=== PATIENT | female | born 1955 | race Two or more races ===

== ENCOUNTER 2016-11-06 18:50 | Emergency (ER) | payer OTHER ==
[2016-11-06 19:12] VITALS: BMI 29.5
[2016-11-06 21:13] LABS: EOSINOPHIL 3.8 % (0-4.5); MCH 31.9 pg (25.7-33.7); MCHC 32.8 g/dl (32.0-36.0); MEAN CELL VOLUME 97.2 fl (80-96); NEUTROPHILS 70.1 % (42.8-82.8); PLATELET COUNT 170 K/MM3 (134-434); RDW 13.6 % (11.6-15.6); WHITE BLOOD COUNT 9.1 K/mm3 (4.0-10.0)
[2016-11-06 21:24] LABS: INR 1.04 (0.82-1.09); PROTHROMBIN TIME (PATIENT) 11.5 SEC (9.98-11.88)
[2016-11-06 21:36] LABS: ALBUMIN 3.6 g/dl (3.4-5.0); BILIRUBIN,TOTAL 0.4 mg/dL (0.2-1.0); CALCIUM 9.1 mg/dL (8.5-10.1); TOT PROT 6.5 g/dl (6.4-8.2)
[2016-11-06 21:39] LABS: TROPONIN I < 0.02 ng/ml (0.00-0.05)
[2016-11-06 21:41] LABS: COCKROFT - GAULT 5.95
[2016-11-06 21:44] LABS: CREATININE 11.2 mg/dL (0.55-1.02)
--- NOTE | 2016-11-06 23:21 | PDOC ---
History of Present Illness - General Chief Complaint: Chest Pain Stated Complaint: DIFF BREATHING/CHEST PAIN Time Seen by Provider: 11/06/16 19:51 History Source: Patient Exam Limitations: No Limitations - History of Present Illness Initial Comments: 11/06/16 23:19 Patient is a 60 year old female with h/o ESRD, b/l nepherectomy, on HD M,W,F, HTN, asthma, anemia, sciatica c/o Diff breathing and chest pain since this AM. State the pain is all over the chest pressure and radiates to b/l ribs 12/26 assoc with difficulty breathing due to the pain. States she has a cough occ, nonproductive. States at HD on Monday she did not make the weight, but was a full dialysis and now she has b/l lower ext edema. Denies fever, chills, nausea , vomiting. PMD: Елена PMHX: as above PSOCHX: neg cig, etoh, drug PFamHX; noncontributory ALL: PCN, toradol, GENERAL/CONSTITUTIONAL: [No fever or chills. No weakness. No weight change.] HEAD, EYES, EARS, NOSE AND THROAT: [No change in vision. No ear pain or discharge. No sore throat.] CARDIOVASCULAR: [No chest pain or shortness of breath.] RESPIRATORY: [No cough, wheezing, or hemoptysis.] GASTROINTESTINAL: [No nausea, vomiting, diarrhea or constipation. No rectal bleeding.] GENITOURINARY: [No dysuria, frequency, or change in urination.] MUSCULOSKELETAL: [(+) joint or muscle swelling or pain. No neck or back pain.] SKIN AND BREASTS: [No rash or easy bruising.] NEUROLOGIC: [No headache, vertigo, loss of consciousness, or loss of sensation.] PSYCHIATRIC: [No depression or anxiety.] ENDOCRINE: [No increased thirst. No abnormal weight change.] HEMATOLOGIC/LYMPHATIC: [No anemia, easy bleeding, or history of blood clots.] ALLERGIC/IMMUNOLOGIC: [No hives or skin allergy. No latex allergy.] GENERAL: [The patient is awake, alert, and fully oriented, in mild distress.] HEAD: [Normal with no signs of trauma.] EYES: [Pupils equal, round and reactive to light, extraocular movements intact, sclera anicteric, conjunctiva clear.] ENT: [Ears normal, nares patent, oropharynx clear without exudates. Moist mucous membranes.] NECK: [Normal range of motion, supple without lymphadenopathy, JVD, or masses.] LUNGS: [Breath sounds equal, clear to auscultation bilaterally. No wheezes, and no crackles.] HEART: [Regular rate and rhythm, normal S1 and S2 without murmur, rub.] ABDOMEN: [Soft, nontender, normoactive bowel sounds. No guarding, no rebound. No masses.] EXTREMITIES: [Normal range of motion, (+) b/l lower ext edema. No clubbing or cyanosis. No cords, erythema, or tenderness.] NEUROLOGICAL: [Cranial nerves II through XII grossly intact. Normal speech, normal gait.] PSYCH: [Normal mood, normal affect.] SKIN: [Warm, Dry, normal turgor, no rashes or lesions noted.] Past History - Past Medical History Allergies/Adverse Reactions: Allergies Allergy/AdvReac Type Severity Reaction Status Date / Time Penicillins Allergy Severe Difficulty Verified 11/06/16 19:59 Breathing ketorolac tromethamine Allergy Intermediate Verified 11/06/16 19:59 [From Toradol] hydromorphone HCl Allergy Nausea Verified 11/06/16 19:59 [From Dilaudid] plastic tape AdvReac Mild Hives Uncoded 11/06/16 19:59 beef AdvReac Vomiting Uncoded 11/06/16 19:59 Home Medications: Ambulatory Orders Omeprazole 40 mg PO DAILY 07/24/11 Montelukast Na [Singulair -] 10 mg PO HS #0 tablet 05/24/13 Sevelamer Carbonate [Renvela -] 2,400 mg PO CM #0 tab 05/24/13 Albuterol Sulfate 0.5% [Ventolin 0.5% Nebulizing Soln. -] 1 neb IH BID 03/20/14 Cholecalciferol (Vitamin D3) [Vitamin D3] 5,000 unit PO DAILY 03/20/14 Cinacalcet HCl [Sensipar] 60 mg PO DAILY 11/24/14 Multivitamin/Iron/Folic Acid [One Daily Multivitamin-Iron Tb] 1 each PO DAILY Anemia: Yes Asthma: Yes Cancer: No Cardiac Disorders: Yes CVA: No COPD: Yes CHF: No Dementia: No Diabetes: No Dialysis: Yes (M,W,F) GI Disorders: Yes Disorders: No HTN: Yes Hypercholesterolemia: No Liver Disease: No Suicide Attempt (Hx): No Seizures: No Thyroid Disease: No - Surgical History Abdominal Surgery: Yes (BILATERAL nephrectomy) Appendectomy: No Cardiac Surgery: No Cholecystectomy: No Lung Surgery: Yes (RIGHT LUNG NODULE REMOVAL) Neurologic Surgery: Yes (cervical renetta placement) Orthopedic Surgery: No - Immunization History Immunization Up to Date: Yes - Psycho/Social/Smoking Cessation Hx Anxiety: No Suicidal Ideation: No Smoking Status: Yes Smoking History: Never smoked Years of Tobacco Use: 16 Have you smoked in the past 12 months: No Number of Cigarettes Smoked Daily: 60 If you are a former smoker, when did you quit?: 17YRS AGO Hx Alcohol Use: No Drug/Substance Use Hx: No Substance Use Type: None Hx Substance Use Treatment: No Cardiac Specific PMH - Complaint Specific PMHX Pacemaker: No *Physical Exam - Vital Signs Last Vital Signs Temp Pulse Resp BP Pulse Ox 98 F 82 16 150/68 97 11/06/16 22:00 11/07/16 02:19 11/07/16 02:19 11/07/16 02:19 11/07/16 02:19 ED Treatment Course - LABORATORY CBC & Chemistry Diagram: 11/06/16 21:08 11/06/16 21:08 - ADDITIONAL ORDERS Additional order review: Laboratory Results 11/07/16 11/06/16 11/06/16 01:51 21:08 21:08 INR 1.04 Sodium Potassium Chloride Carbon Dioxide Anion Gap BUN Creatinine Creat Clearance w eGFR Random Glucose Calcium Total Bilirubin AST ALT Alkaline Phosphatase Creatine Kinase 144 185 D CK-MB (CK-2) 1.859 Troponin I < 0.02 < 0.02 B-Natriuretic Peptide 8653.15 H Total Protein Albumin 11/06/16 21:08 INR Sodium 135 L Potassium 4.9 Chloride 97 L Carbon Dioxide 27 Anion Gap 11 BUN 55 H D Creatinine 11.2 H* D Creat Clearance w eGFR 3.48 Random Glucose 80 Calcium 9.1 Total Bilirubin 0.4 D AST 21 D ALT 24 D Alkaline Phosphatase 194 H Creatine Kinase CK-MB (CK-2) Troponin I B-Natriuretic Peptide Total Protein 6.5 Albumin 3.6 11/06/16 21:08 RBC 2.81 L MCV 97.2 H MCHC 32.8 RDW 13.6 MPV 9.0 Neutrophils % 70.1 Lymphocytes % 19.2 Monocytes % 5.9 Eosinophils % 3.8 Basophils % 1.0 - RADIOLOGY Radiology Studies Ordered: Category Date Time Status CHEST PA & LAT [RAD] Stat Radiology 11/06/16 20:28 Taken - Medications Given in the ED: ED Medications Discontinued Medications Generic Name Dose Route Start Last Admin Trade Name Heidi PRN Reason Stop Dose Admin Nitroglycerin 1 inch 11/06/16 23:55 11/07/16 00:29 Nitro-Bid 2% Paste - TD 11/06/16 23:56 1 inch ONCE ONE Administration Medical Decision Making - Medical Decision Making 11/06/16 23:23 patient is a 60 year old female with h/o ESRD, b/l nepherectomy, on HD M,W,F, HTN, asthma, anemia, sciatica c/o Diff breathing and chest pain since this AM. EKG SR rate 85, NAD, T inversion aVL unchanged from prior Laboratory Tests 11/06/16 11/06/16 11/06/16 21:08 21:08 21:08 WBC 9.1 Hgb 8.9 L D Hct 27.3 L Plt Count 170 INR 1.04 Sodium 135 L Potassium 4.9 Chloride 97 L Carbon Dioxide 27 Anion Gap 11 BUN 55 H D Creatinine 11.2 H* D Troponin I B-Natriuretic Peptide 11/06/16 21:08 WBC Hgb Hct Plt Count INR Sodium Potassium Chloride Carbon Dioxide Anion Gap BUN Creatinine Troponin I < 0.02 B-Natriuretic Peptide 8653.15 H 11/06/16 23:56 Nitropaste 1 inch to chest wall 11/07/16 00:31 cxr chronic changes, no acute infiltrates, nl medistinum 11/07/16 02:38 repeat trop neg, EKG SR rate 81, NAD, T wave inversion aVL unchanged from prior Patient is chest pain free and wanting to go home *DC/Admit/Observation/Transfer Diagnosis at time of Disposition: Difficulty breathing Chest pain Qualifiers: Chest pain type: unspecified Qualified Code(s): R07.9 - Chest pain, unspecified - Discharge Dispostion Disposition: HOME Condition at time of disposition: Stable - Patient Instructions Printed Discharge Instructions: DI for Chest Pain Additional Instructions: Your Discharge Instructions: You must call primary care physician within 24 hours to arrange follow-up. Return to the Emergency Department with any new, persistent or worsening symptoms, for fever, chills, SOB, dizziness or any other concerning changes that may occur.
[2016-11-06] MEDS ORDERED: NITROGLYCERIN 2% OINTMENT - 1GM PACKET TD ONE (23:55)
[2016-11-07] MEDS ORDERED: NITROGLYCERIN 2% OINTMENT - 1GM PACKET TD ONE (00:31)
[2016-11-07 02:33] LABS: TROPONIN I < 0.02 ng/ml (0.00-0.05)
[2016-11-07 02:49] VITALS: BP 166/74; PULSE 80; TEMP 97.7
--- NOTE | 2016-11-07 09:52 | PDOC ---
Patient Follow-up (Call Back) - Post ED Follow - Up Condition at time of discharge: Stable Disposition at time of original discharge: HOME Reason for Call Back: Radiology (Received call from radiology noting nodule findings on CXR previously seen on CT. Requested pt be contacted to pursue CT follow-up of the lesions. no acute process. Pt called once, she is at dialysis and will have her call us back.)
--- NOTE | 2016-11-07 14:01 | EKG ---
Test Reason : Blood Pressure : / mmHG Vent. Rate : 081 BPM Atrial Rate : 081 BPM P-R Int : 182 ms QRS Dur : 096 ms QT Int : 386 ms P-R-T Axes : 061 037 076 degrees QTc Int : 448 ms NORMAL SINUS RHYTHM NORMAL ECG WHEN COMPARED WITH ECG OF 06-NOV-2016 18:59, NO SIGNIFICANT CHANGE WAS FOUND Confirmed by LOUISA YOUNG MD ([id number]) on 11/07/2016 2:01:19 PM Referred By: Confirmed By:LOUISA YOUNG MD
--- NOTE | 2016-11-07 14:04 | EKG ---
Test Reason : Blood Pressure : / mmHG Vent. Rate : 085 BPM Atrial Rate : 085 BPM P-R Int : 178 ms QRS Dur : 094 ms QT Int : 382 ms P-R-T Axes : 061 047 078 degrees QTc Int : 454 ms NORMAL SINUS RHYTHM POSSIBLE LEFT ATRIAL ENLARGEMENT BORDERLINE ECG WHEN COMPARED WITH ECG OF 23-NOV-2014 14:56, NO SIGNIFICANT CHANGE WAS FOUND Confirmed by LOUISA YOUNG MD ([id number]) on 11/07/2016 2:04:18 PM Referred By: Confirmed By:LOUISA YOUNG MD
== END 2016-11-07 02:51 | disposition home or self-care (01) ==
LOC: JER 18:50
DX: R07.89 Other chest pain (principal); I25.10 Atherosclerotic heart disease of native coronary artery without angina pectoris; I13.11 Hypertensive heart and chronic kidney disease without heart failure, with stage 5 chronic kidney disease, or end stage renal disease; N18.6 End stage renal disease; Z99.2 Dependence on renal dialysis; Z90.5 Acquired absence of kidney; J45.909 Unspecified asthma, uncomplicated; J44.9 Chronic obstructive pulmonary disease, unspecified
CPT/HCPCS: 36415; 71020-TC; 80053; 82550; 82553; 83880; 84484; 85025; 85610; 93005; 93010; 99284-25

== ENCOUNTER 2016-12-15 11:22 | Inpatient (IN) | payer OTHER ==
[2016-12-15 11:28] VITALS: BMI 28.6
--- NOTE | 2016-12-15 11:52 | PDOC ---
History of Present Illness <RavindraChristine - Last Filed: 12/15/16 13:56> - General History Source: Patient Exam Limitations: No Limitations - History of Present Illness Initial Comments: 12/15/16 11:51 Patient is a 60 year old female with h/o COPD, ESRD, b/l nepherectomy, on HD M,W ,F, HTN, asthma, anemia, sciatica who presents with sob and chest pain. She became increasingly sob with orthopnea on Monday with dry cough. She had her usual HD session yesterday, with the usual amount of fluid removed. It did not alleviate sob and today she developed cheat wall pain R>L aggravated by deep inspiration. She reports subjective f/c. She saw her PCP today who detected fever and bibasilar infiltrates on todays CXR. She denies h/a, palpitations, n/v , abd pain, diarrhea, constipation, melena, hematochezia, worsening LE edema or weight gain. Denies sick contacts or recent abx use. Reports previous PNA 8 mo ago. 12/15/16 13:48 12/15/16 13:54 12/15/16 14:07 <Malka Chiu - Last Filed: 12/15/16 14:46> - General Chief Complaint: Shortness of Breath Stated Complaint: SOB, CHEST PAIN Time Seen by Provider: 12/15/16 11:45 Past History <Waite,Christine - Last Filed: 12/15/16 13:56> - Past Medical History Anemia: Yes Asthma: Yes Cancer: No Cardiac Disorders: Yes CVA: No COPD: Yes CHF: No Dementia: No Diabetes: No Dialysis: Yes (M,W,F) GI Disorders: Yes Disorders: No HTN: Yes Hypercholesterolemia: No Liver Disease: No Suicide Attempt (Hx): No Seizures: No Thyroid Disease: No - Surgical History Abdominal Surgery: Yes (BILATERAL nephrectomy) Appendectomy: No Cardiac Surgery: No Cholecystectomy: No Lung Surgery: Yes (RIGHT LUNG NODULE REMOVAL) Neurologic Surgery: Yes (cervical renetta placement) Orthopedic Surgery: No - Immunization History Immunization Up to Date: Yes - Psycho/Social/Smoking Cessation Hx Anxiety: No Suicidal Ideation: No Smoking Status: Yes Smoking History: Never smoked Years of Tobacco Use: 16 Have you smoked in the past 12 months: No Number of Cigarettes Smoked Daily: 60 If you are a former smoker, when did you quit?: 17YRS AGO Information on smoking cessation initiated: No Hx Alcohol Use: No Drug/Substance Use Hx: No Substance Use Type: None Hx Substance Use Treatment: No <Malka Chiu - Last Filed: 12/15/16 14:46> - Past Medical History Allergies/Adverse Reactions: Allergies Allergy/AdvReac Type Severity Reaction Status Date / Time Penicillins Allergy Severe Difficulty Verified 12/15/16 11:28 Breathing ketorolac tromethamine Allergy Intermediate Verified 12/15/16 11:28 [From Toradol] hydromorphone HCl Allergy Nausea Verified 12/15/16 11:28 [From Dilaudid] plastic tape AdvReac Mild Hives Uncoded 12/15/16 11:28 beef AdvReac Vomiting Uncoded 12/15/16 11:28 Home Medications: Ambulatory Orders Omeprazole 40 mg PO DAILY 07/24/11 Montelukast Na [Singulair -] 10 mg PO HS #0 tablet 05/24/13 Sevelamer Carbonate [Renvela -] 2,400 mg PO CM #0 tab 05/24/13 Albuterol Sulfate 0.5% [Ventolin 0.5% Nebulizing Soln. -] 1 neb IH BID 03/20/14 Cholecalciferol (Vitamin D3) [Vitamin D3] 5,000 unit PO DAILY 03/20/14 Cinacalcet HCl [Sensipar] 60 mg PO DAILY 11/24/14 Multivitamin/Iron/Folic Acid [One Daily Multivitamin-Iron Tb] 1 each PO DAILY Amlodipine Besylate [Norvasc -] 5 mg PO DAILY 12/15/16 Losartan Potassium 25 mg PO DAILY 12/15/16 Review of Systems - Review of Systems Able to Perform ROS?: Yes Comments:: 12/15/16 13:53 Is the patient limited Bahraini proficient: No Constitutional: Yes: Chills, Fever. No: Diaphoresis, Unexplained wgt Loss HEENTM: No: Blurred Vision, Nose Congestion, Throat Pain Respiratory: Yes: Cough, Orthopnea, Shortness of Breath. No: Wheezing, Productive cough, Hemoptysis Cardiac (ROS): Yes: Chest Pain. No: Irregular Heart Rate, Lightheadedness, Palpitations, Syncope ABD/GI: No: Abdominal Distended, Constipated, Diarrhea, Nausea, Rectal Bleeding , Vomiting, Abdominal cramping, Tarry Stools : No: Burning, Dysuria, Flank Pain Musculoskeletal: No: Back Pain, Gout Integumentary: No: Bruising, Dryness, Erythema, Rash Neurological: No: Headache, Numbness, Paresthesia Psychiatric: No: Anxiety, Depression Endocrine: No: Excessive Sweating, Unexplained Weight Gain, Change in Weight Hematologic/Lymphatic: No: Anemia, Easy Bleeding All Other Systems: Reviewed and Negative <Malka Chiu - Last Filed: 12/15/16 14:46> *Physical Exam - Vital Signs Last Vital Signs Temp Pulse Resp BP Pulse Ox 98.4 F 92 H 18 180/74 100 12/15/16 11:26 12/15/16 12:57 12/15/16 11:26 12/15/16 11:26 12/15/16 12:57 <Christine Waite - Last Filed: 12/15/16 13:56> - Vital Signs Last Vital Signs Temp Pulse Resp BP Pulse Ox 98.4 F 97 H 18 180/74 94 L 12/15/16 11:26 12/15/16 11:26 12/15/16 11:26 12/15/16 11:26 12/15/16 11:26 - Physical Exam Comments: 12/15/16 13:32 General: NAD,aao x 3 HEENT: normocephalic, atraumatic, PERRLA, EOMI, sclera anicteric, conjunctiva clear, moist mucous membranes CV: RRR S1S2, grade 3 systolic ej murmur best head in R upper sternal border. reproducible chest pain when pressing on chest wall. Resp: reduced breath sounds in R base, otherwise cta GI: normoactive bowel sounds, soft, mildly tender ruq, nondistended, no mass Neuro: CN II-XII grossly intact Musculoskeletal:no peripheral edema. 12/15/16 13:55 <Malka Chiu - Last Filed: 12/15/16 14:46> Heart Score/ECG Review - History History: Slightly suspicious - Electrocardiogram EKG: Normal - Age Age: 45-65 - Risk Factors Risk Factors Heart Score: Yes Smoking History Based on the list above the patient has:: 1-2 risk factors - Troponin Troponin: </= normal limit - Score Heart Score - Total: 2 #1 ECG reviewed & interpreted by me at: 11:35 (ns 98, normal axis, no st changes. l atrial enlargement ) <Malka Chiu - Last Filed: 12/15/16 14:46> ED Treatment Course - LABORATORY CBC & Chemistry Diagram: 12/15/16 12:42 12/15/16 12:42 - ADDITIONAL ORDERS Additional order review: Laboratory Results 12/15/16 12/15/16 12/15/16 12:42 12:42 12:42 INR 1.12 PTT (Actin FS) 27.1 Sodium Potassium Chloride Carbon Dioxide Anion Gap BUN Creatinine Creat Clearance w eGFR Random Glucose Lactic Acid 1.2 Calcium Total Bilirubin AST ALT Alkaline Phosphatase Creatine Kinase 90 Troponin I 0.02 Total Protein Albumin 12/15/16 12:42 INR PTT (Actin FS) Sodium 138 Potassium 5.0 Chloride 97 L Carbon Dioxide 30 Anion Gap 11 BUN 25 H D Creatinine 7.3 H D Creat Clearance w eGFR 5.70 Random Glucose 110 H D Lactic Acid Calcium 9.2 Total Bilirubin 0.5 D AST 23 ALT 19 D Alkaline Phosphatase 182 H Creatine Kinase Troponin I Total Protein 6.5 Albumin 3.4 12/15/16 12:42 RBC 2.81 L MCV 95.3 MCHC 32.5 RDW 14.4 MPV 8.1 Neutrophils % 78.5 Lymphocytes % 12.8 D Monocytes % 5.4 Eosinophils % 2.1 Basophils % 1.2 - Medications Given in the ED: ED Medications Discontinued Medications Generic Name Dose Route Start Last Admin Trade Name Freq PRN Reason Stop Dose Admin Albuterol/Ipratropium 1 amp 12/15/16 12:20 12/15/16 12:45 Duoneb - NEB 12/15/16 12:21 1 amp ONCE ONE Administration Levofloxacin 150 mls @ 100 mls/hr 12/15/16 12:24 12/15/16 12:45 Levaquin 750 Mg Premixed Ivpb - IVPB 12/15/16 13:53 100 mls/hr ONCE ONE Administration <Christine Waite - Last Filed: 12/15/16 13:56> - LABORATORY CBC & Chemistry Diagram: 12/15/16 12:42 12/15/16 12:42 <Malka Chiu - Last Filed: 12/15/16 14:46> Medical Decision Making - Medical Decision Making 12/15/16 13:55 Patient presents with clinical picture most consistent with copd exacerbation vs pna. r/o acs patient afebrile but mildly tachycardic, sepsis protocol started cbc unremarkable, anemia at baseline, cmp unremarkable compared to baseline, trop negative, BNP p/d CXR shows increased bibasilar lung markings starting patient on nebs, levaqin IV BNP >34638 above baseline Cardio consult Renal consult contacting PCP for admission to telemetry 12/15/16 13:57 12/15/16 13:59 12/15/16 14:00 12/15/16 14:01 12/15/16 14:24 12/15/16 14:45 <Malka Chiu - Last Filed: 12/15/16 14:46> *DC/Admit/Observation/Transfer <Christine Waite - Last Filed: 12/15/16 13:56> - Discharge Dispostion Admit: Yes <Malka Chiu - Last Filed: 12/15/16 14:46> Diagnosis at time of Disposition: Congestive heart failure, Community acquired pneumonia
[2016-12-15] MEDS ORDERED: ALBUTEROL SO4 2.5/IPRATROPIUM 0.5 INH SOL 3 ML VIAL.NEB. NEB ONE ×2 (12:20→12:32)
--- NOTE | 2016-12-15 12:21 | PDOC ---
Attending Attestation - Medical Decision Making 12/15/16 13:[address] Baum. <Christine Waite - Last Filed: 12/15/16 13:57> - Resident Resident Name: Haroon Chiula - ED Attending Attestation I have performed the following: I have examined & evaluated the patient, The case was reviewed & discussed with the resident, I agree w/resident's findings & plan, Exceptions are as noted - HPI HPI: 12/15/16 12:20 The pat is a 60 year old female with a significant past medical history of COPD , ESRD (MWF) who presents with several days of increasing dyspnea and cough. Today she developed bilateral chest discomfort that is only present with cough or deep inspiration. 12/15/16 12:21 12/15/16 12:21 - Physicial Exam PE: 12/15/16 12:21 Vitals noted Diffuse wheezing Bibasilar crackles 12/15/16 13:05 - Medical Decision Making 12/15/16 13:05 She is well-appearing and in no acute distress She is afebrile She does not have a leukocytosis I am concerned for possible volume overload Labs, including BNP pending 12/15/16 14:23 Elevated BNP noted, significantly higher than previously Laboratory Tests 10/09/11 04/05/12 11/25/14 15:23 15:31 05:45 B-Natriuretic Peptide 6277 H* 2049 H* 2361.34 H 11/06/16 12/15/16 21:08 12:42 B-Natriuretic Peptide 8653.15 H 91539.84 H Clinical impression: Volume overload Acute exacerbation of congestive heart failure Will consult renal and cardiology Will admit to telemetry Case discussed in detail with admitting provider including history, physical exam and ancillary studies. Admitting physician has assumed care for the patient, will follow all pending diagnostics and will complete the evaluation and treatment. 12/15/16 15:04 Renal at bedside They will partially dialyze <Geo Akbar - Last Filed: 12/15/16 15:04>
[2016-12-15] MEDS ORDERED: LEVOFLOXACIN 750 MG IVPB 150 ML IVPB ONE ×2 (12:24→12:32)
[2016-12-15 12:51] LABS: BASOPHIL 1.2 % (0-2.0); EOSINOPHIL 2.1 % (0-4.5); MCH 30.9 pg (25.7-33.7); MCHC 32.5 g/dl (32.0-36.0); MEAN CELL VOLUME 95.3 fl (80-96); MEAN PLT VOLUME 8.1 fl (7.5-11.1); NEUTROPHILS 78.5 % (42.8-82.8); PLATELET COUNT 180 K/MM3 (134-434); RDW 14.4 % (11.6-15.6); WHITE BLOOD COUNT 9.2 K/mm3 (4.0-10.0)
[2016-12-15 13:06] LABS: INR 1.12 (0.82-1.09); PROTHROMBIN TIME (PATIENT) 12.4 SEC (9.98-11.88)
[2016-12-15 13:08] LABS: ACTIVATED PTT 27.1 SECONDS (26.9-34.4)
[2016-12-15 13:11] LABS: ALBUMIN 3.4 g/dl (3.4-5.0); ALK PHOS 182 U/L (45-117); ANION GAP 11 (8-16); BILIRUBIN,TOTAL 0.5 mg/dL (0.2-1.0); CALCIUM 9.2 mg/dL (8.5-10.1); CO2 30 mmol/L (21-32); CREATININE 7.3 mg/dL (0.55-1.02); GLUCOSE,RANDOM 110 mg/dL (74-106); SGPT/ALT 19 U/L (12-78); TOT PROT 6.5 g/dl (6.4-8.2); TROPONIN I 0.02 ng/ml (0.00-0.05)
[2016-12-15 13:12] LABS: SGOT/AST 23 U/L (15-37)
--- NOTE | 2016-12-15 14:55 | EKG ---
Test Reason : Blood Pressure : / mmHG Vent. Rate : 098 BPM Atrial Rate : 098 BPM P-R Int : 164 ms QRS Dur : 100 ms QT Int : 346 ms P-R-T Axes : 060 055 077 degrees QTc Int : 441 ms NORMAL SINUS RHYTHM POSSIBLE LEFT ATRIAL ENLARGEMENT BORDERLINE ECG WHEN COMPARED WITH ECG OF 07-NOV-2016 02:44, NO SIGNIFICANT CHANGE WAS FOUND Confirmed by ASHU GOULD MD ([id number]) on 12/15/2016 2:54:49 PM Referred By: Confirmed By:ASHU GOULD MD
--- NOTE | 2016-12-15 15:29 | CONSULT ---
Consult Consult Specialty:: Nephrology ( [facility]/ [facility]) Reason for Consultation:: Patient with ESRD admitted with SOB - History of Present Illness Chief Complaint: The pat is a 60 year old female with a significant past medical history of COPD, ESRD , getting dialysis on MWF, who presents with several days of increasing dyspnea and cough. Today she developed bilateral chest discomfort that is only present with cough or deep inspiration. - History Source History Provided By: Patient - Past Medical History Cardio/Vascular: Yes: HTN Pulmonary: Yes: Asthma, COPD Renal/: Yes: Renal Failure, Hemodialysis - Alcohol/Substance Use Hx Alcohol Use: No - Smoking History Smoking history: Never smoked Have you smoked in the past 12 months: No Aproximately how many cigarettes per day: 60 If you are a former smoker, when did you quit?: 17YRS AGO - Social History ADL: Independent History of Recent Travel: No Home Medications - Allergies Allergies/Adverse Reactions: Allergies Allergy/AdvReac Type Severity Reaction Status Date / Time Penicillins Allergy Severe Difficulty Verified 12/15/16 11:28 Breathing ketorolac tromethamine Allergy Intermediate Verified 12/15/16 11:28 [From Toradol] hydromorphone HCl Allergy Nausea Verified 12/15/16 11:28 [From Dilaudid] plastic tape AdvReac Mild Hives Uncoded 12/15/16 11:28 beef AdvReac Vomiting Uncoded 12/15/16 11:28 - Home Medications Home Medications: Ambulatory Orders Omeprazole 40 mg PO DAILY 07/24/11 Montelukast Na [Singulair -] 10 mg PO HS #0 tablet 05/24/13 Sevelamer Carbonate [Renvela -] 2,400 mg PO CM #0 tab 05/24/13 Albuterol Sulfate 0.5% [Ventolin 0.5% Nebulizing Soln. -] 1 neb IH BID 03/20/14 Cholecalciferol (Vitamin D3) [Vitamin D3] 5,000 unit PO DAILY 03/20/14 Cinacalcet HCl [Sensipar] 60 mg PO DAILY 11/24/14 Multivitamin/Iron/Folic Acid [One Daily Multivitamin-Iron Tb] 1 each PO DAILY Amlodipine Besylate [Norvasc -] 5 mg PO DAILY 12/15/16 Losartan Potassium 25 mg PO DAILY 12/15/16 Review of Systems - Review of Systems Constitutional: reports: Weakness Neck: reports: Stiffness Respiratory: reports: Exercise Intolerance Genitourinary: denies: Burning, Incontinence Musculoskeletal: denies: Back Pain Neurological: denies: Change in Speech Physical Exam Vital Signs: Vital Signs Temperature 99 F 12/15/16 13:53 Pulse Rate 100 H 12/15/16 13:53 Respiratory Rate 20 12/15/16 13:53 Blood Pressure 167/81 12/15/16 13:53 O2 Sat by Pulse Oximetry (%) 100 12/15/16 13:53 Constitutional: Yes: Well Nourished, Moderate Distress HENT: Yes: Normocephalic Neck: Yes: Trachea Midline Cardiovascular: Yes: S1, S2 Respiratory: Yes: Diminished, On Nasal O2, Rales, Rhonchi Gastrointestinal: Yes: Normal Bowel Sounds Renal/: No: CVA Tenderness - Left, CVA Tenderness - Right Musculoskeletal: Yes: Back Pain Problem List - Problems (1) CHF (congestive heart failure) Code(s): I50.9 - HEART FAILURE, UNSPECIFIED (2) Difficulty breathing Code(s): R06.89 - OTHER ABNORMALITIES OF BREATHING (3) Low back pain radiating to both legs Code(s): M54.5 - LOW BACK PAIN (4) ESRD (end stage renal disease) on dialysis Code(s): N18.6 - END STAGE RENAL DISEASE Z99.2 - DEPENDENCE ON RENAL DIALYSIS (5) Anemia Code(s): D64.9 - ANEMIA, UNSPECIFIED Assessment/Plan 60 y/o female with ESRD, admitted with acute shortness of breath. Congestive Heart failure: Will dialyze emergently, and remove as much fluid as tolerated by isolated UF. Acute exacerbation of COPD. Can not r/o an acute respiratory Infection. IV abx as ordered. Epogen on dialysis Thank you. Will follow up with you. Michelle Waggoner MD
[2016-12-15] MEDS: ALBUTEROL SO4 2.5/IPRATROPIUM 0.5 INH SOL 3 ML VIAL.NEB. NEB PRN (23:15)
[2016-12-15] MEDS: MONTELUKAST NA 10 MG TABLET PO SCH (23:25)
[2016-12-15] MEDS: CINACALCET HCL 30 MG TAB (FP) PO SCH (23:26)
[2016-12-15] MEDS ORDERED: PANTOPRAZOLE 40 MG TABLET (FP) PO ONE (23:30)
[2016-12-15] MEDS ORDERED: LOSARTAN POTASSIUM 50 MG TABLET (FP) PO ONE (23:30)
[2016-12-15 23:54] LABS: TROPONIN I 0.02 ng/ml (0.00-0.05)
[2016-12-16] MEDS ORDERED: ACETAMINOPHEN 1000 MG/100 ML VIAL (NON FORMULARY) IVPB ONE (00:33)
--- NOTE | 2016-12-16 00:35 | HOSP ---
Subjective - Review of Symptoms Events since last encounter: Pt c/o chest pain located at distal sternum radiating to L breast. Pain is her usual chest pain she feels at home which is normally relieved with nitro. Pt denies N/V, diaphoresis, sob, pain radiating to jaw or arms. RRR, S1S2 +, chest pain reproducible on palpation including pain at left breast. Lungs CTA anteriorly. A/P EKG ordered - no changes noted compared to previous ekg. No ST segment changes noted. Initial trop negative. Trend trops in AM. IV ofirmev 1g given for pain. Physical Examination Vital Signs: Vital Signs Temperature 98.8 F 12/15/16 17:40 Pulse Rate 81 12/15/16 19:50 Respiratory Rate 18 12/15/16 19:50 Blood Pressure 169/92 12/15/16 19:50 O2 Sat by Pulse Oximetry (%) 100 12/15/16 17:21 Visit type - Emergency Visit Emergency Visit: Yes ED Registration Date: 12/15/16 Care time: The patient presented to the Emergency Department on the above date and was hospitalized for further evaluation of their emergent condition. - New Patient This patient is new to me today: Yes Date on this admission: 12/16/16 - Critical Care Critical Care patient: No
[2016-12-16 06:36] LABS: BASOPHIL 0.6 % (0-2.0); EOSINOPHIL 2.7 % (0-4.5); MCH 31.3 pg (25.7-33.7); MEAN CELL VOLUME 94.8 fl (80-96); MEAN PLT VOLUME 8.6 fl (7.5-11.1); NEUTROPHILS 75.2 % (42.8-82.8); PLATELET COUNT 160 K/MM3 (134-434); RDW 14.1 % (11.6-15.6); WHITE BLOOD COUNT 7.4 K/mm3 (4.0-10.0)
[2016-12-16 06:53] LABS: ALBUMIN 3.3 g/dl (3.4-5.0); ANION GAP 11 (8-16); CALCIUM 9.2 mg/dL (8.5-10.1); CO2 31 mmol/L (21-32); CREATININE 5.9 mg/dL (0.55-1.02); GLUCOSE,RANDOM 84 mg/dL (74-106); SGOT/AST 16 U/L (15-37); SGPT/ALT 16 U/L (12-78)
[2016-12-16 06:55] LABS: ALK PHOS 175 U/L (45-117); BILIRUBIN,TOTAL 0.4 mg/dL (0.2-1.0); TOT PROT 6.3 g/dl (6.4-8.2)
--- NOTE | 2016-12-16 09:10 | CON.CARD ---
Consult Consult Specialty:: Cardiology Referred by:: ER Reason for Consultation:: SOB, CHF, chest pain - History of Present Illness Chief Complaint: SOB, chest pain History of Present Illness: 60 year old woman with a history of HTN, b/l nephrectomy ESRD on HD, COPD admitted with c/o sob and chest pain. Pt noted to be volume overloaded, underwent HD yesterday with volume removal and significant improvement in symptoms. planned for HD again today. Of note pt was seen in the office last week by my associate who she follows with regularly. Pt had a cardiac cath 2014 that showed normal coronary arteries. Echo was done 10/2016 that showed normal LV/RV function, no pericardial effusion, mild PHTN, mild MR, mod MAC. - History Source History Provided By: Patient, Medical Record Limitations to Obtaining History: No Limitations - Past Medical History Cardio/Vascular: Yes: HTN, Pulmonary Hypertension Pulmonary: Yes: Asthma, COPD Renal/: Yes: Renal Failure, Hemodialysis - Alcohol/Substance Use Hx Alcohol Use: No - Smoking History Smoking history: Former smoker Have you smoked in the past 12 months: No Aproximately how many cigarettes per day: 60 If you are a former smoker, when did you quit?: 17YRS AGO - Social History ADL: Independent History of Recent Travel: No Home Medications - Allergies Allergies/Adverse Reactions: Allergies Allergy/AdvReac Type Severity Reaction Status Date / Time Penicillins Allergy Severe Difficulty Verified 12/15/16 11:28 Breathing ketorolac tromethamine Allergy Intermediate Verified 12/15/16 11:28 [From Toradol] hydromorphone HCl Allergy Nausea Verified 12/15/16 11:28 [From Dilaudid] plastic tape AdvReac Mild Hives Uncoded 12/15/16 11:28 beef AdvReac Vomiting Uncoded 12/15/16 11:28 - Home Medications Home Medications: Ambulatory Orders Omeprazole 40 mg PO DAILY 07/24/11 Montelukast Na [Singulair -] 10 mg PO HS #0 tablet 05/24/13 Albuterol Sulfate 0.5% [Ventolin 0.5% Nebulizing Soln. -] 1 neb IH BID 03/20/14 Cholecalciferol (Vitamin D3) [Vitamin D3] 5,000 unit PO DAILY 03/20/14 Cinacalcet HCl [Sensipar] 30 mg PO BID 11/24/14 Multivitamin/Iron/Folic Acid [One Daily Multivitamin-Iron Tb] 1 each PO DAILY Amlodipine Besylate [Norvasc -] 5 mg PO DAILY 12/15/16 Losartan Potassium 25 mg PO DAILY 12/15/16 Sevelamer Carbonate [Renvela -] 2,400 mg PO TID 12/15/16 Family Disease History - Family Disease History Family History: Denies Review of Systems - Review of Systems Constitutional: denies: No Symptoms, Chills, Diaphoresis, Fever, Lethargy, Loss of Appetite, Malaise, Night Sweats, Unintentional Wgt. Loss, Weakness, Other Eyes: denies: No Symptoms, Blind Spots, Blurred Vision, Double Vision, Eye Pain , Floaters, Photophobia, Recent Change in Vision, Other HENT: denies: No Symptoms, Difficult Swallowing, Ear Discharge, Ear Pain, Epistaxis, Gingival Bleeding, Hearing Loss, Mouth Swelling, Nasal Congestion, Ocular Prosthesis, Throat Pain, Toothache, Ringing in Ears, Other Neck: denies: No Symptoms, Decreased ROM, Lumps, Pain on Movement, Stiffness, Swollen Glands, Tenderness, Other Cardiovascular: reports: Chest Pain, Shortness of Breath. denies: No Symptoms, Edema, Palpitations, Other Respiratory: reports: Exercise Intolerance, Orthopnea, SOB, SOB on Exertion. denies: No Symptoms, Cough, Hemoptysis, PND, Snoring, Wheezing, Other Gastrointestinal: denies: No Symptoms, Abdominal Pain, Bloating, Constipation, Diarrhea, Dysphagia, Indigestion, Melena, Nausea, Rectal Bleeding, Vomiting, Vomiting Blood, Other Genitourinary: denies: No Symptoms, Burning, Discharge, Dysuria, Flank Pain, Frequency, Hematuria, Incontinence, Lesions, Menses, Pain, Testicular Mass, Testicular Pain, Testicular Swelling, Urgency, Vaginal Bleeding, Other Breasts: denies: No Symptoms Reported, See HPI, Breast Implants, Discharge from Nipple, Lumps, Pain, Skin Changes, Other Musculoskeletal: denies: No Symptoms, Back Pain, Crepitus, Decreased ROM, Extremity Pain, Joint Pain, Joint Swelling, Muscle Pain, Muscle Cramps, Muscle Weakness, Other Integumentary: denies: No Symptoms, Blister, Bruising, Change in Color, Eczema, Erythema, Incision, Lesions, Lump, Pallor, Pruritis, Rash, Wound, Other Neurological: denies: No Symptoms, Change in LOC, Change in Speech, Confusion, Dizziness, Headache, Incoordination, Numbness, Parasthesia, Pre-Existing Deficit , Seizure, Syncope, Tremors, Unsteady Gait, Weakness, Other Endocrine: denies: No Symptoms, Excessive Sweating, Flushing, Increased Hunger, Increased Thirst, Intolerance to Cold, Intolerance to Heat, Unexplained Weight Gain, Unexplained Weight Loss, Other Hematology/Lymphatic: denies: No Symptoms, Easily Bruised, Excessive Bleeding, Swollen Glands, Other Psychiatric: denies: No Symptoms, Altered Sleep Pattern, Anxiety, Depression, Hallucinations, Panic, Paranoia, Suicidal, Other - Risk Factors Known Risk Factors: Yes: Hypercholesterolemia, Hypertension Vital Signs: Vital Signs Temperature 98.1 F 12/16/16 06:00 Pulse Rate 84 12/16/16 06:00 Respiratory Rate 12/16/16 06:00 Blood Pressure 161/67 12/16/16 06:00 O2 Sat by Pulse Oximetry (%) 100 12/15/16 20:58 Constitutional: Yes: Well Nourished, No Distress, Calm Eyes: Yes: WNL, Conjunctiva Clear, EOM Intact, PERRL HENT: Yes: WNL, Atraumatic, Normocephalic Neck: Yes: WNL, Supple, Trachea Midline Respiratory: Yes: Regular, Rales (slight rales b/l bases). No: Rhonchi, SOB, Wheezes Gastrointestinal: Yes: WNL, Normal Bowel Sounds, Soft. No: Distention, Tenderness Renal/: Yes: WNL Cardiovascular: Yes: Regular Rate and Rhythm. No: Bradycardia, Tachycardia, Pulse Irregular, Gallop, Rub, Varicosities, Other JVD: No Carotid Bruit: No PMI: Non-Displaced Heart Sounds: Yes: S1, S2. No: Split S2, S3, S4, Clicks, Gallop, Rub, Bruit Murmur: Yes: Systolic Murmur, Grade 2. No: Diastolic Murmur Musculoskeletal: Yes: WNL Extremities: Yes: WNL Edema: No Peripheral Pulses WNL: Yes Peripheral Pulses: 2+ Left Doralis Pedis, 2+ Right Dorsalis Pedis Integumentary: Yes: WNL Neurological: Yes: WNL, Alert, Oriented, Cran Nerves II-XII Intact ...Motor Strength: WNL Psychiatric: Yes: WNL, Alert, Oriented - Other Data Labs, Other Data: CBC, BMP 12/16/16 05:15 12/16/16 05:15 INR, PTT INR 1.12 (0.82-1.09) 12/15/16 12:42 Troponin, BNP 12/15/16 12/16/16 23:15 05:15 Troponin I 0.02 0.02 Troponin, BNP 12/15/16 12/16/16 23:15 05:15 Troponin I 0.02 0.02 ekg-nsr 86bpm, nonspecific st abnl, apcs Echo: Report Reviewed Prior Cardiac Procedures: Cardiac Catheterization Ejection Fraction %: LVEF > or = 40 % Imaging - Results Chest X-ray: Report Reviewed, Image Reviewed EKG: Report Reviewed, Image Reviewed Other: Report Reviewed, Image Reviewed (tele-nsr, no arrhythmias recorded) Assessment/Plan SOB Atypical chest pain HTN ESRD HD COPD SOB-pulmonary edema, likely multifactorial, esrd on hd, likely degree of acute on chronic diastolic CHF, mild Phtn, COPD -clinically and symptomatically much improved since having HD yesterday -planned for further volume removal with HD today -close to euvolemic now -ok from a cardiac standpoint for discharge today after HD Chest pain-atypical, unlikely ischemic -pt is followed closely as outpatient -cardiac cath 2014 showed normal coronary arteries -cardiac enzymes wnl -remainder of cardiac work up can be completed as outpatient -no additional planned inpatient cardiac work up at this point, pt is acceptable for discharge from a cardiac standpoint with a plan for close outpatient follow up next week, she agrees to the plan HTN-above goal -cont home meds and re-evaluate after HD -close outpatient follow up
[2016-12-16] MEDS ORDERED: LOSARTAN POTASSIUM 25 MG TABLET PO SCH (10:00)
[2016-12-16] MEDS ORDERED: PANTOPRAZOLE 40 MG TABLET (FP) PO SCH (10:00)
--- NOTE | 2016-12-16 11:25 | PN ---
Progress Note, Physician History of Present Illness: The patient seen in the telemetry unit. Awake alert, hemodialysis in progress. UF well tolerated. No chest pains at this point. She has history of HTN, b/l nephrectomy ESRD on HD, COPD. - Current Medication List Current Medications: Active Medications Albuterol/Ipratropium (Duoneb -) 1 amp NEB Q6H PRN PRN Reason: SHORTNESS OF BREATH Last Admin: 12/15/16 23:15 Dose: 1 amp Amlodipine Besylate (Norvasc -) 5 mg PO DAILY [facility] Cinacalcet (Sensipar -) 30 mg PO BID [facility] Last Admin: 12/15/16 23:26 Dose: Not Given Heparin Sodium (Porcine) (Heparin -) 5,000 unit SQ BID [facility] Losartan Potassium (Cozaar -) 50 mg PO DAILY [facility] Montelukast Sodium (Singulair -) 10 mg PO HS [facility] Last Admin: 12/15/16 23:25 Dose: 10 mg Pantoprazole Sodium (Protonix -) 40 mg PO DAILY [facility] Sevelamer Carbonate (Renvela -) 2,400 mg PO TIDCM [facility] - Objective Vital Signs: Vital Signs Temperature 98.2 F 12/16/16 10:00 Pulse Rate 78 12/16/16 11:00 Respiratory Rate 18 12/16/16 11:00 Blood Pressure 168/82 12/16/16 11:00 O2 Sat by Pulse Oximetry (%) 100 12/15/16 20:58 Labs: CBC, BMP 12/16/16 05:15 12/16/16 05:15 INR, PTT INR 1.12 (0.82-1.09) 12/15/16 12:42 Problem List - Problems (1) CHF (congestive heart failure) Code(s): I50.9 - HEART FAILURE, UNSPECIFIED (2) Difficulty breathing Code(s): R06.89 - OTHER ABNORMALITIES OF BREATHING (3) Low back pain radiating to both legs Code(s): M54.5 - LOW BACK PAIN (4) ESRD (end stage renal disease) on dialysis Code(s): N18.6 - END STAGE RENAL DISEASE Z99.2 - DEPENDENCE ON RENAL DIALYSIS (5) Anemia Code(s): D64.9 - ANEMIA, UNSPECIFIED Assessment/Plan 60 y/o female with ESRD, admitted with acute shortness of breath. Congestive Heart failure: had received HD with UF and significant fluid removal. Clinically feeling much better. HD in progress. Tolerates HD well. Orders reviewed with the RN. Off Abx. Agree with the current regimen. Thank you. Will follow up with you. Michelle Waggoner MD
--- NOTE | 2016-12-16 12:06 | HP ---
Admitting History and Physical - Admission History of Present Illness: Patient is a 60 year old female with h/o COPD, ESRD, b/l nepherectomy, on HD M,W ,F, HTN, asthma, anemia, sciatica who presents with sob and chest pain. She became increasingly sob with orthopnea on Monday with dry cough. She had her usual HD session yesterday, with the usual amount of fluid removed. It did not alleviate sob and today she developed cheat wall pain R>L aggravated by deep inspiration. She reports subjective f/c. She saw her PCP today who detected fever and bibasilar infiltrates on todays CXR. She denies h/a, palpitations, n/v , abd pain, diarrhea, constipation, melena, hematochezia, worsening LE edema or weight gain. Denies sick contacts or recent abx use. Reports previous PNA 8 mo ago. - Past Medical History Cardiovascular: Yes: HTN, Pulmonary Hypertension Pulmonary: Yes: Asthma, COPD Renal/: Yes: Renal Failure, Hemodialysis Heme/Onc: Yes: Anemia - Smoking History Smoking history: Former smoker Have you smoked in the past 12 months: No Aproximately how many cigarettes per day: 60 If you are a former smoker, when did you quit?: 17YRS AGO - Alcohol/Substance Use Hx Alcohol Use: No - Social History ADL: Independent History of Recent Travel: No Home Medications - Allergies Allergies/Adverse Reactions: Allergies Allergy/AdvReac Type Severity Reaction Status Date / Time Penicillins Allergy Severe Difficulty Verified 12/15/16 11:28 Breathing ketorolac tromethamine Allergy Intermediate Verified 12/15/16 11:28 [From Toradol] hydromorphone HCl Allergy Nausea Verified 12/15/16 11:28 [From Dilaudid] plastic tape AdvReac Mild Hives Uncoded 12/15/16 11:28 beef AdvReac Vomiting Uncoded 12/15/16 11:28 - Home Medications Home Medications: Ambulatory Orders Omeprazole 40 mg PO DAILY 07/24/11 Montelukast Na [Singulair -] 10 mg PO HS #0 tablet 05/24/13 Albuterol Sulfate 0.5% [Ventolin 0.5% Nebulizing Soln. -] 1 neb IH BID 03/20/14 Cholecalciferol (Vitamin D3) [Vitamin D3] 5,000 unit PO DAILY 03/20/14 Cinacalcet HCl [Sensipar] 30 mg PO BID 11/24/14 Multivitamin/Iron/Folic Acid [One Daily Multivitamin-Iron Tb] 1 each PO DAILY Sevelamer Carbonate [Renvela -] 2,400 mg PO TID 12/15/16 Losartan Potassium [Cozaar -] 50 mg PO DAILY #30 tablet 12/18/16 Family Disease History - Family Disease History Family History: Unremarkable Review of Systems - Review of Systems Constitutional: reports: No Symptoms Eyes: reports: No Symptoms HENT: reports: No Symptoms Neck: reports: No Symptoms Cardiovascular: reports: No Symptoms Respiratory: reports: No Symptoms Gastrointestinal: reports: No Symptoms Physical Examination Vital Signs: Vital Signs Temperature 98.2 F 12/16/16 10:00 Pulse Rate 82 12/16/16 12:00 Respiratory Rate 18 12/16/16 12:00 Blood Pressure 157/94 12/16/16 12:00 O2 Sat by Pulse Oximetry (%) 100 12/15/16 20:58 Constitutional: Yes: No Distress Eyes: Yes: WNL HENT: Yes: WNL, Atraumatic Neck: Yes: WNL, Supple Cardiovascular: Yes: WNL, Regular Rate and Rhythm Respiratory: Yes: WNL, Regular, CTA Bilaterally Gastrointestinal: Yes: WNL, Normal Bowel Sounds Musculoskeletal: Yes: WNL Extremities: Yes: WNL Edema: No Neurological: Yes: WNL, Alert, Oriented ...Motor Strength: WNL Labs: CBC, BMP 12/16/16 05:15 12/16/16 05:15 Problem List - Problems (1) Anemia Code(s): D64.9 - ANEMIA, UNSPECIFIED (2) CAP (community acquired pneumonia) Code(s): J18.9 - PNEUMONIA, UNSPECIFIED ORGANISM (3) CHF (congestive heart failure) Code(s): I50.9 - HEART FAILURE, UNSPECIFIED (4) ESRD (end stage renal disease) on dialysis Code(s): N18.6 - END STAGE RENAL DISEASE Z99.2 - DEPENDENCE ON RENAL DIALYSIS
[2016-12-16] MEDS: SEVELAMER CARBONATE 800 MG TAB (FP) PO SCH ×3 (12:51→18:17)
[2016-12-16] MEDS: PANTOPRAZOLE 40 MG TABLET (FP) PO SCH (14:33)
[2016-12-16] MEDS: CINACALCET HCL 30 MG TAB (FP) PO SCH ×2 (14:33→21:08)
[2016-12-16] MEDS: amLODIPine BESYLATE 5 MG TABLET (FP) PO SCH (14:34)
[2016-12-16] MEDS: LOSARTAN POTASSIUM 50 MG TABLET (FP) PO SCH (14:34)
[2016-12-16] MEDS: HEPARIN NA (PORCINE) 5,000 UNITS/ML 1ML VIAL SQ SCH ×2 (14:34→21:08)
[2016-12-16] MEDS ORDERED: ACETAMINOPHEN 325 MG TABLET (FP) PO PRN (15:34)
--- NOTE | 2016-12-16 17:10 | EKG ---
Test Reason : Blood Pressure : / mmHG Vent. Rate : 088 BPM Atrial Rate : 088 BPM P-R Int : 162 ms QRS Dur : 092 ms QT Int : 388 ms P-R-T Axes : 046 042 080 degrees QTc Int : 469 ms POOR DATA QUALITY, INTERPRETATION MAY BE ADVERSELY AFFECTED NORMAL SINUS RHYTHM POSSIBLE LEFT ATRIAL ENLARGEMENT LEFT VENTRICULAR HYPERTROPHY NONSPECIFIC T WAVE ABNORMALITY PROLONGED QT ABNORMAL ECG WHEN COMPARED WITH ECG OF 15-DEC-2016 11:35, NO SIGNIFICANT CHANGE WAS FOUND Confirmed by MD MIKALA, ALYSON ([id number]) on 12/16/2016 5:10:37 PM Referred By: Confirmed By:ALYSON BACH MD
[2016-12-16] MEDS: MONTELUKAST NA 10 MG TABLET PO SCH (21:08)
[2016-12-16] MEDS ORDERED: diphenhydrAMINE HCL 25 MG CAPSULE (FP) PO ONE (21:15)
[2016-12-16] MEDS: ALBUTEROL SO4 2.5/IPRATROPIUM 0.5 INH SOL 3 ML VIAL.NEB. NEB PRN (22:06)
[2016-12-17] MEDS: SEVELAMER CARBONATE 800 MG TAB (FP) PO SCH ×3 (09:31→18:31)
[2016-12-17] MEDS: PANTOPRAZOLE 40 MG TABLET (FP) PO SCH (09:32)
[2016-12-17] MEDS: amLODIPine BESYLATE 5 MG TABLET (FP) PO SCH (09:32)
[2016-12-17] MEDS: HEPARIN NA (PORCINE) 5,000 UNITS/ML 1ML VIAL SQ SCH ×2 (09:32→21:10)
[2016-12-17] MEDS: LOSARTAN POTASSIUM 50 MG TABLET (FP) PO SCH (09:32)
[2016-12-17] MEDS: CINACALCET HCL 30 MG TAB (FP) PO SCH ×2 (09:33→21:10)
--- NOTE | 2016-12-17 10:54 | PN ---
Progress Note, Physician History of Present Illness: 60 year old woman with a history of HTN, b/l nephrectomy ESRD on HD, COPD admitted with c/o sob and chest pain. Pt noted to be volume overloaded, underwent HD yesterday with volume removal and significant improvement in symptoms. planned for HD again today. Of note pt was seen in the office last week by my associate who she follows with regularly. Pt had a cardiac cath 2014 that showed normal coronary arteries. Echo was done 10/2016 that showed normal LV/RV function, no pericardial effusion, mild PHTN, mild MR, mod MAC. - Current Medication List Current Medications: Active Medications Acetaminophen (Tylenol -) 650 mg PO Q6H PRN PRN Reason: FEVER OR PAIN Last Admin: 12/16/16 15:46 Dose: 650 mg Albuterol/Ipratropium (Duoneb -) 1 amp NEB Q6H PRN PRN Reason: SHORTNESS OF BREATH Last Admin: 12/16/16 22:06 Dose: 1 amp Amlodipine Besylate (Norvasc -) [address] [facility] Last Admin: 12/17/16 09:32 Dose: 5 mg Cinacalcet (Sensipar -) [address] [facility] Last Admin: 12/17/16 09:33 Dose: 30 mg Heparin Sodium (Porcine) (Heparin -) 5,[address] [facility] Last Admin: 12/17/16 09:32 Dose: 5,000 unit Losartan Potassium (Cozaar -) [address] [facility] Last Admin: 12/17/16 09:32 Dose: 50 mg Montelukast Sodium (Singulair -) [address] [facility] Last Admin: 12/16/16 21:08 Dose: 10 mg Pantoprazole Sodium (Protonix -) [address] [facility] Last Admin: 12/17/16 09:32 Dose: 40 mg Sevelamer Carbonate (Renvela -) 2,[address] [facility] Last Admin: 12/17/16 09:31 Dose: 2,400 mg - Objective Vital Signs: Vital Signs Temperature 98.2 F 12/17/16 06:00 Pulse Rate 96 H 12/17/16 06:00 Respiratory Rate 20 12/17/16 06:00 Blood Pressure 144/80 12/17/16 06:00 O2 Sat by Pulse Oximetry (%) 97 12/17/16 08:49 Eyes: Yes: WNL, Conjunctiva Clear, EOM Intact HENT: Yes: WNL, Atraumatic, Normocephalic Neck: Yes: WNL, Supple, Trachea Midline Cardiovascular: Yes: WNL, Regular Rate and Rhythm Respiratory: Yes: WNL, Regular, CTA Bilaterally Gastrointestinal: Yes: WNL, Normal Bowel Sounds Genitourinary: Yes: WNL Musculoskeletal: Yes: WNL Extremities: Yes: WNL Edema: No Integumentary: Yes: WNL Neurological: Yes: WNL, Alert, Oriented ...Motor Strength: WNL Psychiatric: Yes: WNL Labs: CBC, BMP 12/16/16 05:15 12/16/16 05:15 INR, PTT INR 1.12 (0.82-1.09) 12/15/16 12:42 Assessment/Plan SOB -resolved Atypical chest pain HTN ESRD HD COPD SOB-pulmonary edema, likely multifactorial, esrd on hd, likely degree of acute on chronic diastolic CHF, mild Phtn, COPD -clinically and symptomatically much improved since having HD yesterday -planned for further volume removal with HD today -close to euvolemic now -ok from a cardiac standpoint for discharge today after HD Chest pain-atypical, unlikely ischemic -pt is followed closely as outpatient -cardiac cath 2014 showed normal coronary arteries -cardiac enzymes wnl -remainder of cardiac work up can be completed as outpatient HTN-above goal -cont home meds and re-evaluate after HD -close outpatient follow up
--- NOTE | 2016-12-17 13:56 | PN ---
Progress Note, Physician History of Present Illness: The patient seen in the telemetry unit. Awake alert, feeling much better. No chest pains, No shortness of breath. - Current Medication List Current Medications: Active Medications Acetaminophen (Tylenol -) 650 mg PO Q6H PRN PRN Reason: FEVER OR PAIN Last Admin: 12/16/16 15:46 Dose: 650 mg Albuterol/Ipratropium (Duoneb -) 1 amp NEB Q6H PRN PRN Reason: SHORTNESS OF BREATH Last Admin: 12/16/16 22:06 Dose: 1 amp Amlodipine Besylate (Norvasc -) 5 mg PO DAILY [facility] Last Admin: 12/17/16 09:32 Dose: 5 mg Cinacalcet (Sensipar -) 30 mg PO BID REPLAC[facility] Last Admin: 12/17/16 09:33 Dose: 30 mg Heparin Sodium (Porcine) (Heparin -) 5,000 unit SQ BID REPLACED BY [facility] Last Admin: 12/17/16 09:32 Dose: 5,000 unit Losartan Potassium (Cozaar -) 50 mg PO DAILY REPLACED BY [facility] Last Admin: 12/17/16 09:32 Dose: 50 mg Montelukast Sodium (Singulair -) 10 mg PO HS REPLACED BY [facility] Last Admin: 12/16/16 21:08 Dose: 10 mg Pantoprazole Sodium (Protonix -) 40 mg PO DAILY REPLACED BY [facility] Last Admin: 12/17/16 09:32 Dose: 40 mg Sevelamer Carbonate (Renvela -) 2,400 mg PO TIDCM REPLACED BY [facility] Last Admin: 12/17/16 12:26 Dose: 2,400 mg - Objective Vital Signs: Vital Signs Temperature 98.2 F 12/17/16 13:29 Pulse Rate 86 12/17/16 13:29 Respiratory Rate 23 12/17/16 13:29 Blood Pressure 154/79 12/17/16 13:29 O2 Sat by Pulse Oximetry (%) 100 12/17/16 11:16 Constitutional: Yes: No Distress, Calm HENT: Yes: Normocephalic Neck: Yes: Supple Cardiovascular: Yes: Regular Rate and Rhythm, S1, S2 Gastrointestinal: Yes: Normal Bowel Sounds, Soft Edema: Yes Edema: LLE: Trace, RLE: Trace Neurological: Yes: Alert, Oriented Labs: CBC, BMP 12/16/16 05:15 12/16/16 05:15 INR, PTT INR 1.12 (0.82-1.09) 12/15/16 12:42 Problem List - Problems (1) CHF (congestive heart failure) Code(s): I50.9 - HEART FAILURE, UNSPECIFIED (2) Difficulty breathing Code(s): R06.89 - OTHER ABNORMALITIES OF BREATHING (3) Low back pain radiating to both legs Code(s): M54.5 - LOW BACK PAIN (4) ESRD (end stage renal disease) on dialysis Code(s): N18.6 - END STAGE RENAL DISEASE Z99.2 - DEPENDENCE ON RENAL DIALYSIS (5) Anemia Code(s): D64.9 - ANEMIA, UNSPECIFIED Assessment/Plan 60 y/o female with ESRD, admitted with acute shortness of breath. Congestive Heart failure: The patient received two dialysis treatments in a row. Will try to remove further fluids by UF in future dialysis. Cautioned patient against drinking large amounts of fluids in between dialysis treatments. Thank you. Will follow up with you. Michelle Waggoner MD
--- NOTE | 2016-12-17 19:48 | PN ---
Progress Note, Physician - Current Medication List Current Medications: Active Medications Acetaminophen (Tylenol -) 650 mg PO Q6H PRN PRN Reason: FEVER OR PAIN Last Admin: 12/16/16 15:46 Dose: 650 mg Albuterol/Ipratropium (Duoneb -) 1 amp NEB Q6H PRN PRN Reason: SHORTNESS OF BREATH Last Admin: 12/16/16 22:06 Dose: 1 amp Amlodipine Besylate (Norvasc -) 5 mg PO DAILY [facility] Last Admin: 12/17/16 09:32 Dose: 5 mg Cinacalcet (Sensipar -) 30 mg PO BID [facility] Last Admin: 12/17/16 09:33 Dose: 30 mg Heparin Sodium (Porcine) (Heparin -) 5,000 unit SQ BID [facility] Last Admin: 12/17/16 09:32 Dose: 5,000 unit Losartan Potassium (Cozaar -) 50 mg PO DAILY [facility] Last Admin: 12/17/16 09:32 Dose: 50 mg Montelukast Sodium (Singulair -) 10 mg PO HS [facility] Last Admin: 12/16/16 21:08 Dose: 10 mg Pantoprazole Sodium (Protonix -) 40 mg PO DAILY [facility] Last Admin: 12/17/16 09:32 Dose: 40 mg Sevelamer Carbonate (Renvela -) 2,400 mg PO TIDCM [facility] Last Admin: 12/17/16 18:31 Dose: 2,400 mg - Objective Vital Signs: Vital Signs Temperature 98.2 F 12/17/16 18:23 Pulse Rate 110 H 12/17/16 18:23 Respiratory Rate 26 H 12/17/16 18:23 Blood Pressure 171/82 12/17/16 18:23 O2 Sat by Pulse Oximetry (%) 100 12/17/16 11:16 Constitutional: Yes: No Distress Eyes: Yes: WNL HENT: Yes: WNL Neck: Yes: WNL Cardiovascular: Yes: WNL, Regular Rate and Rhythm Respiratory: Yes: WNL, Regular, CTA Bilaterally Gastrointestinal: Yes: WNL, Normal Bowel Sounds, Soft Labs: CBC, BMP 12/16/16 05:15 12/16/16 05:15 INR, PTT INR 1.12 (0.82-1.09) 12/15/16 12:42 Problem List - Problems (1) Anemia Code(s): D64.9 - ANEMIA, UNSPECIFIED (2) CAP (community acquired pneumonia) Code(s): J18.9 - PNEUMONIA, UNSPECIFIED ORGANISM (3) CHF (congestive heart failure) Code(s): I50.9 - HEART FAILURE, UNSPECIFIED (4) ESRD (end stage renal disease) on dialysis Code(s): N18.6 - END STAGE RENAL DISEASE Z99.2 - DEPENDENCE ON RENAL DIALYSIS
[2016-12-17] MEDS: MONTELUKAST NA 10 MG TABLET PO SCH (21:10)
[2016-12-17] MEDS: ALBUTEROL SO4 2.5/IPRATROPIUM 0.5 INH SOL 3 ML VIAL.NEB. NEB PRN (22:03)
[2016-12-17] MEDS ORDERED: diphenhydrAMINE HCL 25 MG CAPSULE (FP) PO ONE (23:00)
[2016-12-18 00:08] LABS: HEP B SURFACE AB Non Reactive (.)
[2016-12-18] MEDS: SEVELAMER CARBONATE 800 MG TAB (FP) PO SCH (09:17)
[2016-12-18] MEDS: amLODIPine BESYLATE 5 MG TABLET (FP) PO SCH (09:18)
[2016-12-18] MEDS: LOSARTAN POTASSIUM 50 MG TABLET (FP) PO SCH (09:18)
[2016-12-18] MEDS: HEPARIN NA (PORCINE) 5,000 UNITS/ML 1ML VIAL SQ SCH (09:18)
[2016-12-18] MEDS: CINACALCET HCL 30 MG TAB (FP) PO SCH (09:19)
[2016-12-18] MEDS: PANTOPRAZOLE 40 MG TABLET (FP) PO SCH (09:19)
--- NOTE | 2016-12-18 11:06 | PN ---
Progress Note, Physician History of Present Illness: 60 year old woman with a history of HTN, b/l nephrectomy ESRD on HD, COPD admitted with c/o sob and chest pain. Pt noted to be volume overloaded, underwent HD yesterday with volume removal and significant improvement in symptoms. planned for HD again today. Of note pt was seen in the office last week by my associate who she follows with regularly. Pt had a cardiac cath 2014 that showed normal coronary arteries. Echo was done 10/2016 that showed normal LV/RV function, no pericardial effusion, mild PHTN, mild MR, mod MAC. - Current Medication List Current Medications: Active Medications Acetaminophen (Tylenol -) 650 mg PO Q6H PRN PRN Reason: FEVER OR PAIN Last Admin: 12/16/16 15:46 Dose: 650 mg Albuterol/Ipratropium (Duoneb -) 1 amp NEB Q6H PRN PRN Reason: SHORTNESS OF BREATH Last Admin: 12/17/16 22:03 Dose: 1 amp Amlodipine Besylate (Norvasc -) 5 mg PO DAILY [facility] Last Admin: 12/18/16 09:18 Dose: 5 mg Cinacalcet (Sensipar -) 30 mg PO BID [facility] Last Admin: 12/18/16 09:19 Dose: 30 mg Heparin Sodium (Porcine) (Heparin -) 5,000 unit SQ BID [facility] Last Admin: 12/18/16 09:18 Dose: 5,000 unit Losartan Potassium (Cozaar -) 50 mg PO DAILY [facility] Last Admin: 12/18/16 09:18 Dose: 50 mg Montelukast Sodium (Singulair -) 10 mg PO HS [facility] Last Admin: 12/17/16 21:10 Dose: 10 mg Pantoprazole Sodium (Protonix -) 40 mg PO DAILY [facility] Last Admin: 12/18/16 09:19 Dose: 40 mg Sevelamer Carbonate (Renvela -) 2,400 mg PO TIDCM [facility] Last Admin: 12/18/16 09:17 Dose: 2,400 mg - Objective Vital Signs: Vital Signs Temperature 98.7 F 12/18/16 06:00 Pulse Rate 89 12/18/16 10:25 Respiratory Rate 18 12/18/16 06:00 Blood Pressure 159/66 12/18/16 06:00 O2 Sat by Pulse Oximetry (%) 95 12/18/16 10:25 Eyes: Yes: WNL, Conjunctiva Clear, EOM Intact HENT: Yes: WNL, Atraumatic, Normocephalic Neck: Yes: WNL, Supple, Trachea Midline Cardiovascular: Yes: WNL, Regular Rate and Rhythm Respiratory: Yes: WNL, Regular, CTA Bilaterally Gastrointestinal: Yes: WNL, Normal Bowel Sounds Genitourinary: Yes: WNL Musculoskeletal: Yes: WNL Extremities: Yes: WNL Edema: No Integumentary: Yes: WNL Neurological: Yes: WNL, Alert, Oriented ...Motor Strength: WNL Psychiatric: Yes: WNL Labs: CBC, BMP 12/16/16 05:15 12/16/16 05:15 INR, PTT INR 1.12 (0.82-1.09) 12/15/16 12:42 Assessment/Plan SOB -resolved Atypical chest pain HTN ESRD HD COPD SOB-pulmonary edema, likely multifactorial, esrd on hd, likely degree of acute on chronic diastolic CHF, mild Phtn, COPD -clinically and symptomatically much improved since having HD yesterday -planned for further volume removal with HD today -close to euvolemic now -ok from a cardiac standpoint for discharge today after HD Chest pain-atypical, unlikely ischemic -pt is followed closely as outpatient -cardiac cath 2014 showed normal coronary arteries -cardiac enzymes wnl -remainder of cardiac work up can be completed as outpatient HTN-above goal -cont home meds and re-evaluate after HD -close outpatient follow up
[2016-12-18 12:59] VITALS: TEMP 98.6
[2016-12-18 13:08] VITALS: BP 158/81; PULSE 76
== END 2016-12-18 13:21 | disposition home or self-care (01) | DRG 194 ==
LOC: JER 11:22 → JERBED 14:46 → J2W 20:48
PROVIDERS: ADMIT Internal Medicine; ATTEND Internal Medicine
DX: I13.2 Hypertensive heart and chronic kidney disease with heart failure and with stage 5 chronic kidney disease, or end stage renal disease (principal); N18.6 End stage renal disease; I50.33 Acute on chronic diastolic (congestive) heart failure; D64.9 Anemia, unspecified; M54.5 Low back pain; E87.70 Fluid overload, unspecified; R07.89 Other chest pain; J44.9 Chronic obstructive pulmonary disease, unspecified; I27.2 Other secondary pulmonary hypertension; Z87.891 Personal history of nicotine dependence; R06.02 Shortness of breath
CPT/HCPCS: 36415; 71010-TC; 76000-TC; 80053; 82550; 83605; 83880; 84484; 85025; 85610; 85730; 86704; 86706; 86708; 86803; 87040; 87340; 93005; 93010; 93306-TC; 94640; 99285-25; J1644

== ENCOUNTER 2017-01-06 12:31 | Inpatient (IN) | payer OTHER ==
--- NOTE | 2017-01-06 13:07 | PDOC ---
History of Present Illness <Hortencia Xiong - Last Filed: 01/06/17 14:19> - General History Source: Patient Exam Limitations: No Limitations - History of Present Illness Initial Comments: 01/06/17 13:05 CC: Surgical Admission for clotted AV-Fistula Patient is a 61 y.o. female with a PMH of ESRD who was sent to the ED at the behest of her surgeon, Dr. Salinas, to be admitted to the hospital for a clotted LUE AV-Fistula. Patient states she noticed the fistula was "twisted" last night and did not go to dialysis today as scheduled. Patient states she contacted her PCP and Dr. Salinas who told her to come to the ED today to be admitted for surgical intervention possibly today or tomorrow. Patient denies any SiSx associated with her missed dialysis including edema or confusion. 01/06/17 13:30 01/06/17 13:37 Timing/Duration: 24 hours <Charito Lujan - Last Filed: 01/10/17 12:06> - General Chief Complaint: Dialysis Shunt Problem Stated Complaint: PCP SENT, LEFT ARM CLOTTED AV FISTULA Time Seen by Provider: 01/06/17 13:00 Past History <Hortencia Xiong - Last Filed: 01/06/17 14:19> - Past Medical History Anemia: Yes Asthma: Yes Cancer: No Cardiac Disorders: Yes CVA: No COPD: Yes CHF: Yes Dementia: No Diabetes: No Dialysis: Yes (M W F) GI Disorders: Yes Disorders: No HTN: Yes Hypercholesterolemia: No Liver Disease: No Suicide Attempt (Hx): No Seizures: No Thyroid Disease: No - Surgical History Abdominal Surgery: Yes (BILATERAL nephrectomy) Appendectomy: No Cardiac Surgery: No Cholecystectomy: No Lung Surgery: Yes (RIGHT LUNG NODULE REMOVAL) Neurologic Surgery: Yes (cervical renetta placement) Orthopedic Surgery: No - Immunization History Immunization Up to Date: Yes - Psycho/Social/Smoking Cessation Hx Anxiety: No Suicidal Ideation: No Smoking Status: Yes Smoking History: Never smoked Years of Tobacco Use: 16 Have you smoked in the past 12 months: No Number of Cigarettes Smoked Daily: 60 If you are a former smoker, when did you quit?: 17YRS AGO Information on smoking cessation initiated: No Hx Alcohol Use: No Drug/Substance Use Hx: No Substance Use Type: None Hx Substance Use Treatment: No <Charito Lujan - Last Filed: 01/10/17 12:06> - Past Medical History Allergies/Adverse Reactions: Allergies Allergy/AdvReac Type Severity Reaction Status Date / Time Penicillins Allergy Severe Difficulty Verified 01/06/17 12:47 Breathing ketorolac tromethamine Allergy Intermediate Verified 01/06/17 12:47 [From Toradol] hydromorphone HCl Allergy Nausea Verified 01/06/17 12:47 [From Dilaudid] plastic tape AdvReac Mild Hives Uncoded 01/06/17 12:47 beef AdvReac Vomiting Uncoded 01/06/17 12:47 Home Medications: Ambulatory Orders Omeprazole 40 mg PO DAILY 07/24/11 Montelukast Na [Singulair -] 10 mg PO HS #0 tablet 05/24/13 Albuterol Sulfate 0.5% [Ventolin 0.5% Nebulizing Soln. -] 1 neb IH BID 03/20/14 Cholecalciferol (Vitamin D3) [Vitamin D3] 5,000 unit PO DAILY 03/20/14 Cinacalcet HCl [Sensipar] 30 mg PO BID 11/24/14 Multivitamin/Iron/Folic Acid [One Daily Multivitamin-Iron Tb] 1 each PO DAILY Sevelamer Carbonate [Renvela -] 2,400 mg PO TID 12/15/16 Losartan Potassium [Cozaar -] 50 mg PO DAILY #30 tablet 12/18/16 Clopidogrel Bisulfate [Plavix -] 75 mg PO DAILY #30 tablet 01/07/17 Review of Systems - Review of Systems Constitutional: No: Chills, Diaphoresis, Fever, Malaise HEENTM: No: Blurred Vision, Tinnitus, Hearing Loss, Throat Pain Respiratory: No: Cough, Orthopnea, Shortness of Breath, Hemoptysis Cardiac (ROS): No: Chest Pain, Edema, Palpitations, Syncope ABD/GI: No: Constipated, Diarrhea, Nausea, Vomiting : No: Burning, Dysuria, Frequency, Hematuria Musculoskeletal: No: Back Pain, Joint Pain, Muscle Pain, Muscle Weakness Integumentary: No: Bruising, Erythema, Pruritus, Rash Neurological: No: Headache, Numbness, Seizure, Tingling Psychiatric: No: Anxiety, Depression All Other Systems: Reviewed and Negative <Charito Lujan - Last Filed: 01/10/17 12:06> *Physical Exam - Vital Signs Last Vital Signs Temp Pulse Resp BP Pulse Ox 97.9 F 80 18 153/86 97 01/06/17 12:45 01/06/17 12:45 01/06/17 12:45 01/06/17 12:45 01/06/17 12:45 <Hortencia Xiong - Last Filed: 01/06/17 14:19> - Vital Signs Last Vital Signs Temp Pulse Resp BP Pulse Ox 97.9 F 80 18 153/86 97 01/06/17 12:45 01/06/17 12:45 01/06/17 12:45 01/06/17 12:45 01/06/17 12:45 - Physical Exam General Appearance: Yes: Nourished, Appropriately Dressed HEENT: positive: EOMI, OFE Neck: positive: Trachea midline, Supple Respiratory/Chest: positive: Lungs Clear, Normal Breath Sounds Cardiovascular: positive: Regular Rhythm, Regular Rate, S1, S2 Gastrointestinal/Abdominal: positive: Normal Bowel Sounds, Soft Musculoskeletal: positive: Normal Inspection Integumentary: positive: Normal Color, Dry, Warm, Other (LUE AV fistula is clean , not warm to touch, non-erythematous) Neurologic: positive: anesthesiology faculty II-XII NML intact, Fully Oriented, Alert <LeCharito - Last Filed: 01/10/17 12:06> ED Treatment Course - LABORATORY CBC & Chemistry Diagram: 01/06/17 13:30 01/06/17 13:30 <Hortencia Xiong - Last Filed: 01/06/17 14:19> - LABORATORY CBC & Chemistry Diagram: 01/06/17 13:30 01/06/17 13:30 <Charito Lujan - Last Filed: 01/10/17 12:06> Medical Decision Making - Medical Decision Making 01/06/17 23:50 Patient is a 61 y.o. female who presents for compromised dialysis access. On PE , patient was hemodynamically stable, however patient's CMP showed a hyperkalemia (K+ 5.8). Patient was administered Calcium Gluconate and admitted to inpatient medicine service. <Charito Lujan - Last Filed: 01/10/17 12:06> *DC/Admit/Observation/Transfer - Discharge Dispostion Admit: Yes <Hortencia Xiong - Last Filed: 01/06/17 14:19> <Charito Lujan - Last Filed: 01/10/17 12:06> Diagnosis at time of Disposition: AV fistula occlusion - Discharge Dispostion Disposition: HOME Condition at time of disposition: Stable - Prescriptions
--- NOTE | 2017-01-06 13:18 | PDOC ---
Attending Attestation - Resident Resident Name: Charito Lujan - ED Attending Attestation I have performed the following: I have examined & evaluated the patient, The case was reviewed & discussed with the resident, I agree w/resident's findings & plan, Exceptions are as noted - HPI HPI: 61 yo F history ESRD on HD presents with clotted AV fistula. She denies any pain. No recent illness. No redness to the area. She was sent by Dr. Salinas for OR repair. - Physicial Exam PE: GENERAL: Awake, alert, and fully oriented, in no acute distress HEAD: No signs of trauma EYES: PERRLA, EOMI, sclera anicteric, conjunctiva clear ENT: Auricles normal inspection, hearing grossly normal, nares patent, oropharynx clear without exudates. Moist mucosa NECK: Normal ROM, supple, no lymphadenopathy, JVD, or masses LUNGS: Breath sounds equal, clear to auscultation bilaterally. No wheezes, and no crackles HEART: Regular rate and rhythm, normal S1 and S2, no murmurs, rubs or gallops ABDOMEN: Soft, nontender, normoactive bowel sounds. No guarding, no rebound. No masses EXTREMITIES: L upper arm AVF no thrill. Normal range of motion, no edema. No clubbing or cyanosis. No cords, erythema, or tenderness NEUROLOGICAL: Cranial nerves II through XII grossly intact. Normal speech, normal gait SKIN: Warm, Dry, normal turgor, no rashes or lesions noted. - Medical Decision Making Pt presents for admission for clotted AVF. D/w Dr. Salinas, will admit.
[2017-01-06 14:11] LABS: EOSINOPHIL 3.6 % (0-4.5); MCH 30.6 pg (25.7-33.7); MCHC 32.3 g/dl (32.0-36.0); MEAN CELL VOLUME 94.7 fl (80-96); MEAN PLT VOLUME 9.5 fl (7.5-11.1); PLATELET COUNT 190 K/MM3 (134-434); RDW 16.5 % (11.6-15.6)
[2017-01-06] MEDS ORDERED: HEPARIN NA (PORCINE) 5,000 UNITS/ML 1ML VIAL ONE ×3 (14:14→20:36)
[2017-01-06 14:51] LABS: INR 1.04 (0.82-1.09); PROTHROMBIN TIME (PATIENT) 11.4 SEC (9.98-11.88)
[2017-01-06 14:53] LABS: ALBUMIN 3.5 g/dl (3.4-5.0); ANION GAP 14 (8-16); CALCIUM 8.1 mg/dL (8.5-10.1); CO2 23 mmol/L (21-32); GLUCOSE,RANDOM 63 mg/dL (74-106); SGPT/ALT 20 U/L (12-78)
[2017-01-06 15:01] LABS: ALK PHOS 265 U/L (45-117); BILIRUBIN,TOTAL 0.9 mg/dL (0.2-1.0)
[2017-01-06 15:06] LABS: SGOT/AST 51 U/L (15-37)
[2017-01-06] MEDS ORDERED: EPOETIN ALFA 2,000 UNITS/1 ML VIAL IVPUSH ONE (15:40)
[2017-01-06] MEDS ORDERED: SODIUM POLYSTYRENE SULFONATE 15 GM/60 ML BOTTLE PO ONE (17:18)
[2017-01-06] MEDS ORDERED: SODIUM POLYSTYRENE SULFONATE 15 GM/60 ML BOTTLE ONE (17:25)
--- NOTE | 2017-01-06 17:32 | CONSULT ---
Consult Consult Specialty:: Drs. Waggoner/ Nehemiah Referred by:: Dr. Newman Reason for Consultation:: Patient is a 61 y.o. female with a PMH of ESRD being admitted with malfunctioning AVF. She could not be dialyzed at the dialysis center today. She has no chest pain, or dyspnea. - History of Present Illness Chief Complaint: Malfunctining AVF. - Past Medical History Cardio/Vascular: Yes: HTN, Pulmonary Hypertension Pulmonary: Yes: Asthma, COPD Renal/: Yes: Renal Failure, Hemodialysis - Alcohol/Substance Use Hx Alcohol Use: No - Smoking History Smoking history: Never smoked Have you smoked in the past 12 months: No Aproximately how many cigarettes per day: 60 If you are a former smoker, when did you quit?: 17YRS AGO - Social History ADL: Independent History of Recent Travel: No Home Medications - Allergies Allergies/Adverse Reactions: Allergies Allergy/AdvReac Type Severity Reaction Status Date / Time Penicillins Allergy Severe Difficulty Verified 01/06/17 12:47 Breathing ketorolac tromethamine Allergy Intermediate Verified 01/06/17 12:47 [From Toradol] hydromorphone HCl Allergy Nausea Verified 01/06/17 12:47 [From Dilaudid] plastic tape AdvReac Mild Hives Uncoded 01/06/17 12:47 beef AdvReac Vomiting Uncoded 01/06/17 12:47 - Home Medications Home Medications: Ambulatory Orders Omeprazole 40 mg PO DAILY 07/24/11 Montelukast Na [Singulair -] 10 mg PO HS #0 tablet 05/24/13 Albuterol Sulfate 0.5% [Ventolin 0.5% Nebulizing Soln. -] 1 neb IH BID 03/20/14 Cholecalciferol (Vitamin D3) [Vitamin D3] 5,000 unit PO DAILY 03/20/14 Cinacalcet HCl [Sensipar] 30 mg PO BID 11/24/14 Multivitamin/Iron/Folic Acid [One Daily Multivitamin-Iron Tb] 1 each PO DAILY Sevelamer Carbonate [Renvela -] 2,400 mg PO TID 12/15/16 Losartan Potassium [Cozaar -] 50 mg PO DAILY #30 tablet 12/18/16 Review of Systems - Review of Systems Constitutional: reports: No Symptoms, Weakness Eyes: reports: No Symptoms HENT: reports: No Symptoms Neck: reports: No Symptoms Cardiovascular: reports: No Symptoms. denies: Chest Pain, Palpitations Respiratory: reports: No Symptoms. denies: Cough, SOB Gastrointestinal: denies: Abdominal Pain Neurological: reports: No Symptoms Physical Exam Vital Signs: Vital Signs Temperature 97.6 F 01/06/17 15:59 Pulse Rate 75 01/06/17 15:59 Respiratory Rate 14 01/06/17 15:59 Blood Pressure 145/79 01/06/17 15:59 O2 Sat by Pulse Oximetry (%) 97 01/06/17 15:59 Constitutional: Yes: Well Nourished, Calm, Poor Hygeine HENT: Yes: Normocephalic Neck: Yes: Trachea Midline Cardiovascular: Yes: S1, S2 Respiratory: Yes: CTA Bilaterally Gastrointestinal: Yes: Normal Bowel Sounds, Soft Extremities: Yes: Other (AVF silent) Neurological: Yes: Alert Problem List - Problems (1) AV fistula occlusion Code(s): T82.898A - OTH COMPLICATION OF VASCULAR PROSTH DEV/GRFT, INIT (2) Anemia Code(s): D64.9 - ANEMIA, UNSPECIFIED (3) ESRD (end stage renal disease) on dialysis Code(s): N18.6 - END STAGE RENAL DISEASE Z99.2 - DEPENDENCE ON RENAL DIALYSIS (4) Hyperkalemia Code(s): E87.5 - HYPERKALEMIA Assessment/Plan 61 y/o female admitted for intervention to clear the AVF occlusion. Has Hyperkalemia, which will be treated with Kayexelate before surgery. Will dialyze after the surgery. Orders written and reviewed with the RN. Michelle Waggoner MD
[2017-01-06 18:35] VITALS: BMI 28.8
--- NOTE | 2017-01-06 19:01 | HP ---
Satellite [facility] - Chief Complaint Chief Complaint: 61 year old ewoman ESRD on HD with left arm fistula. She noted no pulse in fistula this morning. Last dialysis yesterday. History Source: Patient Limitations to Obtaining History: No Limitations - Past Medical History Allergies/Adverse Reactions: Allergies Allergy/AdvReac Type Severity Reaction Status Date / Time Penicillins Allergy Severe Difficulty Verified 01/06/17 12:47 Breathing ketorolac tromethamine Allergy Intermediate Verified 01/06/17 12:47 [From Toradol] hydromorphone HCl Allergy Nausea Verified 01/06/17 12:47 [From Dilaudid] plastic tape AdvReac Mild Hives Uncoded 01/06/17 12:47 beef AdvReac Vomiting Uncoded 01/06/17 12:47 Cardiovascular: Yes: HTN, Pulmonary Hypertension Pulmonary: Yes: Asthma, COPD Renal/: Yes: Renal Failure, Hemodialysis Heme/Onc: Yes: Anemia - Current Medications Current Medications: Home Medications Medication Instructions Recorded Omeprazole 40 mg PO DAILY 07/24/11 Montelukast Na [Singulair -] 10 mg PO HS #0 tablet 05/24/13 Albuterol Sulfate 0.5% [Ventolin 1 neb IH BID 03/20/14 0.5% Nebulizing Soln. -] Cholecalciferol (Vitamin D3) 5,000 unit PO DAILY 03/20/14 [Vitamin D3] Cinacalcet HCl [Sensipar] 30 mg PO BID 11/24/14 Multivitamin/Iron/Folic Acid [One 1 each PO DAILY 11/24/14 Daily Multivitamin-Iron Tb] Sevelamer Carbonate [Renvela -] 2,400 mg PO TID 12/15/16 Losartan Potassium [Cozaar -] 50 mg PO DAILY #30 tablet 12/18/16 Satellite Physical Exam - Physical Examination Vital Signs: Vital Signs Period Temp Pulse Resp BP Sys/Guevara Pulse Ox Last 24 Hr 97.6 F-98.2 F 75-75 14-16 145-146/79-86 97-100 General Appearance: Well Nourished ENT: Clear Lung: Clear to auscultation Heart: Regular rate & rhythm Abdomen: Soft Extremities: Other (Left upper arm fistula with no thrill or bruit.) Satellite Impression/Plan - Impression/Plan Impression: Thrombosed AV fistula Operative Procedure: Percutaneous thrombectomy, venogram Date to be Performed: 01/06/17
[2017-01-06] MEDS ORDERED: MIDAZOLAM HCL 2 MG/2 ML SINGLE DOSE VIAL ONE ×3 (19:31→20:19)
[2017-01-06] MEDS ORDERED: PROPOFOL 20 ML ONE (19:51)
[2017-01-06] MEDS ORDERED: LIDOCAINE HCL 1%, 10 MG/ML (50 mL VIAL) IJ ONE ×2 (19:54)
--- NOTE | 2017-01-06 20:58 | OP ---
Operative Note - Note: Operative Date: 01/06/17 Pre-Operative Diagnosis: Thrombosed AV fistula left arm Operation: Percutaneous thrombectomy and venoplasty of AV fistula Findings: Thrombosed basilic vein fistula left arm. Stenosis of basilic vein proximal and distal segments. Post-Operative Diagnosis: Same as Pre-op Surgeon: Naren Salinas Anesthesiologist/PARTNER MANAGER: Srinivas Turcios Anesthesia: Fractional Estimated Blood Loss (mls): 20
[2017-01-06] MEDS ORDERED: ONDANSETRON 4 MG/2 ML VIAL IVPUSH PRN (20:59)
[2017-01-06] MEDS ORDERED: ACETAMINOPHEN 325 MG TABLET (FP) PO PRN (21:01)
[2017-01-06] MEDS ORDERED: CLOPIDOGREL BISULFATE 75 MG TABLET (FP) ONE (21:19)
[2017-01-06] MEDS: CLOPIDOGREL BISULFATE 75 MG TABLET (FP) PO SCH (21:20)
[2017-01-06] MEDS ORDERED: EPOETIN ALFA 10,000 UNIT/1 ML VIAL IVPUSH ONE (23:00)
[2017-01-07] MEDS: oxyCODONE HCL 5 MG TABLET PO PRN ×2 (00:41→09:49)
[2017-01-07] MEDS: CLOPIDOGREL BISULFATE 75 MG TABLET (FP) PO SCH ×2 (02:35→09:49)
[2017-01-07 09:56] VITALS: BP 125/70; PULSE 86; TEMP 98.9
--- NOTE | 2017-01-07 10:56 | PN ---
Progress Note, Physician Chief Complaint: The patient seen in bed. Comfortable. AVF with good bruit. Has pain. Had uneventful HD yesterday. History of Present Illness: The patient came in with clotted AVHF. S/P declotting. Had HD yesterday. The patient had Hyperkalemia, that was treated with dialysis using 2 K bath. - Current Medication List Current Medications: Active Medications Acetaminophen (Tylenol -) 650 mg PO Q4H PRN PRN Reason: FEVER OR PAIN Last Admin: 01/07/17 00:43 Dose: 650 mg Clopidogrel Bisulfate (Plavix -) 75 mg PO DAILY YELENA Last Admin: 01/07/17 09:49 Dose: 75 mg Fentanyl (Sublimaze Injection -) 25 mcg IVPUSH [id number] PRN PRN Reason: PAIN Stop: 01/09/17 21:00 Oxycodone HCl (Roxicodone -) 5 mg PO Q4H PRN PRN Reason: PAIN LEVEL 1-5 Last Admin: 01/07/17 09:49 Dose: 5 mg - Objective Vital Signs: Vital Signs Temperature 98.9 F 01/07/17 09:55 Pulse Rate 86 01/07/17 09:55 Respiratory Rate 18 01/07/17 09:55 Blood Pressure 125/70 01/07/17 09:55 O2 Sat by Pulse Oximetry (%) 98 01/07/17 09:00 Constitutional: Yes: Well Nourished Eyes: Yes: Conjunctiva Clear HENT: Yes: Normocephalic Neck: Yes: Trachea Midline Cardiovascular: Yes: Regular Rate and Rhythm, S1, S2 Respiratory: Yes: CTA Bilaterally Gastrointestinal: Yes: Normal Bowel Sounds, Soft ...Rectal Exam: Yes: Erythema Genitourinary: No: CVA Tenderness - Left, CVA Tenderness - Right Musculoskeletal: Yes: Back Pain. No: Joint Stiffness Labs: INR, PTT INR 1.04 (0.82-1.09) 01/06/17 13:30 Problem List - Problems (1) AV fistula occlusion Code(s): T82.898A - [facility] COMPLICATION OF VASCULAR PROSTH DEV/GRFT, INIT (2) Anemia Code(s): D64.9 - ANEMIA, UNSPECIFIED (3) ESRD (end stage renal disease) on dialysis Code(s): N18.6 - END STAGE RENAL DISEASE Z99.2 - DEPENDENCE ON RENAL DIALYSIS (4) Hyperkalemia Code(s): E87.5 - HYPERKALEMIA Assessment/Plan 61 y/o female admitted for intervention to clear the AVF occlusion. Had Hyperkalemia, which was treated with Kayexelate and Dialysis. The AVF remains patent. She may be discharged from renal perspective, if cleared by surgery. Michelle Waggoner MD
--- NOTE | 2017-01-07 11:12 | PN ---
Progress Note (short form) - Note Progress Note: S/P Thrombectomy AVF Has some pain in arm Dialysis this AM without problem Home on Plavix F/U 2 weeks.
--- NOTE | 2017-01-09 09:39 | EKG ---
Test Reason : Blood Pressure : / mmHG Vent. Rate : 077 BPM Atrial Rate : 077 BPM P-R Int : 180 ms QRS Dur : 102 ms QT Int : 400 ms P-R-T Axes : 021 043 074 degrees QTc Int : 452 ms NORMAL SINUS RHYTHM NORMAL ECG WHEN COMPARED WITH ECG OF 15-DEC-2016 22:56, NO SIGNIFICANT CHANGE WAS FOUND Confirmed by ASHU GOULD MD ([id number]) on 01/09/2017 9:38:59 AM Referred By: Confirmed By:ASHU GOULD MD
--- NOTE | 2017-01-09 11:32 | OP ---
DATE OF OPERATION: 01/06/2017 PROCEDURE: Percutaneous suction thrombectomy and venoplasty of left arm atrioventricular fistula. PREOPERATIVE DIAGNOSIS: Thrombosed atrioventricular fistula. POSTOPERATIVE DIAGNOSIS: Thrombosed atrioventricular fistula with vein stenosis. ANESTHESIA: Fractional. ANESTHESIOLOGIST: Tam. OPERATIVE FINDINGS: The left brachial artery basilic vein fistula was thrombosed. There were stents within the vein as well as in the subclavian vein. The central veins were patent, and there was no evidence of stenosis. The fistula was thrombosed, and after thrombectomy, several areas of narrowing in the mid and distal portions of the vein were identified. There was also adherent thrombus within the axillary vein stent. OPERATIVE PROCEDURE: Following routine patient identification with site and side verification, intravenous sedation was established. The left arm was prepped with ChloraPrep. Using real time duplex imaging, the left arm fistula was evaluated. Lidocaine was infiltrated over the distal end of the vein near the arterial anastomosis, and using ultrasound guidance, a micropuncture needle was advanced through the skin into the vein lumen. A micropuncture wire was advanced proximally under fluoroscopic guidance. The needle was removed and replaced with a 5-Egyptian catheter and then the catheter was exchanged over the wire for a 7-Egyptian sheath. The patient was systemically heparinized. An angle-tipped Glidewire and Berenstein catheter was then advanced proximally through the fistula, the axillary vein stent, and into the subclavian vein. Venography was then performed with the above noted findings. The wire was replaced. The AngioJet AVX catheter was used to performed suction thrombectomy on the thrombosed portion of the vein extending up to the axillary vein. After several passes, venography was performed, which showed stenosis of the vein distal to the stent. This was dilated with an 8-mm balloon. There was significant improvement in the stenosis and good flow through the area. The sheath was then removed, and a mattress suture of 3-0 nylon placed. The fistula was then reaccessed a 2nd time in the proximal arm directly distally. A 6-Egyptian sheath was placed. A wire and catheter were then advanced distally through the arteriovenous anastomosis and into the proximal brachial artery. Arteriography through the catheter was performed, which showed a patent brachial artery with normal runoff and occlusion of the distal fistula. The AngioJet was then used to perform thrombectomy on this section of the fistula, and repeat imaging revealed a 70% stenosis of the distal vein. This was balloon dilated with a 6-mm balloon with good resultant 0% residual stenosis. Completion imaging revealed a patent fistula, but there was still adherent thrombus visualized in the proximal end of the axillary vein stent. After removing the 6-Egyptian sheath, the 7-Egyptian sheath was replaced and used to suction the area as well as using a 10-mm angioplasty balloon to clear the thrombus. Completion imaging revealed a patent fistula with no residual thrombus. The last sheath was removed and suture placed as before, and sterile dressing was applied and the patient taken to the recovery room. KACY BARRIOS M.D. [id number]
== END 2017-01-07 13:40 | disposition home or self-care (01) | DRG 173 ==
LOC: JER 12:31 → JOR 12:31 → JERBED 14:21 → J5S 17:38
PROVIDERS: ADMIT Surgery; ATTEND Surgery
PROC: 057C3ZZ Dilation of Left Basilic Vein, Percutaneous Approach (ICD-10-PCS; 2017-01-06)
PROC: B31JZZZ Fluoroscopy of Left Upper Extremity Arteries (ICD-10-PCS; 2017-01-06)
PROC: 5A1D00Z (ICD-10-PCS; 2017-01-06)
PROC: 03C83ZZ Extirpation of Matter from Left Brachial Artery, Percutaneous Approach (ICD-10-PCS; principal; 2017-01-06 16:00)
DX: T82.868A Thrombosis due to vascular prosthetic devices, implants and grafts, initial encounter (principal); Y83.8 Other surgical procedures as the cause of abnormal reaction of the patient, or of later complication, without mention of misadventure at the time of the procedure; I13.2 Hypertensive heart and chronic kidney disease with heart failure and with stage 5 chronic kidney disease, or end stage renal disease; N18.6 End stage renal disease; I50.9 Heart failure, unspecified; Z99.2 Dependence on renal dialysis; D64.9 Anemia, unspecified; J45.909 Unspecified asthma, uncomplicated; J44.9 Chronic obstructive pulmonary disease, unspecified; I27.2 Other secondary pulmonary hypertension; E87.5 Hyperkalemia; K21.9 Gastro-esophageal reflux disease without esophagitis; I25.2 Old myocardial infarction
CPT/HCPCS: 36415; 71020-TC; 76000-TC; 80053; 85025; 85610; 93005; 93010; 94760; 99284-25; J0885; J1644

== ENCOUNTER 2017-02-22 07:54 | Inpatient (IN) | payer OTHER ==
[2017-02-17 13:41] VITALS: BMI 27.8
[2017-02-22] MEDS ORDERED: HEPARIN NA (PORCINE) 5,000 UNITS/ML 1ML VIAL ONE (09:33)
[2017-02-22] MEDS ORDERED: POVIDONE-IODINE OINTMENT 10% - 28.4 GM TUBE ONE (09:33)
[2017-02-22] MEDS ORDERED: LIDOCAINE HCL 1%, 10 MG/ML (20ML VIAL) ONE (09:33)
--- NOTE | 2017-02-22 09:52 | HP ---
Satellite [facility] - Chief Complaint History of Present Illness: 61 year old woman ESRD on HD with failed left arm fistula presents for placment of new AV access in left arm. History Source: Patient Limitations to Obtaining History: No Limitations - Past Medical History Allergies/Adverse Reactions: Allergies Allergy/AdvReac Type Severity Reaction Status Date / Time Penicillins Allergy Severe Difficulty Verified 01/06/17 12:47 Breathing ketorolac tromethamine Allergy Intermediate Verified 01/06/17 12:47 [From Toradol] hydromorphone HCl Allergy Nausea Verified 01/06/17 12:47 [From Dilaudid] plastic tape AdvReac Mild Hives Uncoded 01/06/17 12:47 beef AdvReac Vomiting Uncoded 01/06/17 12:47 Cardiovascular: Yes: HTN, Pulmonary Hypertension Pulmonary: Yes: Asthma, COPD Renal/: Yes: Renal Failure, Hemodialysis Heme/Onc: Yes: Anemia - Current Medications Current Medications: Home Medications Medication Instructions Recorded Omeprazole 40 mg PO DAILY 07/24/11 Montelukast Na [Singulair -] 10 mg PO HS #0 tablet 05/24/13 Albuterol Sulfate 0.5% [Ventolin 1 neb IH BID 03/20/14 0.5% Nebulizing Soln. -] Cholecalciferol (Vitamin D3) 5,000 unit PO DAILY 03/20/14 [Vitamin D3] Cinacalcet HCl [Sensipar] 30 mg PO BID 11/24/14 Multivitamin/Iron/Folic Acid [One 1 each PO DAILY 11/24/14 Daily Multivitamin-Iron Tb] Sevelamer Carbonate [Renvela -] 2,400 mg PO TID 12/15/16 Amlodipine Besylate [Norvasc -] 5 mg PO HS 02/22/17 Losartan Potassium 50 mg PO DAILY 02/22/17 Satellite Physical Exam - Physical Examination Vital Signs: Vital Signs Period Temp Pulse Resp BP Sys/Guevara Pulse Ox Last 24 Hr 97.7 F 76 18 172/89 96 General Appearance: Alert & Oriented x3 Lung: Clear to auscultation Heart: Regular rate & rhythm Abdomen: Soft, No tenderness Extremities: No edema Neurological: Alert, Oriented Satellite Impression/Plan - Impression/Plan Impression: ESRD on HD. Needs new AV access for dialysis Operative Procedure: Placement AV graft left arm Date to be Performed: 02/22/17
[2017-02-22] MEDS ORDERED: CLINDAMYCIN 600 MG PREMIX BAG IVPB ONE (10:06)
[2017-02-22] MEDS ORDERED: LIDOCAINE HCL 1%, 10 MG/ML (20ML VIAL) IJ ONE (10:48)
[2017-02-22] MEDS ORDERED: POVIDONE-IODINE OINTMENT 10% - 28.4 GM TUBE TP ONE (11:23)
--- NOTE | 2017-02-22 11:42 | SURG ---
Surgery Physician Pediatrician Note Physician Pediatrician: Daquan Parham PA-C Date of Service: 02/22/17 Diagnosis: ESRD, failed LUE AVF Procedure: Left upper extremity AV graft I was present for the entirety of the operative procedure. For further detail, please refer to operative report. Visit type - Case Type Case Type: Scheduled Admission - New patient This patient is new to me today: Yes Date on this admission: 02/22/17
[2017-02-22] MEDS ORDERED: oxyCODONE HCL 5 MG TABLET PO PRN ×2 (11:45)
[2017-02-22] MEDS ORDERED: SODIUM CHLORIDE 1,000 ML IV SCH (11:45)
[2017-02-22] MEDS ORDERED: HYDROmorphone HCL CARPU-JECT 1 MG/1 ML DISP.SYRIN IVPUSH PRN (11:45)
[2017-02-22] MEDS ORDERED: ONDANSETRON 4 MG/2 ML VIAL IVPUSH PRN (11:45)
--- NOTE | 2017-02-22 13:49 | PN ---
Progress Note (short form) - Note Progress Note: Renal Follow up Pt seen in the recovery room s/p AVG placement. Pt feels well. Wants to eat. Denies any sob, chest pain, abd pain. Last dialysis was Monday. Arranged outpatient dialysis tomorrow at 6:30 AM at [facility]. No acute indication for dialysis today. Thank you Riky Cerna DO
[2017-02-22 13:50] VITALS: TEMP 98
[2017-02-22] MEDS ORDERED: SEVELAMER CARBONATE 800 MG TAB (FP) PO SCH (14:00)
[2017-02-22 14:18] VITALS: BP 133/65; PULSE 75
--- NOTE | 2017-02-22 17:50 | OP ---
Operative Note - Note: Operative Date: 02/22/17 Pre-Operative Diagnosis: ESRD on HD Operation: Placement AV graft left arm Findings: Patent axillary artery and vein Surgeon: Naren Salinas Monogram Operator: Daquan Parham Anesthesiologist/ICE CREAM DIPPER: Radha Hopkins Anesthesia: Fractional
[2017-02-22] MEDS ORDERED: CINACALCET HCL 30 MG PO SCH (22:00)
[2017-02-22] MEDS ORDERED: ALBUTEROL SO4 0.5 % INH SOLN 2.5 MG/0.5 ML VIAL.NEB. NEB SCH (22:00)
[2017-02-22] MEDS ORDERED: MONTELUKAST NA 10 MG TABLET PO SCH (22:00)
[2017-02-22] MEDS ORDERED: amLODIPine BESYLATE 5 MG TABLET (FP) PO SCH (22:00)
--- NOTE | 2017-02-22 23:27 | OP ---
DATE OF OPERATION: 02/22/2017 SURGEON: Naren Salnias M.D. CEMENT CAR DUMPER: Burak Nesbitt PROCEDURE: Placement arteriovenous graft left arm. PREOPERATIVE DIAGNOSIS: Renal failure. POSTOPERATIVE DIAGNOSIS: Renal failure. ANESTHESIA: Fractional. ANESTHESIOLOGIST: Radha Hopkins M.D. OPERATIVE PROCEDURE: Following routine patient identification, side to side verification, intravenous tissue was established. The left arm and axilla were prepped with Chloraprep. Timeout was performed. Then 1% Xylocaine was infiltrated in the left axilla and a longitudinal incision made. Subcutaneous tissues were divided using cautery for hemostasis. The axillary vein and artery were identified, were carefully mobilized with sharp dissection. Side branches were ligated with silk ties and divided. Each vessel was secured with vessel loops. Skin incision was then made in the distal upper arm at the site of an old scar. Curved metal tunnel was then passed between the 2 incisions on the medial and anterior sides of the arm, and a 6 mm x 50 cm stretch PTFE graft was passed through the tunnel with care not to twist or kink it, to lie in a loop configuration. The artery was then occluded with bulldog clamps and opened an exposed surface with a 6-mm arteriotomy. The end of the graft was slightly beveled, and anastomosis side of the artery with running suture of 6-0 Prolene. Prior to placement of suture line, the graft was occluded with a clamp and was then the arteries were allowed to back bleed and flush. The wound was filled with heparin solution. The suture line was completed. The arteries were then released, restoring flow down the arm. The graft was pulled taught in its trap. The axillary vein was occluded. Bulldog clamps and a longitudinal venotomy measuring approximately 15 mm was made. The end of the graft was beveled in anastomosis the side of the vein with running suture 6-0 Prolene. Prior to completion of the suture line, the vein was allowed to back bleed and flush, and the vein was flushed with heparin solution. The graft was allowed to flush. The suture line was completed, and all vessels were released. Bleeding from the suture line was controlled with Surgicel. There was a pulse present in the graft. Hemostasis was achieved. Wound was irrigated, closed with interrupted sutures of 3-0 Vicryl and subcutaneous tissues, and skin sarah. Wound were dressed with Betadine ointment and dry gauze. The patient was taken to the recovery room in stable condition. Florentin DORSEY/[id number] MTDD
[2017-02-23] MEDS ORDERED: PATIENT'S OWN MEDICATION (NON-FORMULARY) (Omeprazole [Omeprazole] 40 MG) PO SCH (10:00)
[2017-02-23] MEDS ORDERED: LOSARTAN POTASSIUM 50 MG TABLET (FP) PO SCH (10:00)
== END 2017-02-22 14:15 | disposition home or self-care (01) | DRG 173 ==
LOC: JASU-SURG 07:54 → JSAMEDAYSX 11:44
PROVIDERS: ADMIT Surgery; ATTEND Surgery
PROC: 03160ZD Bypass Left Axillary Artery to Upper Arm Vein, Open Approach (ICD-10-PCS; principal; 2017-02-22 09:30)
DX: T82.898A Other specified complication of vascular prosthetic devices, implants and grafts, initial encounter (principal); Y84.1 Kidney dialysis as the cause of abnormal reaction of the patient, or of later complication, without mention of misadventure at the time of the procedure; Y92.038 Other place in apartment as the place of occurrence of the external cause; I12.0 Hypertensive chronic kidney disease with stage 5 chronic kidney disease or end stage renal disease; N18.6 End stage renal disease; Z99.2 Dependence on renal dialysis; J44.9 Chronic obstructive pulmonary disease, unspecified; I27.2 Other secondary pulmonary hypertension; D64.9 Anemia, unspecified
CPT/HCPCS: 94760; J1644

== ENCOUNTER 2018-04-21 20:08 | Inpatient (IN) | payer OTHER ==
[2018-04-21 20:14] VITALS: BMI 29.9
[2018-04-21] MEDS ORDERED: ONDANSETRON 4 MG/2 ML VIAL IVPB ONE (21:03)
[2018-04-21] MEDS ORDERED: SODIUM CHLORIDE 1,000 ML IV STA (21:03)
[2018-04-21] MEDS ORDERED: ACETAMINOPHEN 1000 MG/100 ML VIAL (NON FORMULARY) IVPB ONE (21:03)
[2018-04-21] MEDS ORDERED: ONDANSETRON 4 MG/2 ML VIAL ONE (21:09)
[2018-04-21] MEDS ORDERED: ACETAMINOPHEN INJECTION 100 ML IVPB ONE (21:09)
--- NOTE | 2018-04-21 21:14 | PDOC ---
History of Present Illness - General Chief Complaint: Pain, Acute Stated Complaint: PAIN, ACUTE Time Seen by Provider: 04/21/18 20:21 History Source: Patient Exam Limitations: No Limitations - History of Present Illness Initial Comments: 04/21/18 21:09 Pt is a 62yo f with PMH of bilateral nephrectomy s/p transplant August 2017, htn , asthma, anemia, gerd presenting to ED with complaints of epigastric abdominal pain radiating to the L flank/back x2 days. Pt says this feels like kidney stones however she does not have a L kidney. She admits to nausea, but no vomiting yet. She also admits to fever up to 101, abdomen distension, SOB and dark urine. She denies vomiting, diarrhea, constipation, lightheadedness, bloody stools. Nothing makes the pain better or worse. Had 5 bowel movements today. PMD: PMH: see hpi PSH: see hpi Meds: prograf, ASA, see med rec Social: denies Allergies: pcn, toradol, Past History - Past Medical History Allergies/Adverse Reactions: Allergies Allergy/AdvReac Type Severity Reaction Status Date / Time Penicillins Allergy Severe Difficulty Verified 04/21/18 20:14 Breathing ketorolac tromethamine Allergy Intermediate Verified 04/21/18 20:14 [From Toradol] hydromorphone HCl Allergy Nausea Verified 04/21/18 20:14 [From Dilaudid] plastic tape AdvReac Mild Hives Uncoded 04/21/18 20:14 beef AdvReac Vomiting Uncoded 04/21/18 20:14 Home Medications: Ambulatory Orders Aspirin [ASA -] 81 mg PO DAILY 04/21/18 Atovaquone [Mepron -] 10 ml PO DAILY 04/21/18 Furosemide [Lasix -] 20 mg PO DAILY 04/21/18 Gabapentin [Neurontin -] 900 mg PO HS 04/21/18 LORazepam [Ativan] 1 mg PO PRN PRN 04/21/18 Montelukast Na [Singulair -] 10 mg PO DAILY 04/21/18 Mycophenolate Sodium [Myfortic] 360 mg PO BID 04/21/18 Nifedipine [Procardia Capsule -] 30 mg PO BID 04/21/18 Pantoprazole Sodium [Protonix -] 40 mg PO DAILY 04/21/18 Prednisolone [Millipred] 5 mg PO DAILY 04/21/18 Sod Phos Di, Perkins/K Phos Perkins [K-Phos Neutral Tablet] 250 mg PO TID 04/21/18 Tacrolimus Anhydrous [Prograf] 1 mg PO BID 04/21/18 traZODone HCL [Trazodone HCl] 100 mg PO HS 04/21/18 Anemia: Yes Asthma: Yes Cancer: No Cardiac Disorders: Yes CVA: No COPD: Yes CHF: Yes Dementia: No Diabetes: No Dialysis: Yes (M W F) GI Disorders: Yes Disorders: No HTN: Yes Hypercholesterolemia: No Liver Disease: No Seizures: No Thyroid Disease: No - Surgical History Abdominal Surgery: Yes (BILATERAL nephrectomy) Appendectomy: No Cardiac Surgery: No Cholecystectomy: No Lung Surgery: Yes (RIGHT LUNG NODULE REMOVAL) Neurologic Surgery: Yes (cervical renetta placement) Orthopedic Surgery: No - Immunization History Immunization Up to Date: Yes - Suicide/Smoking/Psychosocial Hx Smoking Status: Yes Smoking History: Never smoked Years of Tobacco Use: 16 Have you smoked in the past 12 months: No Number of Cigarettes Smoked Daily: 60 If you are a former smoker, when did you quit?: 17YRS AGO Hx Alcohol Use: No Drug/Substance Use Hx: No Substance Use Type: None Hx Substance Use Treatment: No Review of Systems - Review of Systems Constitutional: Yes: Fever. No: Chills, Weakness HEENTM: No: Symptoms Reported Respiratory: Yes: Shortness of Breath. No: Cough Cardiac (ROS): Yes: Lightheadedness. No: Chest Pain, Palpitations, Syncope ABD/GI: Yes: See HPI, Nausea, Abdominal cramping. No: Constipated, Diarrhea, Vomiting : Yes: Other (dark in color). No: Burning, Dysuria, Frequency, Incontinence Musculoskeletal: Yes: See HPI, Back Pain (L flank pain) Integumentary: No: See HPI Neurological: No: Headache, Numbness, Paresthesia *Physical Exam - Vital Signs Last Vital Signs Temp Pulse Resp BP Pulse Ox 98.6 F 108 H 18 125/72 98 04/21/18 20:09 04/21/18 20:09 04/21/18 20:09 04/21/18 20:09 04/21/18 20:09 - Physical Exam General Appearance: Yes: Nourished, Appropriately Dressed, Mild Distress HEENT: positive: EOMI, OFE, Normal ENT Inspection Neck: positive: Trachea midline, Supple. negative: Lymphadenopathy (R), Lymphadenopathy (L) Respiratory/Chest: positive: Lungs Clear, Normal Breath Sounds. negative: Crackles, Rales, Rhonchi, Stridor, Wheezing Cardiovascular: positive: Regular Rhythm, S1, S2, Tachycardia. negative: Edema , JVD, Murmur Vascular Pulses: Carotid (R): 2+, Carotid (L): 2+, Dorsalis-Pedis (R): 2+, Doralis-Pedis (L): 2+ Gastrointestinal/Abdominal: positive: Normal Bowel Sounds, Soft, Protuberent, Tenderness (LUQ, LLQ, epigastric tenderness). negative: Distended, Guarding, Rebound Musculoskeletal: positive: CVA Tenderness (L). negative: CVA Tenderness (R) Extremity: positive: Normal Capillary Refill Integumentary: positive: Normal Color, Dry, Warm Neurologic: positive: academic support coordinator II-XII NML intact, Fully Oriented, Alert, Normal Mood/ Affect, Normal Response, Motor Strength 10/21 ED Treatment Course - LABORATORY CBC & Chemistry Diagram: 04/21/18 21:25 04/21/18 21:25 - RADIOLOGY Radiology Studies Ordered: Category Date Time Status ABDOMEN & PELVIS CT W/O CONTR [CT] Stat CT Scan 04/21/18 21:04 Ordered Medical Decision Making - Medical Decision Making 04/21/18 21:14 Pt is a 62yo f with PMH of bilateral nephrectomy s/p transplant August 2017, htn , asthma, anemia, gerd presenting to ED with complaints of epigastric abdominal pain radiating to the L flank/back x2 days Vitals: Selected Entries 04/21/18 20:09 Temperature 98.6 F Pulse Rate 108 H Respiratory 18 Rate Blood Pressure 125/72 O2 Sat by Pulse 98 Oximetry (%) PE: epigastric, LUQ and LLQ tenderness. DDx: AAA, cholecystitis, pancreatitis, uti, pyelonephritis, nephrolithiasis Bedside ultrasound performed by me revealed possible cholelithiasis? Kidney absent on L side. Could not visualize aorta due to bowel gas and body habitus. CBC, CMP, coags, trop, ekg, CTAP w/o contrast ordered. Chemsitries hemolyzed twice. Will order again. CT pending. 04/22/18 00:56 Laboratory Tests 04/21/18 04/21/18 04/21/18 21:25 21:25 21:53 WBC 3.8 L Hgb 14.0 Hct 41.2 D Plt Count 104 L D Lactic Acid 2.6 H* Urine Color Ltyellow Urine Appearance Clear Urine Nitrite Negative Urine Urobilinogen 2.0 H Ur Leukocyte Esterase Negative Pt given L of fluid and given IV Tylenol for pain. And zofran for nausea. Awaiting CT and labs. Pt signed out to Dr. Carnes *DC/Admit/Observation/Transfer Diagnosis at time of Disposition: Abdominal pain Qualifiers: Abdominal location: epigastric Qualified Code(s): R10.13 - Epigastric pain - Referrals Referrals: Juan David Christiansen MD [Primary Care Provider] - - Patient Instructions - Post Discharge Activity
[2018-04-21 21:31] LABS: BASO % 1.1 % (0-2.0); EOS % 3.2 % (0-4.5); HEMATOCRIT 41.2 % (32.4-45.2); LYMPH % 12.4 % (8-40); MCH 31.6 pg (25.7-33.7); MCHC 34.1 g/dl (32.0-36.0); MEAN CELL VOLUME 92.9 fl (80-96); MEAN PLT VOLUME 9.7 fl (7.5-11.1); MONO % 20.8 % (3.8-10.2); NEUT % 62.5 % (42.8-82.8); PLATELET COUNT 104 K/MM3 (134-434); RBC 4.44 M/mm3 (3.60-5.2); RDW 13.7 % (11.6-15.6); WHITE BLOOD COUNT 3.8 K/mm3 (4.0-10.0)
[2018-04-21 21:46] LABS: INR 0.92 (0.83-1.09); PROTHROMBIN TIME (PATIENT) 10.9 SEC (9.7-13.0)
[2018-04-21 21:48] LABS: ACTIVATED PTT 22.6 SECONDS (25.2-36.5)
[2018-04-21 21:59] LABS: URINE APPEARANCE CLEAR; URINE BILIRUBIN NEGATIVE (<2.0 mg/dL); URINE COLOR LTYELLOW; URINE GLUCOSE (UA) NEGATIVE (NEGATIVE); URINE KETONE NEGATIVE (NEGATIVE); URINE LEUK ESTERASE NEGATIVE (NEGATIVE); URINE NITRITE NEGATIVE (NEGATIVE); URINE PROTEIN NEGATIVE (NEGATIVE)
[2018-04-21 22:01] LABS: ANISOCYTOSIS 1+; PLATELET ESTIMATE DECREASED
--- NOTE | 2018-04-22 01:07 | PDOC ---
Attending Attestation - HPI HPI: 04/22/18 01:19 EDT The patient is a 62-year-old female with past medical history significant for COPD, HTN, Asthma, anemia, s/p NV (w/ stents), s/p dual nephrectomy s/p transplant (August 2017) presents to the emergency department with abdominal pain and nausea. The patient presents with 2 days of constant, sharp left lower quadrant pain that radiates to the back, associated with nausea, denies vomiting. The patient reports an additional concern of fever, with a temp of 101 and shortness of breath. Denies chills, chest pain, dysuria, hematuria, frequency or urgency to urinate, diarrhea, constipation. Allergies: Penicillins, ketorolac tromethamine, hydromorphone HCl. PCP: Dr. Juan David Christiansen - Medical Decision Making 04/22/18 01:20 EDT Documentation prepared by Gretel Asher, acting as durable medical equipment technician for Lalita Kohler MD. <Gretel Asher - Last Filed: 04/22/18 01:19 EDT> - Resident Resident Name: Chaparrita Guadalupe - ED Attending Attestation I have performed the following: I have examined & evaluated the patient, The case was reviewed & discussed with the resident, I agree w/resident's findings & plan, Exceptions are as noted - HPI HPI: 04/22/18 01:03 EDT 62 yo F with h/o renal ca, bilat nephrectomy, transplant right lower quad here todya c/o llq pain. does radiate to flank. did have few episodes of n/v today. no f/c no mod factors. - Physicial Exam PE: 04/22/18 01:05 EDT awake alert lungs clear bilaterally heart reg tachycardia. no mrg abd soft llq ttp. no rebound no guarding. ext wwp. no edema. no calf tenderness. skin warm and dry. - Medical Decision Making 04/22/18 01:06 EDT differential: diverticulitis, colitis, uti, pyelo plan ct a/p no iv contrast. labs ua. antiemetics, iv hydration. <Lalita Kohler - Last Filed: 04/22/18 01:39 EDT> Heart Score/ECG Review #1 General ECG Interpretation: Sinus Rhythm, Normal Rate (108), Normal Intervals, No acute ischemic changes <Lalita Kohler - Last Filed: 04/22/18 01:39 EDT>
[2018-04-22 01:24] LABS: ALBUMIN 3.5 g/dl (3.4-5.0); ALK PHOS 188 U/L (45-117); ANION GAP 6 MMOL/L (8-16); BILIRUBIN,TOTAL 0.6 mg/dL (0.2-1); BLOOD UREA NITROGEN 22 mg/dL (7-18); CHLORIDE 106 mmol/L (98-107); CO2 27 mmol/L (21-32); CREATININE 0.9 mg/dL (0.55-1.3); GLUCOSE,RANDOM 110 mg/dL (74-106); POTASSIUM 3.9 mmol/L (3.5-5.1); SGOT/AST 40 U/L (15-37); SGPT/ALT 41 U/L (13-61); SODIUM 138 mmol/L (136-145)
--- NOTE | 2018-04-22 01:43 | PDOC ---
*Physical Exam - Vital Signs Last Vital Signs Temp Pulse Resp BP Pulse Ox 98.6 F 89 18 124/68 98 04/21/18 20:09 04/22/18 00:10 04/22/18 00:10 04/22/18 00:10 04/22/18 00:10 - Physical Exam Comments: General: Sleeping comfortably, easily wakened, no acute distress HEENT: PERRL, EOMI, voice normal Cards: RRR, no murmur appreciated Pulm: Comfortable on room air, clear to auscultation bilaterally Abd: Soft, TTP in LLQ, non-distended : Left flank tenderness Ext: Atraumatic. No LE edema. ROM intact. Strength 5/5 and equal bilaterally Vasc: Extremities WWP. Skin: Normal color, no rashes or lesions Neuro: A&Ox3, CN grossly intact, normal speech, motor/sensory grossly intact and symmetric Psych: Mood appropriate to situation ED Treatment Course - LABORATORY CBC & Chemistry Diagram: 04/21/18 21:25 04/22/18 00:46 - ADDITIONAL ORDERS Additional order review: Laboratory Results 04/22/18 04/21/18 04/21/18 00:46 22:20 21:53 PT with INR INR PTT (Actin FS) Sodium 138 Cancelled Potassium 3.9 Cancelled Chloride 106 Cancelled Carbon Dioxide 27 Cancelled Anion Gap 6 L Cancelled BUN 22 H Cancelled Creatinine 0.9 Cancelled Creat Clearance w eGFR > 60 Cancelled Random Glucose 110 H Cancelled Lactic Acid Calcium 10.0 Cancelled Total Bilirubin 0.6 Cancelled AST 40 H Cancelled ALT 41 Cancelled Alkaline Phosphatase 188 H Cancelled Troponin I Total Protein 6.0 L Cancelled Albumin 3.5 Cancelled Lipase Urine Color Ltyellow Urine Appearance Clear Urine pH 7.0 Ur Specific [place] 1.014 Urine Protein Negative Urine Glucose (UA) Negative Urine Ketones Negative Urine Blood Negative Urine Nitrite Negative Urine Bilirubin Negative Urine Urobilinogen 2.0 H Ur Leukocyte Esterase Negative 04/21/18 04/21/18 04/21/18 21:25 21:25 21:25 PT with INR 10.90 INR 0.92 PTT (Actin FS) 22.6 L Sodium Cancelled Potassium Cancelled Chloride Cancelled Carbon Dioxide Cancelled Anion Gap Cancelled BUN Cancelled Creatinine Cancelled Creat Clearance w eGFR Cancelled Random Glucose Cancelled Lactic Acid 2.6 H* Calcium Cancelled Total Bilirubin Cancelled AST Cancelled ALT Cancelled Alkaline Phosphatase Cancelled Troponin I Cancelled Total Protein Cancelled Albumin Cancelled Lipase Cancelled Urine Color Urine Appearance Urine pH Ur Specific [place] Urine Protein Urine Glucose (UA) Urine Ketones Urine Blood Urine Nitrite Urine Bilirubin Urine Urobilinogen Ur Leukocyte Esterase 04/21/18 21:25 RBC 4.44 MCV 92.9 MCHC 34.1 RDW 13.7 D MPV 9.7 Neutrophils % 62.5 Lymphocytes % 12.4 Monocytes % 20.8 H D Eosinophils % 3.2 Basophils % 1.1 - Medications Given in the ED: ED Medications Discontinued Medications Generic Name Dose Route Start Last Admin Trade Name Freq PRN Reason Stop Dose Admin Acetaminophen 1,000 mg 04/21/18 21:03 04/21/18 21:15 Ofirmev Injection - IVPB 04/21/18 21:04 1,000 mg ONCE ONE Administration Sodium Chloride 1,000 mls @ 1,000 mls/hr 04/21/18 21:03 04/21/18 21:15 Normal Saline - IV 04/21/18 22:02 1,000 mls/hr ASDIR STA Administration Ondansetron HCl 4 mg 04/21/18 21:03 04/21/18 21:15 Zofran Injection IVPB 04/21/18 21:04 4 mg ONCE ONE Administration Medical Decision Making - Medical Decision Making 04/22/18 01:44 EDT Melania Aranda is a 62yo woman with a PMH of b/l nephrectomy s/p transplant (2017), HTN, asthma, anemia and GERD who presented to the ED reporting epigastric and left flank pain, fever, and abdominal distension. - Labs reviewed, no significant abnormalities - CT abdomen completed. Read pending - Reporting continued pain but does not want opiates as they make her nauseated. Will re-evalate and discuss options 04/22/18 02:28 - Continued pain. 2mg morphine for pain with 4mg zofran for nausea as Ms Aranda reports severe nausea with opiates - CT called to verify that images had been sent to imaging conference planner as read is not yet back. Will resend. 04/22/18 03:11 - CT reviewed. No obvious abnormalities. Radiology report indicates small amount of fat stranding around right-sided transplanted kidney. No left-sided abnormalities noted. - Discussed with Ms Aranda and her . Will admit to obs for monitoring of the transplanted kidney. Ms Aranda agrees to the admission and reports feeling better that she will have continued monitoring and repeat labs. - PMD is Dr Juan David Christiansen, will call Dr Baum for admission. 04/22/18 04:57 - Spoke to Dr Baum. OK to admit to obs. - Requested that dose of ceftriaxone be given. Patient has a severe penicillin allergy, will give levofloxacin instead for suspected UTI, possible pyelonephritis of transplanted kidney Seen and discussed with Dr Kohler and Dr Maguire. Laura Carnes PGY1 *DC/Admit/Observation/Transfer Diagnosis at time of Disposition: Abdominal pain Qualifiers: Abdominal location: epigastric Qualified Code(s): R10.13 - Epigastric pain - Discharge Dispostion Decision to Admit order: Yes - Referrals Referrals: Juan David Christiansen MD [Primary Care Provider] - - Patient Instructions - Post Discharge Activity
[2018-04-22] MEDS ORDERED: morphine CARPU-JECT 2 MG/1 ML DISP.SYRIN IVPUSH ONE (02:27)
[2018-04-22] MEDS ORDERED: ONDANSETRON 4 MG/2 ML VIAL IVPUSH ONE (02:27)
[2018-04-22] MEDS ORDERED: FAMOTIDINE 20 MG/50 ML IVPB 20 MG/50 ML MG IVPB ONE ×2 (02:59→04:10)
[2018-04-22] MEDS ORDERED: MAG HYDROX/AL HYDROX/SIMETH 30 ML UNIT-DOSE CUP PO ONE (02:59)
[2018-04-22] MEDS ORDERED: MAG HYDROX/AL HYDROX/SIMETH 30 ML UNIT-DOSE CUP ONE (03:20)
[2018-04-22] MEDS ORDERED: MORPHINE SULFATE 2 MG/ML VIAL ONE ×2 (03:20→11:23)
[2018-04-22] MEDS ORDERED: ONDANSETRON 4 MG/2 ML VIAL ONE (03:21)
[2018-04-22] MEDS ORDERED: MYCOPHENOLATE SODIUM 360 MG TABLET.DR PO SCH (11:15)
[2018-04-22] MEDS ORDERED: MONTELUKAST NA 10 MG TABLET PO SCH (11:15)
[2018-04-22] MEDS ORDERED: NIFEdipine 10 MG CAPSULE (FP) PO SCH (11:15)
[2018-04-22] MEDS ORDERED: ASPIRIN 81 MG CHEWABLE TABLETS PO SCH ×2 (11:15→12:15)
[2018-04-22] MEDS ORDERED: MORPHINE SULFATE 2 MG/ML VIAL IVPUSH PRN (11:17)
[2018-04-22] MEDS ORDERED: ONDANSETRON 4 MG/2 ML VIAL IVPUSH PRN (11:20)
[2018-04-22] MEDS ORDERED: DEXTROSE 5%-0.45% SALINE 1,000 ML IV SCH (11:30)
[2018-04-22] MEDS ORDERED: TACROLIMUS ANHYDROUS 1 MG CAPSULE PO SCH (11:30)
[2018-04-22] MEDS ORDERED: PANTOPRAZOLE 40 MG TABLET (FP) PO SCH (11:30)
[2018-04-22] MEDS ORDERED: predniSONE 5 MG TABLET (UD) PO SCH (11:30)
--- NOTE | 2018-04-22 11:41 | EKG ---
Test Reason : Blood Pressure : / mmHG Vent. Rate : 108 BPM Atrial Rate : 108 BPM P-R Int : 150 ms QRS Dur : 098 ms QT Int : 310 ms P-R-T Axes : 060 050 065 degrees QTc Int : 415 ms SINUS TACHYCARDIA WITH PREMATURE ATRIAL COMPLEXES POSSIBLE LEFT ATRIAL ENLARGEMENT NONSPECIFIC T WAVE ABNORMALITY EARLY REPOLARIZATION Confirmed by GREG HAILE MD ([id number]) on 04/22/2018 11:40:53 AM Referred By: Confirmed By:GREG HAILE MD
[2018-04-22 12:32] VITALS: BP 136/79; PULSE 101; TEMP 98.2
[2018-04-22] MEDS ORDERED: [UNRECOGNIZED DRUG - OTHER] PO SCH (14:00)
[2018-04-22] MEDS ORDERED: GABAPENTIN 300 MG CAPSULE (FP) PO SCH (22:00)
[2018-04-22] MEDS ORDERED: traZODone HCL 100 MG TABLET (FP) PO SCH (22:00)
[2018-04-22] MEDS ORDERED: HEPARIN NA (PORCINE) 5,000 UNITS/ML 1ML VIAL SQ SCH (22:00)
[2018-04-23] MEDS ORDERED: FUROSEMIDE 20 MG TABLET (FP) PO SCH (10:00)
== END 2018-04-22 12:37 | disposition left against medical advice (07) | DRG 251 ==
LOC: JER 20:08 → JERBED 04-22 03:14 → OBSVTOIN 04-22 11:18
PROVIDERS: ADMIT Internal Medicine; ATTEND Internal Medicine
DX: R10.13 Epigastric pain (principal); I10 Essential (primary) hypertension; J44.9 Chronic obstructive pulmonary disease, unspecified; J45.909 Unspecified asthma, uncomplicated; K21.9 Gastro-esophageal reflux disease without esophagitis; D64.9 Anemia, unspecified; R00.0 Tachycardia, unspecified; Z94.0 Kidney transplant status; Z90.5 Acquired absence of kidney
CPT/HCPCS: 36415; 74176-TC; 80053; 81003; 83605; 85025; 85610; 85730; 87086; 93005; 93010; 99285-25; G0378; J0131; J7030

== ENCOUNTER 2018-10-30 11:46 | Inpatient (IN) | payer OTHER ==
--- NOTE | 2018-10-30 12:13 | PDOC ---
History of Present Illness - General Chief Complaint: Shortness of Breath Stated Complaint: ASTHMA ATTACK Time Seen by Provider: 10/30/18 12:13 Past History - Past Medical History Allergies/Adverse Reactions: Allergies Allergy/AdvReac Type Severity Reaction Status Date / Time Penicillins Allergy Severe Difficulty Verified 10/30/18 11:50 Breathing ketorolac tromethamine Allergy Intermediate Verified 10/30/18 11:50 [From Toradol] hydromorphone HCl Allergy Nausea Verified 10/30/18 11:50 [From Dilaudid] plastic tape AdvReac Mild Hives Uncoded 10/30/18 11:50 beef AdvReac Vomiting Uncoded 10/30/18 11:50 Home Medications: Ambulatory Orders Aspirin [ASA -] 81 mg PO DAILY 04/21/18 Furosemide [Lasix -] 20 mg PO DAILY 04/21/18 Gabapentin [Neurontin -] 900 mg PO HS 04/21/18 LORazepam [Ativan] 1 mg PO PRN PRN 04/21/18 Montelukast Na [Singulair -] 10 mg PO DAILY 04/21/18 Mycophenolate Sodium [Myfortic] 360 mg PO BID 04/21/18 Nifedipine [Procardia Capsule -] 30 mg PO BID 04/21/18 Pantoprazole Sodium [Protonix -] 40 mg PO DAILY 04/21/18 Prednisolone [Millipred] 5 mg PO DAILY 04/21/18 Sod Phos Di, Schleicher/K Phos Schleicher [K-Phos Neutral Tablet] 250 mg PO TID 04/21/18 Tacrolimus Anhydrous [Prograf] 2 mg PO BID 04/21/18 traZODone HCL [Trazodone HCl] 100 mg PO HS 04/21/18 Anemia: Yes Asthma: Yes Cancer: No Cardiac Disorders: Yes CVA: No COPD: Yes CHF: Yes Dementia: No Diabetes: No Dialysis: Yes (M W F) GI Disorders: Yes Disorders: No HTN: Yes Hypercholesterolemia: No Liver Disease: No Seizures: No Thyroid Disease: No - Surgical History Abdominal Surgery: Yes (BILATERAL nephrectomy) Appendectomy: No Cardiac Surgery: No Cholecystectomy: No Lung Surgery: Yes (RIGHT LUNG NODULE REMOVAL) Neurologic Surgery: Yes (cervical renetta placement) Orthopedic Surgery: No - Immunization History Immunization Up to Date: Yes - Suicide/Smoking/Psychosocial Hx Smoking Status: Yes Smoking History: Unknown if ever smoked Years of Tobacco Use: 16 Have you smoked in the past 12 months: No Number of Cigarettes Smoked Daily: 60 If you are a former smoker, when did you quit?: 17YRS AGO Hx Alcohol Use: No Drug/Substance Use Hx: No Substance Use Type: None Hx Substance Use Treatment: No *Physical Exam - Vital Signs Last Vital Signs Temp Pulse Resp BP Pulse Ox 97.9 F 93 H 26 H 127/68 96 10/30/18 12:01 10/30/18 12:01 10/30/18 12:01 10/30/18 12:01 10/30/18 12:01
[2018-10-30] MEDS ORDERED: ALBUTEROL SO4 2.5/IPRATROPIUM 0.5 INH SOL 3 ML VIAL.NEB. NEB ONE ×2 (12:45→13:05)
[2018-10-30] MEDS ORDERED: methylPREDNISolone NA SUCC 125 MG/2 ML VIAL IVPUSH ONE (12:45)
--- NOTE | 2018-10-30 12:55 | PDOC ---
History of Present Illness - General Chief Complaint: Shortness of Breath Stated Complaint: ASTHMA ATTACK Time Seen by Provider: 10/30/18 12:30 History Source: Patient Exam Limitations: No Limitations - History of Present Illness Initial Comments: 10/30/18 12:50 62 year old female with PMH HTN, COPD, asthma, b/l nephrectomy s/p transplant ( 08/2017), anemia, GERD presented to ED for SOB x2 weeks. Pt was seen and evaluated by Dr. Vo outpatient, placed on antibiotics (suspected Z-pack, finished x1 week ago) and steroids (prednisone 20 mg daily), continued using her nebulizer every 3 hours, but the shortness of breath has persisted. PT admitted to productive green to white cough. Pt denied chest pain, fever, chills , lightheadedness, severe back pain, syncope, diaphoresis. Allergies: PCN, plastic tape, hydromorphone, ketorolac Past History - Past Medical History Allergies/Adverse Reactions: Allergies Allergy/AdvReac Type Severity Reaction Status Date / Time Penicillins Allergy Severe Difficulty Verified 10/30/18 11:50 Breathing ketorolac tromethamine Allergy Intermediate Verified 10/30/18 11:50 [From Toradol] hydromorphone HCl Allergy Nausea Verified 10/30/18 11:50 [From Dilaudid] plastic tape AdvReac Mild Hives Uncoded 10/30/18 11:50 beef AdvReac Vomiting Uncoded 10/30/18 11:50 Home Medications: Ambulatory Orders Aspirin [ASA -] 81 mg PO DAILY 04/21/18 Furosemide [Lasix -] 20 mg PO DAILY 04/21/18 Gabapentin [Neurontin -] 900 mg PO HS 04/21/18 LORazepam [Ativan] 1 mg PO PRN PRN 04/21/18 Montelukast Na [Singulair -] 10 mg PO DAILY 04/21/18 Mycophenolate Sodium [Myfortic] 360 mg PO BID 04/21/18 Nifedipine [Procardia Capsule -] 30 mg PO BID 04/21/18 Pantoprazole Sodium [Protonix -] 40 mg PO DAILY 04/21/18 Prednisolone [Millipred] 20 mg PO DAILY 04/21/18 Sod Phos Di, Wilson/K Phos Wilson [K-Phos Neutral Tablet] 250 mg PO TID 04/21/18 Tacrolimus Anhydrous [Prograf] 2 mg PO BID 04/21/18 traZODone HCL [Trazodone HCl] 100 mg PO HS 04/21/18 Albuterol 0.083% Nebulizer Tari [Ventolin 0.083%] 1 neb NEB QID 10/30/18 Albuterol Sulfate Inhaler - [Ventolin Hfa Inhaler -] 1 - 2 inh PO QID 10/30/18 Budesonide/Formeterol Fumarate [SYMBICORT 160/4.5mcg -] 1 inh PO DAILY 10/30/18 Salmeterol/Fluticasone [Advair 100Mcg/50Mcg -] 1 inh PO BID 10/30/18 Anemia: Yes Asthma: Yes Cancer: No Cardiac Disorders: Yes CVA: No COPD: Yes CHF: Yes Dementia: No Diabetes: No Dialysis: Yes (M W F) GI Disorders: Yes Disorders: No HTN: Yes Hypercholesterolemia: No Liver Disease: No Seizures: No Thyroid Disease: No - Surgical History Abdominal Surgery: Yes (BILATERAL nephrectomy) Appendectomy: No Cardiac Surgery: No Cholecystectomy: No Lung Surgery: Yes (RIGHT LUNG NODULE REMOVAL) Neurologic Surgery: Yes (cervical renetta placement) Orthopedic Surgery: No - Immunization History Immunization Up to Date: Yes - Suicide/Smoking/Psychosocial Hx Smoking Status: Yes Smoking History: Unknown if ever smoked Years of Tobacco Use: 16 Have you smoked in the past 12 months: No Number of Cigarettes Smoked Daily: 60 If you are a former smoker, when did you quit?: 17YRS AGO Hx Alcohol Use: No Drug/Substance Use Hx: No Substance Use Type: None Hx Substance Use Treatment: No Review of Systems - Review of Systems Able to Perform ROS?: Yes Comments:: 10/30/18 12:52 General: denied fever, chills, generalized weakness. HEENT: denied sore throat, rhinorrhea, ear pain. Heart: denied chest pain, palpitations, syncope, diaphoresis. Respiratory: admitted to shortness of breath, cough, sputum production. denied hemoptysis. Abdomen: denied abdominal pain, nausea, vomiting, diarrhea, constipation, blood in stool. : denied dysuria, increased urinary frequency, hematuria, urinary incontinence , flank pain. Back: denied back pain. Musculoskeletal: denied joint pain, muscle pain, joint swelling. Neurological: denied headache, dizziness, numbness, tingling, weakness. Skin: denied rash, laceration, abrasion. *Physical Exam - Vital Signs Last Vital Signs Temp Pulse Resp BP Pulse Ox 97.9 F 93 H 26 H 127/68 96 10/30/18 12:01 10/30/18 12:01 10/30/18 12:01 10/30/18 12:01 10/30/18 12:01 - Physical Exam Comments: 10/30/18 12:52 Constitutional: Well-nourished, Well-developed, appearing stated age. HEENT: head is normocephalic, atraumatic. EOMI. PERRLA. Neck: supple. Full ROM. Heart: regular rhythm. no murmurs, rubs or gallops. Lungs: wheezing throughout bilaterally. no stridor. speaking full sentences without difficulty. no retractions. no crackles bilaterally. Abdomen: soft, nontender. normal bowel sounds. no rebound, guarding, masses. Extremities: peripheral pulses intact. 1+ pitting edema bilaterally. Neurological: CN 2-12 grossly intact. moves all four extremities. Psych: awake, alert, oriented x3. follows commands. answers questions appropriately. ED Treatment Course - LABORATORY CBC & Chemistry Diagram: 10/30/18 12:47 10/30/18 12:47 - RADIOLOGY Radiology Studies Ordered: Category Date Time Status CHEST PA & LAT [RAD] Stat Radiology 10/30/18 12:44 Ordered Medical Decision Making - Medical Decision Making 10/30/18 12:53 62 year old female with above PMH presented to ED for SOB x2 weeks associated with productive cough. Initial Vital Signs Temp Pulse Resp BP Pulse Ox 97.9 F 93 H 26 H 127/68 96 10/30/18 12:01 10/30/18 12:01 10/30/18 12:01 10/30/18 12:01 10/30/18 12:01 Afebrile. No tachycardia. Tachypnea. No hypotension. No hypoxia on room air. Labs ordered: CBC, CMP, BNP, VBG, troponin Medications ordered: duonebs x3, solumedrol -Will determine Mag based on Cr Imaging ordered: CXR EKG performed at 10/30/18 13:07 CBC WBC 13.3 K/mm3 (4.0-10.0) H 10/30/18 12:47 RBC 4.55 M/mm3 (3.60-5.2) 10/30/18 12:47 Hgb 13.4 GM/dL (10.7-15.3) 10/30/18 12:47 Hct 42.1 % (32.4-45.2) 10/30/18 12:47 MCV 92.6 fl (80-96) 10/30/18 12:47 MCH 29.5 pg (25.7-33.7) 10/30/18 12:47 MCHC 31.8 g/dl (32.0-36.0) L 10/30/18 12:47 RDW 14.5 % (11.6-15.6) 10/30/18 12:47 Plt Count 217 K/MM3 (134-434) D 10/30/18 12:47 MPV 9.1 fl (7.5-11.1) 10/30/18 12:47 Absolute Neuts (auto) 11.4 K/mm3 (1.5-8.0) H 10/30/18 12:47 Neutrophils % 86.0 % (42.8-82.8) H D 10/30/18 12:47 Lymphocytes % 7.4 % (8-40) L D 10/30/18 12:47 Monocytes % 5.4 % (3.8-10.2) 10/30/18 12:47 Eosinophils % 0.7 % (0-4.5) 10/30/18 12:47 Basophils % 0.5 % (0-2.0) 10/30/18 12:47 Nucleated RBC % 0 % (0-0) 10/30/18 12:47 Leukocytosis with left shift. No anemia. No lymphocytosis -Recently on steroids 10/30/18 13:29 VBG - normal pH. no CO2 retention. 10/30/18 14:08 CMP Sodium 136 mmol/L (136-145) 10/30/18 12:47 Potassium 4.4 mmol/L (3.5-5.1) 10/30/18 12:47 Chloride 105 mmol/L (98-107) 10/30/18 12:47 Carbon Dioxide 26 mmol/L (21-32) 10/30/18 12:47 Anion Gap 5 MMOL/L (8-16) L 10/30/18 12:47 BUN 13 mg/dL (7-18) 10/30/18 12:47 Creatinine 0.8 mg/dL (0.55-1.3) 10/30/18 12:47 Est GFR (CKD-EPI)AfAm 91.58 10/30/18 12:47 Est GFR (CKD-EPI)NonAf 79.01 10/30/18 12:47 Random Glucose 122 mg/dL (74-106) H 10/30/18 12:47 Calcium 10.5 mg/dL (8.5-10.1) H 10/30/18 12:47 Total Bilirubin 0.6 mg/dL (0.2-1) 10/30/18 12:47 AST 31 U/L (15-37) 10/30/18 12:47 ALT 41 U/L (13-61) 10/30/18 12:47 Alkaline Phosphatase 114 U/L (45-117) 10/30/18 12:47 Troponin I < 0.02 ng/ml (0.00-0.05) 10/30/18 12:47 B-Natriuretic Peptide 47.4 pg/ml (5-125) 10/30/18 12:47 Total Protein 6.6 g/dl (6.4-8.2) 10/30/18 12:47 Albumin 3.5 g/dl (3.4-5.0) 10/30/18 12:47 No electrolyte abnormalities. No ANKUR. No transaminitis. Troponin within normal limits. BNP within normal limits. Pt likely has COPD/asthma exacerbation. No renal insufficiency. Medications ordered: Magnesium 2 g IV 10/30/18 14:[address] Doe's read: no infiltrate. similar to prior. stent to left arm and left subclavian. -Pending official read Disposition: Admission for COPD exacerbation & failed outpatient treatment 10/30/18 14:[address] Baum about the patient. Pending admission. *DC/Admit/Observation/Transfer Diagnosis at time of Disposition: COPD exacerbation - Discharge Dispostion Condition at time of disposition: Stable Decision to Admit order: Yes - Referrals Referrals: Juan David Christiansen MD [Primary Care Provider] - - Patient Instructions - Post Discharge Activity
[2018-10-30 12:59] LABS: BASO % 0.5 % (0-2.0); EOS % 0.7 % (0-4.5); HEMATOCRIT 42.1 % (32.4-45.2); HEMOGLOBIN 13.4 GM/dL (10.7-15.3); LYMPH % 7.4 % (8-40); MCH 29.5 pg (25.7-33.7); MCHC 31.8 g/dl (32.0-36.0); MEAN CELL VOLUME 92.6 fl (80-96); MEAN PLT VOLUME 9.1 fl (7.5-11.1); MONO % 5.4 % (3.8-10.2); PLATELET COUNT 217 K/MM3 (134-434); RBC 4.55 M/mm3 (3.60-5.2); RDW 14.5 % (11.6-15.6); WHITE BLOOD COUNT 13.3 K/mm3 (4.0-10.0)
[2018-10-30 13:03] LABS: VENOUS PC02 43.3 mmHg (41-51); VENOUS PH 7.39 (7.31-7.41); VENOUS PO2 52.5 mmHg (30-40)
[2018-10-30] MEDS ORDERED: methylPREDNISolone NA SUCC 125 MG/2 ML VIAL ONE (13:05)
--- NOTE | 2018-10-30 13:31 | EKG ---
Test Reason : Blood Pressure : / mmHG Vent. Rate : 098 BPM Atrial Rate : 098 BPM P-R Int : 144 ms QRS Dur : 096 ms QT Int : 324 ms P-R-T Axes : 056 047 072 degrees QTc Int : 413 ms NORMAL SINUS RHYTHM POSSIBLE LEFT ATRIAL ENLARGEMENT BORDERLINE ECG WHEN COMPARED WITH ECG OF 21-APR-2018 22:59, PREMATURE ATRIAL COMPLEXES ARE NO LONGER PRESENT T WAVE INVERSION NO LONGER EVIDENT IN LATERAL LEADS Confirmed by MD JUDE, BETH ([id number]) on 10/30/2018 1:31:06 PM Referred By: Confirmed By:BETH ROQUE MD
--- NOTE | 2018-10-30 13:38 | PN ---
Progress Note (short form) - Note Progress Note: PULMONARY CONSULTATION DICTATED 10/30/18 IMP DYSPNEA ASTHMA /COPD EXACERBATION H/O RENAL TRANSPLANT MODERATE MACI AHI 19.0 ASHD S/P STENTS PULMONARY NODULES STABLE HYPERCALCEMIA PULMONARY HTN PLAN IV STEROIDS INHALED BRONCHODILATORS O2 MONITOR PEAK FLOW MONITOR MARTINEZ MEJIA CPAP [id number] AT NIGHT DR JUAREZ Problem List - Problems (1) Hypercalcemia Code(s): E83.52 - HYPERCALCEMIA (2) COPD exacerbation Code(s): J44.1 - CHRONIC OBSTRUCTIVE PULMONARY DISEASE W (ACUTE) EXACERBATION (3) CHF (congestive heart failure) Code(s): I50.9 - HEART FAILURE, UNSPECIFIED (4) Difficulty breathing Code(s): R06.89 - OTHER ABNORMALITIES OF BREATHING (5) Sleep apnea Code(s): G47.30 - SLEEP APNEA, UNSPECIFIED
[2018-10-30 13:53] LABS: ALBUMIN 3.5 g/dl (3.4-5.0); ALK PHOS 114 U/L (45-117); ANION GAP 5 MMOL/L (8-16); BILIRUBIN,TOTAL 0.6 mg/dL (0.2-1); BLOOD UREA NITROGEN 13 mg/dL (7-18); CALCIUM 10.5 mg/dL (8.5-10.1); CHLORIDE 105 mmol/L (98-107); CO2 26 mmol/L (21-32); CREATININE 0.8 mg/dL (0.55-1.3); GLUCOSE,RANDOM 122 mg/dL (74-106); N-TERMINAL BNP 47.4 pg/ml (5-125); POTASSIUM 4.4 mmol/L (3.5-5.1); SGOT/AST 31 U/L (15-37); SGPT/ALT 41 U/L (13-61); SODIUM 136 mmol/L (136-145); TOT PROT 6.6 g/dl (6.4-8.2)
[2018-10-30] MEDS ORDERED: MAGNESIUM SULF 50% (8.12 MEQ/2 ML-1 GM VIAL) IVPB ONE (14:09)
[2018-10-30] MEDS ORDERED: MAGNESIUM SULF 50% (8.12 MEQ/2 ML-1 GM VIAL) ONE (14:19)
[2018-10-30 14:30] LABS: ANISOCYTOSIS 0; MACROCYTOSIS 0; PLATELET ESTIMATE NORMAL
--- NOTE | 2018-10-30 15:34 | PDOC ---
Documentation entered by Dayna Sharpe SCRIBE, acting as scribe for Cathi Doe MD. Cathi Doe MD: This documentation has been prepared by the Dell carney Victoria, SCRIBE, under my direction and personally reviewed by me in its entirety. I confirm that the documentation accurately reflects all work, treatment, procedures, and medical decision making performed by me. Attending Attestation - Resident Resident Name: Kizzy Clark - ED Attending Attestation I have performed the following: I have examined & evaluated the patient, The case was reviewed & discussed with the resident, I agree w/resident's findings & plan, Exceptions are as noted - HPI HPI: 10/30/18 13:13 Patient is a 66 year old female with past medical history of hypertension, anemia, asthma (no prior intubations), COPD, CHF (on Lasix), bilateral nephrectomy s/p transplant (09/03), recent admission last month to [facility] for 3 weeks due to PNA presents to the ED with worsening shortness of breath for two weeks. Patient saw Dr. Vo in his office and was given a course of antibiotics (?z-pack) and steroids which has not helped. Pt completed the Z- pack last week and has been taking prednisone 20mg daily (instead of usual 5mg for transplant) which has not been helping. Patient also has been treating her symptoms with Q3h nebulizers without relief. She reports chest tightness as well that improves with nebulizer tx. She denies any fevers, chills, headache, focal weakness/numbness, NVD, cough, or urinary complaints. PCP: Dr. Juan David Christiansen Pulm: Dr. Vo - Physicial Exam PE: 10/30/18 14:08 GENERAL: Awake, alert, and fully oriented, in no acute distress HEAD: No signs of trauma EYES: PERRLA, EOMI, sclera anicteric, conjunctiva clear ENT: Nares patent, oropharynx clear without exudates. Moist mucosa NECK: Normal ROM, supple, no lymphadenopathy, JVD, or masses LUNGS:diffuse expiratory wheezing with fair air movement, no crackles HEART: Regular rate and rhythm, normal S1 and S2, no murmurs, rubs or gallops ABDOMEN: Soft, nontender, normoactive bowel sounds. No guarding, no rebound. No masses EXTREMITIES: Normal range of motion, no edema. No cords, erythema, or tenderness NEUROLOGICAL: Normal speech, cranial nerves intact, equal strength and sensation b/l SKIN: Warm, Dry, normal turgor, no rashes or lesions noted. - Medical Decision Making 10/30/18 14:31 62yo F hx MMP including renal transplant, asthma presents to the ED with persistent SOB despite outpt course of antibiotics and steroids Vitals wnl Exam with diffuse end exp wheezing consistent with asthma exacerbation Pt treated with solumedrol and duonebs, improved but persistent wheezing Seen by her reinstatement clerk Dr. Vo who recommends admission Pt admitted to Dr. Baum (signed out by Dr. Clark) Case discussed in detail with admitting physician including history, physical exam and ancillary studies. Admitting physician has assumed care for the patient, will follow all pending diagnostics and will complete the evaluation and treatment. Heart Score/ECG Review #1 10/30/18 15:33 Twelve-lead EKG was performed and reviewed by me. Normal sinus rhythm, rate 98. Normal axis and intervals. No ST elevations or T-wave inversions.
[2018-10-30 15:57] VITALS: BMI 32.1
[2018-10-30] MEDS: methylPREDNISolone NA SUCC 40 MG/1 ML VIAL IVPUSH SCH ×2 (17:15→20:52)
--- NOTE | 2018-10-30 17:56 | CONS ---
DATE OF CONSULTATION: 10/30/2018 PULMONARY CONSULTATION REFERRING PHYSICIAN: Hortencia Baum MD HISTORY OF PRESENT ILLNESS: The patient is a 62-year-old female known to me from previous hospitalizations, with the following past medical history, including ASHD, status post stent, CHF, history of end-stage renal disease, status post renal transplant in August 2017, hypertension, anemia, COPD, history of tobacco use ( quit a few years ago), pulmonary nodules (biopsy negative),luc admitted to [facility] with the complaint of a 3-week history of increasing shortness of breath, cough and bronchospasm. For the past 3 weeks, the patient has been complaining of shortness of breath, cough and sputum production. She initially went to her PMD, who placed her on antibiotics and a short course of steroids. She saw me about 1-1/2 to 2 weeks ago in my office, at which time the steroid dose was increased and she was prescribed antibiotics. Despite these measures, her symptoms worsened. She called me today complaining of increasing shortness of breath, cough and wheezing. So she was advised to go to the emergency room. She denies any chest pain, nausea, vomiting and diaphoresis. Denies any fever or chills. In the ER, the patient was treated with inhaled bronchodilators, with minimal improvement, at which time she was admitted for further management. PAST MEDICAL HISTORY: Again includes history of end-stage renal disease, status post renal transplant, COPD, ASHD, status post stent, CHF, history of anemia,luc hypertension, pulmonary nodules. REVIEW OF SYSTEMS: Positive cough, positive shortness of breath, positive wheezing. No chest pain, no palpitations, no fever, no chills, no hemoptysis, no abdominal pain. CURRENT MEDICATIONS: Include those in the emergency room ordered. PHYSICAL EXAMINATION: General: The patient is well-developed, well-nourished female, awake, alert, in no acute distress. Vital Signs: She is afebrile. Blood pressure is 142/74. Respiratory rate is 20. O2 saturation is 95% on room air. HEENT: Normocephalic, atraumatic. Neck: Supple. Heart: Regular S1, S2. Chest: Bilateral wheezes. Abdomen: Soft. Bowel sounds are positive. Extremities: No cyanosis or edema. LABORATORY DATA: WBC 13.3, hemoglobin 13.4, hematocrit 42.1, platelet count 217 ,000; there are 86 polys, 7 lymphocytes and 5 monocytes. Venous blood gas 7.39, PCO2 of 43, PO2 of 52. BUN 13, creatinine 0.5, calcium 10.5. DIAGNOSTIC STUDIES: Chest x-ray: No acute infiltrates and/or effusions. The patient had a CAT scan on October 19, 2018, which showed no acute pathology. IMPRESSION: 1. Dyspnea secondary to status post chronic obstructive pulmonary disease exacerbation. 2. History of renal transplant. 3. Obstructive sleep apnea, not on CPAP. 4. Atherosclerotic heart disease, status post stent. 5. Pulmonary nodules, stable. 6. Hypercalcemia. PLAN: IV steroids, inhaled bronchodilators, supplemental O2, monitor peak flow. [id number] at night. Monitor electrolytes, serum calcium. Patient complies. TERESITA JUAREZ M.D. [id number] MTDD
[2018-10-30] MEDS: ASPIRIN 81 MG CHEWABLE TABLETS PO SCH (18:27)
[2018-10-30] MEDS: ALBUTEROL SO4 2.5/IPRATROPIUM 0.5 INH SOL 3 ML VIAL.NEB. NEB SCH (19:19)
[2018-10-30] MEDS: HEPARIN NA (PORCINE) 5,000 UNITS/ML 1ML VIAL SQ SCH (21:01)
[2018-10-30] MEDS: GABAPENTIN 300 MG CAPSULE (FP) PO SCH (21:01)
[2018-10-30] MEDS: NAPH,MB-DB/K PH,MBDB POWDER PACKET PO SCH (21:01)
[2018-10-30] MEDS: LORazepam 1 MG TABLET PO PRN (21:01)
[2018-10-30] MEDS: traZODone HCL 50 MG TABLET (FP) PO SCH (21:02)
[2018-10-30] MEDS: MYCOPHENOLATE SODIUM 360 MG TABLET.DR PO SCH (21:02)
[2018-10-30] MEDS: TACROLIMUS ANHYDROUS 1 MG CAPSULE PO SCH (21:03)
--- NOTE | 2018-10-30 21:38 | HP ---
Admitting History and Physical - Admission History of Present Illness: 62 year old female with PMH HTN, COPD, asthma, b/l nephrectomy s/p transplant ( 08/2017), anemia, GERD presented to ED for SOB x2 weeks. Pt was seen and evaluated by Dr. Vo outpatient, placed on antibiotics (suspected Z-pack, finished x1 week ago) and steroids (prednisone 20 mg daily), continued using her nebulizer every 3 hours, but the shortness of breath has persisted. - Past Medical History Cardiovascular: Yes: HTN, Pulmonary Hypertension Pulmonary: Yes: Asthma, COPD Renal/: Yes: Renal Failure, Hemodialysis ...: No Heme/Onc: Yes: Anemia - Past Surgical History Additional Past Surgical History: B/L Nephrectomy w/ transplant - Smoking History Smoking history: Former smoker Have you smoked in the past 12 months: No Aproximately how many cigarettes per day: 0 If you are a former smoker, when did you quit?: 17YRS AGO - Alcohol/Substance Use Hx Alcohol Use: No - Social History ADL: Independent History of Recent Travel: No Home Medications - Allergies Allergies/Adverse Reactions: Allergies Allergy/AdvReac Type Severity Reaction Status Date / Time Penicillins Allergy Severe Difficulty Verified 10/30/18 11:50 Breathing ketorolac tromethamine Allergy Intermediate Verified 10/30/18 11:50 [From Toradol] hydromorphone HCl Allergy Nausea Verified 10/30/18 11:50 [From Dilaudid] plastic tape AdvReac Mild Hives Uncoded 10/30/18 11:50 beef AdvReac Vomiting Uncoded 10/30/18 11:50 - Home Medications Home Medications: Ambulatory Orders Aspirin [ASA -] 81 mg PO DAILY 04/21/18 Furosemide [Lasix -] 20 mg PO DAILY 04/21/18 Gabapentin [Neurontin -] 900 mg PO BID 04/21/18 LORazepam [Ativan] 1 mg PO PRN PRN 04/21/18 Mycophenolate Sodium [Myfortic] 360 mg PO BID 04/21/18 Nifedipine [Procardia Capsule -] 30 mg PO BID 04/21/18 Pantoprazole Sodium [Protonix -] 40 mg PO DAILY 04/21/18 Prednisolone [Millipred] 20 mg PO DAILY 04/21/18 Sod Phos Di, Yell/K Phos Yell [K-Phos Neutral Tablet] 250 mg PO TID 04/21/18 Tacrolimus Anhydrous [Prograf] 2 mg PO BID 04/21/18 traZODone HCL [Trazodone HCl] 100 mg PO HS 04/21/18 Albuterol 0.083% Nebulizer Tari [Ventolin 0.083%] 1 neb NEB QID 10/30/18 Albuterol Sulfate Inhaler - [Ventolin Hfa Inhaler -] 1 - 2 inh PO QID 10/30/18 Budesonide/Formeterol Fumarate [SYMBICORT 160/4.5mcg -] 1 inh PO DAILY 10/30/18 Salmeterol/Fluticasone [Advair 100Mcg/50Mcg -] 1 inh PO BID 10/30/18 Family Disease History - Family Disease History Family History: Unremarkable Review of Systems - Review of Systems Constitutional: reports: Malaise, Weakness Eyes: reports: No Symptoms HENT: reports: No Symptoms Neck: reports: No Symptoms Gastrointestinal: reports: No Symptoms Genitourinary: reports: No Symptoms Physical Examination Vital Signs: Vital Signs Temperature 97.7 F 10/30/18 15:50 Pulse Rate 99 H 10/30/18 15:50 Respiratory Rate 20 10/30/18 15:58 Blood Pressure 142/74 10/30/18 15:50 O2 Sat by Pulse Oximetry (%) 95 10/30/18 15:58 Constitutional: Yes: Well Nourished HENT: Yes: WNL Neck: Yes: WNL, Supple Cardiovascular: Yes: WNL, Regular Rate and Rhythm Respiratory: Yes: Wheezes Gastrointestinal: Yes: WNL, Normal Bowel Sounds, Soft Edema: No Neurological: Yes: WNL, Alert, Oriented ...Motor Strength: WNL Labs: CBC, BMP 10/30/18 12:47 10/30/18 12:47 Problem List - Problems (1) COPD exacerbation Assessment/Plan: Cont IV steroids Cont inhalers Pulmonary consult noted Code(s): J44.1 - CHRONIC OBSTRUCTIVE PULMONARY DISEASE W (ACUTE) EXACERBATION (2) CHF (congestive heart failure) Assessment/Plan: Cont lasix Monitor electrolytes Code(s): I50.9 - HEART FAILURE, UNSPECIFIED (3) Anemia Assessment/Plan: Monitor H/H Due to chronic dz Code(s): D64.9 - ANEMIA, UNSPECIFIED (4) Renal transplant disorder Assessment/Plan: Renal consult Cont prograft Code(s): T86.10 - UNSPECIFIED COMPLICATION OF KIDNEY TRANSPLANT (5) GERD (gastroesophageal reflux disease) Assessment/Plan: Cont protonix Code(s): K21.9 - GASTRO-ESOPHAGEAL REFLUX DISEASE WITHOUT ESOPHAGITIS (6) Peripheral neuropathy Assessment/Plan: Cont gabapentin Code(s): G62.9 - POLYNEUROPATHY, UNSPECIFIED
[2018-10-30] MEDS ORDERED: [UNRECOGNIZED DRUG - OTHER] PO SCH (22:00)
[2018-10-30] MEDS ORDERED: NIFEdipine 10 MG CAPSULE (FP) PO SCH (22:00)
[2018-10-30] MEDS ORDERED: MYCOPHENOLATE SODIUM 360 MG PO SCH (22:00)
[2018-10-30] MEDS ORDERED: traZODone HCL 100 MG TABLET (FP) PO SCH (22:00)
[2018-10-30] MEDS: BUDESONIDE/FORMETEROL FUMARATE 160/4.5 mcg INHALER IH SCH (22:03)
[2018-10-31] MEDS: ACETAMINOPHEN 325 MG TABLET (FP) PO PRN ×2 (02:16→09:42)
[2018-10-31] MEDS: methylPREDNISolone NA SUCC 40 MG/1 ML VIAL IVPUSH SCH ×3 (02:17→18:00)
[2018-10-31] MEDS: ALBUTEROL SO4 0.083% IH SOL 2.5 MG/3 ML VIAL.NEB. NEB PRN (02:50)
[2018-10-31] MEDS: NAPH,MB-DB/K PH,MBDB POWDER PACKET PO SCH ×3 (06:22→21:33)
[2018-10-31] MEDS: ALBUTEROL SO4 2.5/IPRATROPIUM 0.5 INH SOL 3 ML VIAL.NEB. NEB SCH ×4 (07:30→20:30)
[2018-10-31 07:37] LABS: BASO % 0.1 % (0-2.0); HEMATOCRIT 43.7 % (32.4-45.2); HEMOGLOBIN 14.3 GM/dL (10.7-15.3); LYMPH % 4.2 % (8-40); MCHC 32.7 g/dl (32.0-36.0); MEAN CELL VOLUME 91.9 fl (80-96); MONO % 0.6 % (3.8-10.2); NEUT % 95.1 % (42.8-82.8); PLATELET COUNT 264 K/MM3 (134-434); RBC 4.75 M/mm3 (3.60-5.2); RDW 14.7 % (11.6-15.6); WHITE BLOOD COUNT 17.1 K/mm3 (4.0-10.0)
[2018-10-31 08:04] LABS: ALBUMIN 3.9 g/dl (3.4-5.0); BILIRUBIN,TOTAL 0.5 mg/dL (0.2-1); CALCIUM 11.1 mg/dL (8.5-10.1); CREATININE 0.9 mg/dL (0.55-1.3); TOT PROT 7.4 g/dl (6.4-8.2)
[2018-10-31] MEDS: ASPIRIN 81 MG CHEWABLE TABLETS PO SCH (09:41)
[2018-10-31] MEDS: GABAPENTIN 300 MG CAPSULE (FP) PO SCH ×2 (09:41→21:33)
[2018-10-31] MEDS: FUROSEMIDE 20 MG TABLET (FP) PO SCH (09:42)
[2018-10-31] MEDS: NIFEdipine E.R. 30 MG TABLET (FP) PO SCH (09:42)
[2018-10-31] MEDS: MYCOPHENOLATE SODIUM 360 MG TABLET.DR PO SCH ×2 (09:42→21:34)
[2018-10-31] MEDS: HEPARIN NA (PORCINE) 5,000 UNITS/ML 1ML VIAL SQ SCH ×2 (09:42→21:33)
[2018-10-31] MEDS: PANTOPRAZOLE 40 MG TABLET (FP) PO SCH (09:42)
[2018-10-31] MEDS: TACROLIMUS ANHYDROUS 1 MG CAPSULE PO SCH ×2 (09:42→21:34)
[2018-10-31] MEDS: BUDESONIDE/FORMETEROL FUMARATE 160/4.5 mcg INHALER IH SCH ×2 (09:43→21:39)
[2018-10-31 10:35] LABS: ANISOCYTOSIS 0; MACROCYTOSIS 0; PLATELET ESTIMATE NORMAL
[2018-10-31] MEDS: ACETAMINOPHEN/CAFFEINE/BUTALBITAL 1 TAB PO PRN (12:05)
--- NOTE | 2018-10-31 13:40 | PN ---
Progress Note (short form) - Note Progress Note: PULMONARY States breathing is much better today. +nonproductive cough and wheezing. No fevers or chills. Vital Signs Period Temp Pulse Resp BP Sys/Guevara Pulse Ox Last 24 Hr 97.3 F-98.7 F 95-99 18-23 141-150/67-79 95-98 Intake & Output 10/28/18 10/29/18 10/30/18 10/31/18 23:59 23:59 23:59 23:59 Intake Total 550 0 Balance 550 0 Weight 87.572 kg 85.774 kg Gen: mildly tachypneic with speaking Heart: RRR Lung: scattered rhonchi Abd: soft, nontender Ext: no edema CBC, BMP 10/31/18 07:15 10/31/18 07:15 Active Medications Acetaminophen (Tylenol -) 650 mg PO Q6H PRN PRN Reason: FEVER Last Admin: 10/31/18 09:42 Dose: 650 mg Acetaminophen/Butalbital/Caffeine (Fioricet -) 1 tablet PO Q8H PRN PRN Reason: HEADACHE Last Admin: 10/31/18 12:05 Dose: 1 tablet Albuterol Sulfate (Ventolin 0.083% Nebulizer Soln -) 1 amp NEB Q4H PRN PRN Reason: SHORT OF BREATH/WHEEZING Last Admin: 10/31/18 02:50 Dose: 1 amp Albuterol/Ipratropium (Duoneb -) 1 amp NEB RQID [facility] Last Admin: 10/31/18 11:25 Dose: 1 amp Aspirin (Asa -) 81 mg PO DAILY [facility] Last Admin: 10/31/18 09:41 Dose: 81 mg Budesonide/Formoterol Fumarate (Symbicort 160/4.5mcg -) 1 puff IH BID [facility] Last Admin: 10/31/18 09:43 Dose: 1 puff Furosemide (Lasix -) 20 mg PO DAILY [facility] Last Admin: 10/31/18 09:42 Dose: 20 mg Gabapentin (Neurontin -) 900 mg PO BID [facility] Last Admin: 10/31/18 09:41 Dose: 900 mg Heparin Sodium (Porcine) (Heparin -) 5,000 unit SQ BID [facility] Last Admin: 10/31/18 09:42 Dose: 5,000 unit Lorazepam (Ativan -) 1 mg PO Q12H PRN PRN Reason: ANXIETY Last Admin: 10/30/18 21:01 Dose: 1 mg Methylprednisolone Sodium Succinate (Solu-Medrol -) 60 mg IVPUSH Q6H-IV [facility] Last Admin: 10/31/18 09:41 Dose: 60 mg Mycophenolate Sodium (Mycophenolic Acid) 360 mg PO BID [facility] Last Admin: 10/31/18 09:42 Dose: 360 mg Nifedipine (Procardia Xl -) 30 mg PO DAILY [facility] Last Admin: 10/31/18 09:42 Dose: 30 mg Pantoprazole Sodium (Protonix -) 40 mg PO DAILY [facility] Last Admin: 10/31/18 09:42 Dose: 40 mg Potassium Phos/Sodium Phos (Phos-Nak Packet -) 1 packet PO TID [facility] Last Admin: 10/31/18 06:22 Dose: 1 packet Tacrolimus (Prograf) 2 mg PO BID [facility] Last Admin: 10/31/18 09:42 Dose: 2 mg Trazodone HCl (Desyrel -) 100 mg PO HS [facility] Last Admin: 10/30/18 21:02 Dose: 100 mg A/P Acute COPD Exacerbation Pulmonary HTN CAD Lung Nodules h/o Renal Transplant Obstructive Sleep Apnea - will decrease medrol to 40mg q8h - inhaled bronchodilators - O2 to keep SpO2 >90% - CPAP 12cm at night - DVT prophylaxis
[2018-10-31] MEDS ORDERED: PT OWN MED DRAWER 7, Y5N ONE (17:30)
--- NOTE | 2018-10-31 18:01 | CONSULT ---
Consult - text type - Consultation Consultation Note: Renal consult for ESRD s/p Renal transplant This is a 62 year old woman with hx of ESRD s/p DDRT 08/2017, COPD, and hypertension who presented with SOB and admitted for COPD exacerbation. Pt feels much better now s/p IV steroids. On Prograf/Cellcept/Prednsine at home for renal transplant immunosupression. Pt denies any change in urine output, flank pain, dysuria, N/V/D, fever or chlls. Making urine w/o difficulty. PMHx: as above Allergies: as listed in EMR Family hx:[place] Social Hx: No T/A/D ROS: as per HPI Home Medications Medication Instructions Recorded Aspirin [ASA -] 81 mg PO DAILY 04/21/18 Furosemide [Lasix -] 20 mg PO DAILY 04/21/18 Gabapentin [Neurontin -] 900 mg PO BID 04/21/18 LORazepam [Ativan] 1 mg PO PRN PRN 04/21/18 Mycophenolate Sodium [Myfortic] 360 mg PO BID 04/21/18 Nifedipine [Procardia Capsule -] 30 mg PO BID 04/21/18 Pantoprazole Sodium [Protonix -] 40 mg PO DAILY 04/21/18 Prednisolone [Millipred] 20 mg PO DAILY 04/21/18 Sod Phos Di, Hickman/K Phos Hickman 250 mg PO TID 04/21/18 [K-Phos Neutral Tablet] Tacrolimus Anhydrous [Prograf] 2 mg PO BID 04/21/18 traZODone HCL [Trazodone HCl] 100 mg PO HS 04/21/18 Albuterol 0.083% Nebulizer Tari 1 neb NEB QID 10/30/18 [Ventolin 0.083%] Albuterol Sulfate Inhaler - 1 - 2 inh PO QID 10/30/18 [Ventolin Hfa Inhaler -] Budesonide/Formeterol Fumarate 1 inh PO DAILY 10/30/18 [SYMBICORT 160/4.5mcg -] Salmeterol/Fluticasone [Advair 1 inh PO BID 10/30/18 100Mcg/50Mcg -] Vital Signs Temperature 98.5 F 10/31/18 17:06 Pulse Rate 109 H 10/31/18 17:06 Respiratory Rate 20 10/31/18 17:06 Blood Pressure 137/75 10/31/18 17:06 O2 Sat by Pulse Oximetry (%) 98 10/31/18 09:00 Intake & Output 10/28/18 10/29/18 10/30/18 10/31/18 23:59 23:59 23:59 23:59 Intake Total 550 500 Balance 550 500 Weight 87.572 kg 85.774 kg NAD awake and alert neck supple, no JVD RRR, no M/R CTA, no rales or wheeze soft NT/ND no LE edema CBC, BMP 10/31/18 07:15 10/31/18 07:15 Current Medications Acetaminophen (Tylenol -) 650 mg PO Q6H PRN PRN Reason: FEVER Last Admin: 10/31/18 09:42 Dose: 650 mg Acetaminophen/Butalbital/Caffeine (Fioricet -) 1 tablet PO Q8H PRN PRN Reason: HEADACHE Last Admin: 10/31/18 12:05 Dose: 1 tablet Albuterol Sulfate (Ventolin 0.083% Nebulizer Soln -) 1 amp NEB Q4H PRN PRN Reason: SHORT OF BREATH/WHEEZING Last Admin: 10/31/18 02:50 Dose: 1 amp Albuterol/Ipratropium (Duoneb -) 1 amp NEB RQID ON LICENSE OF [facility] Last Admin: 10/31/18 11:25 Dose: 1 amp Aspirin (Asa -) 81 mg PO DAILY ON [facility] OF [facility] Last Admin: 10/31/18 09:41 Dose: 81 mg Budesonide/Formoterol Fumarate (Symbicort 160/4.5mcg -) 1 puff IH BID ON [facility] OF [facility] Last Admin: 10/31/18 09:43 Dose: 1 puff Furosemide (Lasix -) 20 mg PO DAILY [facility] Last Admin: 10/31/18 09:42 Dose: 20 mg Gabapentin (Neurontin -) 900 mg PO BID [facility] Last Admin: 10/31/18 09:41 Dose: 900 mg Heparin Sodium (Porcine) (Heparin -) 5,000 unit SQ BID [facility] Last Admin: 10/31/18 09:42 Dose: 5,000 unit Lorazepam (Ativan -) 1 mg PO Q12H PRN PRN Reason: ANXIETY Last Admin: 10/30/18 21:01 Dose: 1 mg Methylprednisolone Sodium Succinate (Solu-Medrol -) 40 mg IVPUSH Q8H-IV ON LICENSE OF [facility] Mycophenolate Sodium (Mycophenolic Acid) 360 mg PO BID ON [facility] OF [facility] Last Admin: 10/31/18 09:42 Dose: 360 mg Nifedipine (Procardia Xl -) 30 mg PO DAILY [facility] Last Admin: 10/31/18 09:42 Dose: 30 mg Pantoprazole Sodium (Protonix -) 40 mg PO DAILY [facility] Last Admin: 10/31/18 09:42 Dose: 40 mg Potassium Phos/Sodium Phos (Phos-Nak Packet -) 1 packet PO TID ON [facility] OF [facility] Last Admin: 10/31/18 15:42 Dose: 1 packet Tacrolimus (Prograf) 2 mg PO BID [facility] Last Admin: 10/31/18 09:42 Dose: 2 mg Trazodone HCl (Desyrel -) 100 mg PO HS [facility] OF [facility] Last Admin: 10/30/18 21:02 Dose: 100 mg 62 year old woman with hx of ESRD s/p DDRT 08/2017, COPD, and hypertension who presented with SOB and admitted for COPD exacerbation. #ESRD s/p Renal transplant with good function . #COPD exacerbation #Hypertension #Leukocytosis Renal function stable continue tacrolimus/prednisone/cellcept check UA no indication for renal imaging trend renal function and electrolytes avoid nephrotoxins and IV contrast if possible Thank you Riky Cerna DO
[2018-10-31] MEDS: traZODone HCL 50 MG TABLET (FP) PO SCH (21:33)
[2018-10-31] MEDS: LORazepam 1 MG TABLET PO PRN (21:42)
--- NOTE | 2018-10-31 22:03 | PN ---
Progress Note, Physician - Current Medication List Current Medications: Active Medications Acetaminophen (Tylenol -) 650 mg PO Q6H PRN PRN Reason: FEVER Last Admin: 10/31/18 09:42 Dose: 650 mg Acetaminophen/Butalbital/Caffeine (Fioricet -) 1 tablet PO Q8H PRN PRN Reason: HEADACHE Last Admin: 10/31/18 12:05 Dose: 1 tablet Albuterol Sulfate (Ventolin 0.083% Nebulizer Soln -) 1 amp NEB Q4H PRN PRN Reason: SHORT OF BREATH/WHEEZING Last Admin: 10/31/18 02:50 Dose: 1 amp Albuterol/Ipratropium (Duoneb -) 1 amp NEB RQID [facility] Last Admin: 10/31/18 20:30 Dose: 1 amp Aspirin (Asa -) 81 mg PO DAILY [facility] Last Admin: 10/31/18 09:41 Dose: 81 mg Budesonide/Formoterol Fumarate (Symbicort 160/4.5mcg -) 1 puff IH BID [facility] Last Admin: 10/31/18 21:39 Dose: 1 puff Furosemide (Lasix -) 20 mg PO DAILY [facility] Last Admin: 10/31/18 09:42 Dose: 20 mg Gabapentin (Neurontin -) 900 mg PO BID [facility] Last Admin: 10/31/18 21:33 Dose: 900 mg Heparin Sodium (Porcine) (Heparin -) 5,000 unit SQ BID [facility] Last Admin: 10/31/18 21:33 Dose: 5,000 unit Lorazepam (Ativan -) 1 mg PO Q12H PRN PRN Reason: ANXIETY Last Admin: 10/31/18 21:42 Dose: 1 mg Methylprednisolone Sodium Succinate (Solu-Medrol -) 40 mg IVPUSH Q8H-IV [facility] Last Admin: 10/31/18 18:00 Dose: 40 mg Mycophenolate Sodium (Mycophenolic Acid) 360 mg PO BID [facility] Last Admin: 10/31/18 21:34 Dose: 360 mg Nifedipine (Procardia Xl -) 30 mg PO DAILY [facility] Last Admin: 10/31/18 09:42 Dose: 30 mg Pantoprazole Sodium (Protonix -) 40 mg PO DAILY [facility] Last Admin: 10/31/18 09:42 Dose: 40 mg Potassium Phos/Sodium Phos (Phos-Nak Packet -) 1 packet PO TID [facility] Last Admin: 05/15/19 21:33 Dose: 1 packet Tacrolimus (Prograf) 2 mg PO BID [facility] Last Admin: 10/31/18 21:34 Dose: 2 mg Trazodone HCl (Desyrel -) 100 mg PO HS [facility] Last Admin: 10/31/18 21:33 Dose: 100 mg - Objective Vital Signs: Vital Signs Temperature 98.4 F 10/31/18 21:43 Pulse Rate 108 H 10/31/18 21:43 Respiratory Rate 20 10/31/18 21:43 Blood Pressure 156/72 10/31/18 21:43 O2 Sat by Pulse Oximetry (%) 98 10/31/18 09:00 Labs: CBC, BMP 10/31/18 07:15 10/31/18 07:15 Problem List - Problems (1) COPD exacerbation Code(s): J44.1 - CHRONIC OBSTRUCTIVE PULMONARY DISEASE W (ACUTE) EXACERBATION (2) CHF (congestive heart failure) Code(s): I50.9 - HEART FAILURE, UNSPECIFIED (3) Anemia Code(s): D64.9 - ANEMIA, UNSPECIFIED (4) Renal transplant disorder Code(s): T86.10 - UNSPECIFIED COMPLICATION OF KIDNEY TRANSPLANT (5) GERD (gastroesophageal reflux disease) Code(s): K21.9 - GASTRO-ESOPHAGEAL REFLUX DISEASE WITHOUT ESOPHAGITIS (6) Peripheral neuropathy Code(s): G62.9 - POLYNEUROPATHY, UNSPECIFIED
[2018-11-01] MEDS: methylPREDNISolone NA SUCC 40 MG/1 ML VIAL IVPUSH SCH ×3 (01:24→17:26)
[2018-11-01] MEDS: NAPH,MB-DB/K PH,MBDB POWDER PACKET PO SCH ×3 (06:08→21:34)
[2018-11-01] MEDS: ALBUTEROL SO4 0.083% IH SOL 2.5 MG/3 ML VIAL.NEB. NEB PRN (06:10)
[2018-11-01] MEDS: ACETAMINOPHEN/CAFFEINE/BUTALBITAL 1 TAB PO PRN (07:03)
[2018-11-01] MEDS: ALBUTEROL SO4 2.5/IPRATROPIUM 0.5 INH SOL 3 ML VIAL.NEB. NEB SCH ×4 (07:47→20:29)
--- NOTE | 2018-11-01 08:50 | PN ---
Progress Note (short form) - Note Progress Note: Reports breathing is about the same as yesterday. Still with non-productive cough. Less wheezing. No fevers or chills. (+) LAW when ambulating down the hallway. Intake & Output 10/29/18 10/30/18 10/31/18 11/01/18 23:59 23:59 23:59 23:59 Intake Total 550 520 450 Balance 550 520 450 Weight 193 lb 1 oz 189 lb 1.6 oz 190 lb 3.2 oz Last Vital Signs Temp Pulse Resp BP Pulse Ox 98.7 F 95 H 20 145/77 98 11/01/18 05:42 11/01/18 05:42 11/01/18 05:42 11/01/18 05:42 10/31/18 21:00 Active Medications Acetaminophen (Tylenol -) 650 mg PO Q6H PRN PRN Reason: FEVER Last Admin: 10/31/18 09:42 Dose: 650 mg Acetaminophen/Butalbital/Caffeine (Fioricet -) 1 tablet PO Q8H PRN PRN Reason: HEADACHE Last Admin: 11/01/18 07:03 Dose: 1 tablet Albuterol Sulfate (Ventolin 0.083% Nebulizer Soln -) 1 amp NEB Q4H PRN PRN Reason: SHORT OF BREATH/WHEEZING Last Admin: 11/01/18 06:10 Dose: 1 amp Albuterol/Ipratropium (Duoneb -) 1 amp NEB RQID [facility] Last Admin: 11/01/18 07:47 Dose: 1 amp Aspirin (Asa -) 81 mg PO DAILY [facility] Last Admin: 10/31/18 09:41 Dose: 81 mg Budesonide/Formoterol Fumarate (Symbicort 160/4.5mcg -) 1 puff IH BID [facility] Last Admin: 10/31/18 21:39 Dose: 1 puff Furosemide (Lasix -) 20 mg PO DAILY [facility] Last Admin: 10/31/18 09:42 Dose: 20 mg Gabapentin (Neurontin -) 900 mg PO BID [facility] Last Admin: 10/31/18 21:33 Dose: 900 mg Heparin Sodium (Porcine) (Heparin -) 5,000 unit SQ BID [facility] Last Admin: 10/31/18 21:33 Dose: 5,000 unit Lorazepam (Ativan -) 1 mg PO Q12H PRN PRN Reason: ANXIETY Last Admin: 10/31/18 21:42 Dose: 1 mg Methylprednisolone Sodium Succinate (Solu-Medrol -) 40 mg IVPUSH Q8H-IV [facility] Last Admin: 11/01/18 01:24 Dose: 40 mg Mycophenolate Sodium (Mycophenolic Acid) 360 mg PO BID [facility] Last Admin: 10/31/18 21:34 Dose: 360 mg Nifedipine (Procardia Xl -) 30 mg PO DAILY [facility] Last Admin: 10/31/18 09:42 Dose: 30 mg Pantoprazole Sodium (Protonix -) 40 mg PO DAILY [facility] Last Admin: 10/31/18 09:42 Dose: 40 mg Potassium Phos/Sodium Phos (Phos-Nak Packet -) 1 packet PO TID [facility] Last Admin: 11/01/18 06:08 Dose: 1 packet Tacrolimus (Prograf) 2 mg PO BID [facility] Last Admin: 10/31/18 21:34 Dose: 2 mg Trazodone HCl (Desyrel -) 100 mg PO HS [facility] Last Admin: 10/31/18 21:33 Dose: 100 mg Gen: mildly tachypneic with speaking Heart: RRR Lung: scattered rhonchi, no wheeze appreciated Abd: soft, nontender Ext: no edema Laboratory Results - last 24 hr 10/31/18 07:15 Neutrophils % (Manual) 92.0 H Band Neutrophils % 2.0 Lymphocytes % (Manual) 5.0 L D Monocytes % (Manual) 1 L Eosinophils % (Manual) 0.0 Basophils % (Manual) 0.0 Myelocytes % (Man) 0 Promyelocytes % (Man) 0 Blast Cells % (Manual) 0 Metamyelocytes 0 D Hypochromia 0 Platelet Estimate Normal Polychromasia 0 Poikilocytosis 0 Anisocytosis 0 Microcytosis 0 Macrocytosis 0 A/P Acute COPD Exacerbation Pulmonary HTN CAD Lung Nodules h/o Renal Transplant Obstructive Sleep Apnea - Medrol 40mg q8h, can likely change to Prednisone in the AM - inhaled bronchodilators - O2 to keep SpO2 >90% - CPAP 12cm at night - DVT prophylaxis Dr Oliveira
[2018-11-01] MEDS ORDERED: PT OWN MED DRAWER 7, Y5N ONE (09:19)
[2018-11-01] MEDS: HEPARIN NA (PORCINE) 5,000 UNITS/ML 1ML VIAL SQ SCH ×2 (10:07→21:34)
[2018-11-01] MEDS: ASPIRIN 81 MG CHEWABLE TABLETS PO SCH (10:07)
[2018-11-01] MEDS: PANTOPRAZOLE 40 MG TABLET (FP) PO SCH (10:07)
[2018-11-01] MEDS: NIFEdipine E.R. 30 MG TABLET (FP) PO SCH (10:07)
[2018-11-01] MEDS: FUROSEMIDE 20 MG TABLET (FP) PO SCH (10:07)
[2018-11-01] MEDS: GABAPENTIN 300 MG CAPSULE (FP) PO SCH ×2 (10:07→21:34)
[2018-11-01] MEDS: TACROLIMUS ANHYDROUS 1 MG CAPSULE PO SCH ×2 (10:08→21:35)
[2018-11-01] MEDS: MYCOPHENOLATE SODIUM 360 MG TABLET.DR PO SCH ×2 (10:08→21:34)
[2018-11-01] MEDS: BUDESONIDE/FORMETEROL FUMARATE 160/4.5 mcg INHALER IH SCH ×2 (10:09→22:00)
[2018-11-01] MEDS ORDERED: LORATADINE 10 MG TABLET PO ONE (14:30)
--- NOTE | 2018-11-01 15:56 | PN ---
Progress Note (short form) - Note Progress Note: Renal follow up for Renal Transplant Pt seen and examined at the bedside feels better has nasal congestion sob improving making urine no cp, fever, chills Vital Signs Temperature 97.8 F 11/01/18 10:00 Pulse Rate 105 H 11/01/18 10:00 Respiratory Rate 20 11/01/18 10:00 Blood Pressure 143/79 11/01/18 10:00 O2 Sat by Pulse Oximetry (%) 99 11/01/18 09:00 Intake & Output 10/29/18 10/30/18 10/31/18 11/01/18 23:59 23:59 23:59 23:59 Intake Total 550 520 950 Balance 550 520 950 Weight 87.572 kg 85.774 kg 86.273 kg NAD RRR, no M/R CTA, no rales or wheeze soft NT/ND no LE edema CBC, BMP 10/31/18 07:15 10/31/18 07:15 Current Medications Acetaminophen (Tylenol -) 650 mg PO Q6H PRN PRN Reason: FEVER Last Admin: 10/31/18 09:42 Dose: 650 mg Acetaminophen/Butalbital/Caffeine (Fioricet -) 1 tablet PO Q8H PRN PRN Reason: HEADACHE Last Admin: 11/01/18 07:03 Dose: 1 tablet Albuterol Sulfate (Ventolin 0.083% Nebulizer Soln -) 1 amp NEB Q4H PRN PRN Reason: SHORT OF BREATH/WHEEZING Last Admin: 11/01/18 06:10 Dose: 1 amp Albuterol/Ipratropium (Duoneb -) 1 amp NEB RQID [facility] Last Admin: 11/01/18 11:02 Dose: 1 amp Aspirin (Asa -) 81 mg PO DAILY [facility] Last Admin: 11/01/18 10:07 Dose: 81 mg Budesonide/Formoterol Fumarate (Symbicort 160/4.5mcg -) 1 puff IH BID [facility] Last Admin: 11/01/18 10:09 Dose: 1 puff Furosemide (Lasix -) 20 mg PO DAILY [facility] Last Admin: 11/01/18 10:07 Dose: 20 mg Gabapentin (Neurontin -) 900 mg PO BID [facility] Last Admin: 11/01/18 10:07 Dose: 600 mg Heparin Sodium (Porcine) (Heparin -) 5,000 unit SQ BID [facility] Last Admin: 11/01/18 10:07 Dose: 5,000 unit Lorazepam (Ativan -) 1 mg PO Q12H PRN PRN Reason: ANXIETY Last Admin: 10/31/18 21:42 Dose: 1 mg Methylprednisolone Sodium Succinate (Solu-Medrol -) 40 mg IVPUSH Q8H-IV [facility] Last Admin: 11/01/18 10:07 Dose: 40 mg Mycophenolate Sodium (Mycophenolic Acid) 360 mg PO BID [facility] Last Admin: 11/01/18 10:08 Dose: 360 mg Nifedipine (Procardia Xl -) 30 mg PO DAILY [facility] Last Admin: 11/01/18 10:07 Dose: 30 mg Pantoprazole Sodium (Protonix -) 40 mg PO DAILY [facility] Last Admin: 11/01/18 10:07 Dose: 40 mg Potassium Phos/Sodium Phos (Phos-Nak Packet -) 1 packet PO TID [facility] Last Admin: 11/01/18 13:38 Dose: 1 packet Tacrolimus (Prograf) 2 mg PO BID [facility] Last Admin: 11/01/18 10:08 Dose: 2 mg Trazodone HCl (Desyrel -) 100 mg PO HS [facility] Last Admin: 10/31/18 21:33 Dose: 100 mg 62 year old woman with hx of ESRD s/p DDRT 08/2017, COPD, and hypertension who presented with SOB and admitted for COPD exacerbation. #ESRD s/p Renal transplant with good function . #COPD exacerbation #Hypertension #Leukocytosis Renal function stable continue tacrolimus/prednisone/cellcept Trend renal function and electrolytes ordered claritin for allergies taper steroids as per pulmonary Thank you Riky Cerna DO
[2018-11-01] MEDS: traZODone HCL 50 MG TABLET (FP) PO SCH (21:34)
--- NOTE | 2018-11-01 21:34 | PN ---
Progress Note, Physician History of Present Illness: Pt c/o sinusis pressure/congestion - Current Medication List Current Medications: Active Medications Acetaminophen (Tylenol -) 650 mg PO Q6H PRN PRN Reason: FEVER Last Admin: 10/31/18 09:42 Dose: 650 mg Acetaminophen/Butalbital/Caffeine (Fioricet -) 1 tablet PO Q8H PRN PRN Reason: HEADACHE Last Admin: 11/01/18 07:03 Dose: 1 tablet Albuterol Sulfate (Ventolin 0.083% Nebulizer Soln -) 1 amp NEB Q4H PRN PRN Reason: SHORT OF BREATH/WHEEZING Last Admin: 11/01/18 06:10 Dose: 1 amp Albuterol/Ipratropium (Duoneb -) 1 amp NEB RQID [facility] Last Admin: 11/01/18 20:29 Dose: 1 amp Aspirin (Asa -) 81 mg PO DAILY [facility] Last Admin: 11/01/18 10:07 Dose: 81 mg Budesonide/Formoterol Fumarate (Symbicort 160/4.5mcg -) 1 puff IH BID [facility] Last Admin: 11/01/18 10:09 Dose: 1 puff Furosemide (Lasix -) 20 mg PO DAILY [facility] Last Admin: 11/01/18 10:07 Dose: 20 mg Gabapentin (Neurontin -) 900 mg PO BID [facility] Last Admin: 11/01/18 10:07 Dose: 600 mg Heparin Sodium (Porcine) (Heparin -) 5,000 unit SQ BID [facility] Last Admin: 11/01/18 10:07 Dose: 5,000 unit Lorazepam (Ativan -) 1 mg PO Q12H PRN PRN Reason: ANXIETY Last Admin: 10/31/18 21:42 Dose: 1 mg Methylprednisolone Sodium Succinate (Solu-Medrol -) 40 mg IVPUSH Q8H-IV [facility] Last Admin: 11/01/18 17:26 Dose: 40 mg Mycophenolate Sodium (Mycophenolic Acid) 360 mg PO BID [facility] Last Admin: 11/01/18 10:08 Dose: 360 mg Nifedipine (Procardia Xl -) 30 mg PO DAILY [facility] Last Admin: 11/01/18 10:07 Dose: 30 mg Pantoprazole Sodium (Protonix -) 40 mg PO DAILY [facility] Last Admin: 11/01/18 10:07 Dose: 40 mg Potassium Phos/Sodium Phos (Phos-Nak Packet -) 1 packet PO TID [facility] Last Admin: 11/01/18 13:38 Dose: 1 packet Tacrolimus (Prograf) 2 mg PO BID [facility] Last Admin: 11/01/18 10:08 Dose: 2 mg Trazodone HCl (Desyrel -) 100 mg PO HS [facility] Last Admin: 10/31/18 21:33 Dose: 100 mg - Objective Vital Signs: Vital Signs Temperature 98.3 F 11/01/18 17:01 Pulse Rate 107 H 11/01/18 17:01 Respiratory Rate 20 11/01/18 17:01 Blood Pressure 149/75 11/01/18 17:01 O2 Sat by Pulse Oximetry (%) 99 11/01/18 09:00 Neck: Yes: WNL, Supple Cardiovascular: Yes: WNL, Regular Rate and Rhythm Respiratory: Yes: Diminished Gastrointestinal: Yes: WNL, Normal Bowel Sounds, Soft Edema: No Labs: CBC, BMP 10/31/18 07:15 10/31/18 07:15 Problem List - Problems (1) COPD exacerbation Assessment/Plan: Cont IV steroids Cont inhalers Code(s): J44.1 - CHRONIC OBSTRUCTIVE PULMONARY DISEASE W (ACUTE) EXACERBATION (2) CHF (congestive heart failure) Assessment/Plan: Cont lasix Monitor electrolytes Code(s): I50.9 - HEART FAILURE, UNSPECIFIED (3) Anemia Assessment/Plan: Monitor H/H Due to chronic dz Code(s): D64.9 - ANEMIA, UNSPECIFIED (4) Renal transplant disorder Assessment/Plan: Renal consult Cont prograft Code(s): T86.10 - UNSPECIFIED COMPLICATION OF KIDNEY TRANSPLANT (5) GERD (gastroesophageal reflux disease) Assessment/Plan: Cont protonix Code(s): K21.9 - GASTRO-ESOPHAGEAL REFLUX DISEASE WITHOUT ESOPHAGITIS (6) Peripheral neuropathy Assessment/Plan: Cont gabapentin Code(s): G62.9 - POLYNEUROPATHY, UNSPECIFIED
[2018-11-02] MEDS: methylPREDNISolone NA SUCC 40 MG/1 ML VIAL IVPUSH SCH ×3 (02:10→18:39)
[2018-11-02] MEDS: ALBUTEROL SO4 0.083% IH SOL 2.5 MG/3 ML VIAL.NEB. NEB PRN (05:36)
[2018-11-02] MEDS: NAPH,MB-DB/K PH,MBDB POWDER PACKET PO SCH ×3 (05:37→21:48)
[2018-11-02] MEDS: ALBUTEROL SO4 2.5/IPRATROPIUM 0.5 INH SOL 3 ML VIAL.NEB. NEB SCH ×4 (07:24→20:39)
[2018-11-02 07:51] LABS: CALCIUM 11.1 mg/dL (8.5-10.1); CREATININE 0.9 mg/dL (0.55-1.3); POTASSIUM 4.5 mmol/L (3.5-5.1)
[2018-11-02] MEDS ORDERED: PT OWN MED DRAWER 7, Y5N ONE ×4 (09:22→20:28)
[2018-11-02] MEDS: BUDESONIDE/FORMETEROL FUMARATE 160/4.5 mcg INHALER IH SCH ×2 (09:49→21:56)
[2018-11-02] MEDS: MYCOPHENOLATE SODIUM 360 MG TABLET.DR PO SCH ×2 (09:49→21:49)
[2018-11-02] MEDS: ASPIRIN 81 MG CHEWABLE TABLETS PO SCH (09:51)
[2018-11-02] MEDS: HEPARIN NA (PORCINE) 5,000 UNITS/ML 1ML VIAL SQ SCH ×2 (09:51→21:49)
[2018-11-02] MEDS: GABAPENTIN 300 MG CAPSULE (FP) PO SCH ×2 (09:51→21:48)
[2018-11-02] MEDS: FUROSEMIDE 20 MG TABLET (FP) PO SCH (09:52)
[2018-11-02] MEDS: NIFEdipine E.R. 30 MG TABLET (FP) PO SCH (09:52)
[2018-11-02] MEDS: TACROLIMUS ANHYDROUS 1 MG CAPSULE PO SCH ×2 (09:52→21:49)
[2018-11-02] MEDS: PANTOPRAZOLE 40 MG TABLET (FP) PO SCH (09:52)
--- NOTE | 2018-11-02 11:15 | PN ---
Progress Note (short form) - Note Progress Note: Pulmonary Still feels tight Still with non-productive cough. Less wheezing. (+) LAW when ambulating down the hallway. VSS Gen: mildly tachypneic with speaking Heart: RRR Lung: scattered rhonchi, no wheeze appreciated Abd: soft, nontender Ext: no edema Labs/images/meds/notes reviewed A/P Acute COPD Exacerbation Pulmonary HTN CAD Lung Nodules h/o Renal Transplant Obstructive Sleep Apnea - Medrol 40mg q8h will taper - inhaled bronchodilators - O2 to keep SpO2 >90% - CPAP 12cm at night - DVT prophylaxis Freddie MERAZ MD
[2018-11-02] MEDS: diphenhydrAMINE HCL 25 MG CAPSULE (FP) PO PRN ×2 (13:06→18:45)
--- NOTE | 2018-11-02 14:49 | PN ---
Progress Note (short form) - Note Progress Note: Renal follow up for Renal Transplant Pt seen and examined at the bedside still has chest tightness not at baseline no cp, abd pain, N/V/D has some itching on arms (possible reaction to soap) Vital Signs Temperature 98.2 F 11/02/18 14:34 Pulse Rate 110 H 11/02/18 14:34 Respiratory Rate 20 11/02/18 14:34 Blood Pressure 154/75 11/02/18 14:34 O2 Sat by Pulse Oximetry (%) 99 11/01/18 21:00 Intake & Output 10/30/18 10/31/18 11/01/18 11/02/18 23:59 23:59 23:59 23:59 Intake Total 435 284 3371 600 Balance 509 813 2682 600 Weight 87.572 kg 85.774 kg 86.273 kg 87.271 kg NAD RRR, no M/R decreased BS soft NT/ND no LE edema CBC, BMP 10/31/18 07:15 11/02/18 06:00 Current Medications Acetaminophen (Tylenol -) 650 mg PO Q6H PRN PRN Reason: FEVER Last Admin: 10/31/18 09:42 Dose: 650 mg Acetaminophen/Butalbital/Caffeine (Fioricet -) 1 tablet PO Q8H PRN PRN Reason: HEADACHE Last Admin: 11/01/18 07:03 Dose: 1 tablet Albuterol Sulfate (Ventolin 0.083% Nebulizer Soln -) 1 amp NEB Q4H PRN PRN Reason: SHORT OF BREATH/WHEEZING Last Admin: 11/02/18 05:36 Dose: 1 amp Albuterol/Ipratropium (Duoneb -) 1 amp NEB RQID [facility] Last Admin: 11/02/18 10:59 Dose: 1 amp Aspirin (Asa -) 81 mg PO DAILY [facility] Last Admin: 11/02/18 09:51 Dose: 81 mg Budesonide/Formoterol Fumarate (Symbicort 160/4.5mcg -) 1 puff IH BID [facility] Last Admin: 11/02/18 09:49 Dose: 1 puff Diphenhydramine HCl (Benadryl -) 25 mg PO Q6H PRN PRN Reason: FOR ITCHING Last Admin: 11/02/18 13:06 Dose: 25 mg Fluticasone Propionate (Flonase -) 2 spray NS DAILY [facility] Furosemide (Lasix -) 20 mg PO DAILY [facility] Last Admin: 11/02/18 09:52 Dose: 20 mg Gabapentin (Neurontin -) 900 mg PO BID [facility] Last Admin: 11/02/18 09:51 Dose: 900 mg Heparin Sodium (Porcine) (Heparin -) 5,000 unit SQ BID [facility] Last Admin: 11/02/18 09:51 Dose: 5,000 unit Loratadine (Claritin -) 10 mg PO DAILY [facility] Lorazepam (Ativan -) 1 mg PO Q12H PRN PRN Reason: ANXIETY Last Admin: 10/31/18 21:42 Dose: 1 mg Methylprednisolone Sodium Succinate (Solu-Medrol -) 20 mg IVPUSH Q8H-IV [facility] Mycophenolate Sodium (Mycophenolic Acid) 360 mg PO BID [facility] Last Admin: 11/02/18 09:49 Dose: 360 mg Nifedipine (Procardia Xl -) 30 mg PO DAILY [facility] Last Admin: 11/02/18 09:52 Dose: 30 mg Pantoprazole Sodium (Protonix -) 40 mg PO DAILY [facility] Last Admin: 11/02/18 09:52 Dose: 40 mg Potassium Phos/Sodium Phos (Phos-Nak Packet -) 1 packet PO TID [facility] Last Admin: 11/02/18 14:09 Dose: 1 packet Tacrolimus (Prograf) 2 mg PO BID [facility] Last Admin: 11/02/18 09:52 Dose: 2 mg Trazodone HCl (Desyrel -) 100 mg PO HS [facility] Last Admin: 11/01/18 21:34 Dose: 100 mg 62 year old woman with hx of ESRD s/p DDRT 08/2017, COPD, and hypertension who presented with SOB and admitted for COPD exacerbation. #ESRD s/p Renal transplant with good function . #COPD exacerbation #Hypertension #Leukocytosis renal function stable, BUN slightly elevated likely due to steroids continue present immunosuppressive meds continue IV steroids as per pulmonary Thank you Riky Cerna DO
--- NOTE | 2018-11-02 15:28 | PN ---
Progress Note, Physician - Current Medication List Current Medications: Active Medications Acetaminophen (Tylenol -) 650 mg PO Q6H PRN PRN Reason: FEVER Last Admin: 10/31/18 09:42 Dose: 650 mg Acetaminophen/Butalbital/Caffeine (Fioricet -) 1 tablet PO Q8H PRN PRN Reason: HEADACHE Last Admin: 11/01/18 07:03 Dose: 1 tablet Albuterol Sulfate (Ventolin 0.083% Nebulizer Soln -) 1 amp NEB Q4H PRN PRN Reason: SHORT OF BREATH/WHEEZING Last Admin: 11/02/18 05:36 Dose: 1 amp Albuterol/Ipratropium (Duoneb -) 1 amp NEB RQID [facility] Last Admin: 11/02/18 10:59 Dose: 1 amp Aspirin (Asa -) 81 mg PO DAILY [facility] Last Admin: 11/02/18 09:51 Dose: 81 mg Budesonide/Formoterol Fumarate (Symbicort 160/4.5mcg -) 1 puff IH BID [facility] Last Admin: 11/02/18 09:49 Dose: 1 puff Diphenhydramine HCl (Benadryl -) 25 mg PO Q6H PRN PRN Reason: FOR ITCHING Last Admin: 11/02/18 13:06 Dose: 25 mg Fluticasone Propionate (Flonase -) 2 spray NS DAILY [facility] Furosemide (Lasix -) 20 mg PO DAILY [facility] Last Admin: 11/02/18 09:52 Dose: 20 mg Gabapentin (Neurontin -) 900 mg PO BID [facility] Last Admin: 11/02/18 09:51 Dose: 900 mg Heparin Sodium (Porcine) (Heparin -) 5,000 unit SQ BID [facility] Last Admin: 11/02/18 09:51 Dose: 5,000 unit Loratadine (Claritin -) 10 mg PO DAILY [facility] Lorazepam (Ativan -) 1 mg PO Q12H PRN PRN Reason: ANXIETY Last Admin: 10/31/18 21:42 Dose: 1 mg Methylprednisolone Sodium Succinate (Solu-Medrol -) 20 mg IVPUSH Q8H-IV [facility] Mycophenolate Sodium (Mycophenolic Acid) 360 mg PO BID [facility] Last Admin: 11/02/18 09:49 Dose: 360 mg Nifedipine (Procardia Xl -) 30 mg PO DAILY [facility] Last Admin: 11/02/18 09:52 Dose: 30 mg Pantoprazole Sodium (Protonix -) 40 mg PO DAILY [facility] Last Admin: 11/02/18 09:52 Dose: 40 mg Potassium Phos/Sodium Phos (Phos-Nak Packet -) 1 packet PO TID [facility] Last Admin: 11/02/18 14:09 Dose: 1 packet Tacrolimus (Prograf) 2 mg PO BID [facility] Last Admin: 11/02/18 09:52 Dose: 2 mg Trazodone HCl (Desyrel -) 100 mg PO HS [facility] Last Admin: 11/01/18 21:34 Dose: 100 mg - Objective Vital Signs: Vital Signs Temperature 98.2 F 11/02/18 14:34 Pulse Rate 110 H 11/02/18 14:34 Respiratory Rate 20 11/02/18 14:34 Blood Pressure 154/75 11/02/18 14:34 O2 Sat by Pulse Oximetry (%) 99 11/01/18 21:00 Constitutional: Yes: No Distress HENT: Yes: Atraumatic Neck: Yes: Supple Cardiovascular: Yes: Regular Rate and Rhythm Respiratory: Yes: Rhonchi Gastrointestinal: Yes: Normal Bowel Sounds Extremities: Yes: WNL Edema: No Peripheral Pulses WNL: Yes Neurological: Yes: Alert, Oriented Labs: CBC, BMP 10/31/18 07:15 11/02/18 06:00 Problem List - Problems (1) CHF (congestive heart failure) Assessment/Plan: on lasix and other meds Code(s): I50.9 - HEART FAILURE, UNSPECIFIED (2) COPD exacerbation Code(s): J44.1 - CHRONIC OBSTRUCTIVE PULMONARY DISEASE W (ACUTE) EXACERBATION (3) GERD (gastroesophageal reflux disease) Code(s): K21.9 - GASTRO-ESOPHAGEAL REFLUX DISEASE WITHOUT ESOPHAGITIS (4) CHF (congestive heart failure) Code(s): I50.9 - HEART FAILURE, UNSPECIFIED (5) ESRD (end stage renal disease) on dialysis Code(s): N18.6 - END STAGE RENAL DISEASE; Z99.2 - DEPENDENCE ON RENAL DIALYSIS Assessment/Plan continued current meds covering dr aviles
[2018-11-02] MEDS: traZODone HCL 50 MG TABLET (FP) PO SCH (21:48)
[2018-11-02] MEDS: FLUTICASONE PROP 0.05% 16 GM NASAL SPRAY NS SCH (21:49)
[2018-11-02] MEDS ORDERED: MONTELUKAST NA 10 MG TABLET PO SCH (22:00)
[2018-11-02] MEDS ORDERED: BENZOCAINE/MENTH/CETYLPYRD CL 1 EACH LOZENGE MM PRN (22:34)
[2018-11-02] MEDS ORDERED: diphenhydrAMINE HCL 25 MG CAPSULE (FP) PO ONE (22:45)
[2018-11-03] MEDS: methylPREDNISolone NA SUCC 40 MG/1 ML VIAL IVPUSH SCH ×2 (01:46→10:07)
[2018-11-03] MEDS: ALBUTEROL SO4 0.083% IH SOL 2.5 MG/3 ML VIAL.NEB. NEB PRN (05:12)
[2018-11-03] MEDS: NAPH,MB-DB/K PH,MBDB POWDER PACKET PO SCH ×3 (05:53→21:51)
[2018-11-03] MEDS: ALBUTEROL SO4 2.5/IPRATROPIUM 0.5 INH SOL 3 ML VIAL.NEB. NEB SCH ×4 (08:56→21:17)
[2018-11-03] MEDS: PANTOPRAZOLE 40 MG TABLET (FP) PO SCH (10:07)
[2018-11-03] MEDS: GABAPENTIN 300 MG CAPSULE (FP) PO SCH ×2 (10:07→21:51)
[2018-11-03] MEDS: LORATADINE 10 MG TABLET PO SCH (10:08)
[2018-11-03] MEDS: ASPIRIN 81 MG CHEWABLE TABLETS PO SCH (10:08)
[2018-11-03] MEDS: HEPARIN NA (PORCINE) 5,000 UNITS/ML 1ML VIAL SQ SCH ×2 (10:08→21:51)
[2018-11-03] MEDS: FUROSEMIDE 20 MG TABLET (FP) PO SCH (10:08)
[2018-11-03] MEDS: NIFEdipine E.R. 30 MG TABLET (FP) PO SCH (10:09)
[2018-11-03] MEDS ORDERED: PT OWN MED DRAWER 7, Y5N ONE ×2 (10:24→20:28)
[2018-11-03] MEDS: TACROLIMUS ANHYDROUS 1 MG CAPSULE PO SCH ×2 (10:33→22:18)
[2018-11-03] MEDS: MYCOPHENOLATE SODIUM 360 MG TABLET.DR PO SCH ×2 (10:33→21:51)
[2018-11-03] MEDS: BUDESONIDE/FORMETEROL FUMARATE 160/4.5 mcg INHALER IH SCH ×2 (10:33→22:19)
[2018-11-03] MEDS: FLUTICASONE PROP 0.05% 16 GM NASAL SPRAY NS SCH (10:33)
[2018-11-03] MEDS ORDERED: LORazepam 0.5 MG TABLET PO PRN (12:50)
--- NOTE | 2018-11-03 14:06 | PN ---
Progress Note (short form) - Note Progress Note: Pulmonary Still feels tight Still with non-productive cough. Less wheezing. (+) LAW when ambulating down the hallway. VSS Gen: mildly tachypneic with speaking Heart: RRR Lung: scattered rhonchi, no wheeze appreciated Abd: soft, nontender Ext: no edema Labs/images/meds/notes reviewed A/P Acute COPD Exacerbation Pulmonary HTN CAD Lung Nodules h/o Renal Transplant Obstructive Sleep Apnea - Medrol 40mg q8h to prednisone - inhaled bronchodilators - O2 to keep SpO2 >90% - CPAP 12cm at night - DVT prophylaxis Freddie MERAZ MD
[2018-11-03] MEDS: NYSTATIN 500,000 UNITS/5 ML SUSPENSION PO SCH ×2 (14:07→21:51)
[2018-11-03] MEDS: traZODone HCL 50 MG TABLET (FP) PO SCH (21:52)
--- NOTE | 2018-11-03 22:04 | PN ---
Progress Note, Physician - Current Medication List Current Medications: Active Medications Acetaminophen (Tylenol -) 650 mg PO Q6H PRN PRN Reason: FEVER Last Admin: 10/31/18 09:42 Dose: 650 mg Albuterol Sulfate (Ventolin 0.083% Nebulizer Soln -) 1 amp NEB Q4H PRN PRN Reason: SHORT OF BREATH/WHEEZING Last Admin: 11/03/18 05:12 Dose: 1 amp Albuterol/Ipratropium (Duoneb -) 1 amp NEB RQID [facility] Last Admin: 11/03/18 21:17 Dose: 1 amp Aspirin (Asa -) 81 mg PO DAILY [facility] Last Admin: 11/03/18 10:08 Dose: 81 mg Benzocaine/Menthol (Cepacol Lozenge -) 1 each MM Q4H PRN PRN Reason: SORE THROAT Last Admin: 11/02/18 22:51 Dose: 1 each Budesonide/Formoterol Fumarate (Symbicort 160/4.5mcg -) 1 puff IH BID [facility] Last Admin: 11/03/18 10:33 Dose: 1 puff Diphenhydramine HCl (Benadryl -) 25 mg PO Q6H PRN PRN Reason: FOR ITCHING Last Admin: 11/02/18 18:45 Dose: 25 mg Fluticasone Propionate (Flonase -) 2 spray NS DAILY [facility] Last Admin: 11/03/18 10:33 Dose: 2 sprays Furosemide (Lasix -) 20 mg PO DAILY [facility] Last Admin: 11/03/18 10:08 Dose: 20 mg Gabapentin (Neurontin -) 900 mg PO BID [facility] Last Admin: 11/03/18 21:51 Dose: 900 mg Heparin Sodium (Porcine) (Heparin -) 5,000 unit SQ BID [facility] Last Admin: 11/03/18 21:51 Dose: 5,000 unit Loratadine (Claritin -) 10 mg PO DAILY [facility] Last Admin: 11/03/18 10:08 Dose: 10 mg Lorazepam (Ativan -) 0.5 mg PO BID PRN PRN Reason: ANXIETY Last Admin: 11/03/18 14:07 Dose: 0.5 mg Mycophenolate Sodium (Mycophenolic Acid) 360 mg PO BID [facility] Last Admin: 11/03/18 21:51 Dose: 360 mg Nifedipine (Procardia Xl -) 30 mg PO DAILY [facility] Last Admin: 11/03/18 10:09 Dose: 30 mg Nystatin (Nystatin Oral Suspension -) 500,000 units PO TID [facility] Last Admin: 11/03/18 21:51 Dose: 500,000 units Pantoprazole Sodium (Protonix -) 40 mg PO DAILY [facility] Last Admin: 11/03/18 10:07 Dose: 40 mg Potassium Phos/Sodium Phos (Phos-Nak Packet -) 1 packet PO TID [facility] Last Admin: 11/03/18 21:51 Dose: 1 packet Prednisone (Deltasone -) 20 mg PO DAILY [facility] Tacrolimus (Prograf) 2 mg PO BID [facility] Last Admin: 11/03/18 10:33 Dose: 2 mg Trazodone HCl (Desyrel -) 100 mg PO HS [facility] Last Admin: 11/03/18 21:52 Dose: 100 mg - Objective Vital Signs: Vital Signs Temperature 98.4 F 11/03/18 18:22 Pulse Rate 107 H 11/03/18 18:22 Respiratory Rate 20 11/03/18 18:22 Blood Pressure 145/78 11/03/18 18:22 O2 Sat by Pulse Oximetry (%) 99 11/03/18 10:00 Labs: CBC, BMP 10/31/18 07:15 11/02/18 06:00 Problem List - Problems (1) COPD exacerbation Code(s): J44.1 - CHRONIC OBSTRUCTIVE PULMONARY DISEASE W (ACUTE) EXACERBATION (2) CHF (congestive heart failure) Code(s): I50.9 - HEART FAILURE, UNSPECIFIED (3) Anemia Code(s): D64.9 - ANEMIA, UNSPECIFIED (4) Renal transplant disorder Code(s): T86.10 - UNSPECIFIED COMPLICATION OF KIDNEY TRANSPLANT (5) GERD (gastroesophageal reflux disease) Code(s): K21.9 - GASTRO-ESOPHAGEAL REFLUX DISEASE WITHOUT ESOPHAGITIS (6) Peripheral neuropathy Code(s): G62.9 - POLYNEUROPATHY, UNSPECIFIED
[2018-11-04] MEDS: NAPH,MB-DB/K PH,MBDB POWDER PACKET PO SCH ×2 (06:05→13:10)
[2018-11-04] MEDS: NYSTATIN 500,000 UNITS/5 ML SUSPENSION PO SCH ×2 (06:05→13:10)
[2018-11-04] MEDS: ALBUTEROL SO4 2.5/IPRATROPIUM 0.5 INH SOL 3 ML VIAL.NEB. NEB SCH ×2 (07:00→11:20)
[2018-11-04 08:45] VITALS: TEMP 98.8
[2018-11-04] MEDS: FUROSEMIDE 20 MG TABLET (FP) PO SCH (08:59)
[2018-11-04] MEDS: GABAPENTIN 300 MG CAPSULE (FP) PO SCH (08:59)
[2018-11-04] MEDS: PANTOPRAZOLE 40 MG TABLET (FP) PO SCH (08:59)
[2018-11-04] MEDS: HEPARIN NA (PORCINE) 5,000 UNITS/ML 1ML VIAL SQ SCH (09:00)
[2018-11-04] MEDS: LORATADINE 10 MG TABLET PO SCH (09:00)
[2018-11-04] MEDS: NIFEdipine E.R. 30 MG TABLET (FP) PO SCH (09:00)
[2018-11-04] MEDS: ASPIRIN 81 MG CHEWABLE TABLETS PO SCH (09:01)
[2018-11-04] MEDS: MYCOPHENOLATE SODIUM 360 MG TABLET.DR PO SCH (09:02)
[2018-11-04] MEDS: TACROLIMUS ANHYDROUS 1 MG CAPSULE PO SCH (09:02)
[2018-11-04] MEDS: FLUTICASONE PROP 0.05% 16 GM NASAL SPRAY NS SCH (09:03)
[2018-11-04] MEDS: BUDESONIDE/FORMETEROL FUMARATE 160/4.5 mcg INHALER IH SCH (09:03)
[2018-11-04] MEDS: diphenhydrAMINE HCL 25 MG CAPSULE (FP) PO PRN (09:08)
[2018-11-04] MEDS ORDERED: predniSONE 20 MG TABLET (UD) PO SCH (10:00)
--- NOTE | 2018-11-04 11:48 | PN ---
Progress Note (short form) - Note Progress Note: Pulmonary feels well wants to go home VSS/spo2 98 2l/m Gen: normal Heart: RRR Lung: clear no wheeze Abd: soft, nontender Ext: no edema Labs/images/meds/notes reviewed A/P Acute COPD Exacerbation resolved Pulmonary HTN CAD Lung Nodules h/o Renal Transplant Obstructive Sleep Apnea - prednisone taper as outpatient - inhaled bronchodilators - check spo2 pre/post r/a prior to discharge - CPAP 12cm at night - DVT prophylaxis while in hospital - Suggest discharge to home today Freddie MERAZ MD
[2018-11-04 14:11] VITALS: BP 137/73; PULSE 110
== END 2018-11-04 14:50 | disposition home or self-care (01) | DRG 140 ==
LOC: JER 11:46 → JERBED 14:03 → J7W 15:30 → OBSVTOIN 17:57
PROVIDERS: ADMIT Internal Medicine; ATTEND Internal Medicine
DX: J44.1 Chronic obstructive pulmonary disease with (acute) exacerbation (principal); J44.9 Chronic obstructive pulmonary disease, unspecified; R91.8 Other nonspecific abnormal finding of lung field; I27.20 Pulmonary hypertension, unspecified; I25.10 Atherosclerotic heart disease of native coronary artery without angina pectoris; Z98.61 Coronary angioplasty status; G47.33 Obstructive sleep apnea (adult) (pediatric); K21.9 Gastro-esophageal reflux disease without esophagitis; D72.829 Elevated white blood cell count, unspecified; I50.9 Heart failure, unspecified; G62.9 Polyneuropathy, unspecified; E83.52 Hypercalcemia; J45.909 Unspecified asthma, uncomplicated; Z94.0 Kidney transplant status; I13.0 Hypertensive heart and chronic kidney disease with heart failure and stage 1 through stage 4 chronic kidney disease, or unspecified chronic kidney disease; N18.9 Chronic kidney disease, unspecified
CPT/HCPCS: 36415; 71046-TC-FY; 80048; 80053; 82803; 83880; 83970; 84484; 85025; 93005; 93010; 94640; 94761; 99284-25; G0378; J1644

== ENCOUNTER 2019-02-10 11:42 | Emergency (ER) | payer OTHER ==
[2019-02-10 11:54] VITALS: BMI 31.9
[2019-02-10 13:04] LABS: BASO % 0.9 % (0-2.0); EOS % 0.9 % (0-4.5); HEMATOCRIT 41.1 % (32.4-45.2); HEMOGLOBIN 13.3 GM/dL (10.7-15.3); LYMPH % 5.8 % (8-40); MCH 29.1 pg (25.7-33.7); MCHC 32.4 g/dl (32.0-36.0); MEAN CELL VOLUME 89.9 fl (80-96); MEAN PLT VOLUME 9.4 fl (7.5-11.1); MONO % 4.4 % (3.8-10.2); PLATELET COUNT 162 K/MM3 (134-434); RBC 4.57 M/mm3 (3.60-5.2); RDW 14.3 % (11.6-15.6); WHITE BLOOD COUNT 11.1 K/mm3 (4.0-10.0)
--- NOTE | 2019-02-10 13:09 | PDOC ---
History of Present Illness - General Chief Complaint: Pain, Acute Stated Complaint: RT SIDE ABD PAIN ([facility]INDE[facility] TRANSPLANT) Time Seen by Provider: 02/10/19 12:05 History Source: Patient Exam Limitations: No Limitations - History of Present Illness Initial Comments: 02/10/19 12:40 63 yo female pmh hypertension, anxiety, sciatica, renal stones, anemia, asthma ( no prior intubations), COPD, CHF (on Lasix), bilateral nephrectomy s/p transplant (09/03 at [facility]) presents to the ED for 3 days of back pain with radiation to the RLQ abdomen as well as urinary hesitancy, burning on urination and an itchy red rash around her vagina. Pt last saw Nephro at [facility] in November, blood work wnl. Pt never had these symptoms since transplant. States the back pain described as sharp and stabbing, intermittent, worse with movement with radiation to the RLQ and down her left leg. Pt states this feels different from past sciatica flares due to abdominal pain. Denies F/C/N/V, saddle anesthesia, weakness/sensory changes into the lower ext. Past History - Past Medical History Allergies/Adverse Reactions: Allergies Allergy/AdvReac Type Severity Reaction Status Date / Time Penicillins Allergy Severe Difficulty Verified 02/10/19 11:55 Breathing ketorolac tromethamine Allergy Intermediate Verified 02/10/19 11:55 [From Toradol] hydromorphone HCl Allergy Nausea Verified 02/10/19 11:55 [From Dilaudid] plastic tape AdvReac Mild Hives Uncoded 02/10/19 11:55 Home Medications: Ambulatory Orders Aspirin [ASA -] 81 mg PO DAILY 04/21/18 Furosemide [Lasix -] 20 mg PO DAILY 04/21/18 Gabapentin [Neurontin -] 900 mg PO BID 04/21/18 LORazepam [Ativan] 1 mg PO BID 04/21/18 Mycophenolate Sodium [Myfortic] 360 mg PO BID 04/21/18 Pantoprazole Sodium [Protonix -] 40 mg PO DAILY 04/21/18 Tacrolimus Anhydrous [Prograf] 2 mg PO BID 04/21/18 traZODone HCL [Trazodone HCl] 100 mg PO HS 04/21/18 Albuterol 0.083% Nebulizer Tari [Ventolin 0.083% Nebulizer Soln -] 1 neb NEB QID PRN 10/30/18 Albuterol Sulfate Inhaler - [Ventolin HFA Inhaler -] 1 - 2 inh PO BID 10/30/18 Budesonide/Formeterol Fumarate [SYMBICORT 160/4.5mcg -] 1 inh PO DAILY 10/30/18 Acetaminophen [Tylenol .Regular Strength -] 650 mg PO Q6H PRN tablet 11/04/18 Albuterol 0.083% Nebulizer Tari [Ventolin 0.083% Nebulizer Soln -] 1 amp NEB Q4H PRN amp 11/04/18 Fluticasone Prop 0.05% Nasal [Flonase -] 2 spray NS DAILY spray 11/04/18 Naph,Mb-Db/K pH,Mbdb [PHOS-NaK PACKET -] 1 packet PO TID #90 pow 11/04/18 Nifedipine ER [Procardia XL -] 30 mg PO DAILY #30 tab.er.24 11/04/18 predniSONE [Deltasone -] 20 mg PO DAILY #10 tablet 11/04/18 Albuterol 2.5/Ipratropium 0.5 [Duoneb -] 1 amp NEB BID 02/10/19 Hydralazine HCl 25 mg PO TID 02/10/19 Nystatin Oral Suspension - [Nystatin Oral Susp 100472 Units/5 ML -] 500,000 units PO ASDIR 02/10/19 Polyethylene Glycol 3350 [Miralax (For Daily Use) -] 17 gm PO DAILY #1 bottle Anemia: Yes Asthma: Yes Cancer: No Cardiac Disorders: Yes CVA: No COPD: Yes CHF: Yes Dementia: No Diabetes: No Dialysis: Yes (M W F) GI Disorders: Yes Disorders: No HTN: Yes Hypercholesterolemia: No Liver Disease: No Seizures: No Thyroid Disease: No - Surgical History Abdominal Surgery: Yes (BILATERAL nephrectomy) Appendectomy: No Cardiac Surgery: No Cholecystectomy: No Lung Surgery: Yes (RIGHT LUNG NODULE REMOVAL) Neurologic Surgery: Yes (cervical renetta placement) Orthopedic Surgery: No - Immunization History Immunization Up to Date: Yes - Suicide/Smoking/Psychosocial Hx Smoking Status: Yes Smoking History: Never smoked Years of Tobacco Use: 16 Have you smoked in the past 12 months: No Number of Cigarettes Smoked Daily: 60 If you are a former smoker, when did you quit?: 17YRS AGO Cigars Per Day: 0 Hx Alcohol Use: No Drug/Substance Use Hx: No Substance Use Type: None Hx Substance Use Treatment: No Review of Systems - Review of Systems Constitutional: No: Chills, Fever Respiratory: No: Shortness of Breath Cardiac (ROS): No: Chest Pain ABD/GI: Yes: Other (RLQ abdominal pain). No: Constipated, Diarrhea, Nausea, Vomiting : Yes: Burning, Dysuria. No: Flank Pain, Hematuria Musculoskeletal: Yes: Back Pain Neurological: No: Headache, Numbness, Paresthesia, Weakness *Physical Exam - Vital Signs Last Vital Signs Temp Pulse Resp BP Pulse Ox 97.7 F 95 H 20 139/76 97 02/10/19 11:52 02/10/19 11:52 02/10/19 11:52 02/10/19 11:52 02/10/19 11:52 - Physical Exam General Appearance: Yes: Nourished, Appropriately Dressed. No: Apparent Distress HEENT: positive: EOMI Neck: positive: Supple. negative: Carotid bruit Respiratory/Chest: positive: Lungs Clear, Normal Breath Sounds. negative: Respiratory Distress, Crackles, Rales, Rhonchi, Stridor, Wheezing Cardiovascular: positive: Regular Rhythm, Regular Rate, S1, S2, Edema ( bilateral. Baseline). negative: JVD, Murmur Vascular Pulses: Dorsalis-Pedis (R): 3+, Doralis-Pedis (L): 3+ Gastrointestinal/Abdominal: positive: Soft, Tenderness (diffuse). negative: Pulsatile Mass, Distended, Guarding, Rebound Musculoskeletal: negative: CVA Tenderness Extremity: positive: Normal Capillary Refill, Normal Inspection Integumentary: positive: Normal Color, Dry, Warm Neurologic: positive: Fully Oriented, Alert, Normal Mood/Affect, Normal Response , Motor Strength 5/5 ED Treatment Course - LABORATORY CBC & Chemistry Diagram: 02/10/19 12:50 02/10/19 12:50 - RADIOLOGY Radiology Studies Ordered: Category Date Time Status ABDOMEN & PELVIS CT W/O CONTR [CT] Stat CT Scan 02/10/19 12:31 Ordered CHEST X-RAY PORTABLE* [RAD] Stat Radiology 02/10/19 12:31 Ordered KIDNEY / RENAL US [US] Stat Ultrasound 02/10/19 12:31 Ordered Medical Decision Making - Medical Decision Making 02/10/19 19:04 63 yo female pmh hypertension, anxiety, sciatica, renal stones, anemia, asthma ( no prior intubations), COPD, CHF (on Lasix), bilateral nephrectomy s/p transplant (09/03 at [facility]) presents to the ED for 3 days of back pain with radiation to the RLQ abdomen as well as urinary hesitancy, burning on urination and an itchy red rash around her vagina. Pt last saw Nephro at [facility] in November, blood work wnl. Pt never had these symptoms since transplant. States the back pain described as sharp and stabbing, intermittent, worse with movement with radiation to the RLQ and down her left leg. Pt states this feels different from past sciatica flares due to abdominal pain. Denies F/C/N/V, saddle anesthesia, weakness/sensory changes into the lower ext. Vitals WNL pt immunocompromised, on Tac post renal transplant. Will do labs, renal US (to determine flow) and non con APCT to assess intra ab path pt usually takes morphine for pain when admitted, will give 2 mg IV DDX INLT: UTI/Pyelo, renal stone, sciatica, SBO, constipation, rejection Discussed case with Neph transplant team, Dr. Black, states as long as renal US, CT and blood work inculding UA and renal function are normal, pt can folloiw up in clinic labs at pts baseline, not neutropenic, renal US non concerning. CT shows no acute path, a lot of stool noted. and pt safe for f/u with outpatient PCP and Primary renal team given laxitives and OTC tylenol for pain at home Pt safe for DC states pain has improved and will see primary transplant team MAMADOU and her PCP pt agrees with and understands plan *DC/Admit/Observation/Transfer Diagnosis at time of Disposition: Abdominal pain - Discharge Dispostion Disposition: HOME Condition at time of disposition: Stable Decision to Admit order: No - Prescriptions Prescriptions: Polyethylene Glycol 3350 [Miralax (For Daily Use) -] 17 gm PO DAILY #1 bottle - Referrals Referrals: Juan David Christiansen MD [Primary Care Provider] - - Patient Instructions Printed Discharge Instructions: DI for Abdominal Pain-Adult Additional Instructions: Please see your Primary Doctor and the Renal Transplant Team at [facility] MAMADOU. Take over the counter tylenol for pain every 4-6 hours as needed. Use the laxative sent to your pharmacy as prescribed until you have normal bowel movements. Return to the ER for any new or concerning symptoms including but not limited to: fevers, difficulty urinating, abdominal pain, inability to eat or drink. Thank you - Post Discharge Activity
[2019-02-10] MEDS ORDERED: morphine CARPU-JECT 2 MG/1 ML DISP.SYRIN IVPUSH ONE ×2 (13:10→16:43)
--- NOTE | 2019-02-10 13:24 | PDOC ---
Documentation entered by Lizzeth Mc SCRIBE, acting as scribe for Kelvin Patel MD. Kelvin Patel MD: This documentation has been prepared by the Alexandro carney Nirvannie, SCRIBE, under my direction and personally reviewed by me in its entirety. I confirm that the documentation accurately reflects all work, treatment, procedures, and medical decision making performed by me. Attending Attestation - Resident Resident Name: Jourdan Weston - ED Attending Attestation I have performed the following: I have examined & evaluated the patient, The case was reviewed & discussed with the resident, I agree w/resident's findings & plan, Exceptions are as noted - HPI HPI: 02/10/19 12:36 The patient is a 63 year old female, with a significant past medical history of hypertension, anemia, asthma (no prior intubations), COPD, CHF (on Lasix), sciatica, and bilateral nephrectomy (s/p transplant 09/03, last visit to transplant doctor 12/05 with no pertinent findings on lab work), who presents to the emergency department with 2-3 days of dysuria, urinary hesitancy, and left lower back pain with radiation to the lower abdomen. Patient notes a history of sciatica and notes her back pain is similar. However, she states that the radiation of her pain towards the front is new. She is concerned there may be something wrong with her transplant, as she had a few episodes of stabbing pain in her RLQ over her transplant 3 days ago. She denies recent hematuria. She denies any change in strength/sensation or urinary/bowel incontinency. She denies recent fevers, chills, headache or dizziness. She denies recent nausea, vomit, diarrhea or constipation. She denies recent chest pain or shortness of breath. Allergies: PCN, plastic tape, hydromorphone, ketorolac Primary Care Physician: Dr. Juan David Christiansen - Physicial Exam PE: 02/10/19 13:25 "GENERAL: Awake, alert, and fully oriented, in no acute distress. HEAD: No signs of trauma EYES: PERRLA, EOMI, sclera anicteric, conjunctiva clear ENT: Auricles normal inspection, hearing grossly normal, nares patent, oropharynx clear without exudates. Moist mucosa NECK: Nontender, no stepoffs, Normal ROM, supple, no lymphadenopathy, JVD, or masses LUNGS: Breath sounds equal, clear to auscultation bilaterally. No wheezes, and no crackles HEART: Regular rate and rhythm, normal S1 and S2, no murmurs, rubs or gallops ABDOMEN: + LLQ, RLQ, and suprapubic TTP, normoactive bowel sounds. No guarding , no rebound. No masses EXTREMITIES: Normal range of motion, no edema. No clubbing or cyanosis. No cords, erythema, or tenderness NEUROLOGICAL: Cranial nerves II through XII intact. 5/5 strength and sensation in all extremities, Normal speech, normal gait, normal cerebellar function SKIN: Warm, Dry, normal turgor, no rashes or lesions noted. - Medical Decision Making 02/10/19 13:26 63 F with lower abdominal pain. Will evaluate for transplant rejection. Pt also reporting dysuria, will evaluate for UTI/pyelo. Also consider GI pathology like appy/colitis/diverticulitis. - Labs, UA - Transplant US - Tacro level - CTAP non-con - Pain control 02/10/19 19:03 Labs and UA unremarkable US wnl CT without acute pathology Pt reassessed - pain well controlled Case discussed with pt's transplant team at [facility]. Given reassuring labs and imaging studies, they recommend outpt f/u.
[2019-02-10 13:41] LABS: ALBUMIN 3.7 g/dl (3.4-5.0); BILIRUBIN,TOTAL 0.4 mg/dL (0.2-1); BLOOD UREA NITROGEN 13.4 mg/dL (7-18); CALCIUM 10.7 mg/dL (8.5-10.1); CREATININE 0.9 mg/dL (0.55-1.3); POTASSIUM 4.6 mmol/L (3.5-5.1); TOT PROT 6.2 g/dl (6.4-8.2)
[2019-02-10] MEDS ORDERED: MORPHINE SULFATE 2 MG/ML VIAL ONE ×2 (13:42→16:43)
[2019-02-10 14:26] LABS: PH,URINE 6.5 (5.0-8.0); URINE APPEARANCE CLEAR; URINE BILIRUBIN NEGATIVE (NEGATIVE); URINE COLOR YELLOW; URINE GLUCOSE (UA) NEGATIVE (NEGATIVE); URINE KETONE NEGATIVE (NEGATIVE); URINE LEUK ESTERASE NEGATIVE (NEGATIVE); URINE NITRITE NEGATIVE (NEGATIVE); URINE PROTEIN NEGATIVE (NEGATIVE); URINE UROBILINOGEN 0.2 mg/dL (0.2-1.0)
[2019-02-10 17:06] VITALS: BP 148/74; PULSE 86; TEMP 97.4
== END 2019-02-10 19:16 | disposition home or self-care (01) ==
LOC: JER 11:42
PROC: 3E033NZ Introduction of Analgesics, Hypnotics, Sedatives into Peripheral Vein, Percutaneous Approach (ICD-10-PCS; principal; 2019-02-10)
DX: R10.9 Unspecified abdominal pain (principal); I25.10 Atherosclerotic heart disease of native coronary artery without angina pectoris; I11.0 Hypertensive heart disease with heart failure; I50.9 Heart failure, unspecified; J45.909 Unspecified asthma, uncomplicated; J44.9 Chronic obstructive pulmonary disease, unspecified; D64.9 Anemia, unspecified; Z94.0 Kidney transplant status
CPT/HCPCS: 36415; 71045-TC-FY; 74176-TC; 76775-TC; 80053; 80197; 81003; 83605; 83690; 85025; 87040; 87086; 96374; 96376; 99283-25

== ENCOUNTER 2019-02-24 08:28 | Inpatient (IN) | payer OTHER ==
[2019-02-24] MEDS ORDERED: MAGNESIUM SULF 50% (8.12 MEQ/2 ML-1 GM VIAL) IVPB ONE (08:40)
[2019-02-24] MEDS ORDERED: methylPREDNISolone NA SUCC 125 MG/2 ML VIAL IVPB ONE (08:40)
[2019-02-24] MEDS ORDERED: ALBUTEROL SO4 2.5/IPRATROPIUM 0.5 INH SOL 3 ML VIAL.NEB. NEB ONE ×2 (08:40→08:44)
--- NOTE | 2019-02-24 09:11 | PDOC ---
History of Present Illness - General Chief Complaint: Asthma Stated Complaint: ASTHMA Time Seen by Provider: 02/24/19 08:38 History Source: Patient Exam Limitations: No Limitations - History of Present Illness Initial Comments: Melania Aranda is a 63 yo F w a pmh of HTN, anxiety, CAD, sciatica, renal stones , anemia, asthma (no prior intubations), COPD, CHF (on Lasix), bilateral nephrectomy s/p transplant (09/03 at [facility]) who presents to the ED with shortness of breath and difficulty breathing saying she is having a bad asthma exacerbation. Patient states that she started feeling short of breath on Monday , her SOB worsened to the point where she couldn't breathe or sleep last night and this morning she felt like "She had a lion on her chest." Patient states that for the past 3 days she has been experiencing a worsening productive cough. Last night she started feeling cold and the chills. Patient states she's never been intubated or had to goto the ICU for her asthma PCP: Juan David Christiansen Allergies: Penicillins, toradol, dilaudid, plastic tape PSH: b/l nephrectomy, right lung nodule removal, cervical renetta placement Social Hx: Former smoker. Denies current smoking, drinking, or other substance usage Past History - Past Medical History Allergies/Adverse Reactions: Allergies Allergy/AdvReac Type Severity Reaction Status Date / Time Penicillins Allergy Severe Difficulty Verified 02/24/19 08:34 Breathing ketorolac tromethamine Allergy Intermediate Verified 02/24/19 08:34 [From Toradol] hydromorphone HCl Allergy Nausea Verified 02/24/19 08:34 [From Dilaudid] plastic tape AdvReac Mild Hives Uncoded 02/24/19 08:34 Home Medications: Ambulatory Orders Aspirin [ASA -] 81 mg PO DAILY 04/21/18 Furosemide [Lasix -] 20 mg PO DAILY 04/21/18 Gabapentin [Neurontin -] 300 mg PO DAILY 04/21/18 LORazepam [Ativan] 1 mg PO DAILY PRN 04/21/18 Mycophenolate Sodium [Myfortic] 360 mg PO BID 04/21/18 Pantoprazole Sodium [Protonix -] 40 mg PO DAILY 04/21/18 Tacrolimus Anhydrous [Prograf] 1 mg PO BID 04/21/18 Nifedipine ER [Procardia XL -] 30 mg PO DAILY #30 tab.er.24 11/04/18 Alendronate Sodium 10 mg PO DAILY 02/24/19 Naph,Mb-Db/K pH,Mbdb [PHOS-NaK PACKET -] 1 packet PO DAILY 02/24/19 predniSONE [Deltasone -] 5 mg PO DAILY 02/24/19 traZODone HCL [Trazodone HCl] 100 mg PO DAILY 02/24/19 Anemia: Yes Asthma: Yes Cancer: No Cardiac Disorders: Yes CVA: No COPD: Yes CHF: Yes Dementia: No Diabetes: No Dialysis: Yes (history, kidney transplabt 2017) GI Disorders: Yes Disorders: No HTN: Yes Hypercholesterolemia: No Liver Disease: No Seizures: No Thyroid Disease: No - Surgical History Abdominal Surgery: Yes (BILATERAL nephrectomy) Appendectomy: No Cardiac Surgery: No Cholecystectomy: No Lung Surgery: Yes (RIGHT LUNG NODULE REMOVAL) Neurologic Surgery: Yes (cervical renetta placement) Orthopedic Surgery: No - Immunization History Immunization Up to Date: Yes - Suicide/Smoking/Psychosocial Hx Smoking Status: Yes Smoking History: Never smoked Years of Tobacco Use: 16 Have you smoked in the past 12 months: No Number of Cigarettes Smoked Daily: 60 If you are a former smoker, when did you quit?: 17YRS AGO Cigars Per Day: 0 Hx Alcohol Use: No Drug/Substance Use Hx: No Substance Use Type: None Hx Substance Use Treatment: No Review of Systems - Review of Systems Able to Perform ROS?: Yes Comments:: CONSTITUTIONAL: Present: Chills Absent: fever, no fatigue EYES: Absent: visual changes ENT: Absent: ear pain, no sore throat CARDIOVASCULAR: Present: Chest pain Absent: no palpitations RESPIRATORY: Present: Cough, SOB GI: Absent: abdominal pain, no nausea, no vomiting, no constipation, no diarrhea GENITOURINARY: Absent: dysuria, no frequency, no hematuria MUSKULOSKELETAL: Absent: back pain, no arthralgia, no myalgia SKIN: Absent: rash NEURO: Absent: headache *Physical Exam - Vital Signs Last Vital Signs Temp Pulse Resp BP Pulse Ox 98.8 F 105 H 24 H 140/70 95 02/24/19 08:30 02/24/19 08:30 02/24/19 08:30 02/24/19 08:30 02/24/19 08:30 - Physical Exam Comments: GENERAL: Patient is short of breath. Well-nourished. Moderate distress. HEENT: Normocephalic, atraumatic. PERRL, EOM intact. CARDIOVASCULAR: Tachycardic rate. Irregular rhythm. PULMONARY: There is diffuse expiratory wheezing in all lung chin. Moderate respiratory distress. ABDOMEN: Soft, non-distended, non-tender. EXTREMITIES: Left AV fistula still in place. Normal ROM in all four extremities. No gross deformities. SKIN: Warm, dry. No rash NEUROLOGICAL: No focal neurological deficits. ED Treatment Course - LABORATORY CBC & Chemistry Diagram: 02/24/19 08:50 02/24/19 08:50 - RADIOLOGY Radiology Studies Ordered: Category Date Time Status CHEST X-RAY PORTABLE* [RAD] Stat Radiology 02/24/19 08:40 Ordered Radiograph Interpretation: CXR: Portable chest: Wheezing. Single AP view of the chest was been submitted. Since 02/10/2019, there are some progressive atelectatic changes in the right hemithorax with fluid in the horizontal fissure decreased atelectatic changes on the left. There is a normal heart, sclerotic knob, sharp angles and intact bones and soft tissues. There is lower cervical spine fusion. Correlation recommended Impression: Increased changes right hemithorax with improvement on the left. Comparison made to . Medical Decision Making - Medical Decision Making Melania Aranda is a 63 yo F w a pmh of HTN, anxiety, CAD, sciatica, renal stones , anemia, asthma (no prior intubations), COPD, CHF (on Lasix), bilateral nephrectomy s/p transplant (09/03 at [facility]) who presents to the ED with shortness of breath and difficulty breathing saying she is having a bad asthma exacerbation. Patient states that she started feeling short of breath on Monday , her SOB worsened to the point where she couldn't breathe or sleep last night and this morning she felt like "She had a lion on her chest." Patient states that for the past 3 days she has been experiencing a worsening productive cough. Last night she started feeling cold and the chills. Patient states she's never been intubated or had to goto the ICU for her asthma Vital Signs Temp Pulse Resp BP Pulse Ox 98.8 F 105 H 24 H 140/70 95 02/24/19 08:30 02/24/19 08:30 02/24/19 08:30 02/24/19 08:30 02/24/19 09:00 DDx IBNLT: Asthma vs COPD exacerbation, ACS/TX, arrhythmia, electrolyte/ metabolic disturbance, PNA, pneumothorax Plan: Labs, EKG, CXR, duonebs, steroids, mag, Pulm consult, admission to hospital. EKG: Sinus rate of 100, irregularly irregular, narrow complexes, normal axis, possible left atrial enlargement, TWI in aVL. EKG looks almost identical to ekg on 10/30/18 Labs: Unremarkable CXR: Right sided infiltrate and effusion - Starting patient on Abx - Given immunosupression will go broad - Patient is Pen allergic so giving aztreonam and azithro Pulm Consult: Dr. Caballero is aware of patient and will come see her today. Disposition: Admission to hospital - Spoke with Dr. Baum who accepted patient for admission *DC/Admit/Observation/Transfer Diagnosis at time of Disposition: Personal history of immunosupression therapy, HAP (hospital-acquired pneumonia) , Respiratory distress, Renal transplant disorder Asthma exacerbation Qualifiers: Asthma severity: moderate Asthma persistence: unspecified Qualified Code(s): J45.901 - Unspecified asthma with (acute) exacerbation - Discharge Dispostion Condition at time of disposition: Stable Decision to Admit order: Yes - Referrals - Patient Instructions - Post Discharge Activity
[2019-02-24] MEDS ORDERED: methylPREDNISolone NA SUCC 125 MG/2 ML VIAL ONE (09:36)
[2019-02-24] MEDS ORDERED: MAGNESIUM SULF 50% (8.12 MEQ/2 ML-1 GM VIAL) ONE (09:36)
[2019-02-24 09:45] LABS: VENOUS PC02 49.8 mmHg (38-52); VENOUS PH 7.38 (7.31-7.41)
[2019-02-24 09:46] LABS: VENOUS PO2 < 49 mmHg (28-48)
[2019-02-24] MEDS ORDERED: AZTREONAM 2 GM in DEXTROSE 5%-WATER 100 ML IVPB ONE (09:58)
[2019-02-24 09:59] LABS: BASO % 0.5 % (0-2.0); EOS % 0.8 % (0-4.5); HEMATOCRIT 41.7 % (32.4-45.2); HEMOGLOBIN 13.5 GM/dL (10.7-15.3); LYMPH % 10.3 % (8-40); MCHC 32.3 g/dl (32.0-36.0); MEAN CELL VOLUME 89.7 fl (80-96); MEAN PLT VOLUME 10.1 fl (7.5-11.1); MONO % 10.4 % (3.8-10.2); PLATELET COUNT 148 K/MM3 (134-434); RBC 4.66 M/mm3 (3.60-5.2); WHITE BLOOD COUNT 8.7 K/mm3 (4.0-10.0)
[2019-02-24] MEDS ORDERED: AZITHROMYCIN IVPB 500 MG in DEXTROSE 5%-WATER - 250 ML IVPB ONE (09:59)
[2019-02-24 10:18] LABS: ALBUMIN 3.9 g/dl (3.4-5.0); BILIRUBIN,TOTAL 0.4 mg/dL (0.2-1); BLOOD UREA NITROGEN 11.4 mg/dL (7-18); CALCIUM 10.7 mg/dL (8.5-10.1); CREATININE 0.9 mg/dL (0.55-1.3); POTASSIUM 4.2 mmol/L (3.5-5.1); TOT PROT 6.4 g/dl (6.4-8.2)
[2019-02-24 11:50] LABS: N-TERMINAL BNP 51.2 pg/ml (5-125)
--- NOTE | 2019-02-24 12:39 | PDOC ---
Documentation entered by Lizzeth Mc SCRIBE, acting as scribe for Hortencia Xiong MD. Hortencia Xiong MD: This documentation has been prepared by the Alexandro carney Nirvannie, SCRIBE, under my direction and personally reviewed by me in its entirety. I confirm that the documentation accurately reflects all work, treatment, procedures, and medical decision making performed by me. Attending Attestation - Resident Resident Name: Jason Cole - ED Attending Attestation I have performed the following: I have examined & evaluated the patient, The case was reviewed & discussed with the resident, I agree w/resident's findings & plan, Exceptions are as noted - HPI HPI: 02/24/19 09:52 The patient is a 63 year old female, with a significant past medical history of hypertension, anemia, asthma (no prior intubations or ICU admissions), COPD, CHF (on Lasix), sciatica, and bilateral nephrectomy (s/p transplant 09/03), who presents to the emergency department with, 6 days of worsening shortness of breath with new onset chills. Patient describes her shortness of breath as similar to prior episodes of asthma exacerbation with associated 3 days of productive cough. She denies recent chest pain.She denies recent headache or dizziness. She denies recent nausea, vomit, diarrhea or constipation. She denies recent dysuria, frequency, urgency or hematuria. Allergies: PCN, plastic tape, hydromorphone, ketorolac Primary Care Physician: Dr. Juan David Christiansen - Physicial Exam PE: 02/24/19 09:29 GENERAL: Awake, alert, and fully oriented, in no acute distress HEAD: No signs of trauma EYES: PERRLA, EOMI, sclera anicteric, conjunctiva clear ENT: Auricles normal inspection, hearing grossly normal, nares patent, oropharynx clear without exudates. Moist mucosa NECK: Normal ROM, supple, no lymphadenopathy, JVD, or masses LUNGS: Dec air entry B/L, worse on R side. +Scattered exp wheezes. +Coarse crackles to R base HEART: Regular rate and rhythm, normal S1 and S2, no murmurs, rubs or gallops ABDOMEN: Soft, nontender, normoactive bowel sounds. No guarding, no rebound. No masses EXTREMITIES: Normal range of motion, 1+ pitting edema to ankles B/L. No clubbing or cyanosis. No cords, erythema, or tenderness NEUROLOGICAL: Cranial nerves II through XII grossly intact. Normal speech. Motor and sensation intact SKIN: Warm, Dry, normal turgor, no rashes or lesions noted - Medical Decision Making Pt with history of COPD, immunosuppressed due to kidney transplant presenting with COPD exacerbation and suspected pna. Will cover for HCAP based on immune compromise. Will plan for admission.
[2019-02-24] MEDS ORDERED: AZITHROMYCIN IVPB 500 MG/250 ML BAG IVPB ONE (14:26)
--- NOTE | 2019-02-24 16:31 | EKG ---
Test Reason : Blood Pressure : / mmHG Vent. Rate : 099 BPM Atrial Rate : 099 BPM P-R Int : 154 ms QRS Dur : 094 ms QT Int : 328 ms P-R-T Axes : 051 042 069 degrees QTc Int : 420 ms SINUS RHYTHM WITH PREMATURE SUPRAVENTRICULAR COMPLEXES POSSIBLE LEFT ATRIAL ENLARGEMENT NONSPECIFIC T WAVE ABNORMALITY ABNORMAL ECG WHEN COMPARED WITH ECG OF 30-OCT-2018 11:44, PREMATURE SUPRAVENTRICULAR COMPLEXES ARE NOW PRESENT NONSPECIFIC T WAVE ABNORMALITY, WORSE IN LATERAL LEADS Confirmed by WHITNEY TRONCOSO MD ([id number]) on 02/24/2019 4:31:28 PM Referred By: Confirmed By:WHITNEY TRONCOSO MD
[2019-02-24] MEDS: FUROSEMIDE 20 MG TABLET (FP) PO SCH (16:59)
[2019-02-24] MEDS: GABAPENTIN 300 MG CAPSULE (FP) PO SCH (16:59)
[2019-02-24] MEDS: NAPH,MB-DB/K PH,MBDB POWDER PACKET PO SCH (16:59)
[2019-02-24] MEDS: ASPIRIN 81 MG CHEWABLE TABLETS PO SCH (16:59)
[2019-02-24] MEDS: methylPREDNISolone NA SUCC 40 MG/1 ML VIAL IVPUSH SCH (17:42)
[2019-02-24] MEDS: ALBUTEROL SO4 2.5/IPRATROPIUM 0.5 INH SOL 3 ML VIAL.NEB. NEB PRN ×2 (17:57→21:36)
[2019-02-24 18:05] VITALS: BMI 31.6
[2019-02-24] MEDS ORDERED: INSULIN (NOVOLOG) ASPART 100 UNITS/ML 10ML VIAL ONE (21:04)
[2019-02-24] MEDS ORDERED: MYCOPHENOLATE SODIUM 360 MG PO SCH (22:00)
[2019-02-24] MEDS: MYCOPHENOLATE SODIUM 360 MG TABLET.DR PO SCH (22:24)
[2019-02-24] MEDS: TACROLIMUS ANHYDROUS 1 MG CAPSULE PO SCH (22:24)
[2019-02-24] MEDS: HEPARIN NA (PORCINE) 5,000 UNITS/ML 1ML VIAL SQ SCH (22:25)
[2019-02-24] MEDS ORDERED: LORazepam 1 MG TABLET PO PRN (23:42)
[2019-02-24] MEDS ORDERED: PATIENT'S OWN MEDICATION (NON-FORMULARY) (Mycophenolate Sodium [Myfortic] 720 MG) PO SCH (23:45)
[2019-02-25] MEDS ORDERED: MYCOPHENOLATE SODIUM 360 MG TABLET.DR PO ONE (00:30)
[2019-02-25] MEDS ORDERED: TACROLIMUS ANHYDROUS 1 MG CAPSULE PO ONE (00:30)
--- NOTE | 2019-02-25 00:34 | HP ---
Admitting History and Physical - Past Medical History Cardiovascular: Yes: HTN, Pulmonary Hypertension Pulmonary: Yes: Asthma, COPD Renal/: Yes: Renal Failure, Hemodialysis Heme/Onc: Yes: Anemia - Smoking History Smoking history: Never smoked Have you smoked in the past 12 months: No Aproximately how many cigarettes per day: 60 If you are a former smoker, when did you quit?: 17YRS AGO - Alcohol/Substance Use Hx Alcohol Use: No - Social History ADL: Independent History of Recent Travel: No Home Medications - Allergies Allergies/Adverse Reactions: Allergies Allergy/AdvReac Type Severity Reaction Status Date / Time Penicillins Allergy Severe Difficulty Verified 02/24/19 08:34 Breathing ketorolac tromethamine Allergy Intermediate Verified 02/24/19 08:34 [From Toradol] hydromorphone HCl Allergy Nausea Verified 02/24/19 08:34 [From Dilaudid] plastic tape AdvReac Mild Hives Uncoded 02/24/19 08:34 - Home Medications Home Medications: Ambulatory Orders Aspirin [ASA -] 81 mg PO DAILY 04/21/18 Furosemide [Lasix -] 20 mg PO DAILY 04/21/18 Gabapentin [Neurontin -] 300 mg PO DAILY 04/21/18 LORazepam [Ativan] 1 mg PO DAILY PRN 04/21/18 Pantoprazole Sodium [Protonix -] 40 mg PO DAILY 04/21/18 Nifedipine ER [Procardia XL -] 30 mg PO DAILY #30 tab.er.24 11/04/18 Alendronate Sodium 10 mg PO DAILY 02/24/19 Hydralazine HCl 75 mg PO DAILY 02/24/19 Mycophenolate Sodium [Mycophenolic Acid] 720 mg PO BID 02/24/19 Naph,Mb-Db/K pH,Mbdb [PHOS-NaK PACKET -] 1 packet PO DAILY 02/24/19 Tacrolimus [Prograf] 2 mg PO BID 02/24/19 predniSONE [Deltasone -] 5 mg PO DAILY 02/24/19 traZODone HCL [Trazodone HCl] 100 mg PO DAILY 02/24/19 Physical Examination Vital Signs: Vital Signs Temperature 98.2 F 02/24/19 20:23 Pulse Rate 92 H 02/24/19 20:23 Respiratory Rate 20 02/24/19 20:23 Blood Pressure 139/61 02/24/19 20:23 O2 Sat by Pulse Oximetry (%) 95 02/24/19 16:59 Labs: CBC, BMP 02/24/19 08:50 02/24/19 08:50
[2019-02-25] MEDS: MYCOPHENOLATE SODIUM 360 MG TABLET.DR PO SCH ×3 (00:48→22:18)
[2019-02-25] MEDS: TACROLIMUS ANHYDROUS 1 MG CAPSULE PO SCH ×3 (00:48→22:19)
[2019-02-25] MEDS: methylPREDNISolone NA SUCC 40 MG/1 ML VIAL IVPUSH SCH ×4 (01:29→17:30)
[2019-02-25 08:04] LABS: BASO % 0.3 % (0-2.0); HEMATOCRIT 40.1 % (32.4-45.2); HEMOGLOBIN 13.1 GM/dL (10.7-15.3); LYMPH % 6.3 % (8-40); MCH 29.3 pg (25.7-33.7); MCHC 32.6 g/dl (32.0-36.0); MEAN CELL VOLUME 89.9 fl (80-96); MEAN PLT VOLUME 9.7 fl (7.5-11.1); NEUT % 91.4 % (42.8-82.8); PLATELET COUNT 149 K/MM3 (134-434); RBC 4.47 M/mm3 (3.60-5.2); RDW 14.1 % (11.6-15.6); WHITE BLOOD COUNT 7.8 K/mm3 (4.0-10.0)
[2019-02-25 08:13] LABS: ALBUMIN 3.4 g/dl (3.4-5.0); BILIRUBIN,TOTAL 0.3 mg/dL (0.2-1); BLOOD UREA NITROGEN 14.4 mg/dL (7-18); CALCIUM 10.8 mg/dL (8.5-10.1); CREATININE 0.7 mg/dL (0.55-1.3); POTASSIUM 4.3 mmol/L (3.5-5.1); TOT PROT 5.9 g/dl (6.4-8.2)
[2019-02-25] MEDS: ALBUTEROL SO4 2.5/IPRATROPIUM 0.5 INH SOL 3 ML VIAL.NEB. NEB PRN (08:39)
[2019-02-25] MEDS ORDERED: PT OWN MED DRAWER 7, Y5N ONE ×2 (09:13→22:06)
[2019-02-25 10:05] LABS: ANISOCYTOSIS 0; HELMET CELLS 0; HOWELL-JOLLY BODIES 0; MACROCYTOSIS 0; OVALOCYTE 0; PLATELET ESTIMATE DECREASED; ROULEAU 0; SICKELED CELLS 0; TARGET CELLS 0; TEAR DROP CELLS 0; TOXIC GRANULATION 0
[2019-02-25] MEDS: GABAPENTIN 300 MG CAPSULE (FP) PO SCH ×2 (10:20→22:18)
[2019-02-25] MEDS: FUROSEMIDE 20 MG TABLET (FP) PO SCH (10:20)
[2019-02-25] MEDS: PANTOPRAZOLE 40 MG TABLET (FP) PO SCH (10:20)
[2019-02-25] MEDS: hydrALAZINE HCL 25 MG TABLET (FP) PO SCH (10:20)
[2019-02-25] MEDS: NIFEdipine E.R. 30 MG TABLET (FP) PO SCH (10:20)
[2019-02-25] MEDS: ASPIRIN 81 MG CHEWABLE TABLETS PO SCH (10:21)
[2019-02-25] MEDS: NAPH,MB-DB/K PH,MBDB POWDER PACKET PO SCH (10:21)
[2019-02-25] MEDS: HEPARIN NA (PORCINE) 5,000 UNITS/ML 1ML VIAL SQ SCH ×2 (10:22→22:18)
--- NOTE | 2019-02-25 12:12 | CON.PULM ---
Consult Consult Specialty:: PULMONARY Referred by:: Dr Baum Reason for Consultation:: shortness of breath - History of Present Illness Chief Complaint: shortness of breath History of Present Illness: 63yo female with h/o HTN, COPD/asthma, LV diastolic dysfunction, pulmonary HTN, obstructive sleep apnea, CAD, anxiety, h/o renal transplant on immunosuppressants who was admitted with worsening shortness of breath. No chest pain but with chest tightness, +cough productive of forbes sputum and wheezing. No fevers but with chills. No sick contacts or recent travel. Has not been using her CPAP at home due to anxiety and claustrophobia. - History Source History Provided By: Patient, Medical Record Limitations to Obtaining History: No Limitations - Past Medical History Cardio/Vascular: Yes: HTN, Pulmonary Hypertension Pulmonary: Yes: Asthma, COPD Renal/: Yes: Renal Failure, Hemodialysis - Alcohol/Substance Use Hx Alcohol Use: No - Smoking History Smoking history: Never smoked Have you smoked in the past 12 months: No Aproximately how many cigarettes per day: 60 If you are a former smoker, when did you quit?: 17YRS AGO - Social History ADL: Independent History of Recent Travel: No Home Medications - Allergies Allergies/Adverse Reactions: Allergies Allergy/AdvReac Type Severity Reaction Status Date / Time Penicillins Allergy Severe Difficulty Verified 02/24/19 08:34 Breathing ketorolac tromethamine Allergy Intermediate Verified 02/24/19 08:34 [From Toradol] hydromorphone HCl Allergy Nausea Verified 02/24/19 08:34 [From Dilaudid] plastic tape AdvReac Mild Hives Uncoded 02/24/19 08:34 - Home Medications Home Medications: Ambulatory Orders Aspirin [ASA -] 81 mg PO DAILY 04/21/18 Furosemide [Lasix -] 20 mg PO DAILY 04/21/18 Gabapentin [Neurontin -] 300 mg PO DAILY 04/21/18 LORazepam [Ativan] 1 mg PO DAILY PRN 04/21/18 Pantoprazole Sodium [Protonix -] 40 mg PO DAILY 04/21/18 Nifedipine ER [Procardia XL -] 30 mg PO DAILY #30 tab.er.24 11/04/18 Alendronate Sodium 10 mg PO DAILY 02/24/19 Hydralazine HCl 75 mg PO DAILY 02/24/19 Mycophenolate Sodium [Mycophenolic Acid] 720 mg PO BID 02/24/19 Naph,Mb-Db/K pH,Mbdb [PHOS-NaK PACKET -] 1 packet PO DAILY 02/24/19 Tacrolimus [Prograf] 2 mg PO BID 02/24/19 predniSONE [Deltasone -] 5 mg PO DAILY 02/24/19 traZODone HCL [Trazodone HCl] 100 mg PO DAILY 02/24/19 Review of Systems - Review of Systems Constitutional: reports: Chills. denies: Fever Eyes: denies: Recent Change in Vision HENT: denies: Nasal Congestion, Throat Pain Neck: denies: Stiffness, Tenderness Cardiovascular: reports: Shortness of Breath. denies: Chest Pain, Edema, Palpitations Respiratory: reports: Cough, Exercise Intolerance, SOB, SOB on Exertion, Wheezing. denies: Hemoptysis Gastrointestinal: denies: Abdominal Pain, Nausea, Vomiting Genitourinary: denies: Dysuria, Hematuria Neurological: denies: Dizziness, Headache Endocrine: denies: Unexplained Weight Loss Physical Exam Vital Sings: Vital Signs Temperature 98.2 F 02/25/19 10:18 Pulse Rate 91 H 02/25/19 10:18 Respiratory Rate 02/25/19 10:18 Blood Pressure 137/64 02/25/19 10:18 O2 Sat by Pulse Oximetry (%) 95 02/24/19 16:59 Constitutional: Yes: Anxious Eyes: Yes: Conjunctiva Clear, EOM Intact HENT: Yes: Atraumatic, Normocephalic Neck: Yes: Supple, Trachea Midline Cardiovascular: Yes: Regular Rate and Rhythm Respiratory: Yes: Rhonchi, Wheezes ...Clubbing: No Gastrointestinal: Yes: Normal Bowel Sounds, Soft. No: Tenderness Edema: Yes Neurological: Yes: Alert, Oriented Labs: CBC, BMP 02/25/19 06:55 02/25/19 06:55 Imaging - Results Chest X-ray: Report Reviewed, Image Reviewed (pulmonary vascular congestion) Problem List - Problems (1) Asthma exacerbation Code(s): J45.901 - UNSPECIFIED ASTHMA WITH (ACUTE) EXACERBATION Qualifiers: Asthma severity: moderate Asthma persistence: unspecified Qualified Code( s): J45.901 - Unspecified asthma with (acute) exacerbation Assessment/Plan Acute Asthma/COPD Exacerbation LV Diastolic Dysfunction Pulmonary HTN CAD HTN Anxiety h/o Renal Transplant Obstructive Sleep Apnea - IV medrol - inhaled bronchodilators standing and PRN - O2 to keep SpO2 >90% - echocardiogram - continue lasix - monitor urine output, creatinine - offered CPAP at night but pt declining as only full face masks available here - DVT prophylaxis Thank you for this consult Nicola Mcclain MD
--- NOTE | 2019-02-25 15:12 | CONSULT ---
Consultation: REQUESTING PROVIDER: CONSULT REQUEST: We have been asked to medically evaluate this patient s/p kidney transplant after b/l nephrectomy. HISTORY OF PRESENT ILLNESS: Pt is a 63 yo F with PMHx of COPD/Asthma, CHF, MACI (claustrophobic, not on CPAP) , HTN, anxiety, CAD (no stents), PHTN (40-50mmHg), renal stones, medullary sponge kidney, s/p b/l nephrectomy (dialysis for 10 years), now s/p renal transplant (09/03), s/p R lung nodule removal, sciatica, s/p C spine surgery, and anemia presenting from home with 6 days hx of SOB and productive cough, admitted for COPD exacerbation. Pt's BUN/cr before transplant (2016)-50/10, s/p transplant 09/03, has been in 11-14/0.7-0.9. Pt currently making urine, no blood , no dysuria, tolerating home dose diuretic. Was on home mycophenolate 720 bid, tacrolimus 2mg bid a,d prednisone 5mg daily. Since admission has been placed on iv solumed 40mg Q8H for COPD exacerbation (now replacing prednisone). REVIEW OF SYSTEMS: HEENT: Absent: throat itch+, CARDIOVASCULAR: Absent: chest pain, syncope, palpitations, irregular heart rate, lightheadedness , peripheral edema RESPIRATORY: Absent: cough+, shortness of breath+, dyspnea with exertion+, orthopnea+, wheezing+, stridor, hemoptysis GASTROINTESTINAL: Absent: abdominal pain, abdominal distension, nausea, vomiting, diarrhea, constipation, melena, hematochezia GENITOURINARY: Absent: dysuria, frequency, urgency, hesitancy, hematuria, flank pain, genital pain ENDOCRINE: Absent: unexplained weight gain, unexplained weight loss, heat intolerance, cold intolerance NEUROLOGIC: Absent: headache, focal weakness or paresthesias, dizziness, unsteady gait, seizure, mental status changes, bladder or bowel incontinence PMHX: As above FHx; not contributory Surgical Hx: R nodule removal, C/Section over 30 years, b/l nephrectomy Social HX; Lives with partner, has 3 grown children 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 Quit smoking PHYSICAL EXAMINATION Vital Signs - 24 hr 02/24/19 02/24/19 02/24/19 15:18 16:59 17:48 Temperature 97.9 F 98.0 F 97.8 F Pulse Rate 86 Pulse Rate [ 94 H 92 H Right Radial] Respiratory 17 20 Rate Blood Pressure 144/80 Blood Pressure 117/62 124/69 [Right Arm] O2 Sat by Pulse 91 L 95 Oximetry (%) 02/24/19 02/25/19 02/25/19 20:23 05:59 10:18 Temperature 98.2 F 98.3 F 98.2 F Pulse Rate 92 H 87 91 H Pulse Rate [ Right Radial] Respiratory 20 20 19 Rate Blood Pressure 139/61 154/77 137/64 Blood Pressure [Right Arm] O2 Sat by Pulse Oximetry (%) GENERAL: Awake, alert, and fully oriented, in no acute distress, NC. EARS, NOSE, THROAT: NC NECK: Normal range of motion, supple without lymphadenopathy, JVD, or masses. LUNGS: Scattered rhonchi+ HEART: Regular rate and rhythm, normal S1 and S2 ABDOMEN: Soft, nontender, not distended, normoactive bowel sounds, no guarding, no rebound, no masses. MUSCULOSKELETAL: Normal range of motion at all joints. No bony deformities or tenderness. No CVA tenderness. LOWER EXTREMITIES: 2+ pulses, warm, well-perfused. No calf tenderness. No peripheral edema. NEUROLOGICAL: Cranial nerves II-XII intact. Normal speech. Gait not observed PSYCHIATRIC: Cooperative. Good eye contact. Appropriate mood and affect. SKIN: Warm, dry, normal turgor, no rashes or lesions noted. Laboratory Results - last 24 hr 02/25/19 02/25/19 06:55 06:55 WBC 7.8 RBC 4.47 Hgb 13.1 Hct 40.1 MCV 89.9 MCH 29.3 MCHC 32.6 RDW 14.1 Plt Count 149 MPV 9.7 Absolute Neuts (auto) 7.1 Neutrophils % 91.4 H Neutrophils % (Manual) 93.1 H Band Neutrophils % 0.0 Lymphocytes % 6.3 L D Lymphocytes % (Manual) 3.9 L D Monocytes % 2.0 L D Monocytes % (Manual) 2 L D Eosinophils % 0.0 D Eosinophils % (Manual) 0.0 Basophils % 0.3 Basophils % (Manual) 0.0 Myelocytes % (Man) 1 D Promyelocytes % (Man) 0 Blast Cells % (Manual) 0 Nucleated RBC % 0 Metamyelocytes 0 Hypochromia 0 Toxic Granulation 0 Dohle Bodies 0 Platelet Estimate Decreased Polychromasia 0 Poikilocytosis 0 Basophilic Stippling 0 Anisocytosis 0 Microcytosis 0 Macrocytosis 0 Spherocytes 0 Sickle Cells 0 Target Cells 0 Tear Drop Cells 0 Ovalocytes 0 Stomatocytes 0 Helmet Cells 0 [place] Bodies 0 [place] Rings 0 [place] Cells 0 Acanthocytes (Spur) 0 Rouleaux 0 Fragmented RBCs 0 Schistocytes 0 Sodium 139 Potassium 4.3 Chloride 104 Carbon Dioxide 28 Anion Gap 6 L BUN 14.4 Creatinine 0.7 Est GFR (CKD-EPI)AfAm 106.87 Est GFR (CKD-EPI)NonAf 92.21 Random Glucose 180 H Calcium 10.8 H Total Bilirubin 0.3 AST 16 ALT 28 Alkaline Phosphatase 119 H Total Protein 5.9 L Albumin 3.4 Active Medications Generic Name Dose Route Start Last Admin Trade Name Freq PRN Reason Stop Dose Admin Albuterol Sulfate 1 amp 02/25/19 12:13 Ventolin 0.083% Nebulizer Soln - NEB Q4H PRN SHORT OF BREATH/WHEEZING Albuterol/Ipratropium 1 amp 02/25/19 16:00 Duoneb - NEB RQID [facility] Aspirin 81 mg 02/24/19 14:45 02/25/19 10:21 Asa - PO 81 mg DAILY [facility] Administration Furosemide 20 mg 02/24/19 14:45 02/25/19 10:20 Lasix - PO 20 mg DAILY [facility] Administration Gabapentin 600 mg 02/25/19 22:00 Neurontin - PO BID [facility] Heparin Sodium (Porcine) 5,000 unit 02/24/19 22:00 02/25/19 10:22 Heparin - SQ 5,000 unit BID [facility] Administration Hydralazine HCl 75 mg 02/25/19 10:00 02/25/19 10:20 Apresoline - PO 75 mg DAILY [facility] Administration Levofloxacin 250 mg in 50 mls @ 50 mls/hr 02/25/19 10:00 02/25/19 10:22 Levaquin 250 Mg Premixed Ivpb - IVPB 50 mls/hr DAILY [facility] Administration Protocol Lorazepam 1 mg 02/24/19 23:42 02/25/19 00:52 Ativan - PO 1 mg DAILY PRN Administration ANXIETY Methylprednisolone Sodium Succinate 40 mg 02/24/19 18:00 02/25/19 10:22 Solu-Medrol - IVPUSH Not Given Q8H-IV [facility] Mycophenolate Sodium 720 mg 02/25/19 10:00 02/25/19 10:20 Mycophenolic Acid PO 720 mg BID [facility] Administration Nifedipine 30 mg 02/25/19 10:00 02/25/19 10:20 Procardia Xl - PO 30 mg DAILY [facility] Administration Pantoprazole Sodium 40 mg 02/25/19 10:00 02/25/19 10:20 Protonix - PO 40 mg DAILY [facility] Administration Potassium Phos/Sodium Phos 1 packet 02/24/19 14:45 02/25/19 10:21 Phos-Nak Packet - PO 1 packet DAILY [facility] Administration Tacrolimus 2 mg 02/25/19 10:00 02/25/19 10:21 Prograf PO 2 mg BID [facility] Administration Ambulatory Orders Aspirin [ASA -] 81 mg PO DAILY 04/21/18 Furosemide [Lasix -] 20 mg PO DAILY 04/21/18 Gabapentin [Neurontin -] 600 mg PO BID 04/21/18 LORazepam [Ativan] 1 mg PO DAILY PRN 04/21/18 Pantoprazole Sodium [Protonix -] 40 mg PO DAILY 04/21/18 Nifedipine ER [Procardia XL -] 30 mg PO DAILY #30 tab.er.24 11/04/18 Alendronate Sodium 10 mg PO DAILY 02/24/19 Hydralazine HCl 75 mg PO DAILY 02/24/19 Mycophenolate Sodium [Mycophenolic Acid] 720 mg PO BID 02/24/19 Naph,Mb-Db/K pH,Mbdb [PHOS-NaK PACKET -] 1 packet PO DAILY 02/24/19 Tacrolimus [Prograf] 2 mg PO BID 02/24/19 predniSONE [Deltasone -] 5 mg PO DAILY 02/24/19 traZODone HCL [Trazodone HCl] 100 mg PO DAILY 02/24/19 ASSESSMENT/PLAN: Assessment: COPD/Asthma, CHF, MACI (claustrophobic, not on CPAP), HTN, anxiety, CAD (no stents), PHTN (40-50mmHg), s/p R lung nodule removal, sciatica, s/p C spine surgery, anemia SOB productive cough, COPD exacerbation renal stones, medullary sponge kidney, s/p b/l nephrectomy (dialysis for 10 years), now s/p renal transplant (09/03) Plan: Pt s/p renal transplant 08/2017, doing well, making urine, not overloaded Continue immunosuppressant mx with- 720mg mycophenolate bid, and 2mg bid tacrolimus No need for tacrolimus levels at this time Cont iv solumed 40mg Q8h substituted for home prednisone of 5mg at this time Avoid nephrotoxic drugs Avoid iv contrast Cont to monitor Is and Os Cont home dose of lasix Other mx per pulm and primary care Dispo: We will continue to follow the patient. Thank you for this consultative opportunity. D/W Dr Nehemiah Smith PGY 3 Nephrology rotation Visit type - Emergency Visit Emergency Visit: Yes ED Registration Date: 02/24/19 Care time: The patient presented to the Emergency Department on the above date and was hospitalized for further evaluation of their emergent condition. - New Patient This patient is new to me today: Yes Date on this admission: 02/25/19 - Critical Care Critical Care patient: No ATTENDING PHYSICIAN STATEMENT I saw and evaluated the patient. I reviewed the resident's note and discussed the case with the resident. I agree with the resident's findings and plan as documented. SUBJECTIVE: OBJECTIVE: ASSESSMENT AND PLAN:
[2019-02-25] MEDS: ALBUTEROL SO4 2.5/IPRATROPIUM 0.5 INH SOL 3 ML VIAL.NEB. NEB SCH ×2 (16:00→20:45)
--- NOTE | 2019-02-25 17:14 | ECHO ---
Name: JES ZAPATA Exam:Adult Echocardiogram Study Date: 02/25/2019 02:40 PM Age: 63 yrs Reason For Study: pulmonary HTN Height: 65 in Weight: 190 lb BSA: 1.9 m2 MMode/2D Measurements & Calculations IVSd: 1.1 cm Ao root diam: 3.2 cm LVIDd: 5.0 cm LA dimension: 4.3 cm LVIDs: 3.2 cm ACS: 1.8 cm LVPWd: 1.0 cm IVSs: 1.2 cm LVPWs: 1.2 cm EDV(Teich): 117.4 ml ESV(Teich): 40.5 ml Doppler Measurements & Calculations MV E max shanta: 96.0 cm/sec Ao V2 max: 183.2 cm/sec MV A max shanta: 128.8 cm/sec Ao max P.4 mmHg MV E/A: 0.75 Ao V2 mean: 131.8 cm/sec Ao mean P.8 mmHg Ao V2 VTI: 32.4 cm Med Peak E' Shanta: 9.4 cm/sec Med E/e': 10.2 Lat Peak E' Shanta: 4.8 cm/sec Lat E/e': 19.9 Procedure A complete two-dimensional transthoracic echocardiogram was performed (2D, M-mode, Doppler and color flow Doppler). Left Ventricle The left ventricle is normal in size. Left ventricular systolic function is normal. Ejection Fraction = 60- 65%. No regional wall motion abnormalities noted. Right Ventricle The right ventricle is normal size. The right ventricular systolic function is normal. Atria The left atrium is mildly dilated. Right atrial size is normal. Mitral Valve There is mild mitral annular calcification. There is mild mitral regurgitation. Tricuspid Valve The tricuspid valve is normal in structure and function. No tricuspid regurgitation. Aortic Valve There is mild aortic sclerosis.;. No aortic regurgitation is present. Pulmonic Valve The pulmonic valve is not well visualized. Great Vessels The aortic root is normal size. Pericardium/Pleura There is no pericardial effusion. Interpretation Summary The left ventricle is normal in size. Left ventricular systolic function is normal. No regional wall motion abnormalities noted. Ejection Fraction = 60-65%. The right ventricular systolic function is normal. The left atrium is mildly dilated. Right atrial size is normal. There is mild mitral annular calcification. There is mild mitral regurgitation. There is mild aortic sclerosis. There is no pericardial effusion. Jacobo Rodriguez MD 02/25/2019 05:14 PM
--- NOTE | 2019-02-25 17:47 | PN ---
Teaching Attending Note Name of Resident: Brittany Smith (Nephrology) ATTENDING PHYSICIAN STATEMENT I saw and evaluated the patient. I reviewed the resident's note and discussed the case with the resident. I agree with the resident's findings and plan as documented. SUBJECTIVE: Renal consult for renal transplantation management This is a 63 year old woman with history of ESRD s/p DDRT 08/2017, hx of medullary sponge kidney s/p bilateral nephrectomy, CHF, MACI, COPD, Former smoker who presented from home with SOB and cough and admitted COPD exacerbation +/- PNA. Pt denies any change in urine output. Has been compliant with all transplant medications. Denies any flank pain, dysuria, frequency, graft tenderness, LE swelling. Feels much better now. Denies SOB at rest, fever , chills, N/V/D. Tolerating oral diet. PMHx: as above Allergies: NKDA Family Hx: NC Social Hx: No T/A/D ROS: As per HPI, all other pertinent ros negative OBJECTIVE: Vital Signs Temperature 98.0 F 02/25/19 15:00 Pulse Rate 99 H 02/25/19 15:00 Respiratory Rate 02/25/19 15:00 Blood Pressure 134/73 02/25/19 15:00 O2 Sat by Pulse Oximetry (%) 95 02/24/19 16:59 Intake & Output 02/22/19 02/23/19 02/24/19 02/25/19 23:59 23:59 23:59 23:59 Intake Total 50 Balance 50 Weight 86.183 kg 85.91 kg NAD awake and alert NC in place RRR, no M/R Dec BS, no rales soft NT/ND trace LE edema CBC, BMP 02/25/19 06:55 02/25/19 06:55 Current Medications Albuterol Sulfate (Ventolin 0.083% Nebulizer Soln -) 1 amp NEB Q4H PRN PRN Reason: SHORT OF BREATH/WHEEZING Albuterol/Ipratropium (Duoneb -) 1 amp NEB RQID [facility] Last Admin: 02/25/19 16:00 Dose: 1 amp Aspirin (Asa -) 81 mg PO DAILY [facility] Last Admin: 02/25/19 10:21 Dose: 81 mg Furosemide (Lasix -) 20 mg PO DAILY [facility] Last Admin: 02/25/19 10:20 Dose: 20 mg Gabapentin (Neurontin -) 600 mg PO BID [facility] Heparin Sodium (Porcine) (Heparin -) 5,000 unit SQ BID [facility] Last Admin: 02/25/19 10:22 Dose: 5,000 unit Hydralazine HCl (Apresoline -) 75 mg PO DAILY [facility] Last Admin: 02/25/19 10:20 Dose: 75 mg Levofloxacin (Levaquin 250 Mg Premixed Ivpb -) 250 mg in 50 mls @ 50 mls/hr IVPB DAILY [facility]; Protocol Last Admin: 02/25/19 10:22 Dose: 50 mls/hr Lorazepam (Ativan -) 1 mg PO DAILY PRN PRN Reason: ANXIETY Last Admin: 02/25/19 00:52 Dose: 1 mg Methylprednisolone Sodium Succinate (Solu-Medrol -) 40 mg IVPUSH Q8H-IV [facility] Last Admin: 02/25/19 17:30 Dose: 40 mg Mycophenolate Sodium (Mycophenolic Acid) 720 mg PO BID [facility] Last Admin: 02/25/19 10:20 Dose: 720 mg Nifedipine (Procardia Xl -) 30 mg PO DAILY [facility] Last Admin: 02/25/19 10:20 Dose: 30 mg Pantoprazole Sodium (Protonix -) 40 mg PO DAILY [facility] Last Admin: 02/25/19 10:20 Dose: 40 mg Potassium Phos/Sodium Phos (Phos-Nak Packet -) 1 packet PO DAILY [facility] Last Admin: 02/25/19 10:21 Dose: 1 packet Tacrolimus (Prograf) 2 mg PO BID [facility] Last Admin: 02/25/19 10:21 Dose: 2 mg ASSESSMENT AND PLAN: 63 year old woman with history of ESRD s/p DDRT 08/2017, hx of medullary sponge kidney s/p bilateral nephrectomy, CHF, MACI, COPD, Former smoker who presented from home with SOB and cough and admitted COPD exacerbation +/- PNA. 1. ESRD s/p renal transplant with preserved eGFR 2. COPD exacerbation 3. Suspected PNA 4. Hypertension Renal function stable Continue Tacrolimus, myfortic and IV steroid (can switch back to oral steroid as per pulmonary taper) Trend renal function and electrolytes daily continue empiric antibiotics Supplemental O2 as needed continue nifedpine, hydralzine, lasix for hypertension management. Thank you Riky Cerna DO
[2019-02-25] MEDS: LORazepam 1 MG TABLET PO SCH (22:18)
[2019-02-25] MEDS: traZODone HCL 50 MG TABLET (FP) PO SCH (22:18)
[2019-02-26] MEDS: methylPREDNISolone NA SUCC 40 MG/1 ML VIAL IVPUSH SCH ×3 (02:45→18:15)
[2019-02-26] MEDS: ALBUTEROL SO4 0.083% IH SOL 2.5 MG/3 ML VIAL.NEB. NEB PRN (04:15)
[2019-02-26 08:02] LABS: BASO % 0.3 % (0-2.0); HEMATOCRIT 39.2 % (32.4-45.2); HEMOGLOBIN 12.6 GM/dL (10.7-15.3); LYMPH % 2.6 % (8-40); MCH 28.7 pg (25.7-33.7); MCHC 32.3 g/dl (32.0-36.0); MEAN PLT VOLUME 9.3 fl (7.5-11.1); MONO % 2.3 % (3.8-10.2); NEUT % 94.8 % (42.8-82.8); PLATELET COUNT 170 K/MM3 (134-434); RDW 13.9 % (11.6-15.6); WHITE BLOOD COUNT 13.9 K/mm3 (4.0-10.0)
[2019-02-26] MEDS: ALBUTEROL SO4 2.5/IPRATROPIUM 0.5 INH SOL 3 ML VIAL.NEB. NEB SCH ×4 (08:10→21:15)
[2019-02-26 08:22] LABS: ALBUMIN 3.5 g/dl (3.4-5.0); BILIRUBIN,TOTAL 0.2 mg/dL (0.2-1); BLOOD UREA NITROGEN 17.9 mg/dL (7-18); CALCIUM 10.8 mg/dL (8.5-10.1); CREATININE 0.8 mg/dL (0.55-1.3); POTASSIUM 4.3 mmol/L (3.5-5.1); TOT PROT 5.9 g/dl (6.4-8.2)
[2019-02-26] MEDS: GABAPENTIN 300 MG CAPSULE (FP) PO SCH ×2 (10:01→22:12)
[2019-02-26] MEDS: hydrALAZINE HCL 25 MG TABLET (FP) PO SCH (10:01)
[2019-02-26] MEDS: NAPH,MB-DB/K PH,MBDB POWDER PACKET PO SCH (10:01)
[2019-02-26] MEDS: FUROSEMIDE 20 MG TABLET (FP) PO SCH (10:02)
[2019-02-26] MEDS: NIFEdipine E.R. 30 MG TABLET (FP) PO SCH (10:02)
[2019-02-26] MEDS: MYCOPHENOLATE SODIUM 360 MG TABLET.DR PO SCH ×2 (10:02→22:16)
[2019-02-26] MEDS: PANTOPRAZOLE 40 MG TABLET (FP) PO SCH (10:02)
[2019-02-26] MEDS: TACROLIMUS ANHYDROUS 1 MG CAPSULE PO SCH ×2 (10:03→22:16)
[2019-02-26] MEDS: LORazepam 1 MG TABLET PO SCH ×2 (10:04→22:15)
[2019-02-26] MEDS: HEPARIN NA (PORCINE) 5,000 UNITS/ML 1ML VIAL SQ SCH ×2 (10:04→22:16)
[2019-02-26] MEDS: ASPIRIN 81 MG CHEWABLE TABLETS PO SCH (10:05)
--- NOTE | 2019-02-26 13:18 | PN ---
Progress Note, Physician History of Present Illness: pulmonary alert oob-chair,dyspnea improving,less congested - Current Medication List Current Medications: Active Medications Albuterol Sulfate (Ventolin 0.083% Nebulizer Soln -) 1 amp NEB Q4H PRN PRN Reason: SHORT OF BREATH/WHEEZING Last Admin: 02/26/19 04:15 Dose: 1 amp Albuterol/Ipratropium (Duoneb -) 1 amp NEB RQID [facility] Last Admin: 02/26/19 08:10 Dose: 1 amp Aspirin (Asa -) 81 mg PO DAILY [facility] Last Admin: 02/26/19 10:05 Dose: 81 mg Furosemide (Lasix -) 20 mg PO DAILY [facility] Last Admin: 02/26/19 10:02 Dose: 20 mg Gabapentin (Neurontin -) 600 mg PO BID [facility] Last Admin: 02/26/19 10:01 Dose: 600 mg Heparin Sodium (Porcine) (Heparin -) 5,000 unit SQ BID [facility] Last Admin: 02/26/19 10:04 Dose: 5,000 unit Hydralazine HCl (Apresoline -) 75 mg PO DAILY [facility] Last Admin: 02/26/19 10:01 Dose: 75 mg Levofloxacin (Levaquin 250 Mg Premixed Ivpb -) 250 mg in 50 mls @ 50 mls/hr IVPB DAILY [facility]; Protocol Last Admin: 02/26/19 10:00 Dose: 50 mls/hr Lorazepam (Ativan -) 1 mg PO BID [facility] Last Admin: 02/26/19 10:04 Dose: 1 mg Methylprednisolone Sodium Succinate (Solu-Medrol -) 40 mg IVPUSH Q8H-IV [facility] Last Admin: 02/26/19 11:56 Dose: 40 mg Mycophenolate Sodium (Mycophenolic Acid) 720 mg PO BID [facility] Last Admin: 02/26/19 10:02 Dose: 720 mg Nifedipine (Procardia Xl -) 30 mg PO DAILY [facility] Last Admin: 02/26/19 10:02 Dose: 30 mg Pantoprazole Sodium (Protonix -) 40 mg PO DAILY [facility] Last Admin: 02/26/19 10:02 Dose: 40 mg Potassium Phos/Sodium Phos (Phos-Nak Packet -) 1 packet PO DAILY [facility] Last Admin: 02/26/19 10:01 Dose: 1 packet Tacrolimus (Prograf) 2 mg PO BID [facility] Last Admin: 02/26/19 10:03 Dose: 2 mg Trazodone HCl (Desyrel -) 100 mg PO HS [facility] Last Admin: 02/25/19 22:18 Dose: 100 mg - Objective Vital Signs: Vital Signs Temperature 98.4 F 02/26/19 06:00 Pulse Rate 101 H 02/26/19 06:00 Respiratory Rate 22 H 02/26/19 06:00 Blood Pressure 128/65 02/26/19 06:00 O2 Sat by Pulse Oximetry (%) 95 02/24/19 16:59 Constitutional: Yes: Well Nourished, Calm Eyes: Yes: WNL HENT: Yes: WNL Neck: Yes: WNL Cardiovascular: Yes: Regular Rate and Rhythm, S1, S2 Respiratory: Yes: Wheezes (bilateral wheezes) Gastrointestinal: Yes: Normal Bowel Sounds, Soft Extremities: Yes: WNL Edema: No Labs: CBC, BMP 02/26/19 07:15 02/26/19 07:15 Assessment/Plan Problem List - Problems (1) Asthma exacerbation Code(s): J45.901 - UNSPECIFIED ASTHMA WITH (ACUTE) EXACERBATION Qualifiers: Asthma severity: moderate Asthma persistence: unspecified Qualified Code( s): J45.901 - Unspecified asthma with (acute) exacerbation Assessment/Plan Acute Asthma/COPD Exacerbation LV Diastolic Dysfunction Pulmonary HTN CAD HTN Anxiety h/o Renal Transplant Obstructive Sleep Apnea - IV medrol same dose - inhaled bronchodilators standing and PRN - O2 to keep SpO2 >90% - lasix - monitor urine output, creatinine - offered CPAP at night but pt declining . - DVT prophylaxis DR JUAREZ
[2019-02-26] MEDS: guaiFENesin/D-METHORPHAN HB 10 ML UNIT-DOSE CUPS PO PRN ×2 (14:04→22:15)
--- NOTE | 2019-02-26 15:11 | PN ---
Progress Note (short form) - Note Progress Note: Renal follow up for Renal transplantation Pt seen and examined at the bedside reports feeling well has dry cough, mild chest discomfort with cough no fever or chills making urine Vital Signs Temperature 98 F 02/26/19 14:07 Pulse Rate 112 H 02/26/19 14:07 Respiratory Rate 22 H 02/26/19 14:07 Blood Pressure 138/67 02/26/19 14:07 O2 Sat by Pulse Oximetry (%) 95 02/24/19 16:59 Intake & Output 02/23/19 02/24/19 02/25/19 02/26/19 23:59 23:59 23:59 23:59 Intake Total 850 50 Balance 850 50 Weight 86.183 kg 85.91 kg 85.049 kg NAD awake and alert NC in place RRR, no M/R Dec BS, no rales soft NT/ND trace LE edema CBC, BMP 02/26/19 07:15 02/26/19 07:15 Current Medications Albuterol Sulfate (Ventolin 0.083% Nebulizer Soln -) 1 amp NEB Q4H PRN PRN Reason: SHORT OF BREATH/WHEEZING Last Admin: 02/26/19 04:15 Dose: 1 amp Albuterol/Ipratropium (Duoneb -) 1 amp NEB RQID [facility] Last Admin: 02/26/19 08:10 Dose: 1 amp Aspirin (Asa -) 81 mg PO DAILY [facility] Last Admin: 02/26/19 10:05 Dose: 81 mg Furosemide (Lasix -) 20 mg PO DAILY [facility] Last Admin: 02/26/19 10:02 Dose: 20 mg Gabapentin (Neurontin -) 600 mg PO BID [facility] Last Admin: 02/26/19 10:01 Dose: 600 mg Guaifenesin (Robitussin Dm -) 10 ml PO Q8H PRN PRN Reason: COUGH Last Admin: 02/26/19 14:04 Dose: 10 ml Heparin Sodium (Porcine) (Heparin -) 5,000 unit SQ BID [facility] Last Admin: 02/26/19 10:04 Dose: 5,000 unit Hydralazine HCl (Apresoline -) 75 mg PO DAILY [facility] Last Admin: 02/26/19 10:01 Dose: 75 mg Levofloxacin (Levaquin 250 Mg Premixed Ivpb -) 250 mg in 50 mls @ 50 mls/hr IVPB DAILY [facility]; Protocol Last Admin: 02/26/19 10:00 Dose: 50 mls/hr Lorazepam (Ativan -) 1 mg PO BID [facility] Last Admin: 02/26/19 10:04 Dose: 1 mg Methylprednisolone Sodium Succinate (Solu-Medrol -) 40 mg IVPUSH Q8H-IV [facility] Last Admin: 02/26/19 11:56 Dose: 40 mg Mycophenolate Sodium (Mycophenolic Acid) 720 mg PO BID [facility] Last Admin: 02/26/19 10:02 Dose: 720 mg Nifedipine (Procardia Xl -) 30 mg PO DAILY [facility] Last Admin: 02/26/19 10:02 Dose: 30 mg Pantoprazole Sodium (Protonix -) 40 mg PO DAILY [facility] Last Admin: 02/26/19 10:02 Dose: 40 mg Potassium Phos/Sodium Phos (Phos-Nak Packet -) 1 packet PO DAILY [facility] Last Admin: 02/26/19 10:01 Dose: 1 packet Tacrolimus (Prograf) 2 mg PO BID [facility] Last Admin: 02/26/19 10:03 Dose: 2 mg Trazodone HCl (Desyrel -) 100 mg PO HS [facility] Last Admin: 02/25/19 22:18 Dose: 100 mg ASSESSMENT AND PLAN: 63 year old woman with history of ESRD s/p DDRT 08/2017, hx of medullary sponge kidney s/p bilateral nephrectomy, CHF, MACI, COPD, Former smoker who presented from home with SOB and cough and admitted COPD exacerbation +/- PNA. 1. ESRD s/p renal transplant with preserved eGFR 2. COPD exacerbation 3. Suspected PNA 4. Hypertension 5. 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 Check PTH levels, hypercalcemia is mild may benifit from sensipar if PTH is elevated Thank you Riky Cerna DO
[2019-02-26 16:41] LABS: ANISOCYTOSIS 0; MACROCYTOSIS 0; PLATELET ESTIMATE NORMAL
[2019-02-26] MEDS: traZODone HCL 50 MG TABLET (FP) PO SCH (22:15)
[2019-02-27] MEDS: methylPREDNISolone NA SUCC 40 MG/1 ML VIAL IVPUSH SCH ×3 (02:38→18:12)
[2019-02-27] MEDS: ALBUTEROL SO4 0.083% IH SOL 2.5 MG/3 ML VIAL.NEB. NEB PRN (05:10)
[2019-02-27] MEDS: guaiFENesin/D-METHORPHAN HB 10 ML UNIT-DOSE CUPS PO PRN ×2 (05:21→13:48)
[2019-02-27 08:00] LABS: BLOOD UREA NITROGEN 17.4 mg/dL (7-18); CALCIUM 10.8 mg/dL (8.5-10.1); CREATININE 0.8 mg/dL (0.55-1.3); PHOSPHOROUS 2.6 mg/dL (2.5-4.9); POTASSIUM 4.1 mmol/L (3.5-5.1)
[2019-02-27] MEDS: ALBUTEROL SO4 2.5/IPRATROPIUM 0.5 INH SOL 3 ML VIAL.NEB. NEB SCH ×4 (08:59→22:45)
[2019-02-27] MEDS ORDERED: PT OWN MED DRAWER 7, Y5N ONE (10:11)
[2019-02-27] MEDS: PANTOPRAZOLE 40 MG TABLET (FP) PO SCH (10:24)
[2019-02-27] MEDS: GABAPENTIN 300 MG CAPSULE (FP) PO SCH ×2 (10:24→21:42)
[2019-02-27] MEDS: ASPIRIN 81 MG CHEWABLE TABLETS PO SCH (10:25)
[2019-02-27] MEDS: FUROSEMIDE 20 MG TABLET (FP) PO SCH (10:25)
[2019-02-27] MEDS: hydrALAZINE HCL 25 MG TABLET (FP) PO SCH ×3 (10:25→21:42)
[2019-02-27] MEDS: NAPH,MB-DB/K PH,MBDB POWDER PACKET PO SCH (10:25)
[2019-02-27] MEDS: NIFEdipine E.R. 30 MG TABLET (FP) PO SCH (10:25)
[2019-02-27] MEDS: HEPARIN NA (PORCINE) 5,000 UNITS/ML 1ML VIAL SQ SCH ×2 (10:26→21:43)
[2019-02-27] MEDS: LORazepam 1 MG TABLET PO SCH ×2 (10:45→21:42)
[2019-02-27] MEDS ORDERED: ACETAMINOPHEN 325 MG TABLET (FP) PO PRN ×2 (11:24→17:42)
--- NOTE | 2019-02-27 11:26 | PN ---
Physical Exam: SUBJECTIVE: Patient seen and examined. She complains of feeling short of breath with wheezing, especially at night. OBJECTIVE: Vital Signs Period Temp Pulse Resp BP Sys/Guevara Pulse Ox Last 24 Hr 97.8 F-98.2 F 101-112 22-22 138-153/63-71 GENERAL: The patient is awake, alert, and fully oriented, in no acute distress. LUNGS: Breath sounds decreased with diffuse wheezes bilaterally. HEART: Regular rhythm, S1, S2, tachycardic, without murmur, rub or gallop. ABDOMEN: Obese, soft, nontender, nondistended, normoactive bowel sounds, no guarding, no rebound, no hepatosplenomegaly, no masses. EXTREMITIES: 2+ pulses, warm, well-perfused, no edema. Laboratory Results - last 24 hr 02/26/19 02/27/19 07:15 06:35 Neutrophils % (Manual) 93.0 H Band Neutrophils % 2.0 Lymphocytes % (Manual) 3.0 L D Monocytes % (Manual) 2 L Eosinophils % (Manual) 0.0 Basophils % (Manual) 0.0 Myelocytes % (Man) 0 D Promyelocytes % (Man) 0 Blast Cells % (Manual) 0 Metamyelocytes 0 Hypochromia 0 Platelet Estimate Normal Polychromasia 0 Poikilocytosis 0 Anisocytosis 0 Microcytosis 0 Macrocytosis 0 Sodium 137 Potassium 4.1 Chloride 101 Carbon Dioxide 30 Anion Gap 6 L BUN 17.4 Creatinine 0.8 Est GFR (CKD-EPI)AfAm 90.94 Est GFR (CKD-EPI)NonAf 78.46 Random Glucose 196 H Calcium 10.8 H Phosphorus 2.6 Active Medications Generic Name Dose Route Start Last Admin Trade Name Freq PRN Reason Stop Dose Admin Albuterol Sulfate 1 amp 02/25/19 12:13 02/27/19 05:10 Ventolin 0.083% Nebulizer Soln - NEB 1 amp Q4H PRN Administration SHORT OF BREATH/WHEEZING Albuterol/Ipratropium 1 amp 02/25/19 16:00 02/27/19 11:21 Duoneb - NEB 1 amp RQID [facility]NA Administration Aspirin 81 mg 02/24/19 14:45 02/27/19 10:25 Asa - PO 81 mg DAILY YE[facility]NA Administration Furosemide 20 mg 02/24/19 14:45 02/27/19 10:25 Lasix - PO 20 mg DAILY [facility] Administration Gabapentin 600 mg 02/25/19 22:00 02/27/19 10:24 Neurontin - PO 600 mg BID YE[facility]NA Administration Guaifenesin 10 ml 02/26/19 13:19 02/27/19 05:21 Robitussin Dm - PO 10 ml Q8H PRN Administration COUGH Heparin Sodium (Porcine) 5,000 unit 02/24/19 22:00 02/27/19 10:26 Heparin - SQ 5,000 unit BID [facility] Administration Hydralazine HCl 75 mg 02/25/19 10:00 02/27/19 10:25 Apresoline - PO 75 mg DAILY [facility] Administration Levofloxacin 250 mg in 50 mls @ 50 mls/hr 02/25/19 10:00 02/27/19 10:23 Levaquin 250 Mg Premixed Ivpb - IVPB 50 mls/hr DAILY [facility] Administration Protocol Lorazepam 1 mg 02/25/19 22:00 02/27/19 10:45 Ativan - PO 1 mg BID YE[facility] Administration Methylprednisolone Sodium Succinate 40 mg 02/24/19 18:00 02/27/19 10:20 Solu-Medrol - IVPUSH 40 mg Q8H-IV [facility] Administration Mycophenolate Sodium 720 mg 02/25/19 10:00 02/26/19 22:16 Mycophenolic Acid PO 720 mg BID YELE[facility] Administration Nifedipine 30 mg 02/25/19 10:00 02/27/19 10:25 Procardia Xl - PO 30 mg DAILY [facility] Administration Pantoprazole Sodium 40 mg 02/25/19 10:00 02/27/19 10:24 Protonix - PO 40 mg DAILY [facility] Administration Potassium Phos/Sodium Phos 1 packet 02/24/19 14:45 02/27/19 10:25 Phos-Nak Packet - PO 1 packet DAILY [facility] Administration Tacrolimus 2 mg 02/25/19 10:00 02/26/19 22:16 Prograf PO 2 mg BID YELE[facility] Administration Trazodone HCl 100 mg 02/25/19 22:00 02/26/19 22:15 Desyrel - PO 100 mg HS YELENA Administration ASSESSMENT/PLAN: 1. Acute exacerbation of COPD/asthma with possible pneumonia - Continue SoluMedrol, DuoNeb, Levaquin 2. Pulmonary HTN 3. CAD - Continue aspirin 4. HTN - Continue Procardia, Hydralazine, lasix 5. ESRD, history of renal transplant - Continue Prograf, Myfortic, steroid - Monitor renal function 6. Hypercalcemia likely secondary to hyperparathyroidism - PTH pending 7. Obstructive sleep apnea - Refusing CPAP at night 8. Depression/anxiety - Continue Trazodone Visit type - Emergency Visit Emergency Visit: Yes ED Registration Date: 02/24/19 Care time: The patient presented to the Emergency Department on the above date and was hospitalized for further evaluation of their emergent condition. - New Patient This patient is new to me today: Yes Date on this admission: 02/27/19 - Critical Care Critical Care patient: No - Discharge Referral Referred to [facility] Med [facility] No
[2019-02-27] MEDS: MYCOPHENOLATE SODIUM 360 MG TABLET.DR PO SCH ×2 (12:01→21:42)
[2019-02-27] MEDS: TACROLIMUS ANHYDROUS 1 MG CAPSULE PO SCH ×2 (12:03→21:43)
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
--- NOTE | 2019-02-27 15:03 | PN ---
Progress Note, Physician History of Present Illness: pulmonary alert,oob-chair,breathing better - Current Medication List Current Medications: Active Medications Acetaminophen (Tylenol -) 650 mg PO Q4H PRN PRN Reason: HEADACHE Last Admin: 02/27/19 12:04 Dose: 650 mg Albuterol Sulfate (Ventolin 0.083% Nebulizer Soln -) 1 amp NEB Q4H PRN PRN Reason: SHORT OF BREATH/WHEEZING Last Admin: 02/27/19 05:10 Dose: 1 amp Albuterol/Ipratropium (Duoneb -) 1 amp NEB RQID [facility] Last Admin: 02/27/19 11:21 Dose: 1 amp Aspirin (Asa -) 81 mg PO DAILY [facility] Last Admin: 02/27/19 10:25 Dose: 81 mg Furosemide (Lasix -) 20 mg PO DAILY [facility] Last Admin: 02/27/19 10:25 Dose: 20 mg Gabapentin (Neurontin -) 600 mg PO BID [facility] Last Admin: 02/27/19 10:24 Dose: 600 mg Guaifenesin (Robitussin Dm -) 10 ml PO Q8H PRN PRN Reason: COUGH Last Admin: 02/27/19 13:48 Dose: 10 ml Heparin Sodium (Porcine) (Heparin -) 5,000 unit SQ BID [facility] Last Admin: 02/27/19 10:26 Dose: 5,000 unit Hydralazine HCl (Apresoline -) 25 mg PO TID [facility] Levofloxacin (Levaquin 250 Mg Premixed Ivpb -) 250 mg in 50 mls @ 50 mls/hr IVPB DAILY [facility]; Protocol Last Admin: 02/27/19 10:23 Dose: 50 mls/hr Lorazepam (Ativan -) 1 mg PO BID [facility] Last Admin: 02/27/19 10:45 Dose: 1 mg Methylprednisolone Sodium Succinate (Solu-Medrol -) 40 mg IVPUSH Q8H-IV [facility] Last Admin: 02/27/19 10:20 Dose: 40 mg Mycophenolate Sodium (Mycophenolic Acid) 720 mg PO BID [facility] Last Admin: 02/27/19 12:01 Dose: 720 mg Nifedipine (Procardia Xl -) 30 mg PO DAILY [facility] Last Admin: 02/27/19 10:25 Dose: 30 mg Pantoprazole Sodium (Protonix -) 40 mg PO DAILY [facility] Last Admin: 02/27/19 10:24 Dose: 40 mg Potassium Phos/Sodium Phos (Phos-Nak Packet -) 1 packet PO DAILY [facility] Last Admin: 02/27/19 10:25 Dose: 1 packet Tacrolimus (Prograf) 2 mg PO BID [facility] Last Admin: 02/27/19 12:03 Dose: 2 mg Trazodone HCl (Desyrel -) 100 mg PO HS [facility] Last Admin: 02/26/19 22:15 Dose: 100 mg - Objective Vital Signs: Vital Signs Temperature 97.8 F 02/27/19 05:33 Pulse Rate 101 H 02/27/19 05:33 Respiratory Rate 22 H 02/27/19 05:33 Blood Pressure 139/66 02/27/19 05:33 O2 Sat by Pulse Oximetry (%) 95 02/24/19 16:59 Constitutional: Yes: Well Nourished, Calm Eyes: Yes: WNL HENT: Yes: WNL Neck: Yes: WNL Cardiovascular: Yes: Regular Rate and Rhythm, S1, S2 Respiratory: Yes: Wheezes (scattered melody wheezes) Gastrointestinal: Yes: Normal Bowel Sounds, Soft Extremities: Yes: WNL Edema: Yes Labs: 02/27/19 06:35 Assessment/Plan Problem List - Problems (1) Asthma exacerbation Code(s): J45.901 - UNSPECIFIED ASTHMA WITH (ACUTE) EXACERBATION Qualifiers: Asthma severity: moderate Asthma persistence: unspecified Qualified Code( s): J45.901 - Unspecified asthma with (acute) exacerbation Assessment/Plan Acute Asthma/COPD Exacerbation clinically improving LV Diastolic Dysfunction Pulmonary HTN CAD HTN Anxiety h/o Renal Transplant Obstructive Sleep Apnea - IV medrol same dose - inhaled bronchodilators standing and PRN - O2 to keep SpO2 >90% - lasix - monitor urine output, creatinine - offered CPAP at night but pt declining . - DVT prophylaxis DR JUAREZ
--- NOTE | 2019-02-27 16:01 | PN ---
Progress Note (short form) - Note Progress Note: Renal follow up for Renal transplantation Pt seen and examined at the bedside awake and alert reports some wheezing, + cough no chest pain, abd pain, fever or chills making urine Vital Signs Temperature 97.8 F 02/27/19 14:00 Pulse Rate 108 H 02/27/19 14:00 Respiratory Rate 22 H 02/27/19 14:00 Blood Pressure 127/65 02/27/19 14:00 O2 Sat by Pulse Oximetry (%) 95 02/24/19 16:59 Intake & Output 02/24/19 02/25/19 02/26/19 02/27/19 23:59 23:59 23:59 23:59 Intake Total 850 650 Balance 850 650 Weight 86.183 kg 85.91 kg 85.049 kg NAD awake and alert NC in place RRR, no M/R Dec BS, no rales soft NT/ND trace LE edema CBC, BMP 02/26/19 07:15 02/27/19 06:35 Current Medications Acetaminophen (Tylenol -) 650 mg PO Q4H PRN PRN Reason: HEADACHE Last Admin: 02/27/19 12:04 Dose: 650 mg Albuterol Sulfate (Ventolin 0.083% Nebulizer Soln -) 1 amp NEB Q4H PRN PRN Reason: SHORT OF BREATH/WHEEZING Last Admin: 02/27/19 05:10 Dose: 1 amp Albuterol/Ipratropium (Duoneb -) 1 amp NEB RQID [facility] Last Admin: 02/27/19 11:21 Dose: 1 amp Aspirin (Asa -) 81 mg PO DAILY [facility] Last Admin: 02/27/19 10:25 Dose: 81 mg Furosemide (Lasix -) 20 mg PO DAILY [facility] Last Admin: 02/27/19 10:25 Dose: 20 mg Gabapentin (Neurontin -) 600 mg PO BID [facility] Last Admin: 02/27/19 10:24 Dose: 600 mg Guaifenesin (Robitussin Dm -) 10 ml PO Q8H PRN PRN Reason: COUGH Last Admin: 02/27/19 13:48 Dose: 10 ml Heparin Sodium (Porcine) (Heparin -) 5,000 unit SQ BID [facility] Last Admin: 02/27/19 10:26 Dose: 5,000 unit Hydralazine HCl (Apresoline -) 25 mg PO TID [facility] Last Admin: 02/27/19 15:11 Dose: 25 mg Levofloxacin (Levaquin 250 Mg Premixed Ivpb -) 250 mg in 50 mls @ 50 mls/hr IVPB DAILY [facility]; Protocol Last Admin: 02/27/19 10:23 Dose: 50 mls/hr Lorazepam (Ativan -) 1 mg PO BID [facility] Last Admin: 02/27/19 10:45 Dose: 1 mg Methylprednisolone Sodium Succinate (Solu-Medrol -) 40 mg IVPUSH Q8H-IV [facility] Last Admin: 02/27/19 10:20 Dose: 40 mg Mycophenolate Sodium (Mycophenolic Acid) 720 mg PO BID [facility] Last Admin: 02/27/19 12:01 Dose: 720 mg Nifedipine (Procardia Xl -) 30 mg PO DAILY [facility] Last Admin: 02/27/19 10:25 Dose: 30 mg Pantoprazole Sodium (Protonix -) 40 mg PO DAILY [facility] Last Admin: 02/27/19 10:24 Dose: 40 mg Potassium Phos/Sodium Phos (Phos-Nak Packet -) 1 packet PO DAILY [facility] Last Admin: 02/27/19 10:25 Dose: 1 packet Tacrolimus (Prograf) 2 mg PO BID [facility] Last Admin: 02/27/19 12:03 Dose: 2 mg Trazodone HCl (Desyrel -) 100 mg PO HS [facility] Last Admin: 02/26/19 22:15 Dose: 100 mg ASSESSMENT AND PLAN: 63 year old woman with history of ESRD s/p DDRT 08/2017, hx of medullary sponge kidney s/p bilateral nephrectomy, CHF, MACI, COPD, Former smoker who presented from home with SOB and cough and admitted COPD exacerbation +/- PNA. 1. ESRD s/p renal transplant with preserved eGFR 2. COPD exacerbation 3. Suspected PNA 4. Hypertension 5. 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
[2019-02-27] MEDS ORDERED: ACETAMINOPHEN/CAFFEINE/BUTALBITAL 1 TAB PO PRN (17:41)
[2019-02-27] MEDS: traZODone HCL 50 MG TABLET (FP) PO SCH (21:42)
[2019-02-28] MEDS: methylPREDNISolone NA SUCC 40 MG/1 ML VIAL IVPUSH SCH ×4 (02:21→21:31)
[2019-02-28] MEDS: ALBUTEROL SO4 0.083% IH SOL 2.5 MG/3 ML VIAL.NEB. NEB PRN (03:39)
[2019-02-28] MEDS: hydrALAZINE HCL 25 MG TABLET (FP) PO SCH ×3 (06:07→21:31)
[2019-02-28] MEDS: ALBUTEROL SO4 2.5/IPRATROPIUM 0.5 INH SOL 3 ML VIAL.NEB. NEB SCH ×4 (08:12→21:16)
[2019-02-28 08:19] LABS: CALCIUM 11.2 mg/dL (8.5-10.1); CREATININE 0.8 mg/dL (0.55-1.3); POTASSIUM 3.8 mmol/L (3.5-5.1)
[2019-02-28 08:34] LABS: HEMATOCRIT 41.3 % (32.4-45.2); HEMOGLOBIN 13.3 GM/dL (10.7-15.3); MCH 28.6 pg (25.7-33.7); MCHC 32.2 g/dl (32.0-36.0); MEAN CELL VOLUME 88.6 fl (80-96); MEAN PLT VOLUME 9.2 fl (7.5-11.1); PLATELET COUNT 174 K/MM3 (134-434); RBC 4.66 M/mm3 (3.60-5.2); RDW 13.3 % (11.6-15.6); WHITE BLOOD COUNT 13.4 K/mm3 (4.0-10.0)
[2019-02-28] MEDS ORDERED: PT OWN MED DRAWER 7, Y5N ONE (10:33)
[2019-02-28] MEDS: NIFEdipine E.R. 30 MG TABLET (FP) PO SCH (10:48)
[2019-02-28] MEDS: PANTOPRAZOLE 40 MG TABLET (FP) PO SCH (10:48)
[2019-02-28] MEDS: NAPH,MB-DB/K PH,MBDB POWDER PACKET PO SCH (10:49)
[2019-02-28] MEDS: GABAPENTIN 300 MG CAPSULE (FP) PO SCH ×2 (10:49→21:31)
[2019-02-28] MEDS: MYCOPHENOLATE SODIUM 360 MG TABLET.DR PO SCH ×2 (10:49→21:32)
[2019-02-28] MEDS: ASPIRIN 81 MG CHEWABLE TABLETS PO SCH (10:49)
[2019-02-28] MEDS: LORazepam 1 MG TABLET PO SCH ×2 (10:49→21:31)
[2019-02-28] MEDS: HEPARIN NA (PORCINE) 5,000 UNITS/ML 1ML VIAL SQ SCH ×2 (10:50→21:31)
[2019-02-28] MEDS: FUROSEMIDE 20 MG TABLET (FP) PO SCH (10:50)
[2019-02-28] MEDS: TACROLIMUS ANHYDROUS 1 MG CAPSULE PO SCH ×2 (10:51→21:32)
--- NOTE | 2019-02-28 12:40 | PN ---
Progress Note (short form) - Note Progress Note: PULMONARY Still short of breath, coughing, wheezing with chest tightness. Vital Signs Period Temp Pulse Resp BP Sys/Guevara Pulse Ox Last 24 Hr 97.8 F-98.6 F 107-121 22-24 127-150/65-74 99 Gen: tachypneic with speaking Heart: tachycardic, regular Lung: bilateral rhonchi, wheezes Abd: soft, nontender Ext: + edema CBC, BMP 02/28/19 07:00 02/28/19 07:00 Active Medications Acetaminophen (Tylenol -) 650 mg PO Q4H PRN PRN Reason: PAIN Acetaminophen/Butalbital/Caffeine (Fioricet -) 1 tablet PO Q6H PRN PRN Reason: HEADACHE Last Admin: 02/27/19 18:12 Dose: 1 tablet Albuterol Sulfate (Ventolin 0.083% Nebulizer Soln -) 1 amp NEB Q4H PRN PRN Reason: SHORT OF BREATH/WHEEZING Last Admin: 02/28/19 03:39 Dose: 1 amp Albuterol/Ipratropium (Duoneb -) 1 amp NEB RQID [facility] Last Admin: 02/28/19 12:11 Dose: 1 amp Aspirin (Asa -) 81 mg PO DAILY [facility] Last Admin: 02/28/19 10:49 Dose: 81 mg Furosemide (Lasix -) 20 mg PO DAILY [facility] Last Admin: 02/28/19 10:50 Dose: 20 mg Gabapentin (Neurontin -) 600 mg PO BID [facility] Last Admin: 02/28/19 10:49 Dose: 600 mg Guaifenesin (Robitussin Dm -) 10 ml PO Q8H PRN PRN Reason: COUGH Last Admin: 02/27/19 13:48 Dose: 10 ml Heparin Sodium (Porcine) (Heparin -) 5,000 unit SQ BID [facility] Last Admin: 02/28/19 10:50 Dose: 5,000 unit Hydralazine HCl (Apresoline -) 25 mg PO TID [facility] Last Admin: 02/28/19 06:07 Dose: 25 mg Levofloxacin (Levaquin 250 Mg Premixed Ivpb -) 250 mg in 50 mls @ 50 mls/hr IVPB DAILY [facility]; Protocol Last Admin: 02/28/19 10:50 Dose: 50 mls/hr Lorazepam (Ativan -) 1 mg PO BID [facility] Last Admin: 02/28/19 10:49 Dose: 1 mg Methylprednisolone Sodium Succinate (Solu-Medrol -) 40 mg IVPUSH Q8H-IV [facility] Last Admin: 02/28/19 10:50 Dose: 40 mg Mycophenolate Sodium (Mycophenolic Acid) 720 mg PO BID [facility] Last Admin: 02/28/19 10:49 Dose: 720 mg Nifedipine (Procardia Xl -) 30 mg PO DAILY [facility] Last Admin: 02/28/19 10:48 Dose: 30 mg Pantoprazole Sodium (Protonix -) 40 mg PO DAILY [facility] Last Admin: 02/28/19 10:48 Dose: 40 mg Potassium Phos/Sodium Phos (Phos-Nak Packet -) 1 packet PO DAILY [facility] Last Admin: 02/28/19 10:49 Dose: 1 packet Tacrolimus (Prograf) 2 mg PO BID [facility] Last Admin: 02/28/19 10:51 Dose: 2 mg Trazodone HCl (Desyrel -) 100 mg PO HS [facility] Last Admin: 02/27/19 21:42 Dose: 100 mg A/P Acute Asthma/COPD Exacerbation LV Diastolic Dysfunction Pulmonary HTN CAD HTN Anxiety h/o Renal Transplant Obstructive Sleep Apnea - will increase medrol to 60mg q6h - inhaled bronchodilators standing and PRN - O2 to keep SpO2 >90% - lasix - monitor urine output, creatinine - offered CPAP at night but pt declining - DVT prophylaxis Problem List - Problems (1) Asthma exacerbation Code(s): J45.901 - UNSPECIFIED ASTHMA WITH (ACUTE) EXACERBATION Qualifiers: Asthma severity: moderate Asthma persistence: unspecified Qualified Code( s): J45.901 - Unspecified asthma with (acute) exacerbation
--- NOTE | 2019-02-28 15:59 | PN ---
Progress Note (short form) - Note Progress Note: Renal follow up for Renal transplantation Pt seen and examined at the bedside awake and alert reports continued SOB, cough and wheezing denies any CP, abd pain, fever or chills Vital Signs Temperature 98.6 F 02/28/19 09:30 Pulse Rate 121 H 02/28/19 09:30 Respiratory Rate 24 H 02/28/19 09:30 Blood Pressure 148/73 02/28/19 09:30 O2 Sat by Pulse Oximetry (%) 94 L 02/28/19 09:00 Intake & Output 02/25/19 02/26/19 02/27/19 02/28/19 23:59 23:59 23:59 23:59 Intake Total 850 650 800 530 Balance 850 650 800 530 Weight 85.91 kg 85.049 kg 86.438 kg NAD awake and alert NC in place RRR, no M/R Dec BS, no rales soft NT/ND trace LE edema CBC, BMP 02/28/19 07:00 02/28/19 07:00 Current Medications Acetaminophen (Tylenol -) 650 mg PO Q4H PRN PRN Reason: PAIN Acetaminophen/Butalbital/Caffeine (Fioricet -) 1 tablet PO Q6H PRN PRN Reason: HEADACHE Last Admin: 02/27/19 18:12 Dose: 1 tablet Albuterol Sulfate (Ventolin 0.083% Nebulizer Soln -) 1 amp NEB Q4H PRN PRN Reason: SHORT OF BREATH/WHEEZING Last Admin: 02/28/19 03:39 Dose: 1 amp Albuterol/Ipratropium (Duoneb -) 1 amp NEB RQID [facility] Last Admin: 02/28/19 12:11 Dose: 1 amp Aspirin (Asa -) 81 mg PO DAILY [facility] Last Admin: 02/28/19 10:49 Dose: 81 mg Furosemide (Lasix -) 20 mg PO DAILY [facility] Last Admin: 02/28/19 10:50 Dose: 20 mg Gabapentin (Neurontin -) 600 mg PO BID [facility] Last Admin: 02/28/19 10:49 Dose: 600 mg Guaifenesin (Robitussin Dm -) 10 ml PO Q8H PRN PRN Reason: COUGH Last Admin: 02/27/19 13:48 Dose: 10 ml Heparin Sodium (Porcine) (Heparin -) 5,000 unit SQ BID [facility] Last Admin: 02/28/19 10:50 Dose: 5,000 unit Hydralazine HCl (Apresoline -) 25 mg PO TID [facility] Last Admin: 02/28/19 13:18 Dose: 25 mg Levofloxacin (Levaquin 250 Mg Premixed Ivpb -) 250 mg in 50 mls @ 50 mls/hr IVPB DAILY [facility]; Protocol Last Admin: 02/28/19 10:50 Dose: 50 mls/hr Lorazepam (Ativan -) 1 mg PO BID [facility] Last Admin: 02/28/19 10:49 Dose: 1 mg Methylprednisolone Sodium Succinate (Solu-Medrol -) 60 mg IVPUSH Q6H-IV [facility] Mycophenolate Sodium (Mycophenolic Acid) 720 mg PO BID [facility] Last Admin: 02/28/19 10:49 Dose: 720 mg Nifedipine (Procardia Xl -) 30 mg PO DAILY [facility] Last Admin: 02/28/19 10:48 Dose: 30 mg Pantoprazole Sodium (Protonix -) 40 mg PO DAILY [facility] Last Admin: 02/28/19 10:48 Dose: 40 mg Potassium Phos/Sodium Phos (Phos-Nak Packet -) 1 packet PO DAILY [facility] Last Admin: 02/28/19 10:49 Dose: 1 packet Tacrolimus (Prograf) 2 mg PO BID [facility] Last Admin: 02/28/19 10:51 Dose: 2 mg Trazodone HCl (Desyrel -) 100 mg PO HS [facility] Last Admin: 02/27/19 21:42 Dose: 100 mg ASSESSMENT AND PLAN: 63 year old woman with history of ESRD s/p DDRT 08/2017, hx of medullary sponge kidney s/p bilateral nephrectomy, CHF, MACI, COPD, Former smoker who presented from home with SOB and cough and admitted COPD exacerbation +/- PNA. 1. ESRD s/p renal transplant with preserved eGFR 2. COPD exacerbation 3. Suspected PNA 4. Hypertension 5. Hypercalcemia likely due to persistent hyperparathyrodism post transplant Renal function stable Continue Tacrolimus, myfortic and IV steroid (can switch back to oral steroid as per pulmonary taper) PTH is high, consistent with persistent hyperparathyrodism. Would start Sensipar 30mg Daily. BP is at goal Continue IV steroids as per pulmonary Thank you Riky Cerna DO
[2019-02-28] MEDS: traZODone HCL 50 MG TABLET (FP) PO SCH (21:31)
[2019-02-28] MEDS: guaiFENesin/D-METHORPHAN HB 10 ML UNIT-DOSE CUPS PO PRN (21:31)
--- NOTE | 2019-02-28 22:32 | PN ---
Progress Note, Physician - Current Medication List Current Medications: Active Medications Acetaminophen (Tylenol -) 650 mg PO Q4H PRN PRN Reason: PAIN Acetaminophen/Butalbital/Caffeine (Fioricet -) 1 tablet PO Q6H PRN PRN Reason: HEADACHE Last Admin: 02/27/19 18:12 Dose: 1 tablet Albuterol Sulfate (Ventolin 0.083% Nebulizer Soln -) 1 amp NEB Q4H PRN PRN Reason: SHORT OF BREATH/WHEEZING Last Admin: 02/28/19 03:39 Dose: 1 amp Albuterol/Ipratropium (Duoneb -) 1 amp NEB RQID [facility] Last Admin: 02/28/19 21:16 Dose: 1 amp Aspirin (Asa -) 81 mg PO DAILY [facility] Last Admin: 02/28/19 10:49 Dose: 81 mg Cinacalcet (Sensipar -) 30 mg PO DAILY [facility] Furosemide (Lasix -) 20 mg PO DAILY [facility] Last Admin: 02/28/19 10:50 Dose: 20 mg Gabapentin (Neurontin -) 600 mg PO BID [facility] Last Admin: 02/28/19 21:31 Dose: 600 mg Guaifenesin (Robitussin Dm -) 10 ml PO Q8H PRN PRN Reason: COUGH Last Admin: 02/28/19 21:31 Dose: 10 ml Heparin Sodium (Porcine) (Heparin -) 5,000 unit SQ BID [facility] Last Admin: 02/28/19 21:31 Dose: 5,000 unit Hydralazine HCl (Apresoline -) 25 mg PO TID [facility] Last Admin: 02/28/19 21:31 Dose: 25 mg Levofloxacin (Levaquin 250 Mg Premixed Ivpb -) 250 mg in 50 mls @ 50 mls/hr IVPB DAILY [facility]; Protocol Last Admin: 02/28/19 10:50 Dose: 50 mls/hr Lorazepam (Ativan -) 1 mg PO BID [facility] Last Admin: 02/28/19 21:31 Dose: 1 mg Methylprednisolone Sodium Succinate (Solu-Medrol -) 60 mg IVPUSH Q6H-IV [facility] Last Admin: 02/28/19 21:31 Dose: 60 mg Mycophenolate Sodium (Mycophenolic Acid) 720 mg PO BID [facility] Last Admin: 02/28/19 21:32 Dose: 720 mg Nifedipine (Procardia Xl -) 30 mg PO DAILY [facility] Last Admin: 02/28/19 10:48 Dose: 30 mg Pantoprazole Sodium (Protonix -) 40 mg PO DAILY [facility] Last Admin: 02/28/19 10:48 Dose: 40 mg Potassium Phos/Sodium Phos (Phos-Nak Packet -) 1 packet PO DAILY [facility] Last Admin: 02/28/19 10:49 Dose: 1 packet Tacrolimus (Prograf) 2 mg PO BID [facility] Last Admin: 02/28/19 21:32 Dose: 2 mg Trazodone HCl (Desyrel -) 100 mg PO HS [facility] Last Admin: 02/28/19 21:31 Dose: 100 mg - Objective Vital Signs: Vital Signs Temperature 98.5 F 02/28/19 18:30 Pulse Rate 116 H 02/28/19 18:30 Respiratory Rate 22 H 02/28/19 18:30 Blood Pressure 142/73 02/28/19 18:30 O2 Sat by Pulse Oximetry (%) 94 L 02/28/19 09:00 Labs: CBC, BMP 02/28/19 07:00 02/28/19 07:00
[2019-03-01] MEDS: methylPREDNISolone NA SUCC 40 MG/1 ML VIAL IVPUSH SCH ×4 (03:45→21:47)
[2019-03-01] MEDS: guaiFENesin/D-METHORPHAN HB 10 ML UNIT-DOSE CUPS PO PRN (06:32)
[2019-03-01] MEDS: hydrALAZINE HCL 25 MG TABLET (FP) PO SCH ×3 (06:32→21:46)
[2019-03-01] MEDS: ALBUTEROL SO4 2.5/IPRATROPIUM 0.5 INH SOL 3 ML VIAL.NEB. NEB SCH ×4 (08:02→21:15)
[2019-03-01] MEDS ORDERED: PT OWN MED DRAWER 7, Y5N ONE ×2 (09:40→20:43)
[2019-03-01] MEDS: LORazepam 1 MG TABLET PO SCH ×2 (09:43→21:47)
[2019-03-01] MEDS: CINACALCET HCL 30 MG TAB (FP) PO SCH (09:43)
[2019-03-01] MEDS: FUROSEMIDE 20 MG TABLET (FP) PO SCH (09:43)
[2019-03-01] MEDS: NIFEdipine E.R. 30 MG TABLET (FP) PO SCH (09:43)
[2019-03-01] MEDS: NAPH,MB-DB/K PH,MBDB POWDER PACKET PO SCH (09:44)
[2019-03-01] MEDS: PANTOPRAZOLE 40 MG TABLET (FP) PO SCH (09:44)
[2019-03-01] MEDS: HEPARIN NA (PORCINE) 5,000 UNITS/ML 1ML VIAL SQ SCH ×2 (09:44→21:48)
[2019-03-01] MEDS: ASPIRIN 81 MG CHEWABLE TABLETS PO SCH (09:44)
[2019-03-01] MEDS: MYCOPHENOLATE SODIUM 360 MG TABLET.DR PO SCH ×2 (09:44→21:45)
[2019-03-01] MEDS: GABAPENTIN 300 MG CAPSULE (FP) PO SCH ×2 (09:44→21:45)
[2019-03-01] MEDS: TACROLIMUS ANHYDROUS 1 MG CAPSULE PO SCH ×2 (09:45→21:49)
[2019-03-01 10:01] LABS: CALCIUM 10.8 mg/dL (8.5-10.1); CREATININE 0.8 mg/dL (0.55-1.3); POTASSIUM 3.7 mmol/L (3.5-5.1)
[2019-03-01] MEDS: NYSTATIN 500,000 UNITS/5 ML SUSPENSION PO SCH ×3 (12:39→23:37)
--- NOTE | 2019-03-01 14:14 | PN ---
Progress Note, Physician History of Present Illness: pulmonary alert,oob-chair,dyspnea improving,less congested - Current Medication List Current Medications: Active Medications Acetaminophen (Tylenol -) 650 mg PO Q4H PRN PRN Reason: PAIN Acetaminophen/Butalbital/Caffeine (Fioricet -) 1 tablet PO Q6H PRN PRN Reason: HEADACHE Last Admin: 02/27/19 18:12 Dose: 1 tablet Albuterol Sulfate (Ventolin 0.083% Nebulizer Soln -) 1 amp NEB Q4H PRN PRN Reason: SHORT OF BREATH/WHEEZING Last Admin: 02/28/19 03:39 Dose: 1 amp Albuterol/Ipratropium (Duoneb -) 1 amp NEB RQID [facility] Last Admin: 03/01/19 11:42 Dose: 1 amp Aspirin (Asa -) 81 mg PO DAILY [facility] Last Admin: 03/01/19 09:44 Dose: 81 mg Cinacalcet (Sensipar -) 30 mg PO DAILY [facility] Last Admin: 03/01/19 09:43 Dose: 30 mg Furosemide (Lasix -) 20 mg PO DAILY [facility] Last Admin: 03/01/19 09:43 Dose: 20 mg Gabapentin (Neurontin -) 600 mg PO BID [facility] Last Admin: 03/01/19 09:44 Dose: 600 mg Guaifenesin (Robitussin Dm -) 10 ml PO Q8H PRN PRN Reason: COUGH Last Admin: 03/01/19 06:32 Dose: 10 ml Heparin Sodium (Porcine) (Heparin -) 5,000 unit SQ BID [facility] Last Admin: 03/01/19 09:44 Dose: 5,000 unit Hydralazine HCl (Apresoline -) 25 mg PO TID [facility] Last Admin: 03/01/19 14:03 Dose: 25 mg Levofloxacin (Levaquin 250 Mg Premixed Ivpb -) 250 mg in 50 mls @ 50 mls/hr IVPB DAILY [facility]; Protocol Last Admin: 03/01/19 09:43 Dose: 50 mls/hr Lorazepam (Ativan -) 1 mg PO BID [facility] Last Admin: 03/01/19 09:43 Dose: 1 mg Methylprednisolone Sodium Succinate (Solu-Medrol -) 60 mg IVPUSH Q6H-IV [facility] Last Admin: 03/01/19 09:44 Dose: 60 mg Mycophenolate Sodium (Mycophenolic Acid) 720 mg PO BID [facility] Last Admin: 03/01/19 09:44 Dose: 720 mg Nifedipine (Procardia Xl -) 30 mg PO DAILY [facility] Last Admin: 03/01/19 09:43 Dose: 30 mg Nystatin (Nystatin Oral Suspension -) 500,000 units PO Q6HPO [facility] Last Admin: 03/01/19 12:39 Dose: 500,000 units Pantoprazole Sodium (Protonix -) 40 mg PO DAILY [facility] Last Admin: 03/01/19 09:44 Dose: 40 mg Potassium Phos/Sodium Phos (Phos-Nak Packet -) 1 packet PO DAILY [facility] Last Admin: 03/01/19 09:44 Dose: 1 packet Tacrolimus (Prograf) 2 mg PO BID [facility] Last Admin: 03/01/19 09:45 Dose: 2 mg Trazodone HCl (Desyrel -) 100 mg PO HS [facility] Last Admin: 02/28/19 21:31 Dose: 100 mg - Objective Vital Signs: Vital Signs Temperature 98.6 F 03/01/19 08:52 Pulse Rate 119 H 03/01/19 08:52 Respiratory Rate 22 H 03/01/19 08:52 Blood Pressure 137/79 03/01/19 08:52 O2 Sat by Pulse Oximetry (%) 95 03/01/19 09:00 Constitutional: Yes: Well Nourished, Calm Eyes: Yes: WNL HENT: Yes: WNL Neck: Yes: WNL Cardiovascular: Yes: Regular Rate and Rhythm, S1, S2 Respiratory: Yes: Wheezes (bilateral wheezes) Gastrointestinal: Yes: Normal Bowel Sounds, Soft Extremities: Yes: WNL Edema: Yes Labs: CBC, BMP 03/01/19 08:25 Assessment/Plan Problem List - Problems (1) Asthma exacerbation Code(s): J45.901 - UNSPECIFIED ASTHMA WITH (ACUTE) EXACERBATION Qualifiers: Asthma severity: moderate Asthma persistence: unspecified Qualified Code( s): J45.901 - Unspecified asthma with (acute) exacerbation Assessment/Plan Acute Asthma/COPD Exacerbation c LV Diastolic Dysfunction Pulmonary HTN CAD HTN Anxiety h/o Renal Transplant Obstructive Sleep Apnea - IV medrol same dose - inhaled bronchodilators standing and PRN - O2 to keep SpO2 >90% - lasix - monitor urine output, creatinine - offered CPAP at night but pt declining . - DVT prophylaxis DR JUAREZ
[2019-03-01] MEDS: LORATADINE 10 MG TABLET PO SCH (14:34)
--- NOTE | 2019-03-01 15:03 | PN ---
Progress Note (short form) - Note Progress Note: Renal follow up for Renal transplantation Pt seen and examined at the bedside awake and alert SOB is improved today Vital Signs Temperature 98.6 F 03/01/19 08:52 Pulse Rate 119 H 03/01/19 08:52 Respiratory Rate 22 H 03/01/19 08:52 Blood Pressure 137/79 03/01/19 08:52 O2 Sat by Pulse Oximetry (%) 95 03/01/19 09:00 Intake & Output 02/26/19 02/27/19 02/28/19 03/01/19 23:59 23:59 23:59 23:59 Intake Total 014 984 8768 Balance 483 338 9257 Weight 85.049 kg 86.438 kg NAD awake and alert NC in place RRR, no M/R Dec BS, no rales soft NT/ND trace LE edema CBC, BMP 02/28/19 07:00 03/01/19 08:25 Current Medications Acetaminophen (Tylenol -) 650 mg PO Q4H PRN PRN Reason: PAIN Acetaminophen/Butalbital/Caffeine (Fioricet -) 1 tablet PO Q6H PRN PRN Reason: HEADACHE Last Admin: 02/27/19 18:12 Dose: 1 tablet Albuterol Sulfate (Ventolin 0.083% Nebulizer Soln -) 1 amp NEB Q4H PRN PRN Reason: SHORT OF BREATH/WHEEZING Last Admin: 02/28/19 03:39 Dose: 1 amp Albuterol/Ipratropium (Duoneb -) 1 amp NEB RQID [facility] Last Admin: 03/01/19 11:42 Dose: 1 amp Aspirin (Asa -) 81 mg PO DAILY [facility] Last Admin: 03/01/19 09:44 Dose: 81 mg Cinacalcet (Sensipar -) 30 mg PO DAILY [facility] Last Admin: 03/01/19 09:43 Dose: 30 mg Furosemide (Lasix -) 20 mg PO DAILY [facility] Last Admin: 03/01/19 09:43 Dose: 20 mg Gabapentin (Neurontin -) 600 mg PO BID [facility] Last Admin: 03/01/19 09:44 Dose: 600 mg Guaifenesin (Robitussin Dm -) 10 ml PO Q8H PRN PRN Reason: COUGH Last Admin: 03/01/19 06:32 Dose: 10 ml Heparin Sodium (Porcine) (Heparin -) 5,000 unit SQ BID [facility] Last Admin: 03/01/19 09:44 Dose: 5,000 unit Hydralazine HCl (Apresoline -) 25 mg PO TID [facility] Last Admin: 03/01/19 14:03 Dose: 25 mg Levofloxacin (Levaquin 250 Mg Premixed Ivpb -) 250 mg in 50 mls @ 50 mls/hr IVPB DAILY [facility]; Protocol Last Admin: 03/01/19 09:43 Dose: 50 mls/hr Loratadine (Claritin -) 10 mg PO DAILY [facility] Last Admin: 03/01/19 14:34 Dose: Not Given Lorazepam (Ativan -) 1 mg PO BID [facility] Last Admin: 03/01/19 09:43 Dose: 1 mg Methylprednisolone Sodium Succinate (Solu-Medrol -) 60 mg IVPUSH Q6H-IV [facility] Last Admin: 03/01/19 14:34 Dose: 60 mg Mycophenolate Sodium (Mycophenolic Acid) 720 mg PO BID [facility] Last Admin: 03/01/19 09:44 Dose: 720 mg Nifedipine (Procardia Xl -) 30 mg PO DAILY [facility] Last Admin: 03/01/19 09:43 Dose: 30 mg Nystatin (Nystatin Oral Suspension -) 500,000 units PO Q6HPO [facility] Last Admin: 03/01/19 12:39 Dose: 500,000 units Pantoprazole Sodium (Protonix -) 40 mg PO DAILY [facility] Last Admin: 03/01/19 09:44 Dose: 40 mg Potassium Phos/Sodium Phos (Phos-Nak Packet -) 1 packet PO DAILY [facility] Last Admin: 03/01/19 09:44 Dose: 1 packet Tacrolimus (Prograf) 2 mg PO BID [facility] Last Admin: 03/01/19 09:45 Dose: 2 mg Trazodone HCl (Desyrel -) 100 mg PO HS [facility] Last Admin: 02/28/19 21:31 Dose: 100 mg ASSESSMENT AND PLAN: 63 year old woman with history of ESRD s/p DDRT 08/2017, hx of medullary sponge kidney s/p bilateral nephrectomy, CHF, MACI, COPD, Former smoker who presented from home with SOB and cough and admitted COPD exacerbation +/- PNA. 1. ESRD s/p renal transplant with preserved eGFR 2. COPD exacerbation 3. Suspected PNA 4. Hypertension 5. Hypercalcemia likely due to persistent hyperparathyrodism post transplant Renal function stable Continue Tacrolimus, myfortic and IV steroid (can switch back to oral steroid as per pulmonary taper) Continue Sensipar 30mg daily for management of persistent hyperparathyroidism Thank you Riky Cerna DO
[2019-03-01] MEDS: traZODone HCL 50 MG TABLET (FP) PO SCH (21:45)
--- NOTE | 2019-03-01 22:54 | PN ---
Progress Note, Physician - Current Medication List Current Medications: Active Medications Acetaminophen (Tylenol -) 650 mg PO Q4H PRN PRN Reason: PAIN Acetaminophen/Butalbital/Caffeine (Fioricet -) 1 tablet PO Q6H PRN PRN Reason: HEADACHE Last Admin: 02/27/19 18:12 Dose: 1 tablet Albuterol Sulfate (Ventolin 0.083% Nebulizer Soln -) 1 amp NEB Q4H PRN PRN Reason: SHORT OF BREATH/WHEEZING Last Admin: 02/28/19 03:39 Dose: 1 amp Albuterol/Ipratropium (Duoneb -) 1 amp NEB RQID [facility] Last Admin: 03/01/19 21:15 Dose: 1 amp Aspirin (Asa -) 81 mg PO DAILY [facility] Last Admin: 03/01/19 09:44 Dose: 81 mg Cinacalcet (Sensipar -) 30 mg PO DAILY [facility] Last Admin: 03/01/19 09:43 Dose: 30 mg Furosemide (Lasix -) 20 mg PO DAILY [facility] Last Admin: 03/01/19 09:43 Dose: 20 mg Gabapentin (Neurontin -) 600 mg PO BID [facility] Last Admin: 03/01/19 21:45 Dose: 600 mg Guaifenesin (Robitussin Dm -) 10 ml PO Q8H PRN PRN Reason: COUGH Last Admin: 03/01/19 06:32 Dose: 10 ml Heparin Sodium (Porcine) (Heparin -) 5,000 unit SQ BID [facility] Last Admin: 03/01/19 21:48 Dose: 5,000 unit Hydralazine HCl (Apresoline -) 25 mg PO TID [facility] Last Admin: 03/01/19 21:46 Dose: 25 mg Levofloxacin (Levaquin 250 Mg Premixed Ivpb -) 250 mg in 50 mls @ 50 mls/hr IVPB DAILY [facility]; Protocol Last Admin: 03/01/19 09:43 Dose: 50 mls/hr Loratadine (Claritin -) 10 mg PO DAILY [facility] Last Admin: 03/01/19 14:34 Dose: Not Given Lorazepam (Ativan -) 1 mg PO BID [facility] Last Admin: 03/01/19 21:47 Dose: 1 mg Methylprednisolone Sodium Succinate (Solu-Medrol -) 60 mg IVPUSH Q6H-IV [facility] Last Admin: 03/01/19 21:47 Dose: 60 mg Mycophenolate Sodium (Mycophenolic Acid) 720 mg PO BID [facility] Last Admin: 03/01/19 21:45 Dose: 720 mg Nifedipine (Procardia Xl -) 30 mg PO DAILY [facility] Last Admin: 03/01/19 09:43 Dose: 30 mg Nystatin (Nystatin Oral Suspension -) 500,000 units PO Q6HPO [facility] Last Admin: 03/01/19 19:02 Dose: 500,000 units Pantoprazole Sodium (Protonix -) 40 mg PO DAILY [facility] Last Admin: 03/01/19 09:44 Dose: 40 mg Potassium Phos/Sodium Phos (Phos-Nak Packet -) 1 packet PO DAILY [facility] Last Admin: 03/01/19 09:44 Dose: 1 packet Tacrolimus (Prograf) 2 mg PO BID [facility] Last Admin: 03/01/19 21:49 Dose: 2 mg Trazodone HCl (Desyrel -) 100 mg PO HS [facility] Last Admin: 03/01/19 21:45 Dose: 100 mg - Objective Vital Signs: Vital Signs Temperature 97.6 F 03/01/19 21:00 Pulse Rate 114 H 03/01/19 21:00 Respiratory Rate 22 H 03/01/19 21:00 Blood Pressure 153/76 03/01/19 21:00 O2 Sat by Pulse Oximetry (%) 95 03/01/19 09:00 Labs: CBC, BMP 02/28/19 07:00 03/01/19 08:25
[2019-03-02] MEDS: methylPREDNISolone NA SUCC 40 MG/1 ML VIAL IVPUSH SCH ×4 (02:39→21:45)
[2019-03-02] MEDS: hydrALAZINE HCL 25 MG TABLET (FP) PO SCH ×3 (06:08→21:45)
[2019-03-02] MEDS: NYSTATIN 500,000 UNITS/5 ML SUSPENSION PO SCH ×4 (06:08→23:58)
[2019-03-02] MEDS: ALBUTEROL SO4 0.083% IH SOL 2.5 MG/3 ML VIAL.NEB. NEB PRN ×2 (06:09→21:17)
[2019-03-02] MEDS: ALBUTEROL SO4 2.5/IPRATROPIUM 0.5 INH SOL 3 ML VIAL.NEB. NEB SCH ×2 (08:17→11:49)
[2019-03-02] MEDS ORDERED: PT OWN MED DRAWER 7, Y5N ONE ×2 (09:07→21:13)
[2019-03-02] MEDS: GABAPENTIN 300 MG CAPSULE (FP) PO SCH ×2 (09:09→21:44)
[2019-03-02] MEDS: ASPIRIN 81 MG CHEWABLE TABLETS PO SCH (09:09)
[2019-03-02] MEDS: NAPH,MB-DB/K PH,MBDB POWDER PACKET PO SCH (09:10)
[2019-03-02] MEDS: LORazepam 1 MG TABLET PO SCH ×2 (09:10→21:45)
[2019-03-02] MEDS: FUROSEMIDE 20 MG TABLET (FP) PO SCH (09:10)
[2019-03-02] MEDS: PANTOPRAZOLE 40 MG TABLET (FP) PO SCH (09:10)
[2019-03-02] MEDS: LORATADINE 10 MG TABLET PO SCH (09:10)
[2019-03-02] MEDS: NIFEdipine E.R. 30 MG TABLET (FP) PO SCH (09:10)
[2019-03-02] MEDS: HEPARIN NA (PORCINE) 5,000 UNITS/ML 1ML VIAL SQ SCH ×2 (09:11→21:44)
[2019-03-02] MEDS: MYCOPHENOLATE SODIUM 360 MG TABLET.DR PO SCH ×2 (09:11→21:44)
[2019-03-02] MEDS: CINACALCET HCL 30 MG TAB (FP) PO SCH (09:11)
[2019-03-02] MEDS: TACROLIMUS ANHYDROUS 1 MG CAPSULE PO SCH ×2 (09:19→21:46)
--- NOTE | 2019-03-02 13:05 | PN ---
Progress Note (short form) - Note Progress Note: OOB to chair. No improvement in breathing from yesterday. Reports slow recovery. IV Steroids were increased 2 days ago. Intake & Output 02/27/19 02/28/19 03/01/19 03/02/19 23:59 23:59 23:59 23:59 Intake Total 800 1330 1100 250 Balance 800 1330 1100 250 Weight 190 lb 9 oz Last Vital Signs Temp Pulse Resp BP Pulse Ox 98.5 F 116 H 22 H 132/78 98 03/02/19 06:00 03/02/19 06:00 03/02/19 09:00 03/02/19 06:00 03/02/19 09:00 Active Medications Acetaminophen (Tylenol -) 650 mg PO Q4H PRN PRN Reason: PAIN Acetaminophen/Butalbital/Caffeine (Fioricet -) 1 tablet PO Q6H PRN PRN Reason: HEADACHE Last Admin: 02/27/19 18:12 Dose: 1 tablet Albuterol Sulfate (Ventolin 0.083% Nebulizer Soln -) 1 amp NEB Q4H PRN PRN Reason: SHORT OF BREATH/WHEEZING Last Admin: 03/02/19 06:09 Dose: 1 amp Albuterol/Ipratropium (Duoneb -) 1 amp NEB RQID [facility] Last Admin: 03/02/19 11:49 Dose: 1 amp Aspirin (Asa -) 81 mg PO DAILY [facility] Last Admin: 03/02/19 09:09 Dose: 81 mg Cinacalcet (Sensipar -) 30 mg PO DAILY [facility] Last Admin: 03/02/19 09:11 Dose: 30 mg Furosemide (Lasix -) 20 mg PO DAILY [facility] Last Admin: 03/02/19 09:10 Dose: 20 mg Gabapentin (Neurontin -) 600 mg PO BID [facility] Last Admin: 03/02/19 09:09 Dose: 600 mg Guaifenesin (Robitussin Dm -) 10 ml PO Q8H PRN PRN Reason: COUGH Last Admin: 03/01/19 06:32 Dose: 10 ml Heparin Sodium (Porcine) (Heparin -) 5,000 unit SQ BID [facility] Last Admin: 03/02/19 09:11 Dose: 5,000 unit Hydralazine HCl (Apresoline -) 25 mg PO TID [facility] Last Admin: 03/02/19 06:08 Dose: 25 mg Levofloxacin (Levaquin 250 Mg Premixed Ivpb -) 250 mg in 50 mls @ 50 mls/hr IVPB DAILY [facility]; Protocol Last Admin: 03/02/19 09:11 Dose: 50 mls/hr Loratadine (Claritin -) 10 mg PO DAILY [facility] Last Admin: 03/02/19 09:10 Dose: Not Given Lorazepam (Ativan -) 1 mg PO BID [facility] Last Admin: 03/02/19 09:10 Dose: 1 mg Methylprednisolone Sodium Succinate (Solu-Medrol -) 60 mg IVPUSH Q6H-IV [facility] Last Admin: 03/02/19 08:48 Dose: 60 mg Mycophenolate Sodium (Mycophenolic Acid) 720 mg PO BID [facility] Last Admin: 03/02/19 09:11 Dose: 720 mg Nifedipine (Procardia Xl -) 30 mg PO DAILY [facility] Last Admin: 03/02/19 09:10 Dose: 30 mg Nystatin (Nystatin Oral Suspension -) 500,000 units PO Q6HPO [facility] Last Admin: 03/02/19 06:08 Dose: 500,000 units Pantoprazole Sodium (Protonix -) 40 mg PO DAILY [facility] Last Admin: 03/02/19 09:10 Dose: 40 mg Potassium Phos/Sodium Phos (Phos-Nak Packet -) 1 packet PO DAILY [facility] Last Admin: 03/02/19 09:10 Dose: 1 packet Tacrolimus (Prograf) 2 mg PO BID [facility] Last Admin: 03/02/19 09:19 Dose: 2 mg Trazodone HCl (Desyrel -) 100 mg PO HS [facility] Last Admin: 03/01/19 21:45 Dose: 100 mg Constitutional: Yes: Mildly tachypneic at rest Eyes: Yes: WNL HENT: Yes: WNL Neck: Yes: WNL Cardiovascular: Yes: Regular Rate and Rhythm, S1, S2 Respiratory: Yes: Bilateral expiratory wheezing and rhonchi Gastrointestinal: Yes: Normal Bowel Sounds, Soft Extremities: Yes: WNL Edema: Yes Labs: Assessment/Plan Problem List - Problems (1) Asthma exacerbation Code(s): J45.901 - UNSPECIFIED ASTHMA WITH (ACUTE) EXACERBATION Qualifiers: Asthma severity: moderate Asthma persistence: unspecified Qualified Code( s): J45.901 - Unspecified asthma with (acute) exacerbation Assessment/Plan Acute Asthma/COPD Exacerbation c LV Diastolic Dysfunction Pulmonary HTN CAD HTN Anxiety h/o Renal Transplant Obstructive Sleep Apnea - IV medrol same dose - inhaled bronchodilators standing and PRN - O2 to keep SpO2 >90% - lasix - monitor urine output, creatinine - offered CPAP at night but pt declining . - DVT prophylaxis - Moose Oliveira
[2019-03-02] MEDS: guaiFENesin/D-METHORPHAN HB 10 ML UNIT-DOSE CUPS PO PRN (21:43)
[2019-03-02] MEDS: MONTELUKAST NA 10 MG TABLET PO SCH (21:44)
[2019-03-02] MEDS: traZODone HCL 50 MG TABLET (FP) PO SCH (21:45)
--- NOTE | 2019-03-02 23:05 | PN ---
Progress Note, Physician - Current Medication List Current Medications: Active Medications Acetaminophen (Tylenol -) 650 mg PO Q4H PRN PRN Reason: PAIN Albuterol Sulfate (Ventolin 0.083% Nebulizer Soln -) 1 amp NEB Q4H PRN PRN Reason: SHORT OF BREATH/WHEEZING Last Admin: 03/02/19 21:17 Dose: 1 amp Aspirin (Asa -) 81 mg PO DAILY [facility] Last Admin: 03/02/19 09:09 Dose: 81 mg Cinacalcet (Sensipar -) 30 mg PO DAILY [facility] Last Admin: 03/02/19 09:11 Dose: 30 mg Furosemide (Lasix -) 20 mg PO DAILY [facility] Last Admin: 03/02/19 09:10 Dose: 20 mg Gabapentin (Neurontin -) 600 mg PO BID [facility] Last Admin: 03/02/19 21:44 Dose: 600 mg Guaifenesin (Robitussin Dm -) 10 ml PO Q8H PRN PRN Reason: COUGH Last Admin: 03/02/19 21:43 Dose: 10 ml Heparin Sodium (Porcine) (Heparin -) 5,000 unit SQ BID [facility] Last Admin: 03/02/19 21:44 Dose: 5,000 unit Hydralazine HCl (Apresoline -) 25 mg PO TID [facility] Last Admin: 03/02/19 21:45 Dose: 25 mg Levofloxacin (Levaquin 250 Mg Premixed Ivpb -) 250 mg in 50 mls @ 50 mls/hr IVPB DAILY [facility]; Protocol Last Admin: 03/02/19 09:11 Dose: 50 mls/hr Loratadine (Claritin -) 10 mg PO DAILY [facility] Last Admin: 03/02/19 09:10 Dose: Not Given Lorazepam (Ativan -) 1 mg PO BID [facility] Last Admin: 03/02/19 21:45 Dose: 1 mg Methylprednisolone Sodium Succinate (Solu-Medrol -) 60 mg IVPUSH Q6H-IV [facility] Last Admin: 03/02/19 21:45 Dose: 60 mg Montelukast Sodium (Singulair -) 10 mg PO HS [facility] Last Admin: 03/02/19 21:44 Dose: 10 mg Mycophenolate Sodium (Mycophenolic Acid) 720 mg PO BID [facility] Last Admin: 03/02/19 21:44 Dose: 720 mg Nifedipine (Procardia Xl -) 30 mg PO DAILY [facility] Last Admin: 03/02/19 09:10 Dose: 30 mg Nystatin (Nystatin Oral Suspension -) 500,000 units PO Q6HPO [facility] Last Admin: 03/02/19 18:41 Dose: 500,000 units Pantoprazole Sodium (Protonix -) 40 mg PO DAILY [facility] Last Admin: 03/02/19 09:10 Dose: 40 mg Potassium Phos/Sodium Phos (Phos-Nak Packet -) 1 packet PO DAILY [facility] Last Admin: 03/02/19 09:10 Dose: 1 packet Tacrolimus (Prograf) 2 mg PO BID [facility] Last Admin: 03/02/19 21:46 Dose: 2 mg Trazodone HCl (Desyrel -) 100 mg PO HS [facility] Last Admin: 03/02/19 21:45 Dose: 100 mg - Objective Vital Signs: Vital Signs Temperature 97.7 F 03/02/19 18:30 Pulse Rate 117 H 03/02/19 18:30 Respiratory Rate 22 H 03/02/19 18:30 Blood Pressure 155/81 03/02/19 18:30 O2 Sat by Pulse Oximetry (%) 98 03/02/19 09:00 Labs: CBC, BMP 02/28/19 07:00 03/01/19 08:25
[2019-03-03] MEDS: methylPREDNISolone NA SUCC 40 MG/1 ML VIAL IVPUSH SCH ×4 (02:27→21:46)
[2019-03-03] MEDS: hydrALAZINE HCL 25 MG TABLET (FP) PO SCH ×3 (05:58→21:46)
[2019-03-03] MEDS: NYSTATIN 500,000 UNITS/5 ML SUSPENSION PO SCH ×4 (05:58→23:06)
[2019-03-03] MEDS: ALBUTEROL SO4 0.083% IH SOL 2.5 MG/3 ML VIAL.NEB. NEB PRN ×2 (06:30→20:16)
[2019-03-03] MEDS ORDERED: PT OWN MED DRAWER 7, Y5N ONE ×2 (10:35→12:07)
[2019-03-03] MEDS: HEPARIN NA (PORCINE) 5,000 UNITS/ML 1ML VIAL SQ SCH (10:43)
[2019-03-03] MEDS: ASPIRIN 81 MG CHEWABLE TABLETS PO SCH (10:45)
[2019-03-03] MEDS: NIFEdipine E.R. 30 MG TABLET (FP) PO SCH (10:45)
[2019-03-03] MEDS: FUROSEMIDE 20 MG TABLET (FP) PO SCH (10:45)
[2019-03-03] MEDS: PANTOPRAZOLE 40 MG TABLET (FP) PO SCH (10:45)
[2019-03-03] MEDS: LORazepam 1 MG TABLET PO SCH ×2 (10:45→21:46)
[2019-03-03] MEDS: LORATADINE 10 MG TABLET PO SCH (10:45)
[2019-03-03] MEDS: GABAPENTIN 300 MG CAPSULE (FP) PO SCH ×2 (10:46→21:45)
[2019-03-03] MEDS: TACROLIMUS ANHYDROUS 1 MG CAPSULE PO SCH ×2 (10:46→21:45)
[2019-03-03] MEDS: NAPH,MB-DB/K PH,MBDB POWDER PACKET PO SCH (10:47)
[2019-03-03] MEDS: CINACALCET HCL 30 MG TAB (FP) PO SCH (10:47)
[2019-03-03] MEDS: MYCOPHENOLATE SODIUM 360 MG TABLET.DR PO SCH ×2 (10:47→21:46)
[2019-03-03] MEDS: guaiFENesin/D-METHORPHAN HB 10 ML UNIT-DOSE CUPS PO PRN (11:34)
[2019-03-03] MEDS ORDERED: ALBUTEROL SO4 2.5/IPRATROPIUM 0.5 INH SOL 3 ML VIAL.NEB. NEB ONE (12:45)
--- NOTE | 2019-03-03 13:33 | PN ---
Progress Note (short form) - Note Progress Note: OOB to chair. Breathing feels a little better today. Less wheeze. Intake & Output 02/28/19 03/01/19 03/02/19 03/03/19 23:59 23:59 23:59 23:59 Intake Total 1330 1100 1650 750 Balance 1330 1100 1650 750 Weight 190 lb 9 oz 189 lb 4.8 oz Last Vital Signs Temp Pulse Resp BP Pulse Ox 98.7 F 116 H 22 H 150/73 96 03/03/19 08:53 03/03/19 08:53 03/03/19 09:00 03/03/19 08:53 03/03/19 09:00 Active Medications Acetaminophen (Tylenol -) 650 mg PO Q4H PRN PRN Reason: PAIN Albuterol Sulfate (Ventolin 0.083% Nebulizer Soln -) 1 amp NEB Q4H PRN PRN Reason: SHORT OF BREATH/WHEEZING Last Admin: 03/03/19 06:30 Dose: 1 amp Aspirin (Asa -) 81 mg PO DAILY [facility] Last Admin: 03/03/19 10:45 Dose: 81 mg Cinacalcet (Sensipar -) 30 mg PO DAILY [facility] Last Admin: 03/03/19 10:47 Dose: 30 mg Furosemide (Lasix -) 20 mg PO DAILY [facility] Last Admin: 03/03/19 10:45 Dose: 20 mg Gabapentin (Neurontin -) 600 mg PO BID [facility] Last Admin: 03/03/19 10:46 Dose: 600 mg Guaifenesin (Robitussin Dm -) 10 ml PO Q8H PRN PRN Reason: COUGH Last Admin: 03/03/19 11:34 Dose: 10 ml Heparin Sodium (Porcine) (Heparin -) 5,000 unit SQ BID [facility] Last Admin: 03/03/19 10:43 Dose: 5,000 unit Hydralazine HCl (Apresoline -) 25 mg PO TID [facility] Last Admin: 03/03/19 13:30 Dose: 25 mg Levofloxacin (Levaquin 250 Mg Premixed Ivpb -) 250 mg in 50 mls @ 50 mls/hr IVPB DAILY [facility]; Protocol Last Admin: 03/03/19 10:46 Dose: 50 mls/hr Loratadine (Claritin -) 10 mg PO DAILY [facility] Last Admin: 03/03/19 10:45 Dose: 10 mg Lorazepam (Ativan -) 1 mg PO BID [facility] Last Admin: 03/03/19 10:45 Dose: 1 mg Methylprednisolone Sodium Succinate (Solu-Medrol -) 60 mg IVPUSH Q6H-IV [facility] Last Admin: 03/03/19 10:00 Dose: 60 mg Montelukast Sodium (Singulair -) 10 mg PO HS [facility] Last Admin: 03/02/19 21:44 Dose: 10 mg Mycophenolate Sodium (Mycophenolic Acid) 720 mg PO BID [facility] Last Admin: 03/03/19 10:47 Dose: 720 mg Nifedipine (Procardia Xl -) 30 mg PO DAILY [facility] Last Admin: 03/03/19 10:45 Dose: 30 mg Nystatin (Nystatin Oral Suspension -) 500,000 units PO Q6HPO [facility] Last Admin: 03/03/19 11:34 Dose: 500,000 units Pantoprazole Sodium (Protonix -) 40 mg PO DAILY [facility] Last Admin: 03/03/19 10:45 Dose: 40 mg Potassium Phos/Sodium Phos (Phos-Nak Packet -) 1 packet PO DAILY [facility] Last Admin: 03/03/19 10:47 Dose: 1 packet Tacrolimus (Prograf) 2 mg PO BID [facility] Last Admin: 03/03/19 10:46 Dose: 2 mg Trazodone HCl (Desyrel -) 100 mg PO [facility] Last Admin: 03/02/19 21:45 Dose: 100 mg Constitutional: Yes: Less tachypneic at rest Eyes: Yes: WNL HENT: Yes: WNL Neck: Yes: WNL Cardiovascular: Yes: Regular Rate and Rhythm, S1, S2 Respiratory: Yes: Bilateral expiratory wheezing and rhonchi Gastrointestinal: Yes: Normal Bowel Sounds, Soft Extremities: Yes: WNL Edema: Yes Labs: Assessment/Plan Problem List - Problems (1) Asthma exacerbation Code(s): J45.901 - UNSPECIFIED ASTHMA WITH (ACUTE) EXACERBATION Qualifiers: Asthma severity: moderate Asthma persistence: unspecified Qualified Code( s): J45.901 - Unspecified asthma with (acute) exacerbation Assessment/Plan Acute Asthma/COPD Exacerbation c LV Diastolic Dysfunction Pulmonary HTN CAD HTN Anxiety h/o Renal Transplant Obstructive Sleep Apnea - IV medrol same dose: Will reduce tomorrow if stable/improved - inhaled bronchodilators standing and PRN - O2 to keep SpO2 >90% - lasix - monitor urine output, creatinine - offered CPAP at night but pt declining . - DVT prophylaxis - Moose Oliveira
[2019-03-03] MEDS ORDERED: diphenhydrAMINE HCL 25 MG CAPSULE (FP) PO ONE (21:15)
[2019-03-03] MEDS: traZODone HCL 50 MG TABLET (FP) PO SCH (21:45)
[2019-03-03] MEDS: MONTELUKAST NA 10 MG TABLET PO SCH (21:46)
--- NOTE | 2019-03-03 23:18 | PN ---
Progress Note, Physician - Current Medication List Current Medications: Active Medications Acetaminophen (Tylenol -) 650 mg PO Q4H PRN PRN Reason: PAIN Albuterol Sulfate (Ventolin 0.083% Nebulizer Soln -) 1 amp NEB Q4H PRN PRN Reason: SHORT OF BREATH/WHEEZING Last Admin: 03/03/19 20:16 Dose: 1 amp Aspirin (Asa -) 81 mg PO DAILY [facility] Last Admin: 03/03/19 10:45 Dose: 81 mg Cinacalcet (Sensipar -) 30 mg PO DAILY [facility] Last Admin: 03/03/19 10:47 Dose: 30 mg Furosemide (Lasix -) 20 mg PO DAILY [facility] Last Admin: 03/03/19 10:45 Dose: 20 mg Gabapentin (Neurontin -) 600 mg PO BID [facility] Last Admin: 03/03/19 21:45 Dose: 600 mg Guaifenesin (Robitussin Dm -) 10 ml PO Q8H PRN PRN Reason: COUGH Last Admin: 03/03/19 11:34 Dose: 10 ml Hydralazine HCl (Apresoline -) 25 mg PO TID [facility] Last Admin: 03/03/19 21:46 Dose: 25 mg Levofloxacin (Levaquin 250 Mg Premixed Ivpb -) 250 mg in 50 mls @ 50 mls/hr IVPB DAILY [facility]; Protocol Last Admin: 03/03/19 10:46 Dose: 50 mls/hr Loratadine (Claritin -) 10 mg PO DAILY [facility] Last Admin: 03/03/19 10:45 Dose: 10 mg Lorazepam (Ativan -) 1 mg PO BID [facility] Last Admin: 03/03/19 21:46 Dose: 1 mg Methylprednisolone Sodium Succinate (Solu-Medrol -) 60 mg IVPUSH Q6H-IV [facility] Last Admin: 03/03/19 21:46 Dose: 60 mg Montelukast Sodium (Singulair -) 10 mg PO HS [facility] Last Admin: 03/03/19 21:46 Dose: 10 mg Mycophenolate Sodium (Mycophenolic Acid) 720 mg PO BID [facility] Last Admin: 03/03/19 21:46 Dose: 720 mg Nifedipine (Procardia Xl -) 30 mg PO DAILY [facility] Last Admin: 03/03/19 10:45 Dose: 30 mg Nystatin (Nystatin Oral Suspension -) 500,000 units PO Q6HPO [facility] Last Admin: 03/03/19 23:06 Dose: 500,000 units Pantoprazole Sodium (Protonix -) 40 mg PO DAILY [facility] Last Admin: 03/03/19 10:45 Dose: 40 mg Potassium Phos/Sodium Phos (Phos-Nak Packet -) 1 packet PO DAILY [facility] Last Admin: 03/03/19 10:47 Dose: 1 packet Tacrolimus (Prograf) 2 mg PO BID [facility] Last Admin: 03/03/19 21:45 Dose: 2 mg Trazodone HCl (Desyrel -) 100 mg PO HS [facility] Last Admin: 03/03/19 21:45 Dose: 100 mg - Objective Vital Signs: Vital Signs Temperature 97.6 F 03/03/19 22:41 Pulse Rate 115 H 03/03/19 22:41 Respiratory Rate 22 H 03/03/19 22:41 Blood Pressure 142/74 03/03/19 22:41 O2 Sat by Pulse Oximetry (%) 96 03/03/19 21:00 Labs: CBC, BMP 02/28/19 07:00 03/01/19 08:25
[2019-03-04] MEDS: methylPREDNISolone NA SUCC 40 MG/1 ML VIAL IVPUSH SCH ×4 (02:06→22:15)
[2019-03-04] MEDS: hydrALAZINE HCL 25 MG TABLET (FP) PO SCH ×3 (06:14→22:16)
[2019-03-04] MEDS: NYSTATIN 500,000 UNITS/5 ML SUSPENSION PO SCH ×4 (06:14→23:10)
[2019-03-04 07:40] LABS: BLOOD UREA NITROGEN 22.2 mg/dL (7-18); CALCIUM 10.2 mg/dL (8.5-10.1); CREATININE 0.8 mg/dL (0.55-1.3); POTASSIUM 3.3 mmol/L (3.5-5.1)
[2019-03-04] MEDS: ALBUTEROL SO4 0.083% IH SOL 2.5 MG/3 ML VIAL.NEB. NEB PRN ×2 (08:19→19:27)
[2019-03-04] MEDS ORDERED: PT OWN MED DRAWER 7, Y5N ONE (09:22)
[2019-03-04] MEDS: NAPH,MB-DB/K PH,MBDB POWDER PACKET PO SCH (09:25)
[2019-03-04] MEDS: NIFEdipine E.R. 30 MG TABLET (FP) PO SCH (09:25)
[2019-03-04] MEDS: FUROSEMIDE 20 MG TABLET (FP) PO SCH (09:25)
[2019-03-04] MEDS: ASPIRIN 81 MG CHEWABLE TABLETS PO SCH (09:25)
[2019-03-04] MEDS: PANTOPRAZOLE 40 MG TABLET (FP) PO SCH (09:25)
[2019-03-04] MEDS: GABAPENTIN 300 MG CAPSULE (FP) PO SCH ×2 (09:26→22:16)
[2019-03-04] MEDS: TACROLIMUS ANHYDROUS 1 MG CAPSULE PO SCH ×2 (09:34→22:17)
[2019-03-04] MEDS: CINACALCET HCL 30 MG TAB (FP) PO SCH (09:35)
[2019-03-04] MEDS: MYCOPHENOLATE SODIUM 360 MG TABLET.DR PO SCH ×2 (09:36→22:17)
[2019-03-04] MEDS: LORATADINE 10 MG TABLET PO SCH (09:38)
[2019-03-04] MEDS: guaiFENesin/D-METHORPHAN HB 10 ML UNIT-DOSE CUPS PO PRN ×3 (11:11→22:25)
[2019-03-04] MEDS: LORazepam 1 MG TABLET PO SCH ×2 (11:11→22:16)
--- NOTE | 2019-03-04 12:05 | PN ---
Progress Note (short form) - Note Progress Note: Ambulating in the Hallway on portable O2. Going to take a shower. (+) LAW Less wheeze. Intake & Output 03/01/19 03/02/19 03/03/19 03/04/19 23:59 23:59 23:59 23:59 Intake Total 1100 1650 1750 480 Balance 1100 1650 1750 480 Weight 189 lb 4.8 oz 190 lb Last Vital Signs Temp Pulse Resp BP Pulse Ox 97.9 F 115 H 20 143/69 96 03/04/19 09:17 03/04/19 09:17 03/04/19 09:17 03/04/19 09:17 03/03/19 21:00 Active Medications Acetaminophen (Tylenol -) 650 mg PO Q4H PRN PRN Reason: PAIN Albuterol Sulfate (Ventolin 0.083% Nebulizer Soln -) 1 amp NEB Q4H PRN PRN Reason: SHORT OF BREATH/WHEEZING Last Admin: 03/04/19 08:19 Dose: 1 amp Aspirin (Asa -) 81 mg PO DAILY [facility] Last Admin: 03/04/19 09:25 Dose: 81 mg Cinacalcet (Sensipar -) 30 mg PO DAILY [facility] Last Admin: 03/04/19 09:35 Dose: 30 mg Furosemide (Lasix -) 20 mg PO DAILY [facility] Last Admin: 03/04/19 09:25 Dose: 20 mg Gabapentin (Neurontin -) 600 mg PO BID [facility] Last Admin: 03/04/19 09:26 Dose: 600 mg Guaifenesin (Robitussin Dm -) 10 ml PO Q8H PRN PRN Reason: COUGH Last Admin: 03/04/19 11:18 Dose: 10 ml Hydralazine HCl (Apresoline -) 25 mg PO TID [facility] Last Admin: 03/04/19 06:14 Dose: 25 mg Levofloxacin (Levaquin -) 500 mg PO DAILY@0600 [facility] Last Admin: 03/04/19 11:29 Dose: 500 mg Loratadine (Claritin -) 10 mg PO DAILY [facility] Last Admin: 03/04/19 09:38 Dose: Not Given Lorazepam (Ativan -) 1 mg PO BID [facility] Last Admin: 03/04/19 11:11 Dose: 1 mg Methylprednisolone Sodium Succinate (Solu-Medrol -) 60 mg IVPUSH Q6H-IV [facility] Last Admin: 03/04/19 09:25 Dose: 60 mg Montelukast Sodium (Singulair -) 10 mg PO [facility] Last Admin: 03/03/19 21:46 Dose: 10 mg Mycophenolate Sodium (Mycophenolic Acid) 720 mg PO BID [facility] Last Admin: 03/04/19 09:36 Dose: 720 mg Nifedipine (Procardia Xl -) 30 mg PO DAILY [facility] Last Admin: 03/04/19 09:25 Dose: 30 mg Nystatin (Nystatin Oral Suspension -) 500,000 units PO Q6HPO [facility] Last Admin: 03/04/19 06:14 Dose: 500,000 units Pantoprazole Sodium (Protonix -) 40 mg PO DAILY [facility] Last Admin: 03/04/19 09:25 Dose: 40 mg Potassium Phos/Sodium Phos (Phos-Nak Packet -) 1 packet PO DAILY [facility] Last Admin: 03/04/19 09:25 Dose: 1 packet Tacrolimus (Prograf) 2 mg PO BID [facility] Last Admin: 03/04/19 09:34 Dose: 2 mg Trazodone HCl (Desyrel -) 100 mg PO [facility] Last Admin: 03/03/19 21:45 Dose: 100 mg Constitutional: Yes: Tachypneic with ambulation Eyes: Yes: WNL HENT: Yes: WNL Neck: Yes: WNL Cardiovascular: Yes: Regular Rate and Rhythm, S1, S2 Respiratory: Yes: Slightly less bilateral expiratory wheezing and rhonchi Gastrointestinal: Yes: Normal Bowel Sounds, Soft Extremities: Yes: WNL Edema: Yes Labs: Laboratory Results - last 24 hr 03/04/19 06:37 Sodium 135 L Potassium 3.3 L Chloride 92 L Carbon Dioxide 35 H Anion Gap 7 L BUN 22.2 H Creatinine 0.8 Est GFR (CKD-EPI)AfAm 90.94 Est GFR (CKD-EPI)NonAf 78.46 Random Glucose 290 H Calcium 10.2 H Assessment/Plan Problem List - Problems (1) Asthma exacerbation Code(s): J45.901 - UNSPECIFIED ASTHMA WITH (ACUTE) EXACERBATION Qualifiers: Asthma severity: moderate Asthma persistence: unspecified Qualified Code( s): J45.901 - Unspecified asthma with (acute) exacerbation Assessment/Plan Acute Asthma/COPD Exacerbation c LV Diastolic Dysfunction Pulmonary HTN CAD HTN Anxiety h/o Renal Transplant Obstructive Sleep Apnea - IV medrol same dose today - inhaled bronchodilators standing and PRN - O2 to keep SpO2 >90% - lasix - monitor urine output, creatinine - offered CPAP at night but pt declining . - DVT prophylaxis - Moose Oliveira
[2019-03-04 13:27] LABS: PHOSPHOROUS 2.8 mg/dL (2.5-4.9)
[2019-03-04] MEDS ORDERED: POTASSIUM CHLORIDE TABS 20 MEQ TABLET.ER (FP) PO ONE (13:50)
--- NOTE | 2019-03-04 13:54 | PN ---
Progress Note (short form) - Note Progress Note: Renal follow up for Renal transplantation Pt seen and examined at the bedside awake and alert has persistent LAW no chest pain making urine Vital Signs Temperature 97.9 F 03/04/19 09:17 Pulse Rate 115 H 03/04/19 09:17 Respiratory Rate 20 03/04/19 09:17 Blood Pressure 143/69 03/04/19 09:17 O2 Sat by Pulse Oximetry (%) 98 03/04/19 09:00 Intake & Output 03/01/19 03/02/19 03/03/19 03/04/19 23:59 23:59 23:59 23:59 Intake Total 1100 1650 1750 480 Balance 1100 1650 1750 480 Weight 85.865 kg 86.183 kg NAD awake and alert NC in place RRR, no M/R Dec BS, no rales soft NT/ND trace LE edema CBC, BMP 02/28/19 07:00 03/04/19 06:37 Current Medications Acetaminophen (Tylenol -) 650 mg PO Q4H PRN PRN Reason: PAIN Albuterol Sulfate (Ventolin 0.083% Nebulizer Soln -) 1 amp NEB Q4H PRN PRN Reason: SHORT OF BREATH/WHEEZING Last Admin: 03/04/19 08:19 Dose: 1 amp Aspirin (Asa -) 81 mg PO DAILY [facility] Last Admin: 03/04/19 09:25 Dose: 81 mg Cinacalcet (Sensipar -) 30 mg PO DAILY [facility] Last Admin: 03/04/19 09:35 Dose: 30 mg Furosemide (Lasix -) 20 mg PO DAILY [facility] Last Admin: 03/04/19 09:25 Dose: 20 mg Gabapentin (Neurontin -) 600 mg PO BID [facility] Last Admin: 03/04/19 09:26 Dose: 600 mg Guaifenesin (Robitussin Dm -) 10 ml PO Q8H PRN PRN Reason: COUGH Last Admin: 03/04/19 11:18 Dose: 10 ml Hydralazine HCl (Apresoline -) 25 mg PO TID [facility] Last Admin: 03/04/19 06:14 Dose: 25 mg Levofloxacin (Levaquin -) 500 mg PO DAILY@0600 [facility] Last Admin: 03/04/19 11:29 Dose: 500 mg Loratadine (Claritin -) 10 mg PO DAILY [facility] Last Admin: 03/04/19 09:38 Dose: Not Given Lorazepam (Ativan -) 1 mg PO BID [facility] Last Admin: 03/04/19 11:11 Dose: 1 mg Methylprednisolone Sodium Succinate (Solu-Medrol -) 60 mg IVPUSH Q6H-IV [facility] Last Admin: 03/04/19 09:25 Dose: 60 mg Montelukast Sodium (Singulair -) 10 mg PO HS [facility] Last Admin: 03/03/19 21:46 Dose: 10 mg Mycophenolate Sodium (Mycophenolic Acid) 720 mg PO BID [facility] Last Admin: 03/04/19 09:36 Dose: 720 mg Nifedipine (Procardia Xl -) 30 mg PO DAILY [facility] Last Admin: 03/04/19 09:25 Dose: 30 mg Nystatin (Nystatin Oral Suspension -) 500,000 units PO Q6HPO [facility] Last Admin: 03/04/19 13:11 Dose: 500,000 units Pantoprazole Sodium (Protonix -) 40 mg PO DAILY [facility] Last Admin: 03/04/19 09:25 Dose: 40 mg Potassium Chloride (K-Dur -) 40 meq PO ONCE ONE Stop: 03/04/19 13:51 Potassium Phos/Sodium Phos (Phos-Nak Packet -) 1 packet PO DAILY [facility] Last Admin: 03/04/19 09:25 Dose: 1 packet Tacrolimus (Prograf) 2 mg PO BID [facility] Last Admin: 03/04/19 09:34 Dose: 2 mg Trazodone HCl (Desyrel -) 100 mg PO HS [facility] Last Admin: 03/03/19 21:45 Dose: 100 mg ASSESSMENT AND PLAN: 63 year old woman with history of ESRD s/p DDRT 08/2017, hx of medullary sponge kidney s/p bilateral nephrectomy, CHF, MACI, COPD, Former smoker who presented from home with SOB and cough and admitted COPD exacerbation +/- PNA. 1. ESRD s/p renal transplant with preserved eGFR 2. COPD exacerbation 3. Suspected PNA 4. Hypertension 5. 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
--- NOTE | 2019-03-04 21:55 | PN ---
Progress Note, Physician - Current Medication List Current Medications: Active Medications Acetaminophen (Tylenol -) 650 mg PO Q4H PRN PRN Reason: PAIN Albuterol Sulfate (Ventolin 0.083% Nebulizer Soln -) 1 amp NEB Q4H PRN PRN Reason: SHORT OF BREATH/WHEEZING Last Admin: 03/04/19 19:27 Dose: 1 amp Aspirin (Asa -) 81 mg PO DAILY [facility] Last Admin: 03/04/19 09:25 Dose: 81 mg Cinacalcet (Sensipar -) 30 mg PO DAILY [facility] Last Admin: 03/04/19 09:35 Dose: 30 mg Furosemide (Lasix -) 20 mg PO DAILY [facility] Last Admin: 03/04/19 09:25 Dose: 20 mg Gabapentin (Neurontin -) 600 mg PO BID [facility] Last Admin: 03/04/19 09:26 Dose: 600 mg Guaifenesin (Robitussin Dm -) 10 ml PO Q8H PRN PRN Reason: COUGH Last Admin: 03/04/19 11:18 Dose: 10 ml Hydralazine HCl (Apresoline -) 25 mg PO TID [facility] Last Admin: 03/04/19 14:48 Dose: 25 mg Levofloxacin (Levaquin -) 500 mg PO DAILY@0600 [facility] Last Admin: 03/04/19 11:29 Dose: 500 mg Loratadine (Claritin -) 10 mg PO DAILY [facility] Last Admin: 03/04/19 09:38 Dose: Not Given Lorazepam (Ativan -) 1 mg PO BID [facility] Last Admin: 03/04/19 11:11 Dose: 1 mg Methylprednisolone Sodium Succinate (Solu-Medrol -) 60 mg IVPUSH Q6H-IV [facility] Last Admin: 03/04/19 14:53 Dose: 60 mg Montelukast Sodium (Singulair -) 10 mg PO HS [facility] Last Admin: 03/03/19 21:46 Dose: 10 mg Mycophenolate Sodium (Mycophenolic Acid) 720 mg PO BID [facility] Last Admin: 03/04/19 09:36 Dose: 720 mg Nifedipine (Procardia Xl -) 30 mg PO DAILY [facility] Last Admin: 03/04/19 09:25 Dose: 30 mg Nystatin (Nystatin Oral Suspension -) 500,000 units PO Q6HPO [facility] Last Admin: 03/04/19 17:47 Dose: 500,000 units Pantoprazole Sodium (Protonix -) 40 mg PO DAILY [facility] Last Admin: 03/04/19 09:25 Dose: 40 mg Potassium Phos/Sodium Phos (Phos-Nak Packet -) 1 packet PO DAILY [facility] Last Admin: 03/04/19 09:25 Dose: 1 packet Tacrolimus (Prograf) 2 mg PO BID [facility] Last Admin: 03/04/19 09:34 Dose: 2 mg Trazodone HCl (Desyrel -) 100 mg PO [facility] Last Admin: 03/03/19 21:45 Dose: 100 mg - Objective Vital Signs: Vital Signs Temperature 98.5 F 03/04/19 18:28 Pulse Rate 110 H 03/04/19 18:28 Respiratory Rate 20 03/04/19 18:28 Blood Pressure 147/77 03/04/19 18:28 O2 Sat by Pulse Oximetry (%) 98 03/04/19 09:00 Labs: CBC, BMP 02/28/19 07:00 03/04/19 06:37
[2019-03-04] MEDS: MONTELUKAST NA 10 MG TABLET PO SCH (22:16)
[2019-03-04] MEDS: traZODone HCL 50 MG TABLET (FP) PO SCH (22:16)
[2019-03-05] MEDS: methylPREDNISolone NA SUCC 40 MG/1 ML VIAL IVPUSH SCH ×4 (03:18→21:08)
[2019-03-05] MEDS: ALBUTEROL SO4 0.083% IH SOL 2.5 MG/3 ML VIAL.NEB. NEB PRN (03:58)
[2019-03-05] MEDS: NYSTATIN 500,000 UNITS/5 ML SUSPENSION PO SCH ×4 (06:08→23:05)
[2019-03-05] MEDS: hydrALAZINE HCL 25 MG TABLET (FP) PO SCH ×3 (06:08→21:11)
[2019-03-05 08:29] LABS: BLOOD UREA NITROGEN 23.9 mg/dL (7-18); CALCIUM 10.1 mg/dL (8.5-10.1); CREATININE 0.8 mg/dL (0.55-1.3); MAGNESIUM 1.8 mg/dL (1.8-2.4); POTASSIUM 3.6 mmol/L (3.5-5.1)
[2019-03-05] MEDS ORDERED: PT OWN MED DRAWER 7, Y5N ONE ×2 (09:15→21:04)
[2019-03-05] MEDS: NIFEdipine E.R. 30 MG TABLET (FP) PO SCH (09:31)
[2019-03-05] MEDS: NAPH,MB-DB/K PH,MBDB POWDER PACKET PO SCH (09:31)
[2019-03-05] MEDS: LORazepam 1 MG TABLET PO SCH ×2 (09:34→21:13)
[2019-03-05] MEDS: GABAPENTIN 300 MG CAPSULE (FP) PO SCH ×2 (09:35→21:11)
[2019-03-05] MEDS: FUROSEMIDE 20 MG TABLET (FP) PO SCH (09:35)
[2019-03-05] MEDS: PANTOPRAZOLE 40 MG TABLET (FP) PO SCH (09:35)
[2019-03-05] MEDS: ASPIRIN 81 MG CHEWABLE TABLETS PO SCH (09:36)
[2019-03-05] MEDS: TACROLIMUS ANHYDROUS 1 MG CAPSULE PO SCH ×2 (09:36→21:10)
[2019-03-05] MEDS: LORATADINE 10 MG TABLET PO SCH (09:36)
[2019-03-05] MEDS: MYCOPHENOLATE SODIUM 360 MG TABLET.DR PO SCH ×2 (09:37→21:10)
[2019-03-05] MEDS: CINACALCET HCL 30 MG TAB (FP) PO SCH (09:37)
--- NOTE | 2019-03-05 12:29 | PN ---
Progress Note, Physician History of Present Illness: PULMONARY AWAKE,OOB -CHAIR ,C/O INCREASED SOB,CONGESTION - Current Medication List Current Medications: Active Medications Acetaminophen (Tylenol -) 650 mg PO Q4H PRN PRN Reason: PAIN Albuterol Sulfate (Ventolin 0.083% Nebulizer Soln -) 1 amp NEB Q4H PRN PRN Reason: SHORT OF BREATH/WHEEZING Last Admin: 03/05/19 03:58 Dose: 1 amp Aspirin (Asa -) 81 mg PO DAILY [facility] Last Admin: 03/05/19 09:36 Dose: 81 mg Cinacalcet (Sensipar -) 30 mg PO DAILY [facility] Last Admin: 03/05/19 09:37 Dose: 30 mg Furosemide (Lasix -) 20 mg PO DAILY [facility] Last Admin: 03/05/19 09:35 Dose: 20 mg Gabapentin (Neurontin -) 600 mg PO BID [facility] Last Admin: 03/05/19 09:35 Dose: 600 mg Guaifenesin (Robitussin Dm -) 10 ml PO Q8H PRN PRN Reason: COUGH Last Admin: 03/04/19 22:25 Dose: 10 ml Hydralazine HCl (Apresoline -) 25 mg PO TID [facility] Last Admin: 03/05/19 06:08 Dose: 25 mg Levofloxacin (Levaquin -) 500 mg PO DAILY@0600 [facility] Last Admin: 03/05/19 06:08 Dose: 500 mg Loratadine (Claritin -) 10 mg PO DAILY [facility] Last Admin: 03/05/19 09:36 Dose: Not Given Lorazepam (Ativan -) 1 mg PO BID [facility] Last Admin: 03/05/19 09:34 Dose: 1 mg Methylprednisolone Sodium Succinate (Solu-Medrol -) 60 mg IVPUSH Q6H-IV [facility] Last Admin: 03/05/19 09:38 Dose: 60 mg Montelukast Sodium (Singulair -) 10 mg PO HS [facility] Last Admin: 03/04/19 22:16 Dose: 10 mg Mycophenolate Sodium (Mycophenolic Acid) 720 mg PO BID [facility] Last Admin: 03/05/19 09:37 Dose: 720 mg Nifedipine (Procardia Xl -) 30 mg PO DAILY [facility] Last Admin: 03/05/19 09:31 Dose: 30 mg Nystatin (Nystatin Oral Suspension -) 500,000 units PO Q6HPO [facility] Last Admin: 03/05/19 11:07 Dose: 500,000 units Pantoprazole Sodium (Protonix -) 40 mg PO DAILY [facility] Last Admin: 03/05/19 09:35 Dose: 40 mg Potassium Phos/Sodium Phos (Phos-Nak Packet -) 1 packet PO DAILY [facility] Last Admin: 03/05/19 09:31 Dose: 1 packet Tacrolimus (Prograf) 2 mg PO BID [facility] Last Admin: 03/05/19 09:36 Dose: 2 mg Trazodone HCl (Desyrel -) 100 mg PO HS [facility] Last Admin: 03/04/19 22:16 Dose: 100 mg - Objective Vital Signs: Vital Signs Temperature 98.0 F 03/05/19 06:00 Pulse Rate 105 H 03/05/19 06:00 Respiratory Rate 20 03/05/19 06:00 Blood Pressure 150/73 03/05/19 06:00 O2 Sat by Pulse Oximetry (%) 98 03/04/19 21:00 Constitutional: Yes: Well Nourished, Calm Eyes: Yes: WNL HENT: Yes: WNL Neck: Yes: WNL Cardiovascular: Yes: Regular Rate and Rhythm, S1, S2 Respiratory: Yes: Wheezes (DIFFEUSE BILATERAL WHEEZES) Gastrointestinal: Yes: Normal Bowel Sounds, Soft Extremities: Yes: WNL Edema: Yes Labs: CBC, BMP 02/28/19 07:00 03/05/19 06:59 Assessment/Plan Problem List - Problems (1) Asthma exacerbation Code(s): J45.901 - UNSPECIFIED ASTHMA WITH (ACUTE) EXACERBATION Qualifiers: Asthma severity: moderate Asthma persistence: unspecified Qualified Code( s): J45.901 - Unspecified asthma with (acute) exacerbation Assessment/Plan Acute Asthma/COPD Exacerbation LV Diastolic Dysfunction Pulmonary HTN CAD HTN Anxiety h/o Renal Transplant Obstructive Sleep Apnea - IV medrol same dose - inhaled bronchodilators standing and PRN - spiriva - brovana - asmanex - O2 to keep SpO2 >90% - lasix - monitor urine output, creatinine - DVT prophylaxis - chest ct DR JUAREZ
[2019-03-05] MEDS: MOMETASONE FUROATE 220 MCG/IH INHALER IH SCH (13:54)
[2019-03-05] MEDS: TIOTROPIUM BROMIDE 2.5 MCG (SPIRIVA) RESPIMAT INHALER IH SCH (13:57)
--- NOTE | 2019-03-05 15:43 | PN ---
Progress Note (short form) - Note Progress Note: Renal follow up for Renal transplantation Pt seen and examined at the bedside continues to have shortness of breath no chest pain, abd pain, fever, or chills CT chest done earlier today Vital Signs Temperature 98.0 F 03/05/19 06:00 Pulse Rate 105 H 03/05/19 06:00 Respiratory Rate 20 03/05/19 09:00 Blood Pressure 150/73 03/05/19 06:00 O2 Sat by Pulse Oximetry (%) 98 03/05/19 09:00 Intake & Output 03/02/19 03/03/19 03/04/19 03/05/19 23:59 23:59 23:59 23:59 Intake Total 1650 1750 480 Balance 1650 1750 480 Weight 85.865 kg 86.183 kg 84.958 kg NAD awake and alert NC in place RRR, no M/R Dec BS, no rales soft NT/ND trace LE edema CBC, BMP 02/28/19 07:00 03/05/19 06:59 Current Medications Acetaminophen (Tylenol -) 650 mg PO Q4H PRN PRN Reason: PAIN Albuterol Sulfate (Ventolin 0.083% Nebulizer Soln -) 1 amp NEB Q4H PRN PRN Reason: SHORT OF BREATH/WHEEZING Last Admin: 03/05/19 03:58 Dose: 1 amp Arformoterol Tartrate (Brovana (Restricted To Pulmonology/Resp) -) 1 amp NEB RBID [facility] Aspirin (Asa -) 81 mg PO DAILY [facility] Last Admin: 03/05/19 09:36 Dose: 81 mg Cinacalcet (Sensipar -) 30 mg PO DAILY [facility] Last Admin: 03/05/19 09:37 Dose: 30 mg Furosemide (Lasix -) 20 mg PO DAILY [facility] Last Admin: 03/05/19 09:35 Dose: 20 mg Gabapentin (Neurontin -) 600 mg PO BID [facility] Last Admin: 03/05/19 09:35 Dose: 600 mg Guaifenesin (Robitussin Dm -) 10 ml PO Q8H PRN PRN Reason: COUGH Last Admin: 03/04/19 22:25 Dose: 10 ml Hydralazine HCl (Apresoline -) 25 mg PO TID [facility] Last Admin: 03/05/19 13:51 Dose: 25 mg Levofloxacin (Levaquin -) 500 mg PO DAILY@0600 [facility] Last Admin: 03/05/19 06:08 Dose: 500 mg Loratadine (Claritin -) 10 mg PO DAILY [facility] Last Admin: 03/05/19 09:36 Dose: Not Given Lorazepam (Ativan -) 1 mg PO BID [facility] Last Admin: 03/05/19 09:34 Dose: 1 mg Methylprednisolone Sodium Succinate (Solu-Medrol -) 60 mg IVPUSH Q6H-IV [facility] Last Admin: 03/05/19 14:57 Dose: 60 mg Mometasone Furoate (Asmanex 220mcg -) 2 puff IH DAILY [facility] Last Admin: 03/05/19 13:54 Dose: 2 inhaler Montelukast Sodium (Singulair -) 10 mg PO HS [facility] Last Admin: 03/04/19 22:16 Dose: 10 mg Mycophenolate Sodium (Mycophenolic Acid) 720 mg PO BID [facility] Last Admin: 03/05/19 09:37 Dose: 720 mg Nifedipine (Procardia Xl -) 30 mg PO DAILY [facility] Last Admin: 03/05/19 09:31 Dose: 30 mg Nystatin (Nystatin Oral Suspension -) 500,000 units PO Q6HPO [facility] Last Admin: 03/05/19 11:07 Dose: 500,000 units Pantoprazole Sodium (Protonix -) 40 mg PO DAILY [facility] Last Admin: 03/05/19 09:35 Dose: 40 mg Potassium Phos/Sodium Phos (Phos-Nak Packet -) 1 packet PO DAILY [facility] Last Admin: 03/05/19 09:31 Dose: 1 packet Tacrolimus (Prograf) 2 mg PO BID [facility] Last Admin: 03/05/19 09:36 Dose: 2 mg Tiotropium Dawson (Spiriva Respimat) 2 puff IH DAILY [facility] Last Admin: 03/05/19 13:57 Dose: 2 puff Trazodone HCl (Desyrel -) 100 mg PO HS [facility] Last Admin: 03/04/19 22:16 Dose: 100 mg ASSESSMENT AND PLAN: 63 year old woman with history of ESRD s/p DDRT 08/2017, hx of medullary sponge kidney s/p bilateral nephrectomy, CHF, MACI, COPD, Former smoker who presented from home with SOB and cough and admitted COPD exacerbation +/- PNA. 1. ESRD s/p renal transplant with preserved eGFR 2. COPD exacerbation 3. Suspected PNA 4. Hypertension 5. 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
[2019-03-05] MEDS: ARFORMOTEROL TARTRATE 15 MCG/2 ML VIAL NEB SCH (20:28)
[2019-03-05] MEDS ORDERED: diphenhydrAMINE HCL 25 MG CAPSULE (FP) PO ONE (21:02)
[2019-03-05] MEDS: guaiFENesin/D-METHORPHAN HB 10 ML UNIT-DOSE CUPS PO PRN (21:09)
[2019-03-05] MEDS: MONTELUKAST NA 10 MG TABLET PO SCH (21:09)
[2019-03-05] MEDS: diphenhydrAMINE HCL 50 MG CAPSULE PO PRN (21:09)
[2019-03-05] MEDS: traZODone HCL 50 MG TABLET (FP) PO SCH (21:11)
--- NOTE | 2019-03-05 23:41 | PN ---
Progress Note, Physician History of Present Illness: Pt states that she doesn't feel good yet Pt complains of vaginal discharge - Current Medication List Current Medications: Active Medications Acetaminophen (Tylenol -) 650 mg PO Q4H PRN PRN Reason: PAIN Albuterol Sulfate (Ventolin 0.083% Nebulizer Soln -) 1 amp NEB Q4H PRN PRN Reason: SHORT OF BREATH/WHEEZING Last Admin: 03/05/19 03:58 Dose: 1 amp Arformoterol Tartrate (Brovana (Restricted To Pulmonology/Resp) -) 1 amp NEB RBID [facility] Last Admin: 03/05/19 20:28 Dose: 1 amp Aspirin (Asa -) 81 mg PO DAILY [facility] Last Admin: 03/05/19 09:36 Dose: 81 mg Cinacalcet (Sensipar -) 30 mg PO DAILY [facility] Last Admin: 03/05/19 09:37 Dose: 30 mg Diphenhydramine HCl (Benadryl -) 50 mg PO DAILY PRN PRN Reason: FOR ITCHING Last Admin: 03/05/19 21:09 Dose: 50 mg Furosemide (Lasix -) 20 mg PO DAILY [facility] Last Admin: 03/05/19 09:35 Dose: 20 mg Gabapentin (Neurontin -) 600 mg PO BID [facility] Last Admin: 03/05/19 21:11 Dose: 600 mg Guaifenesin (Robitussin Dm -) 10 ml PO Q8H PRN PRN Reason: COUGH Last Admin: 03/05/19 21:09 Dose: 10 ml Heparin Sodium (Porcine) (Heparin -) 5,000 unit SQ BID [facility] Hydralazine HCl (Apresoline -) 25 mg PO TID [facility] Last Admin: 03/05/19 21:11 Dose: 25 mg Levofloxacin (Levaquin -) 500 mg PO DAILY@0600 [facility] Last Admin: 03/05/19 06:08 Dose: 500 mg Loratadine (Claritin -) 10 mg PO DAILY [facility] Last Admin: 03/05/19 09:36 Dose: Not Given Lorazepam (Ativan -) 1 mg PO BID [facility] Last Admin: 03/05/19 21:13 Dose: 1 mg Methylprednisolone Sodium Succinate (Solu-Medrol -) 60 mg IVPUSH Q6H-IV [facility] Last Admin: 03/05/19 21:08 Dose: 60 mg Mometasone Furoate (Asmanex 220mcg -) 2 puff IH DAILY [facility] Last Admin: 03/05/19 13:54 Dose: 2 inhaler Montelukast Sodium (Singulair -) 10 mg PO HS [facility] Last Admin: 03/05/19 21:09 Dose: 10 mg Mycophenolate Sodium (Mycophenolic Acid) 720 mg PO BID [facility] Last Admin: 03/05/19 21:10 Dose: 720 mg Nifedipine (Procardia Xl -) 30 mg PO DAILY [facility] Last Admin: 03/05/19 09:31 Dose: 30 mg Nystatin (Nystatin Oral Suspension -) 500,000 units PO Q6HPO [facility] Last Admin: 03/05/19 18:36 Dose: 500,000 units Pantoprazole Sodium (Protonix -) 40 mg PO DAILY [facility] Last Admin: 03/05/19 09:35 Dose: 40 mg Potassium Phos/Sodium Phos (Phos-Nak Packet -) 1 packet PO DAILY [facility] Last Admin: 03/05/19 09:31 Dose: 1 packet Tacrolimus (Prograf) 2 mg PO BID [facility] Last Admin: 03/05/19 21:10 Dose: 2 mg Tiotropium Hana (Spiriva Respimat) 2 puff IH DAILY [facility] Last Admin: 03/05/19 13:57 Dose: 2 puff Trazodone HCl (Desyrel -) 100 mg PO HS [facility] Last Admin: 03/05/19 21:11 Dose: 100 mg - Objective Vital Signs: Vital Signs Temperature 98.9 F 03/05/19 21:17 Pulse Rate 107 H 03/05/19 21:17 Respiratory Rate 21 H 03/05/19 21:17 Blood Pressure 150/76 03/05/19 21:17 O2 Sat by Pulse Oximetry (%) 98 03/05/19 09:00 Neck: Yes: WNL, Supple Cardiovascular: Yes: WNL, Regular Rate and Rhythm Respiratory: Yes: Wheezes Gastrointestinal: Yes: WNL, Normal Bowel Sounds, Soft Edema: No Labs: CBC, BMP 02/28/19 07:00 03/05/19 06:59 Problem List - Problems (1) Asthma with COPD with exacerbation Assessment/Plan: Pt still requiring higher dose of IV steroids Cont nebulizers Repeat ct scan chest no new pathology Cont po levaquin Code(s): J44.1 - CHRONIC OBSTRUCTIVE PULMONARY DISEASE W (ACUTE) EXACERBATION; J45.901 - UNSPECIFIED ASTHMA WITH (ACUTE) EXACERBATION (2) Renal transplant disorder Assessment/Plan: Cont sensipar/mycophenolate/phos-NaK/prograf Code(s): T86.10 - UNSPECIFIED COMPLICATION OF KIDNEY TRANSPLANT (3) Respiratory distress Assessment/Plan: Improving Due to OPC/asthma exacerbation Code(s): R06.03 - ACUTE RESPIRATORY DISTRESS (4) CHF (congestive heart failure) Assessment/Plan: LV diastolic dysfunction Cont lasix Monitor electrolytes Code(s): I50.9 - HEART FAILURE, UNSPECIFIED (5) Peripheral neuropathy Assessment/Plan: Cont gabapentin Code(s): G62.9 - POLYNEUROPATHY, UNSPECIFIED (6) HTN (hypertension) Assessment/Plan: BP stable Cont hydralazine/procardia Code(s): I10 - ESSENTIAL (PRIMARY) HYPERTENSION (7) CAD (coronary artery disease) Assessment/Plan: Cont asa Code(s): I25.10 - ATHSCL HEART DISEASE OF [place] CORONARY ARTERY W/O ANG PCTRS (8) Depression with anxiety Assessment/Plan: Cont lorazepam Code(s): F41.8 - OTHER SPECIFIED ANXIETY DISORDERS (9) MACI (obstructive sleep apnea) Code(s): G47.33 - OBSTRUCTIVE SLEEP APNEA (ADULT) (PEDIATRIC)
[2019-03-06] MEDS: methylPREDNISolone NA SUCC 40 MG/1 ML VIAL IVPUSH SCH ×4 (03:47→21:52)
[2019-03-06] MEDS: hydrALAZINE HCL 25 MG TABLET (FP) PO SCH ×3 (06:45→21:49)
[2019-03-06] MEDS: NYSTATIN 500,000 UNITS/5 ML SUSPENSION PO SCH ×3 (06:45→18:13)
[2019-03-06] MEDS: HEPARIN NA (PORCINE) 5,000 UNITS/ML 1ML VIAL SQ SCH ×3 (06:47→21:50)
[2019-03-06] MEDS ORDERED: FLUCONAZOLE 150 MG TABLET PO ONE (08:00)
[2019-03-06] MEDS: ARFORMOTEROL TARTRATE 15 MCG/2 ML VIAL NEB SCH ×2 (08:10→20:20)
[2019-03-06] MEDS ORDERED: PT OWN MED DRAWER 7, Y5N ONE ×3 (09:18→11:10)
[2019-03-06] MEDS: NIFEdipine E.R. 30 MG TABLET (FP) PO SCH (09:26)
[2019-03-06] MEDS: ASPIRIN 81 MG CHEWABLE TABLETS PO SCH (09:26)
[2019-03-06] MEDS: FUROSEMIDE 20 MG TABLET (FP) PO SCH (09:26)
[2019-03-06] MEDS: GABAPENTIN 300 MG CAPSULE (FP) PO SCH ×2 (09:26→21:49)
[2019-03-06] MEDS: LORATADINE 10 MG TABLET PO SCH (09:26)
[2019-03-06] MEDS: PANTOPRAZOLE 40 MG TABLET (FP) PO SCH (09:26)
[2019-03-06] MEDS: TIOTROPIUM BROMIDE 2.5 MCG (SPIRIVA) RESPIMAT INHALER IH SCH (09:32)
[2019-03-06] MEDS: MOMETASONE FUROATE 220 MCG/IH INHALER IH SCH (09:34)
[2019-03-06] MEDS: NYSTATIN POWDER 100,000 UNITS/GM - 15 GM TOPICAL POWDER TP SCH (09:36)
[2019-03-06] MEDS: NAPH,MB-DB/K PH,MBDB POWDER PACKET PO SCH (09:37)
[2019-03-06] MEDS: LORazepam 1 MG TABLET PO SCH ×2 (09:38→21:51)
[2019-03-06] MEDS: TACROLIMUS ANHYDROUS 1 MG CAPSULE PO SCH ×2 (11:15→21:56)
[2019-03-06] MEDS: MYCOPHENOLATE SODIUM 360 MG TABLET.DR PO SCH ×2 (11:15→21:55)
[2019-03-06] MEDS: CINACALCET HCL 30 MG TAB (FP) PO SCH (11:16)
[2019-03-06] MEDS: guaiFENesin/D-METHORPHAN HB 10 ML UNIT-DOSE CUPS PO PRN (12:16)
--- NOTE | 2019-03-06 12:31 | PN ---
Progress Note, Physician History of Present Illness: PULMONARY ALERT,FEELING BETTER,LESS DYSPNEIC,LESS CONGESTION - Current Medication List Current Medications: Active Medications Acetaminophen (Tylenol -) 650 mg PO Q4H PRN PRN Reason: PAIN Albuterol Sulfate (Ventolin 0.083% Nebulizer Soln -) 1 amp NEB Q4H PRN PRN Reason: SHORT OF BREATH/WHEEZING Last Admin: 03/05/19 03:58 Dose: 1 amp Arformoterol Tartrate (Brovana (Restricted To Pulmonology/Resp) -) 1 amp NEB RBID [facility] Last Admin: 03/06/19 08:10 Dose: 1 amp Aspirin (Asa -) 81 mg PO DAILY [facility] Last Admin: 03/06/19 09:26 Dose: 81 mg Cinacalcet (Sensipar -) 30 mg PO DAILY [facility] Last Admin: 03/06/19 11:16 Dose: 30 mg Diphenhydramine HCl (Benadryl -) 50 mg PO DAILY PRN PRN Reason: FOR ITCHING Last Admin: 03/05/19 21:09 Dose: 50 mg Furosemide (Lasix -) 20 mg PO DAILY [facility] Last Admin: 03/06/19 09:26 Dose: 20 mg Gabapentin (Neurontin -) 600 mg PO BID [facility] Last Admin: 03/06/19 09:26 Dose: 600 mg Guaifenesin (Robitussin Dm -) 10 ml PO Q8H PRN PRN Reason: COUGH Last Admin: 03/06/19 12:16 Dose: 10 ml Heparin Sodium (Porcine) (Heparin -) 5,000 unit SQ BID [facility] Last Admin: 03/06/19 09:46 Dose: Not Given Hydralazine HCl (Apresoline -) 25 mg PO TID [facility] Last Admin: 03/06/19 06:45 Dose: 25 mg Levofloxacin (Levaquin -) 500 mg PO DAILY@0600 [facility] Last Admin: 03/06/19 06:45 Dose: 500 mg Loratadine (Claritin -) 10 mg PO DAILY [facility] Last Admin: 03/06/19 09:26 Dose: Not Given Lorazepam (Ativan -) 1 mg PO BID [facility] Last Admin: 03/06/19 09:38 Dose: 1 mg Methylprednisolone Sodium Succinate (Solu-Medrol -) 60 mg IVPUSH Q6H-IV [facility] Last Admin: 03/06/19 10:02 Dose: 60 mg Mometasone Furoate (Asmanex 220mcg -) 2 puff IH DAILY [facility] Last Admin: 03/06/19 09:34 Dose: 2 inhaler Montelukast Sodium (Singulair -) 10 mg PO HS [facility] Last Admin: 03/05/19 21:09 Dose: 10 mg Mycophenolate Sodium (Mycophenolic Acid) 720 mg PO BID [facility] Last Admin: 03/06/19 11:15 Dose: 720 mg Nifedipine (Procardia Xl -) 30 mg PO DAILY [facility] Last Admin: 03/06/19 09:26 Dose: 30 mg Nystatin (Nystatin Oral Suspension -) 500,000 units PO Q6HPO [facility] Last Admin: 03/06/19 12:04 Dose: 500,000 units Nystatin (Nystop Powder -) 1 applic TP DAILY [facility] Last Admin: 03/06/19 09:36 Dose: 1 applic Pantoprazole Sodium (Protonix -) 40 mg PO DAILY [facility] Last Admin: 03/06/19 09:26 Dose: 40 mg Potassium Phos/Sodium Phos (Phos-Nak Packet -) 1 packet PO DAILY [facility] Last Admin: 03/06/19 09:37 Dose: 1 packet Tacrolimus (Prograf) 2 mg PO BID [facility] Last Admin: 03/06/19 11:15 Dose: 2 mg Tiotropium [place] (Spiriva Respimat) 2 puff IH DAILY [facility] Last Admin: 03/06/19 09:32 Dose: 2 puff Trazodone HCl (Desyrel -) 100 mg PO [facility] Last Admin: 03/05/19 21:11 Dose: 100 mg - Objective Vital Signs: Vital Signs Temperature 98.0 F 03/06/19 06:00 Pulse Rate 100 H 03/06/19 06:00 Respiratory Rate 21 H 03/06/19 06:00 Blood Pressure 144/67 03/06/19 06:00 O2 Sat by Pulse Oximetry (%) 97 03/05/19 21:00 Constitutional: Yes: Well Nourished, Calm Eyes: Yes: WNL HENT: Yes: WNL Neck: Yes: WNL Cardiovascular: Yes: Regular Rate and Rhythm, S1, S2 Respiratory: Yes: Wheezes (LESS WHEEZES BILATERALLY) Gastrointestinal: Yes: Normal Bowel Sounds, Soft Extremities: Yes: WNL Edema: Yes Labs: CBC, BMP - ....Imaging Cat Scan: Report Reviewed, Image Reviewed Assessment/Plan Problem List - Problems (1) Asthma exacerbation Code(s): J45.901 - UNSPECIFIED ASTHMA WITH (ACUTE) EXACERBATION Qualifiers: Asthma severity: moderate Asthma persistence: unspecified Qualified Code( s): J45.901 - Unspecified asthma with (acute) exacerbation Assessment/Plan Acute Asthma/COPD Exacerbation LV Diastolic Dysfunction Pulmonary HTN CAD HTN Anxiety h/o Renal Transplant Obstructive Sleep Apnea - IV medrol same dose start taper in am - inhaled bronchodilators standing and PRN - spiriva - brovana - asmanex - O2 to keep SpO2 >90% - lasix - monitor urine output, creatinine - DVT prophylaxis DR JUAREZ
--- NOTE | 2019-03-06 16:33 | PROC ---
Procedure Note Procedure: Surgery Asked by floor nurse to assess patient who is a difficult IV stick after several failed attempts by nursing. Patient seen and examined at bedside with no complaints. Patient has a history of difficult IV access. She is a renal transplant recipient with an old AVF in left UE, therefore cannot use right UE for IV placement. Patient states she has had an IV placed in both her IJ and her LE before. Patient's right UE covered with Diffuse hematomas and bruising from previous IV placement and blood draws. Under sterile prep and sterile technique, a 24G IV was placed in the patient's right hand. The line pulled and flushed without resistance. Line was secured and patient tolerated the procedure. May proceed with use of IV line as needed. re-consult surgery team PRN
--- NOTE | 2019-03-06 16:58 | PN ---
Progress Note (short form) - Note Progress Note: Renal follow up for Renal transplantation Pt seen and examined at the bedside feels much better today no chest pain or SOB making urine no fever or chills Vital Signs Temperature 98.7 F 03/06/19 15:00 Pulse Rate 112 H 03/06/19 15:00 Respiratory Rate 20 03/06/19 15:00 Blood Pressure 137/68 03/06/19 15:00 O2 Sat by Pulse Oximetry (%) 97 03/05/19 21:00 Intake & Output 03/03/19 03/04/19 03/05/19 03/06/19 23:59 23:59 23:59 23:59 Intake Total 1750 480 600 Output Total 1 1 Balance 1750 480 599 -1 Weight 85.865 kg 86.183 kg 84.958 kg 84.051 kg NAD awake and alert NC in place RRR, no M/R Dec BS, no rales soft NT/ND trace LE edema CBC, BMP 02/28/19 07:00 03/05/19 06:59 Current Medications Acetaminophen (Tylenol -) 650 mg PO Q4H PRN PRN Reason: PAIN Albuterol Sulfate (Ventolin 0.083% Nebulizer Soln -) 1 amp NEB Q4H PRN PRN Reason: SHORT OF BREATH/WHEEZING Last Admin: 03/05/19 03:58 Dose: 1 amp Arformoterol Tartrate (Brovana (Restricted To Pulmonology/Resp) -) 1 amp NEB RBID [facility] Last Admin: 03/06/19 08:10 Dose: 1 amp Aspirin (Asa -) 81 mg PO DAILY [facility] Last Admin: 03/06/19 09:26 Dose: 81 mg Cinacalcet (Sensipar -) 30 mg PO DAILY [facility] Last Admin: 03/06/19 11:16 Dose: 30 mg Diphenhydramine HCl (Benadryl -) 50 mg PO DAILY PRN PRN Reason: FOR ITCHING Last Admin: 03/05/19 21:09 Dose: 50 mg Furosemide (Lasix -) 20 mg PO DAILY [facility] Last Admin: 03/06/19 09:26 Dose: 20 mg Gabapentin (Neurontin -) 600 mg PO BID [facility] Last Admin: 03/06/19 09:26 Dose: 600 mg Guaifenesin (Robitussin Dm -) 10 ml PO Q8H PRN PRN Reason: COUGH Last Admin: 03/06/19 12:16 Dose: 10 ml Heparin Sodium (Porcine) (Heparin -) 5,000 unit SQ BID [facility] Last Admin: 03/06/19 09:46 Dose: Not Given Hydralazine HCl (Apresoline -) 25 mg PO TID [facility] Last Admin: 03/06/19 14:52 Dose: 25 mg Levofloxacin (Levaquin -) 500 mg PO DAILY@0600 [facility] Last Admin: 03/06/19 06:45 Dose: 500 mg Loratadine (Claritin -) 10 mg PO DAILY [facility] Last Admin: 03/06/19 09:26 Dose: Not Given Lorazepam (Ativan -) 1 mg PO BID [facility] Last Admin: 03/06/19 09:38 Dose: 1 mg Methylprednisolone Sodium Succinate (Solu-Medrol -) 60 mg IVPUSH Q6H-IV [facility] Last Admin: 03/06/19 16:38 Dose: 60 mg Mometasone Furoate (Asmanex 220mcg -) 2 puff IH DAILY [facility] Last Admin: 03/06/19 09:34 Dose: 2 inhaler Montelukast Sodium (Singulair -) 10 mg PO HS [facility] Last Admin: 03/05/19 21:09 Dose: 10 mg Mycophenolate Sodium (Mycophenolic Acid) 720 mg PO BID [facility] Last Admin: 03/06/19 11:15 Dose: 720 mg Nifedipine (Procardia Xl -) 30 mg PO DAILY [facility] Last Admin: 03/06/19 09:26 Dose: 30 mg Nystatin (Nystatin Oral Suspension -) 500,000 units PO Q6HPO [facility] Last Admin: 03/06/19 12:04 Dose: 500,000 units Nystatin (Nystop Powder -) 1 applic TP DAILY [facility] Last Admin: 03/06/19 09:36 Dose: 1 applic Pantoprazole Sodium (Protonix -) 40 mg PO DAILY [facility] Last Admin: 03/06/19 09:26 Dose: 40 mg Potassium Phos/Sodium Phos (Phos-Nak Packet -) 1 packet PO DAILY [facility] Last Admin: 03/06/19 09:37 Dose: 1 packet Tacrolimus (Prograf) 2 mg PO BID [facility] Last Admin: 03/06/19 11:15 Dose: 2 mg Tiotropium [place] (Spiriva Respimat) 2 puff IH DAILY [facility] Last Admin: 03/06/19 09:32 Dose: 2 puff Trazodone HCl (Desyrel -) 100 mg PO HS [facility] Last Admin: 03/05/19 21:11 Dose: 100 mg ASSESSMENT AND PLAN: 63 year old woman with history of ESRD s/p DDRT 08/2017, hx of medullary sponge kidney s/p bilateral nephrectomy, CHF, MACI, COPD, Former smoker who presented from home with SOB and cough and admitted COPD exacerbation +/- PNA. 1. ESRD s/p renal transplant with preserved eGFR 2. COPD exacerbation 3. Suspected PNA 4. Hypertension 5. 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
[2019-03-06] MEDS: ALBUTEROL SO4 0.083% IH SOL 2.5 MG/3 ML VIAL.NEB. NEB PRN (17:26)
--- NOTE | 2019-03-06 20:57 | PN ---
Progress Note, Physician History of Present Illness: Feeling slightly better - Current Medication List Current Medications: Active Medications Acetaminophen (Tylenol -) 650 mg PO Q4H PRN PRN Reason: PAIN Albuterol Sulfate (Ventolin 0.083% Nebulizer Soln -) 1 amp NEB Q4H PRN PRN Reason: SHORT OF BREATH/WHEEZING Last Admin: 03/06/19 17:26 Dose: 1 amp Arformoterol Tartrate (Brovana (Restricted To Pulmonology/Resp) -) 1 amp NEB RBID [facility] Last Admin: 03/06/19 08:10 Dose: 1 amp Aspirin (Asa -) 81 mg PO DAILY [facility] Last Admin: 03/06/19 09:26 Dose: 81 mg Cinacalcet (Sensipar -) 30 mg PO DAILY [facility] Last Admin: 03/06/19 11:16 Dose: 30 mg Diphenhydramine HCl (Benadryl -) 50 mg PO DAILY PRN PRN Reason: FOR ITCHING Last Admin: 03/05/19 21:09 Dose: 50 mg Furosemide (Lasix -) 20 mg PO DAILY [facility] Last Admin: 03/06/19 09:26 Dose: 20 mg Gabapentin (Neurontin -) 600 mg PO BID [facility] Last Admin: 03/06/19 09:26 Dose: 600 mg Guaifenesin (Robitussin Dm -) 10 ml PO Q8H PRN PRN Reason: COUGH Last Admin: 03/06/19 12:16 Dose: 10 ml Heparin Sodium (Porcine) (Heparin -) 5,000 unit SQ BID [facility] Last Admin: 03/06/19 09:46 Dose: Not Given Hydralazine HCl (Apresoline -) 25 mg PO TID [facility] Last Admin: 03/06/19 14:52 Dose: 25 mg Levofloxacin (Levaquin -) 500 mg PO DAILY@0600 [facility] Last Admin: 03/06/19 06:45 Dose: 500 mg Loratadine (Claritin -) 10 mg PO DAILY [facility] Last Admin: 03/06/19 09:26 Dose: Not Given Lorazepam (Ativan -) 1 mg PO BID [facility] Last Admin: 03/06/19 09:38 Dose: 1 mg Methylprednisolone Sodium Succinate (Solu-Medrol -) 60 mg IVPUSH Q6H-IV [facility] Last Admin: 03/06/19 16:38 Dose: 60 mg Mometasone Furoate (Asmanex 220mcg -) 2 puff IH DAILY [facility] Last Admin: 03/06/19 09:34 Dose: 2 inhaler Montelukast Sodium (Singulair -) 10 mg PO HS [facility] Last Admin: 03/05/19 21:09 Dose: 10 mg Mycophenolate Sodium (Mycophenolic Acid) 720 mg PO BID [facility] Last Admin: 03/06/19 11:15 Dose: 720 mg Nifedipine (Procardia Xl -) 30 mg PO DAILY [facility] Last Admin: 03/06/19 09:26 Dose: 30 mg Nystatin (Nystatin Oral Suspension -) 500,000 units PO Q6HPO [facility] Last Admin: 03/06/19 18:13 Dose: 500,000 units Nystatin (Nystop Powder -) 1 applic TP DAILY [facility] Last Admin: 03/06/19 09:36 Dose: 1 applic Pantoprazole Sodium (Protonix -) 40 mg PO DAILY [facility] Last Admin: 03/06/19 09:26 Dose: 40 mg Potassium Phos/Sodium Phos (Phos-Nak Packet -) 1 packet PO DAILY [facility] Last Admin: 03/06/19 09:37 Dose: 1 packet Tacrolimus (Prograf) 2 mg PO BID [facility] Last Admin: 03/06/19 11:15 Dose: 2 mg Tiotropium [place] (Spiriva Respimat) 2 puff IH DAILY [facility] Last Admin: 03/06/19 09:32 Dose: 2 puff Trazodone HCl (Desyrel -) 100 mg PO HS [facility] Last Admin: 03/05/19 21:11 Dose: 100 mg - Objective Vital Signs: Vital Signs Temperature 97.8 F 03/06/19 18:00 Pulse Rate 112 H 03/06/19 18:00 Respiratory Rate 20 03/06/19 18:00 Blood Pressure 150/74 03/06/19 18:00 O2 Sat by Pulse Oximetry (%) 97 03/06/19 09:00 Neck: Yes: WNL, Supple Cardiovascular: Yes: WNL, Regular Rate and Rhythm Respiratory: Yes: Diminished Gastrointestinal: Yes: WNL, Normal Bowel Sounds, Soft Labs: CBC, BMP 02/28/19 07:00 03/05/19 06:59 Problem List - Problems (1) Asthma with COPD with exacerbation Assessment/Plan: Cont same dose of IV steroids Possible tapering in am Cont nebulizers Repeat ct scan chest no new pathology Cont po levaquin Code(s): J44.1 - CHRONIC OBSTRUCTIVE PULMONARY DISEASE W (ACUTE) EXACERBATION; J45.901 - UNSPECIFIED ASTHMA WITH (ACUTE) EXACERBATION (2) Renal transplant disorder Assessment/Plan: Cont sensipar/mycophenolate/phos-NaK/prograf Code(s): T86.10 - UNSPECIFIED COMPLICATION OF KIDNEY TRANSPLANT (3) Respiratory distress Assessment/Plan: Improving Due to OPC/asthma exacerbation Code(s): R06.03 - ACUTE RESPIRATORY DISTRESS (4) CHF (congestive heart failure) Assessment/Plan: LV diastolic dysfunction Cont lasix Monitor electrolytes Code(s): I50.9 - HEART FAILURE, UNSPECIFIED (5) Peripheral neuropathy Assessment/Plan: Cont gabapentin Code(s): G62.9 - POLYNEUROPATHY, UNSPECIFIED (6) HTN (hypertension) Assessment/Plan: BP stable Cont hydralazine/procardia Code(s): I10 - ESSENTIAL (PRIMARY) HYPERTENSION (7) CAD (coronary artery disease) Assessment/Plan: Cont asa Code(s): I25.10 - ATHSCL HEART DISEASE OF [place] CORONARY ARTERY W/O ANG PCTRS (8) Depression with anxiety Assessment/Plan: Cont lorazepam Code(s): F41.8 - OTHER SPECIFIED ANXIETY DISORDERS (9) MACI (obstructive sleep apnea) Code(s): G47.33 - OBSTRUCTIVE SLEEP APNEA (ADULT) (PEDIATRIC)
[2019-03-06] MEDS ORDERED: diphenhydrAMINE HCL 25 MG CAPSULE (FP) PO ONE (21:43)
[2019-03-06] MEDS: diphenhydrAMINE HCL 50 MG CAPSULE PO PRN (21:48)
[2019-03-06] MEDS: traZODone HCL 50 MG TABLET (FP) PO SCH (21:49)
[2019-03-06] MEDS: MONTELUKAST NA 10 MG TABLET PO SCH (21:51)
[2019-03-07] MEDS: NYSTATIN 500,000 UNITS/5 ML SUSPENSION PO SCH ×6 (00:58→23:07)
[2019-03-07] MEDS: methylPREDNISolone NA SUCC 40 MG/1 ML VIAL IVPUSH SCH ×3 (02:31→19:04)
[2019-03-07] MEDS: hydrALAZINE HCL 25 MG TABLET (FP) PO SCH ×3 (05:38→22:08)
[2019-03-07] MEDS: ARFORMOTEROL TARTRATE 15 MCG/2 ML VIAL NEB SCH ×2 (07:55→20:09)
--- NOTE | 2019-03-07 10:32 | PN ---
Progress Note (short form) - Note Progress Note: Looks clinically better. Feeling less SOB and LAW. Less wheeze. Intake & Output 03/04/19 03/05/19 03/06/19 03/07/19 23:59 23:59 23:59 23:59 Intake Total 480 600 480 Output Total 1 1 Balance 480 599 479 Weight 190 lb 187 lb 4.8 oz 185 lb 4.8 oz 186 lb 8 oz Last Vital Signs Temp Pulse Resp BP Pulse Ox 98.1 F 106 H 20 139/68 96 03/07/19 06:00 03/07/19 06:00 03/07/19 06:00 03/07/19 06:00 03/06/19 21:00 Active Medications Acetaminophen (Tylenol -) 650 mg PO Q4H PRN PRN Reason: PAIN Albuterol Sulfate (Ventolin 0.083% Nebulizer Soln -) 1 amp NEB Q4H PRN PRN Reason: SHORT OF BREATH/WHEEZING Last Admin: 03/06/19 17:26 Dose: 1 amp Arformoterol Tartrate (Brovana (Restricted To Pulmonology/Resp) -) 1 amp NEB RBID [facility]S [facility] Last Admin: 03/06/19 20:20 Dose: 1 amp Aspirin (Asa -) 81 mg PO DAILY [facility] Last Admin: 03/06/19 09:26 Dose: 81 mg Cinacalcet (Sensipar -) 30 mg PO DAILY [facility] Last Admin: 03/06/19 11:16 Dose: 30 mg Diphenhydramine HCl (Benadryl -) 50 mg PO DAILY PRN PRN Reason: FOR ITCHING Last Admin: 03/06/19 21:48 Dose: 50 mg Furosemide (Lasix -) 20 mg PO DAILY [facility] Last Admin: 03/06/19 09:26 Dose: 20 mg Gabapentin (Neurontin -) 600 mg PO BID [facility] Last Admin: 03/06/19 21:49 Dose: 600 mg Guaifenesin (Robitussin Dm -) 10 ml PO Q8H PRN PRN Reason: COUGH Last Admin: 03/06/19 12:16 Dose: 10 ml Heparin Sodium (Porcine) (Heparin -) 5,000 unit SQ BID [facility] Last Admin: 03/06/19 21:50 Dose: 5,000 unit Hydralazine HCl (Apresoline -) 25 mg PO TID [facility] Last Admin: 03/07/19 05:38 Dose: 25 mg Levofloxacin (Levaquin -) 500 mg PO DAILY@0600 [facility] Last Admin: 03/07/19 05:38 Dose: 500 mg Loratadine (Claritin -) 10 mg PO DAILY [facility] Last Admin: 03/06/19 09:26 Dose: Not Given Lorazepam (Ativan -) 1 mg PO BID [facility] Last Admin: 03/06/19 21:51 Dose: 1 mg Methylprednisolone Sodium Succinate (Solu-Medrol -) 40 mg IVPUSH Q8H-IV [facility] Mometasone Furoate (Asmanex 220mcg -) 2 puff IH DAILY [facility] Last Admin: 03/06/19 09:34 Dose: 2 inhaler Montelukast Sodium (Singulair -) 10 mg PO HS [facility] Last Admin: 03/06/19 21:51 Dose: 10 mg Mycophenolate Sodium (Mycophenolic Acid) 720 mg PO BID [facility] Last Admin: 03/06/19 21:55 Dose: 720 mg Nifedipine (Procardia Xl -) 30 mg PO DAILY [facility] Last Admin: 03/06/19 09:26 Dose: 30 mg Nystatin (Nystatin Oral Suspension -) 500,000 units PO Q6HPO [facility] Last Admin: 03/07/19 05:38 Dose: Not Given Nystatin (Nystop Powder -) 1 applic TP DAILY [facility] Last Admin: 03/06/19 09:36 Dose: 1 applic Pantoprazole Sodium (Protonix -) 40 mg PO DAILY [facility] Last Admin: 03/06/19 09:26 Dose: 40 mg Potassium Phos/Sodium Phos (Phos-Nak Packet -) 1 packet PO DAILY [facility] Last Admin: 03/06/19 09:37 Dose: 1 packet Tacrolimus (Prograf) 2 mg PO BID [facility] Last Admin: 03/06/19 21:56 Dose: 2 mg Tiotropium [place] (Spiriva Respimat) 2 puff IH DAILY [facility] Last Admin: 03/06/19 09:32 Dose: 2 puff Trazodone HCl (Desyrel -) 100 mg PO HS [facility] 234 [facility] Last Admin: 03/06/19 21:49 Dose: 100 mg Constitutional: Yes: More comfortable, less tachypneic, NAD Eyes: Yes: WNL HENT: Yes: WNL Neck: Yes: WNL Cardiovascular: Yes: Regular Rate and Rhythm, S1, S2 Respiratory: Yes: Improving bilateral expiratory wheezing and rhonchi Gastrointestinal: Yes: Normal Bowel Sounds, Soft Extremities: Yes: WNL Edema: Yes Labs: Assessment/Plan Problem List - Problems (1) Asthma exacerbation Code(s): J45.901 - UNSPECIFIED ASTHMA WITH (ACUTE) EXACERBATION Qualifiers: Asthma severity: moderate Asthma persistence: unspecified Qualified Code( s): J45.901 - Unspecified asthma with (acute) exacerbation Assessment/Plan Acute Asthma/COPD Exacerbation c LV Diastolic Dysfunction Pulmonary HTN CAD HTN Anxiety h/o Renal Transplant Obstructive Sleep Apnea - Decrease IV medrol today - inhaled bronchodilators standing and PRN - O2 to keep SpO2 >90% - lasix - monitor urine output, creatinine - offered CPAP at night but pt declining . - DVT prophylaxis - Moose Oliveira
[2019-03-07] MEDS: HEPARIN NA (PORCINE) 5,000 UNITS/ML 1ML VIAL SQ SCH ×2 (10:34→22:07)
[2019-03-07] MEDS ORDERED: PT OWN MED DRAWER 7, Y5N ONE (10:43)
[2019-03-07] MEDS: LORazepam 1 MG TABLET PO SCH ×2 (10:48→22:08)
[2019-03-07] MEDS: NIFEdipine E.R. 30 MG TABLET (FP) PO SCH (10:49)
[2019-03-07] MEDS: MYCOPHENOLATE SODIUM 360 MG TABLET.DR PO SCH ×2 (10:49→22:07)
[2019-03-07] MEDS: ASPIRIN 81 MG CHEWABLE TABLETS PO SCH (10:49)
[2019-03-07] MEDS: PANTOPRAZOLE 40 MG TABLET (FP) PO SCH (10:49)
[2019-03-07] MEDS: TACROLIMUS ANHYDROUS 1 MG CAPSULE PO SCH ×2 (10:50→22:08)
[2019-03-07] MEDS: NAPH,MB-DB/K PH,MBDB POWDER PACKET PO SCH (10:50)
[2019-03-07] MEDS: GABAPENTIN 300 MG CAPSULE (FP) PO SCH ×2 (10:50→22:08)
[2019-03-07] MEDS: FUROSEMIDE 20 MG TABLET (FP) PO SCH (10:50)
[2019-03-07] MEDS: CINACALCET HCL 30 MG TAB (FP) PO SCH (10:51)
[2019-03-07] MEDS: MOMETASONE FUROATE 220 MCG/IH INHALER IH SCH (10:57)
[2019-03-07] MEDS: TIOTROPIUM BROMIDE 2.5 MCG (SPIRIVA) RESPIMAT INHALER IH SCH (10:57)
[2019-03-07] MEDS: LORATADINE 10 MG TABLET PO SCH (10:58)
[2019-03-07] MEDS: NYSTATIN POWDER 100,000 UNITS/GM - 15 GM TOPICAL POWDER TP SCH (11:12)
[2019-03-07] MEDS: diphenhydrAMINE HCL 50 MG CAPSULE PO PRN (22:07)
[2019-03-07] MEDS: traZODone HCL 50 MG TABLET (FP) PO SCH (22:08)
[2019-03-07] MEDS: MONTELUKAST NA 10 MG TABLET PO SCH (22:08)
--- NOTE | 2019-03-07 22:38 | PN ---
Progress Note, Physician - Current Medication List Current Medications: Active Medications Acetaminophen (Tylenol -) 650 mg PO Q4H PRN PRN Reason: PAIN Albuterol Sulfate (Ventolin 0.083% Nebulizer Soln -) 1 amp NEB Q4H PRN PRN Reason: SHORT OF BREATH/WHEEZING Last Admin: 03/06/19 17:26 Dose: 1 amp Arformoterol Tartrate (Brovana (Restricted To Pulmonology/Resp) -) 1 amp NEB RBID [facility] Last Admin: 03/07/19 20:09 Dose: 1 amp Aspirin (Asa -) 81 mg PO DAILY [facility] Last Admin: 03/07/19 10:49 Dose: 81 mg Cinacalcet (Sensipar -) 30 mg PO DAILY [facility] Last Admin: 03/07/19 10:51 Dose: 30 mg Diphenhydramine HCl (Benadryl -) 50 mg PO DAILY PRN PRN Reason: FOR ITCHING Last Admin: 03/07/19 22:07 Dose: 50 mg Furosemide (Lasix -) 20 mg PO DAILY [facility] Last Admin: 03/07/19 10:50 Dose: 20 mg Gabapentin (Neurontin -) 600 mg PO BID [facility] Last Admin: 03/07/19 22:08 Dose: 600 mg Guaifenesin (Robitussin Dm -) 10 ml PO Q8H PRN PRN Reason: COUGH Last Admin: 03/06/19 12:16 Dose: 10 ml Heparin Sodium (Porcine) (Heparin -) 5,000 unit SQ BID [facility] Last Admin: 03/07/19 22:07 Dose: 5,000 unit Hydralazine HCl (Apresoline -) 25 mg PO TID [facility] Last Admin: 03/07/19 22:08 Dose: 25 mg Levofloxacin (Levaquin -) 500 mg PO DAILY@0600 [facility] Last Admin: 03/07/19 05:38 Dose: 500 mg Loratadine (Claritin -) 10 mg PO DAILY [facility] Last Admin: 03/07/19 10:58 Dose: Not Given Lorazepam (Ativan -) 1 mg PO BID [facility] Last Admin: 03/07/19 22:08 Dose: 1 mg Methylprednisolone Sodium Succinate (Solu-Medrol -) 40 mg IVPUSH Q8H-IV [facility] Last Admin: 03/07/19 19:04 Dose: 40 mg Mometasone Furoate (Asmanex 220mcg -) 2 puff IH DAILY [facility] Last Admin: 03/07/19 10:57 Dose: 2 inhaler Montelukast Sodium (Singulair -) 10 mg PO HS [facility] Last Admin: 03/07/19 22:08 Dose: 10 mg Mycophenolate Sodium (Mycophenolic Acid) 720 mg PO BID [facility] Last Admin: 03/07/19 22:07 Dose: 720 mg Nifedipine (Procardia Xl -) 30 mg PO DAILY [facility] Last Admin: 03/07/19 10:49 Dose: 30 mg Nystatin (Nystatin Oral Suspension -) 500,000 units PO Q6HPO [facility] Last Admin: 03/07/19 19:04 Dose: 500,000 units Nystatin (Nystop Powder -) 1 applic TP DAILY [facility] Last Admin: 03/07/19 11:12 Dose: 1 applic Pantoprazole Sodium (Protonix -) 40 mg PO DAILY [facility] Last Admin: 03/07/19 10:49 Dose: 40 mg Potassium Phos/Sodium Phos (Phos-Nak Packet -) 1 packet PO DAILY [facility] Last Admin: 03/07/19 10:50 Dose: 1 packet Tacrolimus (Prograf) 2 mg PO BID [facility] Last Admin: 03/07/19 22:08 Dose: 2 mg Tiotropium [place] (Spiriva Respimat) 2 puff IH DAILY [facility] Last Admin: 03/07/19 10:57 Dose: 2 puff Trazodone HCl (Desyrel -) 100 mg PO HS [facility] Last Admin: 03/07/19 22:08 Dose: 100 mg - Objective Vital Signs: Vital Signs Temperature 98.0 F 03/07/19 18:00 Pulse Rate 114 H 03/07/19 18:00 Respiratory Rate 20 03/07/19 18:00 Blood Pressure 128/73 03/07/19 18:00 O2 Sat by Pulse Oximetry (%) 98 03/07/19 09:00 Labs: CBC, BMP 02/28/19 07:00 03/05/19 06:59 Problem List - Problems (1) Asthma with COPD with exacerbation Code(s): J44.1 - CHRONIC OBSTRUCTIVE PULMONARY DISEASE W (ACUTE) EXACERBATION; J45.901 - UNSPECIFIED ASTHMA WITH (ACUTE) EXACERBATION (2) Renal transplant disorder Code(s): T86.10 - UNSPECIFIED COMPLICATION OF KIDNEY TRANSPLANT (3) Respiratory distress Code(s): R06.03 - ACUTE RESPIRATORY DISTRESS (4) CHF (congestive heart failure) Code(s): I50.9 - HEART FAILURE, UNSPECIFIED (5) Peripheral neuropathy Code(s): G62.9 - POLYNEUROPATHY, UNSPECIFIED (6) HTN (hypertension) Code(s): I10 - ESSENTIAL (PRIMARY) HYPERTENSION (7) CAD (coronary artery disease) Code(s): I25.10 - ATHSCL HEART DISEASE OF [place] CORONARY ARTERY W/O ANG PCTRS (8) Depression with anxiety Code(s): F41.8 - OTHER SPECIFIED ANXIETY DISORDERS (9) MACI (obstructive sleep apnea) Code(s): G47.33 - OBSTRUCTIVE SLEEP APNEA (ADULT) (PEDIATRIC)
[2019-03-08] MEDS: methylPREDNISolone NA SUCC 40 MG/1 ML VIAL IVPUSH SCH ×3 (02:49→22:05)
[2019-03-08] MEDS: NYSTATIN 500,000 UNITS/5 ML SUSPENSION PO SCH ×4 (06:28→23:52)
[2019-03-08] MEDS: hydrALAZINE HCL 25 MG TABLET (FP) PO SCH ×3 (06:28→22:03)
[2019-03-08] MEDS: ARFORMOTEROL TARTRATE 15 MCG/2 ML VIAL NEB SCH ×2 (07:54→19:35)
[2019-03-08] MEDS: LORazepam 1 MG TABLET PO SCH ×2 (10:45→22:02)
[2019-03-08] MEDS: LORATADINE 10 MG TABLET PO SCH (10:45)
[2019-03-08] MEDS: NIFEdipine E.R. 30 MG TABLET (FP) PO SCH (10:45)
[2019-03-08] MEDS: PANTOPRAZOLE 40 MG TABLET (FP) PO SCH (10:45)
[2019-03-08] MEDS: ASPIRIN 81 MG CHEWABLE TABLETS PO SCH (10:45)
[2019-03-08] MEDS: NAPH,MB-DB/K PH,MBDB POWDER PACKET PO SCH (10:46)
[2019-03-08] MEDS: GABAPENTIN 300 MG CAPSULE (FP) PO SCH ×2 (10:46→22:03)
[2019-03-08] MEDS: CINACALCET HCL 30 MG TAB (FP) PO SCH (10:46)
[2019-03-08] MEDS: FUROSEMIDE 20 MG TABLET (FP) PO SCH (10:46)
[2019-03-08] MEDS: HEPARIN NA (PORCINE) 5,000 UNITS/ML 1ML VIAL SQ SCH ×2 (10:47→22:05)
[2019-03-08] MEDS: MYCOPHENOLATE SODIUM 360 MG TABLET.DR PO SCH ×2 (10:48→22:04)
[2019-03-08] MEDS: TACROLIMUS ANHYDROUS 1 MG CAPSULE PO SCH ×2 (10:49→22:04)
[2019-03-08] MEDS: MOMETASONE FUROATE 220 MCG/IH INHALER IH SCH (10:50)
[2019-03-08] MEDS: TIOTROPIUM BROMIDE 2.5 MCG (SPIRIVA) RESPIMAT INHALER IH SCH (10:50)
[2019-03-08] MEDS: NYSTATIN POWDER 100,000 UNITS/GM - 15 GM TOPICAL POWDER TP SCH (11:06)
--- NOTE | 2019-03-08 14:44 | PN ---
Progress Note, Physician History of Present Illness: pulmonary alert,comfortable,sob improving - Current Medication List Current Medications: Active Medications Acetaminophen (Tylenol -) 650 mg PO Q4H PRN PRN Reason: PAIN Albuterol Sulfate (Ventolin 0.083% Nebulizer Soln -) 1 amp NEB Q4H PRN PRN Reason: SHORT OF BREATH/WHEEZING Last Admin: 03/06/19 17:26 Dose: 1 amp Arformoterol Tartrate (Brovana (Restricted To Pulmonology/Resp) -) 1 amp NEB RBID [facility] [place] Last Admin: 03/08/19 07:54 Dose: 1 amp Aspirin (Asa -) 81 mg PO DAILY [facility] [place] Last Admin: 03/08/19 10:45 Dose: 81 mg Cinacalcet (Sensipar -) 30 mg PO DAILY [facility] [place] Last Admin: 03/08/19 10:46 Dose: 30 mg Diphenhydramine HCl (Benadryl -) 50 mg PO DAILY PRN PRN Reason: FOR ITCHING Last Admin: 03/07/19 22:07 Dose: 50 mg Furosemide (Lasix -) 20 mg PO DAILY [facility] [place] Last Admin: 03/08/19 10:46 Dose: 20 mg Gabapentin (Neurontin -) 600 mg PO BID [facility] [place] Last Admin: 03/08/19 10:46 Dose: 600 mg Guaifenesin (Robitussin Dm -) 10 ml PO Q8H PRN PRN Reason: COUGH Last Admin: 03/06/19 12:16 Dose: 10 ml Heparin Sodium (Porcine) (Heparin -) 5,000 unit SQ BID [facility] [place] Last Admin: 03/08/19 10:47 Dose: 5,000 unit Hydralazine HCl (Apresoline -) 25 mg PO TID [facility] [place] Last Admin: 03/08/19 13:59 Dose: 25 mg Levofloxacin (Levaquin -) 500 mg PO DAILY@0600 [facility] [place] Last Admin: 03/08/19 06:28 Dose: 500 mg Loratadine (Claritin -) 10 mg PO DAILY [facility] [place] Last Admin: 03/08/19 10:45 Dose: 10 mg Lorazepam (Ativan -) 1 mg PO BID [facility] [place] Last Admin: 03/08/19 10:45 Dose: 1 mg Methylprednisolone Sodium Succinate (Solu-Medrol -) 40 mg IVPUSH Q8H-IV [facility] [place] Last Admin: 03/08/19 10:47 Dose: 40 mg Mometasone Furoate (Asmanex 220mcg -) 2 puff IH DAILY [facility] [place] Last Admin: 03/08/19 10:50 Dose: 2 inhaler Montelukast Sodium (Singulair -) 10 mg PO HS [facility] [place] Last Admin: 03/07/19 22:08 Dose: 10 mg Mycophenolate Sodium (Mycophenolic Acid) 720 mg PO BID [facility] [place] Last Admin: 03/08/19 10:48 Dose: 720 mg Nifedipine (Procardia Xl -) 30 mg PO DAILY [facility] [place] Last Admin: 03/08/19 10:45 Dose: 30 mg Nystatin (Nystatin Oral Suspension -) 500,000 units PO Q6HPO [facility] [place] Last Admin: 03/08/19 11:04 Dose: 500,000 units Nystatin (Nystop Powder -) 1 applic TP DAILY [facility] [place] Last Admin: 03/08/19 11:06 Dose: 1 applic Pantoprazole Sodium (Protonix -) 40 mg PO DAILY [facility] [place] Last Admin: 03/08/19 10:45 Dose: 40 mg Potassium Phos/Sodium Phos (Phos-Nak Packet -) 1 packet PO DAILY [facility] [place] Last Admin: 03/08/19 10:46 Dose: 1 packet Tacrolimus (Prograf) 2 mg PO BID [facility] [place] Last Admin: 03/08/19 10:49 Dose: 2 mg Tiotropium [place] (Spiriva Respimat) 2 puff IH DAILY [facility] [place] Last Admin: 03/08/19 10:50 Dose: 2 puff Trazodone HCl (Desyrel -) 100 mg PO [facility] Last Admin: 03/07/19 22:08 Dose: 100 mg - Objective Vital Signs: Vital Signs Temperature 97.7 F 03/08/19 14:30 Pulse Rate 114 H 03/08/19 14:30 Respiratory Rate 18 03/08/19 14:30 Blood Pressure 144/65 03/08/19 14:30 O2 Sat by Pulse Oximetry (%) 98 03/07/19 21:00 Constitutional: Yes: Well Nourished, Calm Eyes: Yes: WNL HENT: Yes: WNL Neck: Yes: WNL Cardiovascular: Yes: Regular Rate and Rhythm, S1, S2 Respiratory: Yes: Wheezes (less wheezes bilaterally) Gastrointestinal: Yes: Normal Bowel Sounds, Soft Extremities: Yes: WNL Edema: No Labs: Assessment/Plan Problem List - Problems (1) Asthma exacerbation Code(s): J45.901 - UNSPECIFIED ASTHMA WITH (ACUTE) EXACERBATION Qualifiers: Asthma severity: moderate Asthma persistence: unspecified Qualified Code( s): J45.901 - Unspecified asthma with (acute) exacerbation Assessment/Plan Acute Asthma/COPD Exacerbation LV Diastolic Dysfunction Pulmonary HTN CAD HTN Anxiety h/o Renal Transplant Obstructive Sleep Apnea - medrol taper - inhaled bronchodilators standing and PRN - spiriva - brovana - asmanex - O2 to keep SpO2 >90% - lasix - monitor urine output, creatinine - DVT prophylaxis DR JUAREZ
[2019-03-08] MEDS ORDERED: methylPREDNISolone NA SUCC 40 MG/1 ML VIAL IVPUSH SCH (15:00)
--- NOTE | 2019-03-08 15:25 | PN ---
Progress Note (short form) - Note Progress Note: Renal follow up for Renal transplantation Pt seen and examined at the bedside no acute complaints feels much better making urine Vital Signs Temperature 97.7 F 03/08/19 14:30 Pulse Rate 114 H 03/08/19 14:30 Respiratory Rate 18 03/08/19 14:30 Blood Pressure 144/65 03/08/19 14:30 O2 Sat by Pulse Oximetry (%) 98 03/07/19 21:00 Intake & Output 03/05/19 03/06/19 03/07/19 03/08/19 23:59 23:59 23:59 23:59 Intake Total 719 396 7270 200 Output Total 1 1 Balance 441 937 7029 200 Weight 84.958 kg 84.051 kg 84.595 kg 84.368 kg NAD awake and alert NC in place RRR, no M/R Dec BS, no rales soft NT/ND trace LE edema CBC, BMP 02/28/19 07:00 03/05/19 06:59 Current Medications Acetaminophen (Tylenol -) 650 mg PO Q4H PRN PRN Reason: PAIN Albuterol Sulfate (Ventolin 0.083% Nebulizer Soln -) 1 amp NEB Q4H PRN PRN Reason: SHORT OF BREATH/WHEEZING Last Admin: 03/06/19 17:26 Dose: 1 amp Arformoterol Tartrate (Brovana (Restricted To Pulmonology/Resp) -) 1 amp NEB RBID [facility] Last Admin: 03/08/19 07:54 Dose: 1 amp Aspirin (Asa -) 81 mg PO DAILY [facility] Last Admin: 03/08/19 10:45 Dose: 81 mg Cinacalcet (Sensipar -) 30 mg PO DAILY [facility] Last Admin: 03/08/19 10:46 Dose: 30 mg Diphenhydramine HCl (Benadryl -) 50 mg PO DAILY PRN PRN Reason: FOR ITCHING Last Admin: 03/07/19 22:07 Dose: 50 mg Furosemide (Lasix -) 20 mg PO DAILY [facility] Last Admin: 03/08/19 10:46 Dose: 20 mg Gabapentin (Neurontin -) 600 mg PO BID [facility] Last Admin: 03/08/19 10:46 Dose: 600 mg Guaifenesin (Robitussin Dm -) 10 ml PO Q8H PRN PRN Reason: COUGH Last Admin: 03/06/19 12:16 Dose: 10 ml Heparin Sodium (Porcine) (Heparin -) 5,000 unit SQ BID [facility] Last Admin: 03/08/19 10:47 Dose: 5,000 unit Hydralazine HCl (Apresoline -) 25 mg PO TID [facility] Last Admin: 03/08/19 13:59 Dose: 25 mg Levofloxacin (Levaquin -) 500 mg PO DAILY@0600 [facility] Last Admin: 03/08/19 06:28 Dose: 500 mg Loratadine (Claritin -) 10 mg PO DAILY [facility] Last Admin: 03/08/19 10:45 Dose: 10 mg Lorazepam (Ativan -) 1 mg PO BID [facility] Last Admin: 03/08/19 10:45 Dose: 1 mg Methylprednisolone Sodium Succinate (Solu-Medrol -) 40 mg IVPUSH Q12H [facility] Mometasone Furoate (Asmanex 220mcg -) 2 puff IH DAILY [facility] Last Admin: 03/08/19 10:50 Dose: 2 inhaler Montelukast Sodium (Singulair -) 10 mg PO HS [facility] Last Admin: 03/07/19 22:08 Dose: 10 mg Mycophenolate Sodium (Mycophenolic Acid) 720 mg PO BID [facility] Last Admin: 03/08/19 10:48 Dose: 720 mg Nifedipine (Procardia Xl -) 30 mg PO DAILY [facility] Last Admin: 03/08/19 10:45 Dose: 30 mg Nystatin (Nystatin Oral Suspension -) 500,000 units PO Q6HPO [facility] Last Admin: 03/08/19 11:04 Dose: 500,000 units Nystatin (Nystop Powder -) 1 applic TP DAILY [facility] Last Admin: 03/08/19 11:06 Dose: 1 applic Pantoprazole Sodium (Protonix -) 40 mg PO DAILY [facility] Last Admin: 03/08/19 10:45 Dose: 40 mg Potassium Phos/Sodium Phos (Phos-Nak Packet -) 1 packet PO DAILY [facility] Last Admin: 03/08/19 10:46 Dose: 1 packet Tacrolimus (Prograf) 2 mg PO BID [facility] Last Admin: 03/08/19 10:49 Dose: 2 mg Tiotropium [place] (Spiriva Respimat) 2 puff IH DAILY [facility] Last Admin: 03/08/19 10:50 Dose: 2 puff Trazodone HCl (Desyrel -) 100 mg PO HS [facility] Last Admin: 03/07/19 22:08 Dose: 100 mg ASSESSMENT AND PLAN: 63 year old woman with history of ESRD s/p DDRT 08/2017, hx of medullary sponge kidney s/p bilateral nephrectomy, CHF, MACI, COPD, Former smoker who presented from home with SOB and cough and admitted COPD exacerbation +/- PNA. 1. ESRD s/p renal transplant with preserved eGFR 2. COPD exacerbation 3. Suspected PNA 4. Hypertension 5. 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
[2019-03-08] MEDS ORDERED: PT OWN MED DRAWER 7, Y5N ONE ×2 (21:57→22:22)
[2019-03-08] MEDS: traZODone HCL 50 MG TABLET (FP) PO SCH (22:03)
[2019-03-08] MEDS: MONTELUKAST NA 10 MG TABLET PO SCH (22:03)
[2019-03-08] MEDS: diphenhydrAMINE HCL 50 MG CAPSULE PO PRN (22:19)
--- NOTE | 2019-03-08 23:24 | PN ---
Progress Note, Physician - Current Medication List Current Medications: Active Medications Acetaminophen (Tylenol -) 650 mg PO Q4H PRN PRN Reason: PAIN Albuterol Sulfate (Ventolin 0.083% Nebulizer Soln -) 1 amp NEB Q4H PRN PRN Reason: SHORT OF BREATH/WHEEZING Last Admin: 03/06/19 17:26 Dose: 1 amp Arformoterol Tartrate (Brovana (Restricted To Pulmonology/Resp) -) 1 amp NEB RBID [facility] Last Admin: 03/08/19 19:35 Dose: 1 amp Aspirin (Asa -) 81 mg PO DAILY [facility] Last Admin: 03/08/19 10:45 Dose: 81 mg Cinacalcet (Sensipar -) 30 mg PO DAILY [facility] Last Admin: 03/08/19 10:46 Dose: 30 mg Diphenhydramine HCl (Benadryl -) 50 mg PO DAILY PRN PRN Reason: FOR ITCHING Last Admin: 03/08/19 22:19 Dose: 50 mg Furosemide (Lasix -) 20 mg PO DAILY [facility] Last Admin: 03/08/19 10:46 Dose: 20 mg Gabapentin (Neurontin -) 600 mg PO BID [facility] Last Admin: 03/08/19 22:03 Dose: 600 mg Guaifenesin (Robitussin Dm -) 10 ml PO Q8H PRN PRN Reason: COUGH Last Admin: 03/06/19 12:16 Dose: 10 ml Heparin Sodium (Porcine) (Heparin -) 5,000 unit SQ BID [facility] Last Admin: 03/08/19 22:05 Dose: 5,000 unit Hydralazine HCl (Apresoline -) 25 mg PO TID [facility] Last Admin: 03/08/19 22:03 Dose: 25 mg Levofloxacin (Levaquin -) 500 mg PO DAILY@0600 [facility] Last Admin: 03/08/19 06:28 Dose: 500 mg Loratadine (Claritin -) 10 mg PO DAILY [facility] Last Admin: 03/08/19 10:45 Dose: 10 mg Lorazepam (Ativan -) 1 mg PO BID [facility] Last Admin: 03/08/19 22:02 Dose: 1 mg Methylprednisolone Sodium Succinate (Solu-Medrol -) 40 mg IVPUSH Q12H [facility] Last Admin: 03/08/19 22:05 Dose: 40 mg Mometasone Furoate (Asmanex 220mcg -) 2 puff IH DAILY [facility] Last Admin: 03/08/19 10:50 Dose: 2 inhaler Montelukast Sodium (Singulair -) 10 mg PO HS [facility] Last Admin: 03/08/19 22:03 Dose: 10 mg Mycophenolate Sodium (Mycophenolic Acid) 720 mg PO BID [facility] Last Admin: 03/08/19 22:04 Dose: 720 mg Nifedipine (Procardia Xl -) 30 mg PO DAILY [facility] Last Admin: 03/08/19 10:45 Dose: 30 mg Nystatin (Nystatin Oral Suspension -) 500,000 units PO Q6HPO [facility] Last Admin: 03/08/19 17:50 Dose: 500,000 units Nystatin (Nystop Powder -) 1 applic TP DAILY [facility] Last Admin: 03/08/19 11:06 Dose: 1 applic Pantoprazole Sodium (Protonix -) 40 mg PO DAILY [facility] Last Admin: 03/08/19 10:45 Dose: 40 mg Potassium Phos/Sodium Phos (Phos-Nak Packet -) 1 packet PO DAILY [facility] Last Admin: 03/08/19 10:46 Dose: 1 packet Tacrolimus (Prograf) 2 mg PO BID [facility] Last Admin: 03/08/19 22:04 Dose: 2 mg Tiotropium [place] (Spiriva Respimat) 2 puff IH DAILY [facility] Last Admin: 03/08/19 10:50 Dose: 2 puff Trazodone HCl (Desyrel -) 100 mg PO HS [facility] Last Admin: 03/08/19 22:03 Dose: 100 mg - Objective Vital Signs: Vital Signs Temperature 98.5 F 03/08/19 18:00 Pulse Rate 113 H 03/08/19 18:00 Respiratory Rate 20 03/08/19 18:00 Blood Pressure 137/69 03/08/19 18:00 O2 Sat by Pulse Oximetry (%) 98 03/08/19 09:00 Labs: CBC, BMP 02/28/19 07:00 03/05/19 06:59 Problem List - Problems (1) Asthma with COPD with exacerbation Code(s): J44.1 - CHRONIC OBSTRUCTIVE PULMONARY DISEASE W (ACUTE) EXACERBATION; J45.901 - UNSPECIFIED ASTHMA WITH (ACUTE) EXACERBATION (2) Renal transplant disorder Code(s): T86.10 - UNSPECIFIED COMPLICATION OF KIDNEY TRANSPLANT (3) Respiratory distress Code(s): R06.03 - ACUTE RESPIRATORY DISTRESS (4) CHF (congestive heart failure) Code(s): I50.9 - HEART FAILURE, UNSPECIFIED (5) Peripheral neuropathy Code(s): G62.9 - POLYNEUROPATHY, UNSPECIFIED (6) HTN (hypertension) Code(s): I10 - ESSENTIAL (PRIMARY) HYPERTENSION (7) CAD (coronary artery disease) Code(s): I25.10 - ATHSCL HEART DISEASE OF [place] CORONARY ARTERY W/O ANG PCTRS (8) Depression with anxiety Code(s): F41.8 - OTHER SPECIFIED ANXIETY DISORDERS (9) MACI (obstructive sleep apnea) Code(s): G47.33 - OBSTRUCTIVE SLEEP APNEA (ADULT) (PEDIATRIC)
[2019-03-09] MEDS: ALBUTEROL SO4 0.083% IH SOL 2.5 MG/3 ML VIAL.NEB. NEB PRN (02:34)
[2019-03-09] MEDS: NYSTATIN 500,000 UNITS/5 ML SUSPENSION PO SCH ×3 (05:34→19:08)
[2019-03-09] MEDS: hydrALAZINE HCL 25 MG TABLET (FP) PO SCH ×2 (05:34→15:39)
[2019-03-09] MEDS: ARFORMOTEROL TARTRATE 15 MCG/2 ML VIAL NEB SCH ×2 (08:00→21:42)
[2019-03-09] MEDS: NIFEdipine E.R. 30 MG TABLET (FP) PO SCH (09:37)
[2019-03-09] MEDS: ASPIRIN 81 MG CHEWABLE TABLETS PO SCH (09:37)
[2019-03-09] MEDS: NAPH,MB-DB/K PH,MBDB POWDER PACKET PO SCH (09:37)
[2019-03-09] MEDS: LORazepam 1 MG TABLET PO SCH (09:37)
[2019-03-09] MEDS: CINACALCET HCL 30 MG TAB (FP) PO SCH (09:37)
[2019-03-09] MEDS: PANTOPRAZOLE 40 MG TABLET (FP) PO SCH (09:37)
[2019-03-09] MEDS: FUROSEMIDE 20 MG TABLET (FP) PO SCH (09:37)
[2019-03-09] MEDS: GABAPENTIN 300 MG CAPSULE (FP) PO SCH (09:38)
[2019-03-09] MEDS: HEPARIN NA (PORCINE) 5,000 UNITS/ML 1ML VIAL SQ SCH (09:41)
[2019-03-09] MEDS: methylPREDNISolone NA SUCC 40 MG/1 ML VIAL IVPUSH SCH (09:41)
[2019-03-09] MEDS: LORATADINE 10 MG TABLET PO SCH (09:46)
[2019-03-09] MEDS: MOMETASONE FUROATE 220 MCG/IH INHALER IH SCH (09:51)
[2019-03-09] MEDS: TIOTROPIUM BROMIDE 2.5 MCG (SPIRIVA) RESPIMAT INHALER IH SCH (09:53)
[2019-03-09] MEDS: NYSTATIN POWDER 100,000 UNITS/GM - 15 GM TOPICAL POWDER TP SCH (09:54)
[2019-03-09] MEDS ORDERED: PT OWN MED DRAWER 7, Y5N ONE ×2 (10:15→15:12)
[2019-03-09] MEDS: MYCOPHENOLATE SODIUM 360 MG TABLET.DR PO SCH (10:42)
[2019-03-09] MEDS: TACROLIMUS ANHYDROUS 1 MG CAPSULE PO SCH (10:44)
--- NOTE | 2019-03-09 11:44 | PN ---
Progress Note, Physician History of Present Illness: pulmonary alert,feeling better,dyspnea improved,mon cough - Current Medication List Current Medications: Active Medications Acetaminophen (Tylenol -) 650 mg PO Q4H PRN PRN Reason: PAIN Arformoterol Tartrate (Brovana (Restricted To Pulmonology/Resp) -) 1 amp NEB RBID [facility] Last Admin: 03/09/19 08:00 Dose: 1 amp Aspirin (Asa -) 81 mg PO DAILY [facility] Last Admin: 03/09/19 09:37 Dose: 81 mg Cinacalcet (Sensipar -) 30 mg PO DAILY [facility] Last Admin: 03/09/19 09:37 Dose: 30 mg Diphenhydramine HCl (Benadryl -) 50 mg PO DAILY PRN PRN Reason: FOR ITCHING Last Admin: 03/08/19 22:19 Dose: 50 mg Furosemide (Lasix -) 20 mg PO DAILY [facility] Last Admin: 03/09/19 09:37 Dose: 20 mg Gabapentin (Neurontin -) 600 mg PO BID [facility] Last Admin: 03/09/19 09:38 Dose: 600 mg Guaifenesin (Robitussin Dm -) 10 ml PO Q8H PRN PRN Reason: COUGH Last Admin: 03/06/19 12:16 Dose: 10 ml Heparin Sodium (Porcine) (Heparin -) 5,000 unit SQ BID [facility] Last Admin: 03/09/19 09:41 Dose: 5,000 unit Hydralazine HCl (Apresoline -) 25 mg PO TID [facility] Last Admin: 03/09/19 05:34 Dose: 25 mg Levofloxacin (Levaquin -) 500 mg PO DAILY@0600 [facility] Last Admin: 03/09/19 05:34 Dose: 500 mg Loratadine (Claritin -) 10 mg PO DAILY [facility] Last Admin: 03/09/19 09:46 Dose: Not Given Lorazepam (Ativan -) 1 mg PO BID [facility] Last Admin: 03/09/19 09:37 Dose: 1 mg Methylprednisolone Sodium Succinate (Solu-Medrol -) 40 mg IVPUSH Q12H [facility] Last Admin: 03/09/19 09:41 Dose: 40 mg Mometasone Furoate (Asmanex 220mcg -) 2 puff IH DAILY [facility] Last Admin: 03/09/19 09:51 Dose: 2 inhaler Montelukast Sodium (Singulair -) 10 mg PO HS [facility] Last Admin: 03/08/19 22:03 Dose: 10 mg Mycophenolate Sodium (Mycophenolic Acid) 720 mg PO BID [facility] Last Admin: 03/09/19 10:42 Dose: 720 mg Nifedipine (Procardia Xl -) 30 mg PO DAILY [facility] Last Admin: 03/09/19 09:37 Dose: 30 mg Nystatin (Nystatin Oral Suspension -) 500,000 units PO Q6HPO [facility] Last Admin: 03/09/19 05:34 Dose: Not Given Nystatin (Nystop Powder -) 1 applic TP DAILY [facility] Last Admin: 03/09/19 09:54 Dose: 1 applic Pantoprazole Sodium (Protonix -) 40 mg PO DAILY [facility] Last Admin: 03/09/19 09:37 Dose: 40 mg Potassium Phos/Sodium Phos (Phos-Nak Packet -) 1 packet PO DAILY [facility] Last Admin: 03/09/19 09:37 Dose: 1 packet Tacrolimus (Prograf) 2 mg PO BID [facility] Last Admin: 03/09/19 10:44 Dose: 2 mg Tiotropium [place] (Spiriva Respimat) 2 puff IH DAILY [facility] Last Admin: 03/09/19 09:53 Dose: 2 puff Trazodone HCl (Desyrel -) 100 mg PO [facility] Last Admin: 03/08/19 22:03 Dose: 100 mg - Objective Vital Signs: Vital Signs Temperature 98.6 F 03/09/19 05:46 Pulse Rate 107 H 03/09/19 05:46 Respiratory Rate 18 03/09/19 05:46 Blood Pressure 149/72 03/09/19 05:46 O2 Sat by Pulse Oximetry (%) 95 03/08/19 21:00 Constitutional: Yes: Well Nourished, Calm Eyes: Yes: WNL HENT: Yes: WNL Neck: Yes: WNL Cardiovascular: Yes: Regular Rate and Rhythm, S1, S2 Respiratory: Yes: CTA Bilaterally Gastrointestinal: Yes: Normal Bowel Sounds, Soft Extremities: Yes: WNL Edema: Yes Labs: CBC, BMP 02/28/19 07:00 03/05/19 06:59 Assessment/Plan Problem List - Problems (1) Asthma exacerbation Code(s): J45.901 - UNSPECIFIED ASTHMA WITH (ACUTE) EXACERBATION Qualifiers: Asthma severity: moderate Asthma persistence: unspecified Qualified Code( s): J45.901 - Unspecified asthma with (acute) exacerbation Assessment/Plan Acute Asthma/COPD Exacerbation LV Diastolic Dysfunction Pulmonary HTN CAD HTN Anxiety h/o Renal Transplant Obstructive Sleep Apnea - prednisone 60mg daily - inhaled bronchodilators standing and PRN - spiriva - brovana - asmanex - O2 to keep SpO2 >90% - lasix - monitor urine output, creatinine - DVT prophylaxis DR JUAREZ
[2019-03-09 19:34] VITALS: BP 136/75; PULSE 114; TEMP 97.7
--- NOTE | 2019-03-09 21:45 | PN ---
Progress Note, Physician - Current Medication List Current Medications: Active Medications Acetaminophen (Tylenol -) 650 mg PO Q4H PRN PRN Reason: PAIN Arformoterol Tartrate (Brovana (Restricted To Pulmonology/Resp) -) 1 amp NEB RBID [facility] Last Admin: 03/09/19 21:42 Dose: Not Given Aspirin (Asa -) 81 mg PO DAILY [facility] Last Admin: 03/09/19 09:37 Dose: 81 mg Cinacalcet (Sensipar -) 30 mg PO DAILY [facility] Last Admin: 03/09/19 09:37 Dose: 30 mg Diphenhydramine HCl (Benadryl -) 50 mg PO DAILY PRN PRN Reason: FOR ITCHING Last Admin: 03/08/19 22:19 Dose: 50 mg Furosemide (Lasix -) 20 mg PO DAILY [facility] Last Admin: 03/09/19 09:37 Dose: 20 mg Gabapentin (Neurontin -) 600 mg PO BID [facility] Last Admin: 03/09/19 09:38 Dose: 600 mg Guaifenesin (Robitussin Dm -) 10 ml PO Q8H PRN PRN Reason: COUGH Last Admin: 03/06/19 12:16 Dose: 10 ml Heparin Sodium (Porcine) (Heparin -) 5,000 unit SQ BID [facility] Last Admin: 03/09/19 09:41 Dose: 5,000 unit Hydralazine HCl (Apresoline -) 25 mg PO TID [facility] Last Admin: 03/09/19 15:39 Dose: 25 mg Levofloxacin (Levaquin -) 500 mg PO DAILY@0600 [facility] Last Admin: 03/09/19 05:34 Dose: 500 mg Loratadine (Claritin -) 10 mg PO DAILY [facility] Last Admin: 03/09/19 09:46 Dose: Not Given Lorazepam (Ativan -) 1 mg PO BID [facility] Last Admin: 03/09/19 09:37 Dose: 1 mg Mometasone Furoate (Asmanex 220mcg -) 2 puff IH DAILY [facility] Last Admin: 03/09/19 09:51 Dose: 2 inhaler Montelukast Sodium (Singulair -) 10 mg PO HS [facility] Last Admin: 03/08/19 22:03 Dose: 10 mg Mycophenolate Sodium (Mycophenolic Acid) 720 mg PO BID [facility] Last Admin: 03/09/19 10:42 Dose: 720 mg Nifedipine (Procardia Xl -) 30 mg PO DAILY [facility] Last Admin: 03/09/19 09:37 Dose: 30 mg Nystatin (Nystatin Oral Suspension -) 500,000 units PO Q6HPO [facility] Last Admin: 03/09/19 19:08 Dose: Not Given Nystatin (Nystop Powder -) 1 applic TP DAILY [facility] Last Admin: 03/09/19 09:54 Dose: 1 applic Pantoprazole Sodium (Protonix -) 40 mg PO DAILY [facility] Last Admin: 03/09/19 09:37 Dose: 40 mg Potassium Phos/Sodium Phos (Phos-Nak Packet -) 1 packet PO DAILY [facility] Last Admin: 03/09/19 09:37 Dose: 1 packet Prednisone (Deltasone -) 60 mg PO DAILY [facility] Tacrolimus (Prograf) 2 mg PO BID [facility] Last Admin: 03/09/19 10:44 Dose: 2 mg Tiotropium Joice (Spiriva Respimat) 2 puff IH DAILY [facility] Last Admin: 03/09/19 09:53 Dose: 2 puff Trazodone HCl (Desyrel -) 100 mg PO HS [facility] Last Admin: 03/08/19 22:03 Dose: 100 mg - Objective Vital Signs: Vital Signs Temperature 97.7 F 03/09/19 18:00 Pulse Rate 114 H 03/09/19 18:00 Respiratory Rate 20 03/09/19 18:00 Blood Pressure 136/75 03/09/19 18:00 O2 Sat by Pulse Oximetry (%) 92 L 03/09/19 17:27 Labs: CBC, BMP 02/28/19 07:00 03/05/19 06:59 Problem List - Problems (1) Asthma with COPD with exacerbation Code(s): J44.1 - CHRONIC OBSTRUCTIVE PULMONARY DISEASE W (ACUTE) EXACERBATION; J45.901 - UNSPECIFIED ASTHMA WITH (ACUTE) EXACERBATION (2) Renal transplant disorder Code(s): T86.10 - UNSPECIFIED COMPLICATION OF KIDNEY TRANSPLANT (3) Respiratory distress Code(s): R06.03 - ACUTE RESPIRATORY DISTRESS (4) CHF (congestive heart failure) Code(s): I50.9 - HEART FAILURE, UNSPECIFIED (5) Peripheral neuropathy Code(s): G62.9 - POLYNEUROPATHY, UNSPECIFIED (6) HTN (hypertension) Code(s): I10 - ESSENTIAL (PRIMARY) HYPERTENSION (7) CAD (coronary artery disease) Code(s): I25.10 - ATHSCL HEART DISEASE OF [place] CORONARY ARTERY W/O ANG PCTRS (8) Depression with anxiety Code(s): F41.8 - OTHER SPECIFIED ANXIETY DISORDERS (9) MACI (obstructive sleep apnea) Code(s): G47.33 - OBSTRUCTIVE SLEEP APNEA (ADULT) (PEDIATRIC)
[2019-03-10] MEDS ORDERED: predniSONE 20 MG TABLET (UD) PO SCH (10:00)
== END 2019-03-09 19:00 | disposition home health service (06) | DRG 140 ==
LOC: JER 08:28 → JERBED 11:00 → J5S 17:26
PROVIDERS: ADMIT Internal Medicine; ATTEND Internal Medicine
PROC: 05HM33Z Insertion of Infusion Device into Right Internal Jugular Vein, Percutaneous Approach (ICD-10-PCS; principal; 2019-03-06)
PROC: B513ZZA Fluoroscopy of Right Jugular Veins, Guidance (ICD-10-PCS; 2019-03-06)
DX: J44.1 Chronic obstructive pulmonary disease with (acute) exacerbation (principal); G47.33 Obstructive sleep apnea (adult) (pediatric); G62.9 Polyneuropathy, unspecified; E83.52 Hypercalcemia; J45.901 Unspecified asthma with (acute) exacerbation; J18.9 Pneumonia, unspecified organism; D64.9 Anemia, unspecified; M54.30 Sciatica, unspecified side; I25.10 Atherosclerotic heart disease of native coronary artery without angina pectoris; I27.20 Pulmonary hypertension, unspecified; F40.240 Claustrophobia; F41.8 Other specified anxiety disorders; I11.0 Hypertensive heart disease with heart failure; I50.9 Heart failure, unspecified; R06.03 Acute respiratory distress; T86.10 Unspecified complication of kidney transplant; I50.89 Other heart failure; Z90.5 Acquired absence of kidney
CPT/HCPCS: 36415; 71045-TC-FY; 71250-TC; 80048; 80053; 82803; 83735; 83880; 83970; 84100; 84484; 85025; 85027; 93005; 93010; 93306-TC; 94640; 94761; 99283-25; J1644

== ENCOUNTER 2019-06-11 07:45 | Emergency (ER) | payer OTHER ==
[2019-06-11 08:04] VITALS: BMI 31.7
[2019-06-11] MEDS ORDERED: SODIUM CHLORIDE 2,517 ML IV ONE (08:31)
[2019-06-11] MEDS ORDERED: ACETAMINOPHEN 1000 MG/100 ML VIAL (NON FORMULARY) IVPB ONE (08:40)
[2019-06-11] MEDS ORDERED: ACETAMINOPHEN INJECTION 100 ML IVPB ONE (08:46)
--- NOTE | 2019-06-11 08:50 | PDOC ---
History of Present Illness - General Chief Complaint: Respiratory Stated Complaint: FEVER,VOMITING,SOB Time Seen by Provider: 06/11/19 08:12 - History of Present Illness Initial Comments: 06/12/19 10:09 63F PMH HTN CAD CHF COPD ASTHMA c/o 2 days of productive cough (thick yellow sputum) and shortness of breath requiring more frequent neb tx and 1 day of epigastric pain, nausea, nbnb vomiting, frequent loose stool (x6 last pm), and midepigastric pain. Pain is dull constant nonradiating. PO intolerant. Endorses fevers and chills, oral temp measured at home at 101F. Denies blood in stool, dysuria, hematuria, frequency. Denies runny nose, sore throat. Endorses frequent PNA. Endorses prior . Pt s/p renal transplant on tacrolimus. PCN Allergy PCP Dr. Juan David Christiansen Denies tobacco, etoh, drugs Never intubated or admitted to ICU for asthma Past History - Past Medical History Allergies/Adverse Reactions: Allergies Allergy/AdvReac Type Severity Reaction Status Date / Time Penicillins Allergy Severe Difficulty Verified 02/24/19 08:34 Breathing ketorolac tromethamine Allergy Intermediate Verified 02/24/19 08:34 [From Toradol] hydromorphone HCl Allergy Nausea Verified 02/24/19 08:34 [From Dilaudid] plastic tape AdvReac Mild Hives Uncoded 02/24/19 08:34 Home Medications: Ambulatory Orders Aspirin [ASA -] 81 mg PO DAILY 04/21/18 Furosemide [Lasix -] 20 mg PO TID 04/21/18 Gabapentin [Neurontin -] 600 mg PO BID 04/21/18 LORazepam [Ativan] 1 mg PO DAILY PRN 04/21/18 Pantoprazole Sodium [Protonix -] 40 mg PO DAILY 04/21/18 Nifedipine ER [Procardia XL -] 30 mg PO DAILY #30 tab.er.24 11/04/18 Alendronate Sodium 10 mg PO DAILY 02/24/19 Hydralazine HCl 25 mg PO TID 02/24/19 Mycophenolate Sodium [Mycophenolic Acid] 720 mg PO BID 02/24/19 Naph,Mb-Db/K pH,Mbdb [PHOS-NaK PACKET -] 1 packet PO DAILY 02/24/19 Tacrolimus [Prograf] 2 mg PO BID 02/24/19 traZODone HCL [Trazodone HCl] 100 mg PO DAILY 02/24/19 Albuterol 0.083% Nebulizer Tari [Ventolin 0.083% Nebulizer Soln -] 1 amp NEB Q4H PRN #60 amp 03/09/19 Arformoterol Tartrate [Brovana -] 1 amp NEB RBID #60 amp 03/09/19 Cinacalcet HCl [Sensipar -] 30 mg PO DAILY tab 03/09/19 LORazepam [Ativan] 1 mg PO BID #60 tablet MDD 2 03/09/19 Montelukast Na [Singulair -] 10 mg PO HS #30 tablet 03/09/19 Tiotropium [place] [Spiriva Respimat] 2 puff IH DAILY #0 inhaler 03/09/19 traZODone HCL [Desyrel -] 100 mg PO HS tablet 03/09/19 Azithromycin [Zithromax 250mg Tablets -] 250 mg PO UTDICT #6 tab 06/11/19 Ondansetron [Zofran *Odt*] 4 mg SL TID PRN #9 od.tablet 06/11/19 Prednisone 5 mg PO DAILY 06/11/19 predniSONE [Deltasone -] 60 mg PO ASDIR #5 tab 06/11/19 Anemia: Yes Asthma: Yes Cancer: No Cardiac Disorders: Yes CVA: No COPD: Yes CHF: Yes Dementia: No Diabetes: No Dialysis: Yes (history, kidney transplabt 2017) GI Disorders: Yes Disorders: No HTN: Yes Hypercholesterolemia: No Liver Disease: No Seizures: No Thyroid Disease: No - Surgical History Abdominal Surgery: Yes (BILATERAL nephrectomy) Appendectomy: No Cardiac Surgery: No Cholecystectomy: No Lung Surgery: Yes (RIGHT LUNG NODULE REMOVAL) Neurologic Surgery: Yes (cervical renetta placement) Orthopedic Surgery: No - Immunization History Immunization Up to Date: Yes - Psycho Social/Smoking Cessation Hx Smoking Status: Yes Smoking History: Never smoked Years of Tobacco Use: 16 Have you smoked in the past 12 months: No Number of Cigarettes Smoked Daily: 60 If you are a former smoker, when did you quit?: 17YRS AGO Cigars Per Day: 0 Information on smoking cessation initiated: No Hx Alcohol Use: No Drug/Substance Use Hx: No Substance Use Type: None Hx Substance Use Treatment: No Review of Systems - Review of Systems Comments:: 06/12/19 10:09 CONSTITUTIONAL: Endorses F / C, malaise HEENT: Endorses chronic lightheadedness (not new, not acute). Denies sore throat , rhinorrhea RESP: Endorses SOB, cough CARD: Denies chest pain, palpitations GI: Endorses N/V, epigastric pain, loose stool, PO intolerance. Denies bloody stool. : Denies dysuria, hematuria, frequency SKIN: Denies rashes NEURO: Denies numbness, tingling, weakness MSK: Denies back pain *Physical Exam - Vital Signs Last Vital Signs Temp Pulse Resp BP Pulse Ox 102.2 F H 113 H 16 144/85 96 06/11/19 07:55 06/11/19 07:55 06/11/19 07:55 06/11/19 07:55 06/11/19 07:55 - Physical Exam 06/12/19 10:09 GEN: Mild discomfort. AAOx3 HEENT: NC/AT. No facial asymmetry. Normal voice. Supple neck w/ FROM. CV: S1/S2, RRR, no m/r/g LUNG: Coarse breath sounds diffusely; expiratory wheezes. Normal respiratory effort. GI: +TTP of the epigastrium; mild TTP of the LLQ and suprapubic area. soft, nd, +BS, no guarding, no rebound. No masses EXTREMITIES: 1+ pitting edema b/l. No obvious deformities of all extremities. SKIN: warm, dry, normal turgor PSYCH: normal mood and affect NEURO: Moving all extremities well. ED Treatment Course - LABORATORY CBC & Chemistry Diagram: 06/11/19 08:30 06/11/19 08:30 - RADIOLOGY Radiology Studies Ordered: Category Date Time Status CHEST X-RAY PORTABLE* [RAD] Stat Radiology 06/11/19 08:31 Ordered Medical Decision Making - Medical Decision Making 06/11/19 08:25 63F PMH CHF COPD Asthma and s/p renal transplant c/o fevers, chills, malaise, productive cough, and n/v/epigastric pain. Concern for sepsis 2/2 PNA, UTI; possible diverticulitis, biliary process, pancreatitis, pud, gastritis. Consider ACS. - Sepsis labs - Rectal temp - EKG - CXR 12/24/19 08:53 Rectal T 102F 06/11/19 09:25 EKG 06/11/19 HR 109 WY 140 QRS 90 QTc 414 Sinus Tach zofran for nausea pepcid maalox if no longer nauseated s/p zofran 06/11/19 11:25 labs unremarkable pending flu 06/11/19 13:22 flu neg likely viral possible COPD exacerbation Transplant Dr. Ashlee Cowan 06/11/19 13:40 d/w Dr. Cowan - pt is very compliant; no difference in management of respiratory pathology in renal transplant; can send home on abx w/ change to myfortic to 1tab BID rather than 2; f/u in office in a week s/p duonebs SaO2 in mid-high 90s on room air DC home as above Discharge - Discharge Information Problems reviewed: Yes Clinical Impression/Diagnosis: Viral illness Nausea & vomiting Qualifiers: Vomiting type: unspecified Vomiting Intractability: non-intractable Qualified Code(s): R11.2 - Nausea with vomiting, unspecified Condition: Stable Disposition: HOME - Admission No - Additional Discharge Information Prescriptions: Azithromycin [Zithromax 250mg Tablets -] 250 mg PO UTDICT #6 tab Ondansetron [Zofran *Odt*] 4 mg SL TID PRN #9 od.tablet PRN Reason: Nausea predniSONE [Deltasone -] 60 mg PO ASDIR #5 tab - Follow up/Referral Referrals: Juan David Christiansen MD [Primary Care Provider] - - Patient Discharge Instructions Additional Instructions: Take tylenol for fever and pain; follow the label for dosage We sent a prescription for nausea to [facility] on [facility]; please pick it up and take as prescribed. We sent an antibiotic and steroids to your pharmacy above; please pick it up and take as prescribed. Continue your home medications as prescribed. Continue your nebulizer treatments for breathing as needed Dr. Cowan would like you to change your dose of Myfortic from 2 tabs to 1 tab twice a day. Follow up with Dr. Cowan in 5 days regarding this Emergency visit. Follow up with your Primary Care Doctor in the next 3 days regarding your symptoms. Immediately return to the Emergency Department if your symptoms worsening, do not improve in the next 3-4 days, or you develop new/concerning symptoms. - Post Discharge Activity
[2019-06-11 09:01] LABS: BASO % 0.4 % (0-2.0); EOS % 0.4 % (0-4.5); HEMATOCRIT 38.7 % (32.4-45.2); HEMOGLOBIN 12.5 GM/dL (10.7-15.3); LYMPH % 3.4 % (8-40); MCH 30.5 pg (25.7-33.7); MCHC 32.3 g/dl (32.0-36.0); MEAN CELL VOLUME 94.4 fl (80-96); MEAN PLT VOLUME 9.7 fl (7.5-11.1); MONO % 7.7 % (3.8-10.2); NEUT % 88.1 % (42.8-82.8); PLATELET COUNT 114 K/MM3 (134-434); RDW 15.8 % (11.6-15.6)
[2019-06-11] MEDS ORDERED: SODIUM CHLORIDE 0.9% 500 ML INFUS.BAG IV ONE (09:03)
[2019-06-11 09:14] LABS: INR 0.99 (0.83-1.09); PROTHROMBIN TIME (PATIENT) 11.7 SEC (9.7-13.0)
[2019-06-11 09:17] LABS: ACTIVATED PTT 27.7 SECONDS (25.2-36.5)
[2019-06-11] MEDS ORDERED: FAMOTIDINE 20 MG/50 ML IVPB 20 MG/50 ML MG IVPB ONE ×2 (09:24→10:16)
[2019-06-11] MEDS ORDERED: ONDANSETRON 4 MG/2 ML VIAL IVPUSH ONE (09:24)
[2019-06-11 09:45] LABS: ALBUMIN 3.8 g/dl (3.4-5.0); ALK PHOS 119 U/L (45-117); ANION GAP 6 MMOL/L (8-16); BILIRUBIN,TOTAL 0.4 mg/dL (0.2-1); BLOOD UREA NITROGEN 12.7 mg/dL (7-18); CALCIUM 10.2 mg/dL (8.5-10.1); CHLORIDE 107 mmol/L (98-107); CO2 28 mmol/L (21-32); GLUCOSE,RANDOM 102 mg/dL (74-106); POTASSIUM 3.7 mmol/L (3.5-5.1); SGOT/AST 16 U/L (15-37); SGPT/ALT 29 U/L (13-61); SODIUM 141 mmol/L (136-145); TOT PROT 5.9 g/dl (6.4-8.2)
[2019-06-11 09:56] LABS: VENOUS PC02 40.6 mmHg (38-52); VENOUS PH 7.39 (7.31-7.41)
[2019-06-11 10:01] LABS: VENOUS PO2 63.9 mmHg (28-48)
[2019-06-11] MEDS ORDERED: ONDANSETRON 4 MG/2 ML VIAL ONE (10:16)
[2019-06-11 10:51] LABS: PH,URINE 7.5 (5.0-8.0); URINE APPEARANCE CLEAR; URINE BILIRUBIN NEGATIVE (NEGATIVE); URINE COLOR YELLOW; URINE GLUCOSE (UA) NEGATIVE (NEGATIVE); URINE KETONE NEGATIVE (NEGATIVE); URINE LEUK ESTERASE NEGATIVE (NEGATIVE); URINE NITRITE NEGATIVE (NEGATIVE); URINE PROTEIN NEGATIVE (NEGATIVE); URINE UROBILINOGEN 0.2 mg/dL (0.2-1.0)
--- NOTE | 2019-06-11 12:21 | PDOC ---
Attending Attestation - Resident Resident Name: Arturo Garcia - ED Attending Attestation I have performed the following: I have examined & evaluated the patient, The case was reviewed & discussed with the resident, I agree w/resident's findings & plan - HPI HPI: 06/11/19 12:37 63-year-old female history of hypertension, high cholesterol, h/o kidney tx 21 months ago, presents with 1 day complaint of fever with nasal congestion and cough/URI symptoms followed by intermittent abdominal cramping with vomiting and diarrhea. No recent travel or antibiotics, presents for evaluation. No chest pain - Physicial Exam PE: 06/11/19 12:40 Fever, tachycardia, O2 sat within normal limits Alert, generally well-appearing and speaking full sentences Heart is regular slight tachycardia Lungs are symmetric, diffuse expiratory wheezing without focally decreased breath sounds or prolonged expiration Abdomen benign, no tenderness to transplanted kidney Trace edema bilaterally - Medical Decision Making 06/11/19 12:46 63-year-old female renal transplant patient, COPD, hypertension presents with URI symptoms/fever/nausea/vomiting that all began last 24 hours, generally well- appearing otherwise without acute respiratory distress but some COPD exacerbation. Presentation seems most consistent with viral etiology, influenza is suspicious. Rule out pneumonia, no localizing peritoneal findings. Sepsis protocol initiated Antipyretics, IV fluids Nebulizers, IV steroids Reassess Labs are reassuring, no leukocytosis, normal lactate, negative urinalysis, influenza negative, chest x-ray clear. Patient's vitals/tachycardia improved after defervesced, received IV fluids, maintaining oxygen saturation on room air. We will discussed disposition with patient's renal transplant team at [facility]. Heart Score/ECG Review #1 ECG reviewed & interpreted by me at: 08:45 General ECG Interpretation: Sinus Rhythm, Normal Rate (109), Normal Intervals ( qtc 414), No acute ischemic changes
[2019-06-11] MEDS ORDERED: methylPREDNISolone NA SUCC 125 MG/2 ML VIAL IVPB ONE (12:44)
[2019-06-11] MEDS ORDERED: methylPREDNISolone NA SUCC 125 MG/2 ML VIAL ONE (13:19)
[2019-06-11 14:44] VITALS: BP 124/68; PULSE 92; TEMP 98.8
--- NOTE | 2019-06-11 15:46 | EKG ---
Test Reason : Blood Pressure : / mmHG Vent. Rate : 109 BPM Atrial Rate : 109 BPM P-R Int : 140 ms QRS Dur : 090 ms QT Int : 308 ms P-R-T Axes : 051 044 059 degrees QTc Int : 414 ms POOR DATA QUALITY, INTERPRETATION MAY BE ADVERSELY AFFECTED SINUS TACHYCARDIA OTHERWISE NORMAL ECG WHEN COMPARED WITH ECG OF 24-FEB-2019 09:09, PREMATURE SUPRAVENTRICULAR COMPLEXES ARE NO LONGER PRESENT Confirmed by MD Ulises, Kavon ([id number]) on 06/11/2019 3:46:19 PM Referred By: Confirmed By:Kavon Montgomery MD
== END 2019-06-11 15:15 | disposition home or self-care (01) ==
LOC: JER 07:45
PROC: 3E033GC Introduction of Other Therapeutic Substance into Peripheral Vein, Percutaneous Approach (ICD-10-PCS; principal; 2019-06-11)
PROC: 3E0333Z Introduction of Anti-inflammatory into Peripheral Vein, Percutaneous Approach (ICD-10-PCS; 2019-06-11)
PROC: 3E033NZ Introduction of Analgesics, Hypnotics, Sedatives into Peripheral Vein, Percutaneous Approach (ICD-10-PCS; 2019-06-11)
PROC: 3E033GC Introduction of Other Therapeutic Substance into Peripheral Vein, Percutaneous Approach (ICD-10-PCS; 2019-06-11)
DX: B34.9 Viral infection, unspecified (principal); R10.13 Epigastric pain; I25.10 Atherosclerotic heart disease of native coronary artery without angina pectoris; I11.0 Hypertensive heart disease with heart failure; I50.9 Heart failure, unspecified; J44.9 Chronic obstructive pulmonary disease, unspecified; J45.998 Other asthma; D64.9 Anemia, unspecified; Z90.5 Acquired absence of kidney; Z94.0 Kidney transplant status; Z88.0 Allergy status to penicillin; Z88.5 Allergy status to narcotic agent; Z91.048 Other nonmedicinal substance allergy status
CPT/HCPCS: 36415; 71045-TC-FY; 80053; 81003; 82550; 82803; 83605; 84484; 85025; 85610; 85730; 87040; 87086; 87186; 87804; 93005; 93010; 99284-25; J0131

== ENCOUNTER 2020-05-15 18:45 | Emergency (ER) | payer OTHER ==
[2020-05-15 18:49] VITALS: BMI 30.1
[2020-05-15] MEDS ORDERED: ACETAMINOPHEN 1000 MG/100 ML VIAL (NON FORMULARY) IVPB ONE (19:35)
[2020-05-15] MEDS ORDERED: ACETAMINOPHEN INJECTION 100 ML IVPB ONE (20:08)
[2020-05-15 20:29] LABS: BASO % 0.8 % (0-2.0); EOS % 0.1 % (0-4.5); HEMATOCRIT 45.2 % (32.4-45.2); HEMOGLOBIN 14.5 GM/dL (10.7-15.3); LYMPH % 1.8 % (8-40); MCH 28.9 pg (25.7-33.7); MCHC 32.2 g/dl (32.0-36.0); MEAN CELL VOLUME 89.8 fl (80-96); MEAN PLT VOLUME 8.6 fl (7.5-11.1); MONO % 4.5 % (3.8-10.2); NEUT % 92.8 % (42.8-82.8); PLATELET COUNT 117 K/MM3 (134-434); RBC 5.04 M/mm3 (3.60-5.2); RDW 14.9 % (11.6-15.6); VENOUS BASE EXCESS -0.4 mmol/L (-2-2); VENOUS O2 SATURATION 53.6 % (70-80); VENOUS PH 7.38 (7.310-7.410)
[2020-05-15 20:37] LABS: INR 1.07 (0.83-1.09); PROTHROMBIN TIME (PATIENT) 13.1 SEC (9.7-13.0)
[2020-05-15 20:40] LABS: ACTIVATED PTT 23.7 SECONDS (25.2-36.5)
[2020-05-15 20:47] LABS: POTASSIUM 3.6 mmol/L (3.5-5.1)
[2020-05-15 20:49] LABS: BLOOD UREA NITROGEN 14.5 mg/dL (7-18); CALCIUM 8.9 mg/dL (8.5-10.1)
[2020-05-15 20:50] LABS: EPI CELLS 3 /uL (0-25.1); HYALINE CASTS 0 /uL (0-3.1); PH,URINE 6.5 (5.0-8.0); URINE APPEARANCE CLOUDY; URINE BACTERIA >9,000 /uL (0-1359); URINE BILIRUBIN NEGATIVE (NEGATIVE); URINE COLOR YELLOW; URINE GLUCOSE (UA) NEGATIVE (NEGATIVE); URINE KETONE NEGATIVE (NEGATIVE); URINE LEUK ESTERASE 3+ (NEGATIVE); URINE NITRITE POSITIVE (NEGATIVE); URINE PROTEIN 1+ (NEGATIVE); URINE RBC 32 /uL (0-23.9); URINE WBC 1557 /uL (0-25.8)
[2020-05-15 20:52] LABS: CREATININE 0.8 mg/dL (0.55-1.3)
[2020-05-15 20:54] LABS: BILIRUBIN,TOTAL 0.7 mg/dL (0.2-1)
[2020-05-15] MEDS ORDERED: VANCOMYCIN 1 GM in D5W (PRE-DOCKED) 1,000 MG/250 ML IVPB ONE (21:28)
[2020-05-15] MEDS ORDERED: VANCOMYCIN 1 GRAM (PRE-DOCKED) 1,000 MG/250 ML BAG IVPB ONE (21:34)
[2020-05-15 22:48] LABS: PLATELET ESTIMATE DECREASED; TEAR DROP CELLS 1+
[2020-05-16 02:55] VITALS: BP 115/60; TEMP 98
[2020-05-16 04:19] VITALS: PULSE 84
== END 2020-05-16 04:00 | disposition short-term general hospital (02) ==
LOC: JER 18:45
PROC: 3E0333Z Introduction of Anti-inflammatory into Peripheral Vein, Percutaneous Approach (ICD-10-PCS; principal; 2020-05-15)
PROC: 3E03329 Introduction of Other Anti-infective into Peripheral Vein, Percutaneous Approach (ICD-10-PCS; 2020-05-15)
PROC: 3E03329 Introduction of Other Anti-infective into Peripheral Vein, Percutaneous Approach (ICD-10-PCS; 2020-05-15)
DX: N39.0 Urinary tract infection, site not specified (principal); R50.9 Fever, unspecified
CPT/HCPCS: 36415; 71045-TC-FY; 80053; 81003; 82803; 83605; 84484; 85025; 85610; 85730; 87040; 87086; 87186; 93005; 93010; 99285-25; J0131

== ENCOUNTER 2020-08-12 04:55 | Day surgery (SDC) | payer OTHER ==
[~2020-08-12 04:55] MED LIST: ACETAMINOPHEN 325 MG TABLET (FP) PO PRN; CYCLOPENTOLATE HCL 1% OPHTH SOLN 2 ML BOTTLE OP SCH; KETOROLAC TROMETHAMINE 0.5% EYE DROP 1 DROP DROPS OP SCH; OFLOXACIN 0.3% OPHTHALMIC SOLUTION 5 ML BOTTLE OP SCH; PHENYLEPHRINE 2.5% OPHTH SOLN 15 ML BOTTLE OP SCH; TROPICAMIDE 1% OPHTH SOLN 15 ML BOTTLE OP SCH
[2020-08-12] MEDS ORDERED: POVIDONE-IODINE 5% OPHTHALMIC PREP 30 ML SOLUTION ONE (07:24)
[2020-08-12] MEDS ORDERED: TETRACAINE 0.5% OPHTH SOLN 2 ML BOTTLE ONE (07:24)
[2020-08-12] MEDS ORDERED: LIDOCAINE HCL/PF 1% SDV 5ML VIAL ONE (07:25)
[2020-08-12] MEDS ORDERED: BSS (NA/CA/MG/K) BALANCED SALT SOLUTION OPHTH SOLN 15 ML BOTTLE ONE (07:26)
[2020-08-12] MEDS ORDERED: EPINEPHrine/PF 1 MG/1 ML (1:1,000) AMPULE ONE (07:26)
[2020-08-12] MEDS ORDERED: CHONDROITIN SU A/HYALUR SOD 1 KIT ONE (07:26)
[2020-08-12] MEDS ORDERED: LIDOCAINE HCL/PF 2% SDV 5ML VIAL ONE (07:35)
[2020-08-12] MEDS ORDERED: KETOROLAC TROMETHAMINE 0.5% EYE DROP 1 DROP DROPS ONE (08:24)
[2020-08-12] MEDS ORDERED: PHENYLEPHRINE 2.5% OPTHALMIC DROP BOTTLE ONE (08:24)
[2020-08-12] MEDS ORDERED: TROPICAMIDE 1% OPHTH SOLN 15 ML BOTTLE ONE (08:24)
[2020-08-12] MEDS ORDERED: OFLOXACIN 0.3% OPHTHALMIC SOLUTION 5 ML BOTTLE ONE (08:24)
[2020-08-12] MEDS ORDERED: CYCLOPENTOLATE HCL 1% OPHTH SOLN 2 ML BOTTLE ONE (08:24)
[2020-08-12 09:45] VITALS: BMI 30.2
[2020-08-12] MEDS ORDERED: MIDAZOLAM HCL 2 MG/2 ML SINGLE DOSE VIAL ONE (10:52)
[2020-08-12] MEDS ORDERED: PROPOFOL 20 ML ONE ×2 (10:56)
[2020-08-12] MEDS ORDERED: BUPIVACAINE HCL/PF 0.75% 10 ML VIAL RB ONE (11:01)
[2020-08-12] MEDS ORDERED: LIDOCAINE HCL/PF 2% SDV 5ML VIAL INF ONE (11:01)
[2020-08-12] MEDS ORDERED: POVIDONE-IODINE 5% OPHTHALMIC PREP 30 ML SOLUTION OS ONE (11:08)
[2020-08-12] MEDS ORDERED: BSS (NA/CA/MG/K) BALANCED SALT SOLUTION OPHTH SOLN 15 ML BOTTLE OS ONE (11:09)
[2020-08-12] MEDS ORDERED: LIDOCAINE HCL 1% PRESERVATIVE FREE - 30ML VIAL IO ONE (11:11)
[2020-08-12] MEDS ORDERED: CHONDROITIN SU A/HYALUR SOD 1 KIT IO ONE (11:11)
[2020-08-12] MEDS ORDERED: TRYPAN BLUE 0.5 ML DISP.SYRIN IO ONE (11:11)
[2020-08-12] MEDS ORDERED: EPINEPHrine/PF 1 MG/1 ML (1:1,000) AMPULE SQ ONE (11:16)
[2020-08-12 11:50] VITALS: TEMP 96.2
[2020-08-12 15:09] VITALS: BP 159/79; PULSE 82
== END 2020-08-12 12:40 | disposition home or self-care (01) ==
LOC: JASU-SURG 04:55
PROVIDERS: ATTEND Ophthalmology
PROC: 08RK3JZ Replacement of Left Lens with Synthetic Substitute, Percutaneous Approach (ICD-10-PCS; principal; 2020-08-12 10:00)
DX: H26.9 Unspecified cataract (principal); H57.89 Other specified disorders of eye and adnexa
CPT/HCPCS: 36415; 84132

== ENCOUNTER 2020-08-26 04:31 | Day surgery (SDC) | payer OTHER ==
[2020-08-20 17:27] VITALS: BMI 30.2
[2020-08-26] MEDS ORDERED: KETOROLAC TROMETHAMINE 0.5% EYE DROP 1 DROP DROPS ONE (05:51)
[2020-08-26] MEDS ORDERED: TROPICAMIDE 1% OPHTH SOLN 15 ML BOTTLE ONE (05:51)
[2020-08-26] MEDS ORDERED: OFLOXACIN 0.3% OPHTHALMIC SOLUTION 5 ML BOTTLE ONE (05:51)
[2020-08-26] MEDS ORDERED: PHENYLEPHRINE 2.5% OPTHALMIC DROP BOTTLE ONE (05:51)
[2020-08-26] MEDS ORDERED: CYCLOPENTOLATE HCL 1% OPHTH SOLN 2 ML BOTTLE ONE (05:51)
[2020-08-26] MEDS ORDERED: CYCLOPENTOLATE HCL 1% OPHTH SOLN 2 ML BOTTLE OD ONE ×3 (06:30→07:00)
[2020-08-26] MEDS ORDERED: KETOROLAC TROMETHAMINE 0.5% EYE DROP 1 DROP DROPS OD ONE ×3 (06:30→07:00)
[2020-08-26] MEDS ORDERED: TROPICAMIDE 1% OPHTH SOLN 15 ML BOTTLE OD ONE ×3 (06:30→07:00)
[2020-08-26] MEDS ORDERED: PHENYLEPHRINE 2.5% OPHTH SOLN 15 ML BOTTLE OD ONE ×3 (06:30→07:00)
[2020-08-26] MEDS ORDERED: OFLOXACIN 0.3% OPHTHALMIC SOLUTION 5 ML BOTTLE OD ONE ×3 (06:30→07:00)
[2020-08-26] MEDS ORDERED: LIDOCAINE HCL/PF 1% SDV 5ML VIAL ONE (07:12)
[2020-08-26] MEDS ORDERED: POVIDONE-IODINE 5% OPHTHALMIC PREP 30 ML SOLUTION ONE (07:12)
[2020-08-26] MEDS ORDERED: BUPIVACAINE HCL/PF 0.75% 10 ML VIAL ONE (07:13)
[2020-08-26] MEDS ORDERED: BSS (NA/CA/MG/K) BALANCED SALT SOLUTION OPHTH SOLN 15 ML BOTTLE ONE (07:13)
[2020-08-26] MEDS ORDERED: TETRACAINE 0.5% OPHTH SOLN 2 ML BOTTLE ONE (07:14)
[2020-08-26] MEDS ORDERED: CHONDROITIN SU A/HYALUR SOD 1 KIT ONE (07:14)
[2020-08-26] MEDS ORDERED: VANCOMYCIN 500 MG VIAL (RESTRICTED TO ID ONLY) ONE (07:26)
[2020-08-26] MEDS ORDERED: EPINEPHrine/PF 1 MG/1 ML (1:1,000) AMPULE ONE (07:26)
[2020-08-26] MEDS ORDERED: LIDOCAINE HCL/PF 2% SDV 5ML VIAL ONE (07:27)
[2020-08-26] MEDS ORDERED: PROPOFOL 20 ML ONE (07:52)
[2020-08-26] MEDS ORDERED: MIDAZOLAM HCL 2 MG/2 ML SINGLE DOSE VIAL ONE (07:52)
[2020-08-26] MEDS ORDERED: BUPIVACAINE HCL/PF 0.75% 10 ML VIAL NR ONE (08:05)
[2020-08-26] MEDS ORDERED: LIDOCAINE HCL/PF 2% SDV 5ML VIAL INF ONE (08:05)
[2020-08-26] MEDS ORDERED: POVIDONE-IODINE 5% OPHTHALMIC PREP 30 ML SOLUTION OD ONE (08:08)
[2020-08-26] MEDS ORDERED: BSS (NA/CA/MG/K) BALANCED SALT SOLUTION OPHTH SOLN 15 ML BOTTLE OD ONE (08:15)
[2020-08-26] MEDS ORDERED: CHONDROITIN SU A/HYALUR SOD 1 KIT IO ONE (08:17)
[2020-08-26] MEDS ORDERED: LIDOCAINE HCL 1% PRESERVATIVE FREE - 30ML VIAL IO ONE (08:17)
[2020-08-26] MEDS ORDERED: EPINEPHrine/PF 1 MG/1 ML (1:1,000) AMPULE SQ ONE (08:23)
[2020-08-26 10:00] VITALS: TEMP 98
[2020-08-26 10:02] VITALS: BP 130/70; PULSE 66
== END 2020-08-26 09:35 | disposition home or self-care (01) ==
LOC: JASU-SURG 04:31
PROVIDERS: ATTEND Ophthalmology
PROC: 08RJ3JZ Replacement of Right Lens with Synthetic Substitute, Percutaneous Approach (ICD-10-PCS; principal; 2020-08-26 08:00)
DX: H26.9 Unspecified cataract (principal)

== ENCOUNTER 2020-09-06 22:50 | Emergency (ER) | payer OTHER ==
[2020-09-06 22:59] VITALS: TEMP 97.7; BMI 29.9
[2020-09-07 01:12] LABS: BASO % 1.1 % (0-2.0); EOS % 2.1 % (0-4.5); HEMATOCRIT 40.5 % (32.4-45.2); HEMOGLOBIN 13.5 GM/dL (10.7-15.3); LYMPH % 23.7 % (8-40); MCH 29.7 pg (25.7-33.7); MCHC 33.2 g/dl (32.0-36.0); MEAN CELL VOLUME 89.5 fl (80-96); MONO % 8.1 % (3.8-10.2); PLATELET COUNT 148 K/MM3 (134-434); RBC 4.53 M/mm3 (3.60-5.2); WHITE BLOOD COUNT 7.3 K/mm3 (4.0-10.0)
[2020-09-07 01:27] LABS: CHLORIDE 110 mmol/L (98-107); POTASSIUM 3.9 mmol/L (3.5-5.1); SODIUM 143 mmol/L (136-145)
[2020-09-07 01:29] LABS: CALCIUM 9.6 mg/dL (8.5-10.1)
[2020-09-07 01:31] LABS: ALBUMIN 3.7 g/dl (3.4-5.0); ANION GAP 5 MMOL/L (8-16); BLOOD UREA NITROGEN 16.2 mg/dL (7-18); CO2 27 mmol/L (21-32); GLUCOSE,RANDOM 118 mg/dL (74-106); MAGNESIUM 1.4 mg/dL (1.8-2.4)
[2020-09-07 01:34] LABS: BILIRUBIN,TOTAL 0.6 mg/dL (0.2-1); SGOT/AST 14 U/L (15-37); SGPT/ALT 16 U/L (13-61); TOT PROT 6.3 g/dl (6.4-8.2)
[2020-09-07 01:36] LABS: ALK PHOS 145 U/L (45-117)
[2020-09-07 01:39] LABS: N-TERMINAL BNP 322.3 pg/ml (5-125)
[2020-09-07] MEDS ORDERED: hydrALAZINE HCL 25 MG TABLET (FP) PO ONE (02:40)
[2020-09-07] MEDS ORDERED: hydrALAZINE HCL 25 MG TABLET (FP) ONE (02:57)
[2020-09-07 03:08] VITALS: BP 155/68; PULSE 77
== END 2020-09-07 03:08 | disposition home or self-care (01) ==
LOC: JER 22:50
DX: R06.02 Shortness of breath (principal); R03.0 Elevated blood-pressure reading, without diagnosis of hypertension
CPT/HCPCS: 36415; 71045-TC-FY; 80053; 82550; 83735; 83880; 84484; 85025; 93005; 93010; 99285-25

== ENCOUNTER 2020-09-16 04:32 | Day surgery (SDC) | payer OTHER ==
[2020-09-14 11:19] VITALS: BMI 29.9
[2020-09-16] MEDS ORDERED: HEPARIN NA (PORCINE) 5,000 UNITS/ML 1ML VIAL ONE (07:25)
[2020-09-16] MEDS ORDERED: LIDOCAINE HCL 1%, 10 MG/ML (20ML VIAL) ONE (07:26)
[2020-09-16] MEDS ORDERED: ceFAZolin SODIUM 1 GM VIAL ONE (08:09)
[2020-09-16] MEDS ORDERED: LIDOCAINE HCL/PF 2% SDV 5ML VIAL ONE ×2 (08:09→08:21)
[2020-09-16] MEDS ORDERED: ceFAZolin SODIUM 1 GM VIAL IVPB ONE (08:16)
[2020-09-16] MEDS ORDERED: LIDOCAINE HCL 1%, 10 MG/ML (20ML VIAL) NR ONE (08:17)
[2020-09-16] MEDS ORDERED: EPHEDRINE SULFATE/0.9% NACL/PF 50 MG/10 ML SYRINGE NR ONE (08:20)
[2020-09-16] MEDS ORDERED: SUCCINYLCHOLINE CHLORIDE 200 MG/10 ML SYRINGE ONE (08:20)
[2020-09-16] MEDS ORDERED: PROPOFOL 20 ML ONE ×2 (08:21)
[2020-09-16] MEDS ORDERED: ACETAMINOPHEN 325 MG TABLET (FP) PO PRN (08:36)
[2020-09-16 09:16] VITALS: TEMP 97.1
[2020-09-16 09:52] VITALS: BP 130/70; PULSE 80
== END 2020-09-16 09:30 | disposition home or self-care (01) ==
LOC: JASU-SURG 04:32
PROVIDERS: ATTEND Surgery
PROC: 03LY0ZZ Occlusion of Upper Artery, Open Approach (ICD-10-PCS; principal; 2020-09-16 08:00)
DX: M79.602 Pain in left arm (principal); I12.9 Hypertensive chronic kidney disease with stage 1 through stage 4 chronic kidney disease, or unspecified chronic kidney disease; N18.9 Chronic kidney disease, unspecified; Z94.0 Kidney transplant status
CPT/HCPCS: J1644

== ENCOUNTER 2020-12-31 11:07 | Emergency (ER) | payer OTHER ==
[2020-12-31 11:20] VITALS: BP 116/66; PULSE 95; TEMP 98.8; BMI 28.6
== END 2020-12-31 14:27 | disposition home or self-care (01) ==
LOC: JER 11:07 → JERFT 11:07
DX: D17.79 Benign lipomatous neoplasm of other sites (principal)
CPT/HCPCS: 70490-TC; 99284-25

== ENCOUNTER 2021-01-22 04:51 | Day surgery (SDC) | payer OTHER ==
[2021-01-20 14:42] VITALS: BMI 27.9
[2021-01-22] MEDS ORDERED: LIDOCAINE HCL 1% EPINEPHRINE 1:200,000 30 ML VIAL (PF) ONE (09:57)
[2021-01-22] MEDS ORDERED: LIDOCAINE 1%/EPI 1:100000 (50 ML MULTI DOSE VIAL) ONE (09:57)
[2021-01-22] MEDS ORDERED: MIDAZOLAM HCL 2 MG/2 ML SINGLE DOSE VIAL ONE (10:39)
[2021-01-22] MEDS ORDERED: CLINDAMYCIN 900 MG PREMIX BAG IVPB ONE (10:55)
[2021-01-22] MEDS ORDERED: ONDANSETRON 4 MG/2 ML VIAL IVPUSH PRN (12:08)
[2021-01-22] MEDS ORDERED: oxyCODONE HCL 5 MG TABLET PO PRN (12:08)
[2021-01-22 13:41] VITALS: BP 107/60; PULSE 76; TEMP 97.6
== END 2021-01-22 13:45 | disposition home or self-care (01) ==
LOC: JASU-SURG 04:51
PROVIDERS: ATTEND Surgery
PROC: 0JBF0ZZ Excision of Left Upper Arm Subcutaneous Tissue and Fascia, Open Approach (ICD-10-PCS; principal; 2021-01-22 10:00)
DX: D36.7 Benign neoplasm of other specified sites (principal)
CPT/HCPCS: 88307-TC; 94760

== ENCOUNTER 2021-03-09 13:37 | Inpatient (IN) | payer OTHER ==
[2021-03-09 18:47] LABS: BASO % 0.4 % (0-2.0); EOS % 2.3 % (0-4.5); HEMOGLOBIN 13.7 GM/dL (10.7-15.3); LYMPH % 25.7 % (8-40); MCH 28.8 pg (25.7-33.7); MCHC 33.5 g/dl (32.0-36.0); MEAN CELL VOLUME 86.1 fl (80-96); MEAN PLT VOLUME 9.7 fl (7.5-11.1); MONO % 6.2 % (3.8-10.2); NEUT % 65.4 % (42.8-82.8); PLATELET COUNT 172 10^3/uL (134-434); RBC 4.77 M/mm3 (3.60-5.2); RDW 14.6 % (11.6-15.6); WHITE BLOOD COUNT 10.3 K/mm3 (4.0-10.0)
[2021-03-09 18:50] LABS: EPI CELLS 4 /uL (0-25.1); HYALINE CASTS 0 /uL (0-3.1); URINE APPEARANCE CLOUDY; URINE BACTERIA 228 /uL (0-1359); URINE BILIRUBIN NEGATIVE (NEGATIVE); URINE COLOR YELLOW; URINE GLUCOSE (UA) NEGATIVE (NEGATIVE); URINE KETONE NEGATIVE (NEGATIVE); URINE LEUK ESTERASE 3+ (NEGATIVE); URINE NITRITE NEGATIVE (NEGATIVE); URINE PROTEIN NEGATIVE (NEGATIVE); URINE RBC 5 /uL (0-23.9); URINE UROBILINOGEN 0.2 mg/dL (0.2-1.0); URINE WBC 1466 /uL (0-25.8)
[2021-03-09 18:53] LABS: INR 0.93 (0.83-1.09); PROTHROMBIN TIME (PATIENT) 11.4 SEC (9.7-13.0)
[2021-03-09 18:56] LABS: ACTIVATED PTT 19.6 SECONDS (25.2-36.5)
[2021-03-09 19:10] LABS: ALBUMIN 3.9 g/dl (3.4-5.0); BLOOD UREA NITROGEN 16.5 mg/dL (7-18); CALCIUM 9.4 mg/dL (8.5-10.1)
[2021-03-09 19:14] LABS: CREATININE 0.9 mg/dL (0.55-1.3)
[2021-03-09 19:15] LABS: BILIRUBIN,TOTAL 0.9 mg/dL (0.2-1)
[2021-03-09] MEDS ORDERED: GABAPENTIN 300 MG CAPSULE PO ONE (20:11)
[2021-03-09] MEDS ORDERED: NITROFURANTOIN MACROCRYSTAL 50 MG CAPSULE (FP) PO ONE (21:00)
[2021-03-09] MEDS ORDERED: NITROFURANTOIN MACROCRYSTAL 50 MG CAPSULE (FP) PO SCH (21:00)
[2021-03-09] MEDS ORDERED: ACETAMINOPHEN 1000 MG/100 ML VIAL (NON FORMULARY) IVPB ONE (21:07)
[2021-03-09] MEDS ORDERED: NITROFURANTOIN MACROCRYSTAL 50 MG CAPSULE (FP) ONE (21:11)
[2021-03-09] MEDS ORDERED: ACETAMINOPHEN INJECTION 100 ML IVPB ONE (21:12)
[2021-03-09 23:55] LABS: URINE CRYSTALS NONE SEEN /hpf
[2021-03-10] MEDS ORDERED: KETOROLAC TROMETHAMINE 30 MG/1 ML VIAL IVPUSH ONE ×2 (05:14→05:19)
[2021-03-10] MEDS ORDERED: KETOROLAC TROMETHAMINE 15 MG/ML VIAL ONE (05:18)
[2021-03-10] MEDS ORDERED: FAMOTIDINE 20 MG TABLET ONE (10:21)
[2021-03-10] MEDS ORDERED: FUROSEMIDE 40 MG TABLET (FP) ONE (10:21)
[2021-03-10] MEDS ORDERED: DOCUSATE SODIUM 100 MG CAPSULE (FP) PO ONE (10:22)
[2021-03-10] MEDS ORDERED: HEPARIN NA (PORCINE) 5,000 UNITS/ML 1ML VIAL ONE (10:22)
[2021-03-10] MEDS ORDERED: NIFEdipine E.R. 30 MG TABLET ONE (10:22)
[2021-03-10] MEDS ORDERED: metoPROLOL SUCCINATE 25 MG TAB.SR.24H (FP) ONE (10:22)
[2021-03-10] MEDS ORDERED: ACETAMINOPHEN 325 MG TABLET (FP) ONE (10:23)
[2021-03-10] MEDS ORDERED: PT OWN MED DRAWER 7, Y5N ONE (10:24)
[2021-03-10] MEDS: FUROSEMIDE 20 MG TABLET (FP) PO SCH (10:49)
[2021-03-10] MEDS: NIFEdipine E.R. 30 MG TABLET PO SCH (10:49)
[2021-03-10] MEDS: SERTRALINE HCL 50 MG TABLET (FP) PO SCH (10:49)
[2021-03-10] MEDS: metoPROLOL SUCCINATE 25 MG TAB.SR.24H (FP) PO SCH (10:49)
[2021-03-10] MEDS: FAMOTIDINE 20 MG TABLET PO SCH (10:49)
[2021-03-10] MEDS: CINACALCET HCL 30 MG TAB (FP) PO SCH (10:50)
[2021-03-10 11:25] LABS: BASO % 0.6 % (0-2.0); EOS % 2.8 % (0-4.5); HEMATOCRIT 39.6 % (32.4-45.2); HEMOGLOBIN 13.4 GM/dL (10.7-15.3); LYMPH % 22.6 % (8-40); MCH 29.1 pg (25.7-33.7); MCHC 33.8 g/dl (32.0-36.0); MEAN CELL VOLUME 86.1 fl (80-96); MEAN PLT VOLUME 9.8 fl (7.5-11.1); MONO % 7.9 % (3.8-10.2); NEUT % 66.1 % (42.8-82.8); PLATELET COUNT 179 10^3/uL (134-434); RDW 14.5 % (11.6-15.6); WHITE BLOOD COUNT 8.1 K/mm3 (4.0-10.0)
[2021-03-10 11:49] LABS: CALCIUM 9.6 mg/dL (8.5-10.1)
[2021-03-10 11:50] LABS: ALBUMIN 3.5 g/dl (3.4-5.0); BLOOD UREA NITROGEN 15.7 mg/dL (7-18)
[2021-03-10 11:53] LABS: CREATININE 0.8 mg/dL (0.55-1.3)
[2021-03-10 11:54] LABS: BILIRUBIN,TOTAL 0.8 mg/dL (0.2-1); TOT PROT 6.5 g/dl (6.4-8.2)
[2021-03-10] MEDS: LIPASE/PROTEASE/AMYLASE 36,000 UNIT CAPSULE PO SCH ×2 (12:21→18:58)
[2021-03-10] MEDS: DOCUSATE SODIUM 100 MG CAPSULE (FP) PO SCH (12:21)
[2021-03-10] MEDS: TACROLIMUS ANHYDROUS 1 MG CAPSULE PO SCH ×2 (12:21→22:27)
[2021-03-10] MEDS: HEPARIN NA (PORCINE) 5,000 UNITS/ML 1ML VIAL SQ SCH ×2 (12:35→21:56)
[2021-03-10] MEDS: hydrALAZINE HCL 25 MG TABLET (FP) PO SCH ×2 (17:21→21:55)
[2021-03-10] MEDS ORDERED: LIPASE/PROTEASE/AMYLASE 36,000 UNIT CAPSULE PO SCH (17:30)
[2021-03-10] MEDS: HYDROCORTISONE 2.5% TOPICAL CREAM 30 GM TUBE RC SCH (18:09)
[2021-03-10] MEDS: traZODone HCL 100 MG TABLET (FP) PO SCH (21:55)
[2021-03-11] MEDS ORDERED: ALPRAZolam 0.25 MG TABLET PO ONE (00:15)
[2021-03-11] MEDS: ALBUTEROL SO4 0.083% IH SOL 2.5 MG/3 ML VIAL.NEB. NEB PRN (01:44)
[2021-03-11] MEDS: hydrALAZINE HCL 25 MG TABLET (FP) PO SCH ×3 (06:20→21:11)
[2021-03-11] MEDS: ASPIRIN COATED 81 MG TABLET.EC PO SCH ×2 (07:53→11:22)
[2021-03-11 08:32] LABS: BASO % 0.4 % (0-2.0); EOS % 2.9 % (0-4.5); HEMATOCRIT 38.1 % (32.4-45.2); HEMOGLOBIN 12.9 GM/dL (10.7-15.3); LYMPH % 20.6 % (8-40); MCH 29.1 pg (25.7-33.7); MEAN CELL VOLUME 85.6 fl (80-96); MEAN PLT VOLUME 9.6 fl (7.5-11.1); NEUT % 70.1 % (42.8-82.8); PLATELET COUNT 166 10^3/uL (134-434); RBC 4.45 M/mm3 (3.60-5.2); RDW 14.5 % (11.6-15.6); WHITE BLOOD COUNT 9.1 K/mm3 (4.0-10.0)
[2021-03-11] MEDS ORDERED: PT OWN MED DRAWER 7, Y5N ONE ×5 (08:49→18:26)
[2021-03-11] MEDS: LIPASE/PROTEASE/AMYLASE 36,000 UNIT CAPSULE PO SCH ×3 (08:54→18:31)
[2021-03-11 09:07] LABS: MAGNESIUM 1.8 mg/dL (1.8-2.4)
[2021-03-11 09:09] LABS: ALBUMIN 3.3 g/dl (3.4-5.0); BLOOD UREA NITROGEN 18.4 mg/dL (7-18); CALCIUM 9.6 mg/dL (8.5-10.1)
[2021-03-11 09:15] LABS: BILIRUBIN,TOTAL 0.4 mg/dL (0.2-1); CREATININE 0.7 mg/dL (0.55-1.3); PHOSPHOROUS 3.6 mg/dL (2.5-4.9)
[2021-03-11 09:16] LABS: TOT PROT 6.2 g/dl (6.4-8.2)
[2021-03-11] MEDS: NIFEdipine E.R. 30 MG TABLET PO SCH (10:12)
[2021-03-11] MEDS: metoPROLOL SUCCINATE 25 MG TAB.SR.24H (FP) PO SCH (10:12)
[2021-03-11] MEDS: DOCUSATE SODIUM 100 MG CAPSULE (FP) PO SCH (10:13)
[2021-03-11] MEDS: FUROSEMIDE 20 MG TABLET (FP) PO SCH (10:13)
[2021-03-11] MEDS: HEPARIN NA (PORCINE) 5,000 UNITS/ML 1ML VIAL SQ SCH ×2 (10:13→21:12)
[2021-03-11] MEDS: SERTRALINE HCL 50 MG TABLET (FP) PO SCH (10:13)
[2021-03-11] MEDS: FAMOTIDINE 20 MG TABLET PO SCH (10:13)
[2021-03-11] MEDS: TACROLIMUS ANHYDROUS 1 MG CAPSULE PO SCH ×2 (10:14→21:11)
[2021-03-11] MEDS: CINACALCET HCL 30 MG TAB (FP) PO SCH (10:14)
[2021-03-11] MEDS: predniSONE 5 MG TABLET (UD) PO SCH (11:22)
[2021-03-11] MEDS: MYCOPHENOLATE SODIUM 360 MG TABLET.DR PO SCH ×2 (12:18→21:24)
[2021-03-11] MEDS: HYDROCORTISONE 2.5% TOPICAL CREAM 30 GM TUBE RC SCH (12:18)
[2021-03-11] MEDS: ACETAMINOPHEN 325 MG TABLET (FP) PO PRN (12:22)
[2021-03-11] MEDS: METHENAMINE HIPPURATE 1 GM PO SCH (12:53)
[2021-03-11] MEDS ORDERED: AZTREONAM 1 GM VIAL (RESTRICTED TO ID) ONE ×2 (13:06→18:26)
[2021-03-11] MEDS ORDERED: DEXTROSE 5%-WATER - 50 ML IVPB ONE ×2 (13:06→18:26)
[2021-03-11] MEDS: SODIUM CHLORIDE 0.45%/POT 20 MEQ/1,000 ML INFUS.BAG IV SCH (13:15)
[2021-03-11] MEDS: AZTREONAM 1 GM in DEXTROSE 5%-WATER - 50 ML IVPB SCH ×2 (13:16→18:31)
[2021-03-11] MEDS: clonazePAM 0.5 MG TABLET PO SCH ×2 (13:16→21:11)
[2021-03-11 15:09] VITALS: BMI 29.7
[2021-03-11] MEDS: metroNIDAZOLE 250 MG TABLET PO SCH (21:11)
[2021-03-11] MEDS: traZODone HCL 100 MG TABLET (FP) PO SCH (21:11)
[2021-03-12] MEDS: ACETAMINOPHEN 325 MG TABLET (FP) PO PRN (00:01)
[2021-03-12] MEDS ORDERED: DEXTROSE 5%-WATER - 50 ML IVPB ONE ×3 (02:09→17:10)
[2021-03-12] MEDS ORDERED: AZTREONAM 1 GM VIAL (RESTRICTED TO ID) ONE ×3 (02:09→17:10)
[2021-03-12] MEDS: AZTREONAM 1 GM in DEXTROSE 5%-WATER - 50 ML IVPB SCH ×3 (02:12→17:15)
[2021-03-12] MEDS: SODIUM CHLORIDE 0.45%/POT 20 MEQ/1,000 ML INFUS.BAG IV SCH (02:12)
[2021-03-12] MEDS: metroNIDAZOLE 250 MG TABLET PO SCH ×3 (06:07→22:01)
[2021-03-12] MEDS: hydrALAZINE HCL 25 MG TABLET (FP) PO SCH ×3 (06:07→22:01)
[2021-03-12] MEDS: ALBUTEROL SO4 0.083% IH SOL 2.5 MG/3 ML VIAL.NEB. NEB PRN (06:23)
[2021-03-12] MEDS ORDERED: PT OWN MED DRAWER 7, Y5N ONE ×8 (10:11→21:15)
[2021-03-12] MEDS: SERTRALINE HCL 50 MG TABLET (FP) PO SCH (10:14)
[2021-03-12] MEDS: predniSONE 5 MG TABLET (UD) PO SCH (10:14)
[2021-03-12] MEDS: NIFEdipine E.R. 30 MG TABLET PO SCH (10:14)
[2021-03-12] MEDS: LIPASE/PROTEASE/AMYLASE 36,000 UNIT CAPSULE PO SCH ×3 (10:14→17:15)
[2021-03-12] MEDS: DOCUSATE SODIUM 100 MG CAPSULE (FP) PO SCH (10:15)
[2021-03-12] MEDS: metoPROLOL SUCCINATE 25 MG TAB.SR.24H (FP) PO SCH (10:15)
[2021-03-12] MEDS: clonazePAM 0.5 MG TABLET PO SCH ×2 (10:15→22:01)
[2021-03-12] MEDS: ASPIRIN COATED 81 MG TABLET.EC PO SCH (10:16)
[2021-03-12] MEDS: FAMOTIDINE 20 MG TABLET PO SCH (10:16)
[2021-03-12] MEDS: HEPARIN NA (PORCINE) 5,000 UNITS/ML 1ML VIAL SQ SCH ×2 (10:16→22:03)
[2021-03-12] MEDS: CINACALCET HCL 30 MG TAB (FP) PO SCH (10:20)
[2021-03-12] MEDS: TACROLIMUS ANHYDROUS 1 MG CAPSULE PO SCH ×2 (10:21→22:02)
[2021-03-12] MEDS: HYDROCORTISONE 2.5% TOPICAL CREAM 30 GM TUBE RC SCH (10:27)
[2021-03-12] MEDS: MYCOPHENOLATE SODIUM 360 MG TABLET.DR PO SCH ×2 (12:35→22:03)
[2021-03-12] MEDS: PANTOPRAZOLE 40 MG TABLET PO SCH (13:01)
[2021-03-12] MEDS ORDERED: traZODone HCL 50 MG TABLET (FP) ONE (21:15)
[2021-03-12] MEDS: traZODone HCL 100 MG TABLET (FP) PO SCH (22:04)
[2021-03-13] MEDS: ALBUTEROL SO4 0.083% IH SOL 2.5 MG/3 ML VIAL.NEB. NEB PRN (00:03)
[2021-03-13] MEDS ORDERED: DEXTROSE 5%-WATER - 50 ML IVPB ONE ×3 (01:17→17:52)
[2021-03-13] MEDS ORDERED: AZTREONAM 1 GM VIAL (RESTRICTED TO ID) ONE ×3 (01:17→17:52)
[2021-03-13] MEDS: AZTREONAM 1 GM in DEXTROSE 5%-WATER - 50 ML IVPB SCH ×3 (01:39→17:57)
[2021-03-13] MEDS: hydrALAZINE HCL 25 MG TABLET (FP) PO SCH ×3 (05:58→21:27)
[2021-03-13] MEDS: metroNIDAZOLE 250 MG TABLET PO SCH ×3 (05:58→21:14)
[2021-03-13] MEDS ORDERED: PT OWN MED DRAWER 7, Y5N ONE ×5 (08:51→21:04)
[2021-03-13] MEDS: LIPASE/PROTEASE/AMYLASE 36,000 UNIT CAPSULE PO SCH ×3 (08:59→17:57)
[2021-03-13 09:19] LABS: BASO % 0.4 % (0-2.0); EOS % 1.9 % (0-4.5); HEMATOCRIT 37.8 % (32.4-45.2); HEMOGLOBIN 12.5 GM/dL (10.7-15.3); LYMPH % 28.4 % (8-40); MCH 28.7 pg (25.7-33.7); MCHC 33.1 g/dl (32.0-36.0); MEAN CELL VOLUME 86.6 fl (80-96); MEAN PLT VOLUME 9.8 fl (7.5-11.1); MONO % 6.5 % (3.8-10.2); NEUT % 62.8 % (42.8-82.8); PLATELET COUNT 170 10^3/uL (134-434); RBC 4.36 M/mm3 (3.60-5.2); RDW 14.2 % (11.6-15.6); WHITE BLOOD COUNT 7.2 K/mm3 (4.0-10.0)
[2021-03-13] MEDS: PANTOPRAZOLE 40 MG TABLET PO SCH (09:35)
[2021-03-13] MEDS: TACROLIMUS ANHYDROUS 1 MG CAPSULE PO SCH ×2 (09:35→21:14)
[2021-03-13] MEDS: predniSONE 5 MG TABLET (UD) PO SCH (09:35)
[2021-03-13] MEDS: DOCUSATE SODIUM 100 MG CAPSULE (FP) PO SCH (09:35)
[2021-03-13] MEDS: FAMOTIDINE 20 MG TABLET PO SCH (09:35)
[2021-03-13] MEDS: NIFEdipine E.R. 30 MG TABLET PO SCH (09:35)
[2021-03-13] MEDS: clonazePAM 0.5 MG TABLET PO SCH ×2 (09:35→21:14)
[2021-03-13] MEDS: CINACALCET HCL 30 MG TAB (FP) PO SCH (09:35)
[2021-03-13] MEDS: SERTRALINE HCL 50 MG TABLET (FP) PO SCH (09:35)
[2021-03-13] MEDS: HYDROCORTISONE 2.5% TOPICAL CREAM 30 GM TUBE RC SCH (09:35)
[2021-03-13] MEDS: ASPIRIN COATED 81 MG TABLET.EC PO SCH (09:35)
[2021-03-13] MEDS: MYCOPHENOLATE SODIUM 360 MG TABLET.DR PO SCH ×2 (09:36→21:13)
[2021-03-13] MEDS: HEPARIN NA (PORCINE) 5,000 UNITS/ML 1ML VIAL SQ SCH ×2 (09:36→21:27)
[2021-03-13] MEDS: metoPROLOL SUCCINATE 25 MG TAB.SR.24H (FP) PO SCH (09:44)
[2021-03-13 09:59] LABS: CALCIUM 9.3 mg/dL (8.5-10.1)
[2021-03-13 10:00] LABS: BLOOD UREA NITROGEN 14.1 mg/dL (7-18)
[2021-03-13 10:03] LABS: CREATININE 0.6 mg/dL (0.55-1.3); PHOSPHOROUS 3.5 mg/dL (2.5-4.9)
[2021-03-13] MEDS: traZODone HCL 100 MG TABLET (FP) PO SCH (21:13)
[2021-03-13] MEDS: ACETAMINOPHEN 325 MG TABLET (FP) PO PRN (21:15)
[2021-03-14] MEDS: ALBUTEROL SO4 0.083% IH SOL 2.5 MG/3 ML VIAL.NEB. NEB PRN ×2 (00:56→12:35)
[2021-03-14] MEDS ORDERED: AZTREONAM 1 GM VIAL (RESTRICTED TO ID) ONE ×2 (01:16→09:10)
[2021-03-14] MEDS ORDERED: DEXTROSE 5%-WATER - 50 ML IVPB ONE ×2 (01:16→09:10)
[2021-03-14] MEDS: AZTREONAM 1 GM in DEXTROSE 5%-WATER - 50 ML IVPB SCH ×2 (01:50→09:31)
[2021-03-14] MEDS: metroNIDAZOLE 250 MG TABLET PO SCH ×2 (05:38→13:32)
[2021-03-14] MEDS: hydrALAZINE HCL 25 MG TABLET (FP) PO SCH ×2 (05:38→13:32)
[2021-03-14] MEDS ORDERED: PT OWN MED DRAWER 7, Y5N ONE ×2 (09:11→13:25)
[2021-03-14] MEDS: predniSONE 5 MG TABLET (UD) PO SCH (09:23)
[2021-03-14] MEDS: NIFEdipine E.R. 30 MG TABLET PO SCH (09:24)
[2021-03-14] MEDS: SERTRALINE HCL 50 MG TABLET (FP) PO SCH (09:24)
[2021-03-14] MEDS: metoPROLOL SUCCINATE 25 MG TAB.SR.24H (FP) PO SCH (09:24)
[2021-03-14] MEDS: PANTOPRAZOLE 40 MG TABLET PO SCH (09:24)
[2021-03-14] MEDS: clonazePAM 0.5 MG TABLET PO SCH (09:24)
[2021-03-14] MEDS: ASPIRIN COATED 81 MG TABLET.EC PO SCH (09:24)
[2021-03-14] MEDS: HYDROCORTISONE 2.5% TOPICAL CREAM 30 GM TUBE RC SCH (09:25)
[2021-03-14] MEDS: HEPARIN NA (PORCINE) 5,000 UNITS/ML 1ML VIAL SQ SCH (09:25)
[2021-03-14] MEDS: FAMOTIDINE 20 MG TABLET PO SCH (09:25)
[2021-03-14] MEDS: DOCUSATE SODIUM 100 MG CAPSULE (FP) PO SCH (09:25)
[2021-03-14] MEDS: LIPASE/PROTEASE/AMYLASE 36,000 UNIT CAPSULE PO SCH ×2 (11:11→13:32)
[2021-03-14] MEDS: TACROLIMUS ANHYDROUS 1 MG CAPSULE PO SCH (11:11)
[2021-03-14] MEDS: CINACALCET HCL 30 MG TAB (FP) PO SCH (11:12)
[2021-03-14] MEDS: MYCOPHENOLATE SODIUM 360 MG TABLET.DR PO SCH (11:12)
[2021-03-14 14:57] VITALS: BP 117/60; PULSE 90; TEMP 98
[2021-03-16] MEDS ORDERED: ERGOCALCIFEROL (VIT D2) 50,000 UNIT (1.25 MG) CAPSULE PO SCH (10:00)
== END 2021-03-14 14:59 | disposition home or self-care (01) | DRG 690 ==
LOC: JER 13:37 → JERBED 21:09 → J8W 03-10 18:02
PROVIDERS: ADMIT Internal Medicine; ATTEND Internal Medicine
DX: N39.0 Urinary tract infection, site not specified (principal); Z94.0 Kidney transplant status; I13.0 Hypertensive heart and chronic kidney disease with heart failure and stage 1 through stage 4 chronic kidney disease, or unspecified chronic kidney disease; K64.9 Unspecified hemorrhoids; R19.7 Diarrhea, unspecified; N28.1 Cyst of kidney, acquired; E78.5 Hyperlipidemia, unspecified; I25.10 Atherosclerotic heart disease of native coronary artery without angina pectoris; Z98.61 Coronary angioplasty status; I50.9 Heart failure, unspecified; K21.9 Gastro-esophageal reflux disease without esophagitis; N18.9 Chronic kidney disease, unspecified
CPT/HCPCS: 36415; 74176-TC; 80048; 80053; 81003; 82272; 83690; 83735; 83993; 84100; 85025; 85610; 85730; 86850; 86900; 86901; 87040; 87045; 87046; 87086; 87186; 93005; 93010; 94640; 99285-25; C9803; J0131; J1644; J3480; U0003; U0005

== ENCOUNTER 2021-06-20 11:49 | Emergency (ER) | payer OTHER ==
[2021-06-20 11:57] VITALS: TEMP 98.2; BMI 30.9
[2021-06-20] MEDS ORDERED: methylPREDNISolone NA SUCC 125 MG/2 ML VIAL IVPB ONE (13:22)
[2021-06-20] MEDS ORDERED: AZITHROMYCIN 250 MG TABLET PO ONE (13:22)
[2021-06-20] MEDS ORDERED: ACETAMINOPHEN 1000 MG/100 ML BAG IVPB ONE (13:28)
[2021-06-20] MEDS ORDERED: SODIUM CHLORIDE 0.9% 500 ML INFUS.BAG IV ONE (13:30)
[2021-06-20] MEDS ORDERED: methylPREDNISolone NA SUCC 125 MG/2 ML VIAL ONE (13:46)
[2021-06-20] MEDS ORDERED: ACETAMINOPHEN INJECTION 100 ML IVPB ONE (13:46)
[2021-06-20] MEDS ORDERED: AZITHROMYCIN IVPB 500 MG/250 ML BAG IVPB ONE (13:46)
[2021-06-20 14:41] LABS: BASO % 0.6 % (0-2.0); EOS % 0.7 % (0-4.5); HEMATOCRIT 39.1 % (32.4-45.2); HEMOGLOBIN 12.6 GM/dL (10.7-15.3); LYMPH % 12.5 % (8-40); MCHC 32.2 g/dl (32.0-36.0); MEAN CELL VOLUME 87.1 fl (80-96); MEAN PLT VOLUME 9.4 fl (7.5-11.1); MONO % 8.4 % (3.8-10.2); NEUT % 77.8 % (42.8-82.8); PLATELET COUNT 205 10^3/uL (134-434); RBC 4.49 M/mm3 (3.60-5.2); RDW 14.3 % (11.6-15.6); WHITE BLOOD COUNT 13.7 K/mm3 (4.0-10.0)
[2021-06-20 14:44] LABS: EPI CELLS 29 /uL (0-25.1); HYALINE CASTS 4 /uL (0-3.1); PH,URINE 5.5 (5.0-8.0); URINE APPEARANCE CLOUDY; URINE BACTERIA 5 /uL (0-1359); URINE BILIRUBIN NEGATIVE (NEGATIVE); URINE COLOR YELLOW; URINE GLUCOSE (UA) NEGATIVE (NEGATIVE); URINE KETONE NEGATIVE (NEGATIVE); URINE LEUK ESTERASE 1+ (NEGATIVE); URINE NITRITE NEGATIVE (NEGATIVE); URINE PROTEIN NEGATIVE (NEGATIVE); URINE UROBILINOGEN 0.2 mg/dL (0.2-1.0); URINE WBC 94 /uL (0-25.8)
[2021-06-20 14:59] LABS: CHLORIDE 104 mmol/L (98-107); SODIUM 138 mmol/L (136-145)
[2021-06-20 15:00] LABS: CALCIUM 10.2 mg/dL (8.5-10.1)
[2021-06-20 15:01] LABS: ALBUMIN 3.8 g/dl (3.4-5.0); ANION GAP 9 MMOL/L (8-16); BLOOD UREA NITROGEN 12.5 mg/dL (7-18); CO2 25 mmol/L (21-32); GLUCOSE,RANDOM 102 mg/dL (74-106)
[2021-06-20 15:04] LABS: CREATININE 0.8 mg/dL (0.55-1.3); SGOT/AST 16 U/L (15-37); SGPT/ALT 21 U/L (13-61)
[2021-06-20 15:06] LABS: BILIRUBIN,TOTAL 0.5 mg/dL (0.2-1); TOT PROT 6.8 g/dl (6.4-8.2)
[2021-06-20 15:07] LABS: ALK PHOS 133 U/L (45-117)
[2021-06-20] MEDS ORDERED: ALBUTEROL SO4 2.5/IPRATROPIUM 0.5 INH SOL 3 ML VIAL.NEB. NEB ONE ×2 (16:01→17:33)
[2021-06-20 20:35] VITALS: BP 132/70; PULSE 94
[2021-06-21 21:09] LABS: SARS-CoV-2 NAA Detected (Not Detected)
== END 2021-06-20 20:35 | disposition home or self-care (01) ==
LOC: JER 11:49
PROC: 3E033GC Introduction of Other Therapeutic Substance into Peripheral Vein, Percutaneous Approach (ICD-10-PCS; principal; 2021-06-20)
PROC: 3E0F7GC Introduction of Other Therapeutic Substance into Respiratory Tract, Via Natural or Artificial Opening (ICD-10-PCS; 2021-06-20)
DX: J44.1 Chronic obstructive pulmonary disease with (acute) exacerbation (principal)
CPT/HCPCS: 36415; 71045-TC-FY; 80053; 81003; 82550; 84484; 85025; 87086; 93005; 93010; 99285-25; C9803; J0131; U0003; U0005

== ENCOUNTER 2021-08-16 13:38 | Emergency (ER) | payer OTHER ==
[2021-08-16 14:02] VITALS: TEMP 98; BMI 29.1
[2021-08-16 16:20] LABS: BASO % 0.2 % (0-2.0); EOS % 0.4 % (0-4.5); HEMATOCRIT 38.8 % (32.4-45.2); HEMOGLOBIN 12.7 GM/dL (10.7-15.3); LYMPH % 16.2 % (8-40); MCH 28.9 pg (25.7-33.7); MCHC 32.7 g/dl (32.0-36.0); MEAN CELL VOLUME 88.2 fl (80-96); MEAN PLT VOLUME 9.6 fl (7.5-11.1); MONO % 7.3 % (3.8-10.2); NEUT % 75.9 % (42.8-82.8); PLATELET COUNT 192 10^3/uL (134-434); RBC 4.39 M/mm3 (3.60-5.2); RDW 14.5 % (11.6-15.6); WHITE BLOOD COUNT 13.4 K/mm3 (4.0-10.0)
[2021-08-16 17:37] LABS: CALCIUM 10.2 mg/dL (8.5-10.1)
[2021-08-16 17:38] LABS: ALBUMIN 4.3 g/dl (3.4-5.0); BLOOD UREA NITROGEN 21.8 mg/dL (7-18)
[2021-08-16 17:42] LABS: BILIRUBIN,TOTAL 0.7 mg/dL (0.2-1); TOT PROT 7.1 g/dl (6.4-8.2)
[2021-08-16 17:47] LABS: EPI CELLS 16 /uL (0-25.1); HYALINE CASTS 3 /uL (0-3.1); PH,URINE 5.5 (5.0-8.0); URINE APPEARANCE CLOUDY; URINE BACTERIA 9 /uL (0-1359); URINE BILIRUBIN NEGATIVE (NEGATIVE); URINE COLOR YELLOW; URINE GLUCOSE (UA) NEGATIVE (NEGATIVE); URINE KETONE NEGATIVE (NEGATIVE); URINE LEUK ESTERASE 1+ (NEGATIVE); URINE NITRITE NEGATIVE (NEGATIVE); URINE PROTEIN NEGATIVE (NEGATIVE); URINE RBC 35 /uL (0-23.9); URINE UROBILINOGEN 0.2 mg/dL (0.2-1.0); URINE WBC 21 /uL (0-25.8)
[2021-08-16 18:39] VITALS: BP 135/69; PULSE 83
[2021-08-16] MEDS ORDERED: CLINDAMYCIN 600MG PREMIX IVPB 600 MG/50 ML BAG IVPB ONE ×2 (19:11→19:22)
[2021-08-16] MEDS ORDERED: morphine CARPU-JECT 4 MG/1 ML DISP.SYRIN IVPUSH ONE (19:34)
[2021-08-16] MEDS ORDERED: morphine SULFATE 4 MG/ML VIAL ONE (19:42)
[2021-08-16] MEDS ORDERED: SODIUM CHLORIDE 1,000 ML IV SCH (19:45)
[2021-08-17 12:08] LABS: SARS-CoV-2 NAA Not Detected (Not Detected)
== END 2021-08-16 20:30 | disposition short-term general hospital (02) ==
LOC: JER 13:38
PROC: 3E03329 Introduction of Other Anti-infective into Peripheral Vein, Percutaneous Approach (ICD-10-PCS; principal; 2021-08-16)
PROC: 3E033NZ Introduction of Analgesics, Hypnotics, Sedatives into Peripheral Vein, Percutaneous Approach (ICD-10-PCS; 2021-08-16)
DX: D37.05 Neoplasm of uncertain behavior of pharynx (principal)
CPT/HCPCS: 36415; 70490-TC; 80053; 80061; 81003; 82306; 83036; 85025; 86359; 86360; 86780; 87040; 87077; 87086; 87536; 87651; 96374; 96375; 99285-25; C9803; U0003; U0005

== ENCOUNTER 2022-06-21 12:22 | Inpatient (IN) | payer OTHER ==
[2022-06-21 12:53] VITALS: BMI 31.8
[2022-06-21] MEDS ORDERED: ACETAMINOPHEN 1000 MG/100 ML BAG IVPB ONE (13:16)
[2022-06-21] MEDS ORDERED: DEXAMETHASONE SOD PHOSPHATE 4 MG/1 ML VIAL IVPUSH ONE (13:17)
[2022-06-21] MEDS ORDERED: ACETAMINOPHEN INJECTION 100 ML IVPB ONE (13:32)
[2022-06-21] MEDS ORDERED: ALBUTEROL SO4 2.5/IPRATROPIUM 0.5 INH SOL 3 ML VIAL.NEB. NEB ONE ×3 (13:32→20:29)
[2022-06-21] MEDS ORDERED: DEXAMETHASONE SOD PHOSPHATE 10 MG/1 ML VIAL ONE (13:33)
[2022-06-21] MEDS: ALBUTEROL SO4 2.5/IPRATROPIUM 0.5 INH SOL 3 ML VIAL.NEB. NEB SCH ×6 (13:56→19:00)
[2022-06-21 14:30] LABS: BASO % 0.4 % (0-2.0); EOS % 2.2 % (0-4.5); HEMATOCRIT 38.1 % (32.4-45.2); HEMOGLOBIN 12.2 GM/dL (10.7-15.3); LYMPH % 8.2 % (8-40); MCH 27.6 pg (25.7-33.7); MEAN CELL VOLUME 86.2 fl (80-96); MEAN PLT VOLUME 8.3 fl (7.5-11.1); MONO % 10.9 % (3.8-10.2); NEUT % 78.3 % (42.8-82.8); PLATELET COUNT 166 10^3/uL (134-434); RBC 4.42 M/mm3 (3.60-5.2); RDW 16.6 % (11.6-15.6); VENOUS O2 SATURATION 81.2 % (70-80); VENOUS PCO2 58.9 mmHg (38-52); VENOUS PH 7.33 (7.310-7.410); WHITE BLOOD COUNT 7.8 K/mm3 (4.0-10.0)
[2022-06-21 14:34] LABS: INR 1.03 (0.83-1.09); PROTHROMBIN TIME (PATIENT) 11.8 SEC (9.7-13.0)
[2022-06-21 14:53] LABS: CALCIUM 9.5 mg/dL (8.5-10.1)
[2022-06-21 14:54] LABS: ALBUMIN 3.1 g/dl (3.4-5.0); BLOOD UREA NITROGEN 14.4 mg/dL (7-18)
[2022-06-21 14:57] LABS: CREATININE 0.7 mg/dL (0.55-1.3)
[2022-06-21 14:58] LABS: BILIRUBIN,TOTAL 0.5 mg/dL (0.2-1)
[2022-06-21 15:00] LABS: TOT PROT 6.1 g/dl (6.4-8.2)
[2022-06-21 15:02] LABS: N-TERMINAL BNP 98.6 pg/ml (5-125)
[2022-06-21] MEDS ORDERED: ALBUTEROL SO4 2.5/IPRATROPIUM 0.5 INH SOL 3 ML VIAL.NEB. NEB PRN (16:06)
[2022-06-21] MEDS ORDERED: ALBUTEROL SO4 0.083% IH SOL 2.5 MG/3 ML VIAL.NEB. NEB PRN (16:06)
[2022-06-21] MEDS ORDERED: ACETAMINOPHEN 1000 MG/100 ML BAG IVPB PRN (20:25)
[2022-06-22] MEDS ORDERED: ACETAMINOPHEN INJECTION 100 ML IVPB ONE (06:08)
[2022-06-22 08:20] LABS: HEMATOCRIT 38.2 % (32.4-45.2); HEMOGLOBIN 12.3 GM/dL (10.7-15.3); LYMPH % 8.5 % (8-40); MCH 27.7 pg (25.7-33.7); MCHC 32.3 g/dl (32.0-36.0); MEAN CELL VOLUME 85.8 fl (80-96); MEAN PLT VOLUME 8.2 fl (7.5-11.1); MONO % 2.7 % (3.8-10.2); NEUT % 88.8 % (42.8-82.8); PLATELET COUNT 167 10^3/uL (134-434); RBC 4.45 M/mm3 (3.60-5.2); RDW 16.7 % (11.6-15.6); WHITE BLOOD COUNT 6.3 K/mm3 (4.0-10.0)
[2022-06-22 08:28] LABS: CALCIUM 10.3 mg/dL (8.5-10.1)
[2022-06-22 08:29] LABS: ALBUMIN 3.2 g/dl (3.4-5.0); BLOOD UREA NITROGEN 14.6 mg/dL (7-18); MAGNESIUM 2.2 mg/dL (1.8-2.4)
[2022-06-22 08:31] LABS: CREATININE 0.6 mg/dL (0.55-1.3); PHOSPHOROUS 3.8 mg/dL (2.5-4.9)
[2022-06-22 08:33] LABS: BILIRUBIN,TOTAL 0.4 mg/dL (0.2-1); TOT PROT 6.6 g/dl (6.4-8.2)
[2022-06-22] MEDS ORDERED: ENOXAPARIN NA (PORCINE) 40 MG/0.4 ML DISP.SYRIN SQ ONE ×2 (08:57→09:59)
[2022-06-22] MEDS ORDERED: MAGNESIUM OXIDE 400 MG TABLET (FP) ONE (08:57)
[2022-06-22] MEDS ORDERED: POTASSIUM CHLORIDE ORAL LIQUID 20 MEQ/15 ML ONE (08:57)
[2022-06-22] MEDS ORDERED: methylPREDNISolone NA SUCC 40 MG/1 ML VIAL ONE ×2 (10:00→17:49)
[2022-06-22] MEDS ORDERED: methylPREDNISolone NA SUCC 40 MG/1 ML VIAL IVPUSH SCH (10:00)
[2022-06-22] MEDS: ENOXAPARIN NA (PORCINE) 40 MG/0.4 ML DISP.SYRIN SQ SCH (10:11)
[2022-06-22] MEDS ORDERED: GLYCOPYRROLATE 0.2 MG/1 ML VIAL ONE (10:13)
[2022-06-22] MEDS ORDERED: ALBUTEROL SO4 2.5/IPRATROPIUM 0.5 INH SOL 3 ML VIAL.NEB. NEB ONE ×2 (10:18→16:47)
[2022-06-22 10:56] LABS: ANISOCYTOSIS 0; HELMET CELLS 0; HOWELL-JOLLY BODIES 0; MACROCYTOSIS 0; OVALOCYTE 0; ROULEAU 0; SICKELED CELLS 0; TARGET CELLS 0; TEAR DROP CELLS 0; TOXIC GRANULATION 0
[2022-06-22] MEDS ORDERED: NIFEdipine E.R. 30 MG TABLET PO ONE (11:33)
[2022-06-22] MEDS ORDERED: SERTRALINE HCL 50 MG TABLET (FP) ONE (11:33)
[2022-06-22] MEDS ORDERED: FUROSEMIDE 20 MG TABLET (FP) ONE (11:33)
[2022-06-22] MEDS ORDERED: metoPROLOL SUCCINATE 25 MG TAB.SR.24H (FP) PO ONE (11:33)
[2022-06-22] MEDS: metoPROLOL SUCCINATE 25 MG TAB.SR.24H (FP) PO SCH (12:25)
[2022-06-22] MEDS: NIFEdipine E.R. 30 MG TABLET PO SCH (12:25)
[2022-06-22] MEDS: SERTRALINE HCL 50 MG TABLET (FP) PO SCH (12:25)
[2022-06-22] MEDS: FUROSEMIDE 20 MG TABLET (FP) PO SCH (12:25)
[2022-06-22] MEDS: TACROLIMUS ANHYDROUS 1 MG CAPSULE PO SCH ×2 (12:56→22:02)
[2022-06-22] MEDS: LIPASE/PROTEASE/AMYLASE 36,000 UNIT CAPSULE PO SCH ×2 (12:56→17:52)
[2022-06-22] MEDS ORDERED: AZITHROMYCIN 250 MG TABLET ONE (15:07)
[2022-06-22] MEDS: AZITHROMYCIN 250 MG TABLET PO SCH (15:11)
[2022-06-22] MEDS: ALBUTEROL SO4 2.5/IPRATROPIUM 0.5 INH SOL 3 ML VIAL.NEB. NEB SCH ×2 (16:48→20:30)
[2022-06-22] MEDS: methylPREDNISolone NA SUCC 40 MG/1 ML VIAL IVPUSH SCH (17:52)
[2022-06-22] MEDS: BUDESONIDE/FORMETEROL FUMARATE 80/4.5 mcg INHALER IH SCH (22:02)
[2022-06-23] MEDS: MELATONIN 5 MG TABLETS PO SCH ×2 (02:16→22:00)
[2022-06-23] MEDS: methylPREDNISolone NA SUCC 40 MG/1 ML VIAL IVPUSH SCH ×3 (02:16→17:38)
[2022-06-23] MEDS: ALBUTEROL SO4 2.5/IPRATROPIUM 0.5 INH SOL 3 ML VIAL.NEB. NEB SCH ×4 (07:15→21:10)
[2022-06-23 08:59] LABS: BASO % 0.1 % (0-2.0); HEMATOCRIT 42.5 % (32.4-45.2); HEMOGLOBIN 13.7 GM/dL (10.7-15.3); LYMPH % 6.7 % (8-40); MCH 27.5 pg (25.7-33.7); MCHC 32.3 g/dl (32.0-36.0); MEAN PLT VOLUME 8.4 fl (7.5-11.1); MONO % 2.3 % (3.8-10.2); NEUT % 90.9 % (42.8-82.8); PLATELET COUNT 269 10^3/uL (134-434); RDW 16.7 % (11.6-15.6); WHITE BLOOD COUNT 12.1 K/mm3 (4.0-10.0)
[2022-06-23] MEDS: NIFEdipine E.R. 30 MG TABLET PO SCH (09:49)
[2022-06-23] MEDS: FUROSEMIDE 20 MG TABLET (FP) PO SCH (09:50)
[2022-06-23] MEDS: LIPASE/PROTEASE/AMYLASE 36,000 UNIT CAPSULE PO SCH ×3 (09:50→17:36)
[2022-06-23] MEDS: TACROLIMUS ANHYDROUS 1 MG CAPSULE PO SCH ×2 (09:50→22:00)
[2022-06-23] MEDS: ENOXAPARIN NA (PORCINE) 40 MG/0.4 ML DISP.SYRIN SQ SCH (09:50)
[2022-06-23] MEDS: SERTRALINE HCL 50 MG TABLET (FP) PO SCH (09:50)
[2022-06-23] MEDS: metoPROLOL SUCCINATE 25 MG TAB.SR.24H (FP) PO SCH (09:51)
[2022-06-23] MEDS: BUDESONIDE/FORMETEROL FUMARATE 80/4.5 mcg INHALER IH SCH ×2 (10:01→22:02)
[2022-06-23] MEDS: AZITHROMYCIN 250 MG TABLET PO SCH (11:28)
[2022-06-23 12:10] LABS: CALCIUM 11.1 mg/dL (8.5-10.1)
[2022-06-23 12:14] LABS: CREATININE 0.9 mg/dL (0.55-1.3)
[2022-06-23] MEDS: GABAPENTIN 300 MG CAPSULE PO SCH ×2 (13:46→22:00)
[2022-06-23] MEDS ORDERED: ONDANSETRON 4 MG/2 ML VIAL IVPUSH ONE (13:51)
[2022-06-23] MEDS ORDERED: traZODone HCL 50 MG TABLET (FP) PO SCH (22:00)
[2022-06-24] MEDS: methylPREDNISolone NA SUCC 40 MG/1 ML VIAL IVPUSH SCH ×2 (02:10→09:21)
[2022-06-24] MEDS: ALBUTEROL SO4 2.5/IPRATROPIUM 0.5 INH SOL 3 ML VIAL.NEB. NEB SCH ×4 (07:25→21:00)
[2022-06-24] MEDS: LIPASE/PROTEASE/AMYLASE 36,000 UNIT CAPSULE PO SCH ×3 (09:19→17:09)
[2022-06-24] MEDS: NIFEdipine E.R. 30 MG TABLET PO SCH (09:20)
[2022-06-24] MEDS: GABAPENTIN 300 MG CAPSULE PO SCH ×2 (09:20→23:10)
[2022-06-24] MEDS: FUROSEMIDE 20 MG TABLET (FP) PO SCH (09:20)
[2022-06-24] MEDS: metoPROLOL SUCCINATE 25 MG TAB.SR.24H (FP) PO SCH (09:20)
[2022-06-24] MEDS: SERTRALINE HCL 50 MG TABLET (FP) PO SCH (09:20)
[2022-06-24] MEDS: TACROLIMUS ANHYDROUS 1 MG CAPSULE PO SCH ×2 (09:20→23:27)
[2022-06-24] MEDS: ENOXAPARIN NA (PORCINE) 40 MG/0.4 ML DISP.SYRIN SQ SCH (09:21)
[2022-06-24] MEDS: BUDESONIDE/FORMETEROL FUMARATE 80/4.5 mcg INHALER IH SCH ×2 (09:28→23:13)
[2022-06-24] MEDS ORDERED: AZITHROMYCIN 500 MG TABLET PO SCH (10:00)
[2022-06-24 12:04] LABS: CALCIUM 11.1 mg/dL (8.5-10.1)
[2022-06-24 12:05] LABS: ALBUMIN 3.4 g/dl (3.4-5.0); BLOOD UREA NITROGEN 23.3 mg/dL (7-18)
[2022-06-24 12:08] LABS: CREATININE 0.9 mg/dL (0.55-1.3)
[2022-06-24 12:09] LABS: BILIRUBIN,TOTAL 0.6 mg/dL (0.2-1)
[2022-06-24 12:10] LABS: TOT PROT 6.7 g/dl (6.4-8.2)
[2022-06-24] MEDS ORDERED: metoPROLOL SUCCINATE 25 MG TAB.SR.24H (FP) PO SCH (14:00)
[2022-06-24] MEDS ORDERED: SODIUM CHLORIDE 0.45% 1,000 ML IV SCH (14:00)
[2022-06-24] MEDS ORDERED: TACROLIMUS ANHYDROUS 1 MG CAPSULE PO SCH (14:00)
[2022-06-24] MEDS ORDERED: NIFEdipine E.R. 30 MG TABLET PO SCH (14:00)
[2022-06-24] MEDS ORDERED: CINACALCET HCL 30 MG TAB (FP) PO SCH (14:00)
[2022-06-24] MEDS ORDERED: predniSONE 5 MG TABLET (UD) PO SCH (14:00)
[2022-06-24] MEDS ORDERED: SERTRALINE HCL 50 MG TABLET (FP) PO SCH (14:00)
[2022-06-24 14:03] LABS: URINE APPEARANCE CLEAR; URINE BILIRUBIN NEGATIVE (NEGATIVE); URINE COLOR YELLOW; URINE GLUCOSE (UA) NEGATIVE (NEGATIVE); URINE KETONE NEGATIVE (NEGATIVE); URINE LEUK ESTERASE NEGATIVE (NEGATIVE); URINE NITRITE NEGATIVE (NEGATIVE); URINE PROTEIN TRACE (NEGATIVE); URINE UROBILINOGEN 0.2 mg/dL (0.2-1.0)
[2022-06-24] MEDS: hydrALAZINE HCL 25 MG TABLET (FP) PO SCH ×2 (14:37→23:11)
[2022-06-24] MEDS: PANTOPRAZOLE 40 MG TABLET PO SCH (14:38)
[2022-06-24] MEDS: CINACALCET HCL 30 MG TAB (FP) PO SCH (14:38)
[2022-06-24] MEDS: clonazePAM 0.5 MG TABLET PO SCH ×2 (14:38→23:11)
[2022-06-24] MEDS: FAMOTIDINE 20 MG TABLET PO SCH (14:42)
[2022-06-24] MEDS: MELATONIN 5 MG TABLETS PO SCH (23:11)
[2022-06-24] MEDS: HEPARIN NA (PORCINE) 5,000 UNITS/ML 1ML VIAL SQ SCH (23:12)
[2022-06-24] MEDS: traZODone HCL 50 MG TABLET (FP) PO SCH (23:12)
[2022-06-25] MEDS: hydrALAZINE HCL 25 MG TABLET (FP) PO SCH ×3 (05:47→22:03)
[2022-06-25] MEDS: HEPARIN NA (PORCINE) 5,000 UNITS/ML 1ML VIAL SQ SCH ×3 (05:47→22:03)
[2022-06-25] MEDS: ALBUTEROL SO4 2.5/IPRATROPIUM 0.5 INH SOL 3 ML VIAL.NEB. NEB SCH ×4 (07:45→20:05)
[2022-06-25] MEDS: LIPASE/PROTEASE/AMYLASE 36,000 UNIT CAPSULE PO SCH ×3 (08:09→17:11)
[2022-06-25] MEDS: clonazePAM 0.5 MG TABLET PO SCH ×2 (09:08→22:03)
[2022-06-25] MEDS: PANTOPRAZOLE 40 MG TABLET PO SCH (09:09)
[2022-06-25] MEDS: GABAPENTIN 300 MG CAPSULE PO SCH ×2 (09:09→22:03)
[2022-06-25] MEDS: CINACALCET HCL 30 MG TAB (FP) PO SCH (09:09)
[2022-06-25] MEDS: metoPROLOL SUCCINATE 25 MG TAB.SR.24H (FP) PO SCH (09:09)
[2022-06-25] MEDS: SERTRALINE HCL 50 MG TABLET (FP) PO SCH (09:09)
[2022-06-25] MEDS: FUROSEMIDE 20 MG TABLET (FP) PO SCH (09:10)
[2022-06-25] MEDS: FAMOTIDINE 20 MG TABLET PO SCH (09:10)
[2022-06-25] MEDS: NIFEdipine E.R. 30 MG TABLET PO SCH (09:10)
[2022-06-25] MEDS: TACROLIMUS ANHYDROUS 1 MG CAPSULE PO SCH ×2 (09:10→22:03)
[2022-06-25] MEDS: methylPREDNISolone NA SUCC 40 MG/1 ML VIAL IVPUSH SCH (09:16)
[2022-06-25] MEDS: BUDESONIDE/FORMETEROL FUMARATE 80/4.5 mcg INHALER IH SCH ×2 (09:20→22:04)
[2022-06-25 09:31] LABS: HEMATOCRIT 39.7 % (32.4-45.2); HEMOGLOBIN 12.7 GM/dL (10.7-15.3); MCH 27.2 pg (25.7-33.7); MCHC 31.9 g/dl (32.0-36.0); MEAN CELL VOLUME 85.3 fl (80-96); MEAN PLT VOLUME 8.3 fl (7.5-11.1); PLATELET COUNT 191 10^3/uL (134-434); RBC 4.65 M/mm3 (3.60-5.2); RDW 16.7 % (11.6-15.6); WHITE BLOOD COUNT 11.1 K/mm3 (4.0-10.0)
[2022-06-25 09:58] LABS: BLOOD UREA NITROGEN 22.7 mg/dL (7-18)
[2022-06-25 09:59] LABS: ALBUMIN 3.1 g/dl (3.4-5.0)
[2022-06-25 10:02] LABS: CREATININE 0.9 mg/dL (0.55-1.3)
[2022-06-25 10:03] LABS: BILIRUBIN,TOTAL 0.4 mg/dL (0.2-1)
[2022-06-25] MEDS ORDERED: POTASSIUM CHLORIDE TABS 20 MEQ TABLET.ER (FP) PO ONE (12:48)
[2022-06-25] MEDS: traZODone HCL 50 MG TABLET (FP) PO SCH (22:03)
[2022-06-25] MEDS: MELATONIN 5 MG TABLETS PO SCH (22:03)
[2022-06-26] MEDS: HEPARIN NA (PORCINE) 5,000 UNITS/ML 1ML VIAL SQ SCH ×3 (06:37→21:53)
[2022-06-26] MEDS: hydrALAZINE HCL 25 MG TABLET (FP) PO SCH ×3 (06:37→21:54)
[2022-06-26] MEDS: LIPASE/PROTEASE/AMYLASE 36,000 UNIT CAPSULE PO SCH ×3 (07:58→16:52)
[2022-06-26] MEDS: ALBUTEROL SO4 2.5/IPRATROPIUM 0.5 INH SOL 3 ML VIAL.NEB. NEB SCH ×4 (08:03→20:02)
[2022-06-26 09:23] LABS: HEMATOCRIT 41.9 % (32.4-45.2); HEMOGLOBIN 13.5 GM/dL (10.7-15.3); MCH 27.5 pg (25.7-33.7); MCHC 32.3 g/dl (32.0-36.0); MEAN CELL VOLUME 85.2 fl (80-96); MEAN PLT VOLUME 8.1 fl (7.5-11.1); PLATELET COUNT 228 10^3/uL (134-434); RBC 4.92 M/mm3 (3.60-5.2); RDW 16.8 % (11.6-15.6); WHITE BLOOD COUNT 15.7 K/mm3 (4.0-10.0)
[2022-06-26 09:52] LABS: ALBUMIN 3.6 g/dl (3.4-5.0)
[2022-06-26 09:55] LABS: CREATININE 0.9 mg/dL (0.55-1.3)
[2022-06-26] MEDS: FAMOTIDINE 20 MG TABLET PO SCH (09:55)
[2022-06-26 09:56] LABS: TOT PROT 6.7 g/dl (6.4-8.2)
[2022-06-26 09:57] LABS: BILIRUBIN,TOTAL 0.5 mg/dL (0.2-1)
[2022-06-26] MEDS: metoPROLOL SUCCINATE 25 MG TAB.SR.24H (FP) PO SCH (09:57)
[2022-06-26] MEDS: GABAPENTIN 300 MG CAPSULE PO SCH ×2 (09:57→21:53)
[2022-06-26] MEDS: clonazePAM 0.5 MG TABLET PO SCH ×2 (09:57→21:54)
[2022-06-26] MEDS: CINACALCET HCL 30 MG TAB (FP) PO SCH (09:58)
[2022-06-26] MEDS: methylPREDNISolone NA SUCC 40 MG/1 ML VIAL IVPUSH SCH ×3 (09:58→21:53)
[2022-06-26] MEDS: NIFEdipine E.R. 30 MG TABLET PO SCH (09:58)
[2022-06-26] MEDS: FUROSEMIDE 20 MG TABLET (FP) PO SCH (09:58)
[2022-06-26] MEDS: SERTRALINE HCL 50 MG TABLET (FP) PO SCH (09:58)
[2022-06-26] MEDS: TACROLIMUS ANHYDROUS 1 MG CAPSULE PO SCH ×2 (09:58→21:54)
[2022-06-26 10:03] LABS: CALCIUM 10.7 mg/dL (8.5-10.1)
[2022-06-26] MEDS: guaiFENesin 200 MG/10 ML 10 ML UNIT-DOSE CUPS PO PRN (10:06)
[2022-06-26] MEDS: BUDESONIDE/FORMETEROL FUMARATE 80/4.5 mcg INHALER IH SCH ×2 (10:27→21:54)
[2022-06-26] MEDS: PANTOPRAZOLE 40 MG TABLET PO SCH (10:28)
[2022-06-26] MEDS: MELATONIN 5 MG TABLETS PO SCH (21:53)
[2022-06-26] MEDS: traZODone HCL 50 MG TABLET (FP) PO SCH (21:54)
[2022-06-26] MEDS ORDERED: methylPREDNISolone NA SUCC 40 MG/1 ML VIAL IVPUSH SCH (22:00)
[2022-06-27] MEDS: methylPREDNISolone NA SUCC 40 MG/1 ML VIAL IVPUSH SCH ×3 (04:16→18:15)
[2022-06-27] MEDS: hydrALAZINE HCL 25 MG TABLET (FP) PO SCH ×3 (05:17→21:56)
[2022-06-27] MEDS: HEPARIN NA (PORCINE) 5,000 UNITS/ML 1ML VIAL SQ SCH ×3 (05:17→21:56)
[2022-06-27] MEDS: guaiFENesin 200 MG/10 ML 10 ML UNIT-DOSE CUPS PO PRN ×2 (05:21→11:14)
[2022-06-27] MEDS: ALBUTEROL SO4 2.5/IPRATROPIUM 0.5 INH SOL 3 ML VIAL.NEB. NEB SCH ×3 (07:31→15:55)
[2022-06-27] MEDS: LIPASE/PROTEASE/AMYLASE 36,000 UNIT CAPSULE PO SCH ×3 (08:39→18:16)
[2022-06-27] MEDS: PANTOPRAZOLE 40 MG TABLET PO SCH (10:16)
[2022-06-27] MEDS: FUROSEMIDE 20 MG TABLET (FP) PO SCH (10:16)
[2022-06-27] MEDS: GABAPENTIN 300 MG CAPSULE PO SCH ×2 (10:16→21:56)
[2022-06-27] MEDS: clonazePAM 0.5 MG TABLET PO SCH ×2 (10:16→21:56)
[2022-06-27] MEDS: CINACALCET HCL 30 MG TAB (FP) PO SCH (10:16)
[2022-06-27] MEDS: FAMOTIDINE 20 MG TABLET PO SCH (10:16)
[2022-06-27] MEDS: NIFEdipine E.R. 30 MG TABLET PO SCH (10:16)
[2022-06-27] MEDS: metoPROLOL SUCCINATE 25 MG TAB.SR.24H (FP) PO SCH (10:16)
[2022-06-27] MEDS: SERTRALINE HCL 50 MG TABLET (FP) PO SCH (10:16)
[2022-06-27] MEDS: BUDESONIDE/FORMETEROL FUMARATE 80/4.5 mcg INHALER IH SCH ×2 (10:18→21:57)
[2022-06-27] MEDS: TACROLIMUS ANHYDROUS 1 MG CAPSULE PO SCH ×2 (11:13→21:57)
[2022-06-27] MEDS: traZODone HCL 50 MG TABLET (FP) PO SCH (21:56)
[2022-06-27] MEDS: MELATONIN 5 MG TABLETS PO SCH (21:56)
[2022-06-28] MEDS: methylPREDNISolone NA SUCC 40 MG/1 ML VIAL IVPUSH SCH ×3 (02:40→22:14)
[2022-06-28] MEDS: hydrALAZINE HCL 25 MG TABLET (FP) PO SCH ×3 (06:00→22:14)
[2022-06-28] MEDS: HEPARIN NA (PORCINE) 5,000 UNITS/ML 1ML VIAL SQ SCH ×3 (06:00→22:14)
[2022-06-28] MEDS: LIPASE/PROTEASE/AMYLASE 36,000 UNIT CAPSULE PO SCH ×3 (08:39→17:22)
[2022-06-28 09:35] LABS: HEMATOCRIT 39.3 % (32.4-45.2); HEMOGLOBIN 12.6 GM/dL (10.7-15.3); MCH 27.5 pg (25.7-33.7); MCHC 31.9 g/dl (32.0-36.0); MEAN PLT VOLUME 8.5 fl (7.5-11.1); PLATELET COUNT 178 10^3/uL (134-434); RBC 4.57 M/mm3 (3.60-5.2); WHITE BLOOD COUNT 14.4 K/mm3 (4.0-10.0)
[2022-06-28 09:51] LABS: BLOOD UREA NITROGEN 26.2 mg/dL (7-18)
[2022-06-28 09:54] LABS: PHOSPHOROUS 2.7 mg/dL (2.5-4.9)
[2022-06-28 09:56] LABS: BILIRUBIN,TOTAL 0.3 mg/dL (0.2-1); TOT PROT 5.9 g/dl (6.4-8.2)
[2022-06-28] MEDS: FUROSEMIDE 20 MG TABLET (FP) PO SCH (10:04)
[2022-06-28] MEDS: clonazePAM 0.5 MG TABLET PO SCH ×2 (10:04→22:14)
[2022-06-28] MEDS: TACROLIMUS ANHYDROUS 1 MG CAPSULE PO SCH ×2 (10:05→22:15)
[2022-06-28] MEDS: NIFEdipine E.R. 30 MG TABLET PO SCH (10:05)
[2022-06-28] MEDS: FAMOTIDINE 20 MG TABLET PO SCH (10:05)
[2022-06-28] MEDS: CINACALCET HCL 30 MG TAB (FP) PO SCH (10:06)
[2022-06-28] MEDS: SERTRALINE HCL 50 MG TABLET (FP) PO SCH (10:06)
[2022-06-28] MEDS: PANTOPRAZOLE 40 MG TABLET PO SCH (10:06)
[2022-06-28] MEDS: metoPROLOL SUCCINATE 25 MG TAB.SR.24H (FP) PO SCH (10:06)
[2022-06-28] MEDS: GABAPENTIN 300 MG CAPSULE PO SCH ×2 (10:09→22:14)
[2022-06-28] MEDS: BUDESONIDE/FORMETEROL FUMARATE 80/4.5 mcg INHALER IH SCH ×2 (10:10→22:27)
[2022-06-28] MEDS: guaiFENesin 200 MG/10 ML 10 ML UNIT-DOSE CUPS PO PRN ×2 (10:11→18:41)
[2022-06-28 11:09] LABS: ANISOCYTOSIS 0; HELMET CELLS 0; HOWELL-JOLLY BODIES 0; MACROCYTOSIS 0; OVALOCYTE 0; ROULEAU 0; SICKELED CELLS 0; TARGET CELLS 0; TEAR DROP CELLS 0; TOXIC GRANULATION 0
[2022-06-28] MEDS ORDERED: SODIUM CHLORIDE 0.45% 1,000 ML IV SCH (13:00)
[2022-06-28] MEDS ORDERED: ACETAMINOPHEN 325 MG TABLET (FP) PO PRN (13:04)
[2022-06-28] MEDS ORDERED: INSULIN (NOVOLOG) ASPART 100 UNITS/ML 10ML VIAL ONE (21:24)
[2022-06-28] MEDS: INSULIN SLIDING SCALE (NOVOLOG) 1 VIAL SQ SCH (22:13)
[2022-06-28] MEDS: traZODone HCL 50 MG TABLET (FP) PO SCH (22:14)
[2022-06-28] MEDS: MELATONIN 5 MG TABLETS PO SCH (22:14)
[2022-06-29] MEDS: hydrALAZINE HCL 25 MG TABLET (FP) PO SCH ×3 (06:22→23:08)
[2022-06-29] MEDS: HEPARIN NA (PORCINE) 5,000 UNITS/ML 1ML VIAL SQ SCH ×3 (06:22→23:08)
[2022-06-29] MEDS: INSULIN SLIDING SCALE (NOVOLOG) 1 VIAL SQ SCH ×4 (06:26→23:20)
[2022-06-29] MEDS: ALBUTEROL SO4 2.5/IPRATROPIUM 0.5 INH SOL 3 ML VIAL.NEB. NEB SCH ×4 (07:45→20:15)
[2022-06-29] MEDS: LIPASE/PROTEASE/AMYLASE 36,000 UNIT CAPSULE PO SCH ×3 (07:58→17:11)
[2022-06-29] MEDS: metoPROLOL SUCCINATE 25 MG TAB.SR.24H (FP) PO SCH (10:13)
[2022-06-29] MEDS: clonazePAM 0.5 MG TABLET PO SCH ×2 (10:13→23:07)
[2022-06-29] MEDS: NIFEdipine E.R. 30 MG TABLET PO SCH (10:13)
[2022-06-29] MEDS: FAMOTIDINE 20 MG TABLET PO SCH (10:13)
[2022-06-29] MEDS: PANTOPRAZOLE 40 MG TABLET PO SCH (10:13)
[2022-06-29] MEDS: GABAPENTIN 300 MG CAPSULE PO SCH ×2 (10:13→23:07)
[2022-06-29] MEDS: CINACALCET HCL 30 MG TAB (FP) PO SCH (10:13)
[2022-06-29] MEDS: SERTRALINE HCL 50 MG TABLET (FP) PO SCH (10:13)
[2022-06-29] MEDS: FUROSEMIDE 20 MG TABLET (FP) PO SCH (10:13)
[2022-06-29] MEDS: TACROLIMUS ANHYDROUS 1 MG CAPSULE PO SCH ×2 (10:14→23:08)
[2022-06-29] MEDS: guaiFENesin 200 MG/10 ML 10 ML UNIT-DOSE CUPS PO PRN ×2 (10:17→23:22)
[2022-06-29] MEDS: BUDESONIDE/FORMETEROL FUMARATE 80/4.5 mcg INHALER IH SCH ×2 (10:18→23:10)
[2022-06-29 11:01] LABS: HEMATOCRIT 43.4 % (32.4-45.2); HEMOGLOBIN 13.8 GM/dL (10.7-15.3); MCH 27.3 pg (25.7-33.7); MCHC 31.8 g/dl (32.0-36.0); MEAN PLT VOLUME 8.7 fl (7.5-11.1); PLATELET COUNT 230 10^3/uL (134-434); RBC 5.05 M/mm3 (3.60-5.2); RDW 17.1 % (11.6-15.6)
[2022-06-29] MEDS: methylPREDNISolone NA SUCC 40 MG/1 ML VIAL IVPUSH SCH (11:23)
[2022-06-29 11:36] LABS: ANISOCYTOSIS 0; HELMET CELLS 0; HOWELL-JOLLY BODIES 0; MACROCYTOSIS 0; OVALOCYTE 0; ROULEAU 0; SICKELED CELLS 0; TARGET CELLS 0; TEAR DROP CELLS 0; TOXIC GRANULATION 0
[2022-06-29 11:39] VITALS: RESP 20
[2022-06-29 12:01] LABS: BLOOD UREA NITROGEN 21.3 mg/dL (7-18)
[2022-06-29 12:02] LABS: ALBUMIN 3.4 g/dl (3.4-5.0)
[2022-06-29 12:03] LABS: CALCIUM 10.6 mg/dL (8.5-10.1); MAGNESIUM 2.1 mg/dL (1.8-2.4)
[2022-06-29 12:04] LABS: PHOSPHOROUS 3.1 mg/dL (2.5-4.9)
[2022-06-29 12:05] LABS: BILIRUBIN,TOTAL 0.5 mg/dL (0.2-1); CREATININE 0.9 mg/dL (0.55-1.3)
[2022-06-29 12:07] LABS: TOT PROT 6.5 g/dl (6.4-8.2)
[2022-06-29] MEDS: MELATONIN 5 MG TABLETS PO SCH (23:08)
[2022-06-29] MEDS: traZODone HCL 50 MG TABLET (FP) PO SCH (23:08)
[2022-06-29] MEDS ORDERED: predniSONE 20 MG TABLET (UD) PO ONE (23:31)
[2022-06-30] MEDS: hydrALAZINE HCL 25 MG TABLET (FP) PO SCH ×2 (07:04→13:16)
[2022-06-30] MEDS: HEPARIN NA (PORCINE) 5,000 UNITS/ML 1ML VIAL SQ SCH ×2 (07:04→13:17)
[2022-06-30] MEDS: INSULIN SLIDING SCALE (NOVOLOG) 1 VIAL SQ SCH ×2 (07:05→11:38)
[2022-06-30] MEDS: ALBUTEROL SO4 2.5/IPRATROPIUM 0.5 INH SOL 3 ML VIAL.NEB. NEB SCH ×3 (07:40→16:35)
[2022-06-30] MEDS: LIPASE/PROTEASE/AMYLASE 36,000 UNIT CAPSULE PO SCH ×2 (08:01→11:41)
[2022-06-30] MEDS: FUROSEMIDE 20 MG TABLET (FP) PO SCH (09:24)
[2022-06-30] MEDS: guaiFENesin 200 MG/10 ML 10 ML UNIT-DOSE CUPS PO PRN (09:24)
[2022-06-30] MEDS: BUDESONIDE/FORMETEROL FUMARATE 80/4.5 mcg INHALER IH SCH (09:24)
[2022-06-30] MEDS: metoPROLOL SUCCINATE 25 MG TAB.SR.24H (FP) PO SCH (09:24)
[2022-06-30] MEDS: PANTOPRAZOLE 40 MG TABLET PO SCH (09:24)
[2022-06-30] MEDS: NIFEdipine E.R. 30 MG TABLET PO SCH (09:25)
[2022-06-30] MEDS: FAMOTIDINE 20 MG TABLET PO SCH (09:25)
[2022-06-30] MEDS: SERTRALINE HCL 50 MG TABLET (FP) PO SCH (09:25)
[2022-06-30] MEDS: CINACALCET HCL 30 MG TAB (FP) PO SCH (09:25)
[2022-06-30] MEDS: GABAPENTIN 300 MG CAPSULE PO SCH (09:25)
[2022-06-30] MEDS: TACROLIMUS ANHYDROUS 1 MG CAPSULE PO SCH (09:25)
[2022-06-30] MEDS: clonazePAM 0.5 MG TABLET PO SCH (09:25)
[2022-06-30] MEDS ORDERED: predniSONE 20 MG TABLET (UD) PO SCH (10:00)
[2022-06-30 11:12] LABS: HEMATOCRIT 40.7 % (32.4-45.2); HEMOGLOBIN 13.2 GM/dL (10.7-15.3); MCH 27.9 pg (25.7-33.7); MCHC 32.3 g/dl (32.0-36.0); MEAN CELL VOLUME 86.4 fl (80-96); MEAN PLT VOLUME 8.2 fl (7.5-11.1); PLATELET COUNT 152 10^3/uL (134-434); RBC 4.71 M/mm3 (3.60-5.2); RDW 17.2 % (11.6-15.6); WHITE BLOOD COUNT 12.4 K/mm3 (4.0-10.0)
[2022-06-30 11:51] LABS: ALBUMIN 3.2 g/dl (3.4-5.0); CALCIUM 9.6 mg/dL (8.5-10.1)
[2022-06-30 11:52] LABS: BLOOD UREA NITROGEN 22.9 mg/dL (7-18)
[2022-06-30 11:54] LABS: CREATININE 1.1 mg/dL (0.55-1.3); PHOSPHOROUS 2.6 mg/dL (2.5-4.9)
[2022-06-30 11:56] LABS: BILIRUBIN,TOTAL 0.4 mg/dL (0.2-1)
[2022-06-30 13:25] LABS: ANISOCYTOSIS 2+; MACROCYTOSIS 0
[2022-06-30 14:50] VITALS: BP 117/66; PULSE 82; TEMP 97.6
[2022-07-01] MEDS ORDERED: ERGOCALCIFEROL (VIT D2) 50,000 UNIT (1.25 MG) CAPSULE PO SCH (10:00)
== END 2022-06-30 16:52 | disposition home or self-care (01) | DRG 191 ==
LOC: JER 12:22 → JERBED 15:26 → J6S 06-22 18:27
PROVIDERS: ADMIT Internal Medicine; ATTEND Internal Medicine
DX: J44.1 Chronic obstructive pulmonary disease with (acute) exacerbation (principal); I13.0 Hypertensive heart and chronic kidney disease with heart failure and stage 1 through stage 4 chronic kidney disease, or unspecified chronic kidney disease; J98.11 Atelectasis; Z94.0 Kidney transplant status; J44.0 Chronic obstructive pulmonary disease with (acute) lower respiratory infection; I25.10 Atherosclerotic heart disease of native coronary artery without angina pectoris; E78.5 Hyperlipidemia, unspecified; J45.909 Unspecified asthma, uncomplicated; K21.9 Gastro-esophageal reflux disease without esophagitis; J20.9 Acute bronchitis, unspecified; R73.9 Hyperglycemia, unspecified; E83.52 Hypercalcemia; N18.9 Chronic kidney disease, unspecified; I50.9 Heart failure, unspecified; K86.89 Other specified diseases of pancreas; Z85.038 Personal history of other malignant neoplasm of large intestine
CPT/HCPCS: 0241U-QW; 36415; 71045-TC-FY; 71046-TC-FY; 80048; 80053; 80197; 81003; 82310; 82803; 82962; 83036; 83735; 83880; 83970; 84100; 84484; 85025; 85027; 85610; 85730; 93005; 93010; 94640; 94761; 99285-25; J1644

== ENCOUNTER 2022-08-06 12:19 | Emergency (ER) | payer OTHER ==
[2022-08-06 12:36] VITALS: BMI 33.6
[2022-08-06] MEDS ORDERED: ACETAMINOPHEN 500 MG TABLET (FP) PO ONE (13:29)
[2022-08-06] MEDS ORDERED: LIDOCAINE 5% TOPICAL PATCH TP ONE (13:30)
[2022-08-06] MEDS ORDERED: LIDOCAINE 5% TOPICAL PATCH ONE (13:59)
[2022-08-06] MEDS ORDERED: ACETAMINOPHEN 325 MG TABLET (FP) ONE (13:59)
[2022-08-06 14:11] LABS: BASO % 0.7 % (0-2.0); HEMATOCRIT 34.6 % (32.4-45.2); HEMOGLOBIN 11.6 GM/dL (10.7-15.3); LYMPH % 11.8 % (8-40); MCH 28.5 pg (25.7-33.7); MCHC 33.6 g/dl (32.0-36.0); MEAN CELL VOLUME 84.8 fl (80-96); MEAN PLT VOLUME 8.2 fl (7.5-11.1); NEUT % 76.5 % (42.8-82.8); PLATELET COUNT 158 10^3/uL (134-434); RBC 4.08 M/mm3 (3.60-5.2); RDW 17.5 % (11.6-15.6); WHITE BLOOD COUNT 6.8 K/mm3 (4.0-10.0)
[2022-08-06 14:39] LABS: CALCIUM 9.5 mg/dL (8.5-10.1)
[2022-08-06 14:40] LABS: ALBUMIN 3.3 g/dl (3.4-5.0); BLOOD UREA NITROGEN 14.4 mg/dL (7-18)
[2022-08-06 14:43] LABS: CREATININE 0.9 mg/dL (0.55-1.3)
[2022-08-06 14:44] LABS: BILIRUBIN,TOTAL 0.4 mg/dL (0.2-1)
[2022-08-06 14:45] LABS: TOT PROT 6.1 g/dl (6.4-8.2)
[2022-08-06 18:13] VITALS: BP 115/60; PULSE 76; RESP 16; TEMP 98.3
[2022-08-06] MEDS ORDERED: SODIUM CHLORIDE 0.9% 500 ML INFUS.BAG IV ONE (19:14)
[2022-08-06 21:15] LABS: EPI CELLS 3 /uL (0-25.1); HYALINE CASTS 0 /uL (0-3.1); URINE APPEARANCE CLEAR; URINE BACTERIA 36 /uL (0-1359); URINE BILIRUBIN NEGATIVE (NEGATIVE); URINE COLOR YELLOW; URINE GLUCOSE (UA) NEGATIVE (NEGATIVE); URINE KETONE NEGATIVE (NEGATIVE); URINE LEUK ESTERASE TRACE (NEGATIVE); URINE NITRITE NEGATIVE (NEGATIVE); URINE PROTEIN NEGATIVE (NEGATIVE); URINE RBC 12 /uL (0-23.9); URINE UROBILINOGEN 0.2 mg/dL (0.2-1.0); URINE WBC 5 /uL (0-25.8)
[2022-08-06] MEDS ORDERED: LIDOCAINE PATCH REMOVAL MC ONE (22:00)
== END 2022-08-06 23:07 | disposition home or self-care (01) ==
LOC: JER 12:19
DX: R07.89 Other chest pain (principal); M54.6 Pain in thoracic spine
CPT/HCPCS: 36415; 71250-TC; 80053; 81003; 84484; 85025; 93005; 93010; 99285-25

== ENCOUNTER 2022-08-10 10:04 | Observation (INO) | payer OTHER ==
[2022-08-10 10:19] VITALS: BMI 34.0
[2022-08-10] MEDS ORDERED: morphine CARPU-JECT 4 MG/1 ML DISP.SYRIN IVPUSH STA ×2 (10:41→15:50)
[2022-08-10] MEDS ORDERED: ONDANSETRON 4 MG/2 ML VIAL IVPUSH STA (10:42)
[2022-08-10 11:41] LABS: PH,URINE 7.5 (5.0-8.0); URINE APPEARANCE CLEAR; URINE BILIRUBIN NEGATIVE (NEGATIVE); URINE COLOR YELLOW; URINE GLUCOSE (UA) NEGATIVE (NEGATIVE); URINE KETONE NEGATIVE (NEGATIVE); URINE LEUK ESTERASE NEGATIVE (NEGATIVE); URINE NITRITE NEGATIVE (NEGATIVE); URINE PROTEIN NEGATIVE (NEGATIVE); URINE UROBILINOGEN 0.2 mg/dL (0.2-1.0)
[2022-08-10 11:42] LABS: BASO % 0.6 % (0-2.0); EOS % 1.3 % (0-4.5); HEMATOCRIT 35.7 % (32.4-45.2); HEMOGLOBIN 11.9 GM/dL (10.7-15.3); LYMPH % 12.1 % (8-40); MCH 28.2 pg (25.7-33.7); MCHC 33.3 g/dl (32.0-36.0); MEAN CELL VOLUME 84.7 fl (80-96); MEAN PLT VOLUME 8.4 fl (7.5-11.1); MONO % 11.3 % (3.8-10.2); NEUT % 74.7 % (42.8-82.8); PLATELET COUNT 157 10^3/uL (134-434); RBC 4.22 M/mm3 (3.60-5.2); RDW 18.1 % (11.6-15.6); WHITE BLOOD COUNT 5.7 K/mm3 (4.0-10.0)
[2022-08-10 11:53] LABS: INR 1.05 (0.83-1.09); PROTHROMBIN TIME (PATIENT) 12.2 SEC (9.7-13.0)
[2022-08-10 11:57] LABS: CALCIUM 9.8 mg/dL (8.5-10.1)
[2022-08-10] MEDS ORDERED: morphine SULFATE 4 MG/ML VIAL ONE ×2 (11:57→16:11)
[2022-08-10 11:58] LABS: ALBUMIN 3.3 g/dl (3.4-5.0); BLOOD UREA NITROGEN 9.3 mg/dL (7-18)
[2022-08-10] MEDS ORDERED: ONDANSETRON 4 MG/2 ML VIAL ONE (11:58)
[2022-08-10 12:01] LABS: CREATININE 0.8 mg/dL (0.55-1.3)
[2022-08-10 12:03] LABS: BILIRUBIN,TOTAL 0.4 mg/dL (0.2-1); TOT PROT 6.1 g/dl (6.4-8.2)
[2022-08-10] MEDS ORDERED: SODIUM CHLORIDE 1,000 ML IV STA (14:07)
[2022-08-10] MEDS ORDERED: ACETAMINOPHEN 500 MG TABLET (FP) PO STA (14:10)
[2022-08-10] MEDS ORDERED: ACETAMINOPHEN 325 MG TABLET (FP) ONE (14:37)
[2022-08-10] MEDS ORDERED: LACTATED RINGERS SOLUTION 1,000 ML/1,000 ML INFUS.BAG IV SCH ×2 (17:00→20:00)
[2022-08-10] MEDS: hydrALAZINE HCL 25 MG TABLET (FP) PO SCH (21:18)
[2022-08-10] MEDS: metoPROLOL SUCCINATE 25 MG TAB.SR.24H (FP) PO SCH (21:18)
[2022-08-10] MEDS: GABAPENTIN 300 MG CAPSULE PO SCH (21:18)
[2022-08-10] MEDS: HEPARIN NA (PORCINE) 5,000 UNITS/ML 1ML VIAL SQ SCH (21:19)
[2022-08-10 21:59] VITALS: RESP 20
[2022-08-10] MEDS ORDERED: traZODone HCL 50 MG TABLET (FP) PO SCH (22:00)
[2022-08-10] MEDS ORDERED: METHENAMINE 1 GM PO SCH (22:00)
[2022-08-10] MEDS: BUDESONIDE/FORMETEROL FUMARATE 80/4.5 mcg INHALER IH SCH (22:58)
[2022-08-10] MEDS: TACROLIMUS ANHYDROUS 1 MG CAPSULE PO SCH (22:58)
[2022-08-10] MEDS: LIPASE/PROTEASE/AMYLASE 36,000 UNIT CAPSULE PO SCH (22:58)
[2022-08-11] MEDS: ONDANSETRON 4 MG/2 ML VIAL IVPUSH PRN ×2 (04:58→10:50)
[2022-08-11] MEDS: hydrALAZINE HCL 25 MG TABLET (FP) PO SCH ×2 (06:11→14:04)
[2022-08-11] MEDS: LIPASE/PROTEASE/AMYLASE 36,000 UNIT CAPSULE PO SCH ×2 (06:12→14:03)
[2022-08-11 06:35] LABS: BASO % 0.1 % (0-2.0); EOS % 0.6 % (0-4.5); HEMATOCRIT 33.6 % (32.4-45.2); LYMPH % 10.2 % (8-40); MCH 28.2 pg (25.7-33.7); MCHC 32.7 g/dl (32.0-36.0); MEAN CELL VOLUME 86.3 fl (80-96); MEAN PLT VOLUME 8.6 fl (7.5-11.1); MONO % 7.3 % (3.8-10.2); NEUT % 81.8 % (42.8-82.8); PLATELET COUNT 152 10^3/uL (134-434); RDW 17.9 % (11.6-15.6); WHITE BLOOD COUNT 7.5 K/mm3 (4.0-10.0)
[2022-08-11 07:01] LABS: BLOOD UREA NITROGEN 9.4 mg/dL (7-18); CALCIUM 9.5 mg/dL (8.5-10.1)
[2022-08-11 07:04] LABS: CREATININE 0.7 mg/dL (0.55-1.3)
[2022-08-11] MEDS ORDERED: SODIUM CHLORIDE 1,000 ML IV SCH (09:15)
[2022-08-11] MEDS ORDERED: FUROSEMIDE 20 MG TABLET (FP) PO SCH (10:00)
[2022-08-11] MEDS ORDERED: predniSONE 5 MG TABLET (UD) PO SCH (10:00)
[2022-08-11] MEDS ORDERED: CINACALCET HCL 30 MG TAB (FP) PO SCH (10:00)
[2022-08-11] MEDS ORDERED: NIFEdipine E.R. 30 MG TABLET PO SCH (10:00)
[2022-08-11] MEDS ORDERED: PANTOPRAZOLE 40 MG TABLET PO SCH (10:00)
[2022-08-11] MEDS: HEPARIN NA (PORCINE) 5,000 UNITS/ML 1ML VIAL SQ SCH (10:10)
[2022-08-11] MEDS: metoPROLOL SUCCINATE 25 MG TAB.SR.24H (FP) PO SCH (10:11)
[2022-08-11] MEDS: TACROLIMUS ANHYDROUS 1 MG CAPSULE PO SCH (10:11)
[2022-08-11] MEDS: GABAPENTIN 300 MG CAPSULE PO SCH (10:11)
[2022-08-11] MEDS: BUDESONIDE/FORMETEROL FUMARATE 80/4.5 mcg INHALER IH SCH (10:11)
[2022-08-11] MEDS ORDERED: ACETAMINOPHEN 1000 MG/100 ML BAG IVPB ONE (20:28)
[2022-08-11 20:46] VITALS: BP 139/65; PULSE 89; TEMP 99.2
== END 2022-08-11 21:53 | disposition short-term general hospital (02) ==
LOC: JER 10:04 → JERBED 16:24 → J7W 20:25
PROVIDERS: ADMIT Internal Medicine; ATTEND Internal Medicine
PROC: 3E023GC Introduction of Other Therapeutic Substance into Muscle, Percutaneous Approach (ICD-10-PCS; principal; 2022-08-10)
PROC: 3E0337Z Introduction of Electrolytic and Water Balance Substance into Peripheral Vein, Percutaneous Approach (ICD-10-PCS; 2022-08-10)
PROC: 3E033NZ Introduction of Analgesics, Hypnotics, Sedatives into Peripheral Vein, Percutaneous Approach (ICD-10-PCS; 2022-08-10)
DX: R10.31 Right lower quadrant pain (principal); I25.10 Atherosclerotic heart disease of native coronary artery without angina pectoris; N18.9 Chronic kidney disease, unspecified; K21.9 Gastro-esophageal reflux disease without esophagitis; I11.0 Hypertensive heart disease with heart failure; I27.20 Pulmonary hypertension, unspecified; J44.9 Chronic obstructive pulmonary disease, unspecified; Z29.9 Encounter for prophylactic measures, unspecified; E78.5 Hyperlipidemia, unspecified; Z85.038 Personal history of other malignant neoplasm of large intestine; Z95.5 Presence of coronary angioplasty implant and graft; Z87.891 Personal history of nicotine dependence; Z94.0 Kidney transplant status; Z88.0 Allergy status to penicillin; Z88.8 Allergy status to other drugs, medicaments and biological substances; Z91.018 Allergy to other foods
CPT/HCPCS: 36415; 74177-TC; 76856-TC; 80048; 80053; 81003; 83605; 85025; 85610; 86850; 86900; 86901; 87040; 93005; 93010; 96361; 96372; 96374; 96375; 96376; 99285-25; C9803-CS; G0378; J1644; Q9967; U0003; U0005

== ENCOUNTER 2022-09-15 22:53 | Emergency (ER) | payer OTHER ==
[2022-09-15 22:58] VITALS: BMI 30.2
[2022-09-15] MEDS ORDERED: ACETAMINOPHEN 500 MG TABLET (FP) PO ONE (23:54)
[2022-09-15] MEDS ORDERED: ACETAMINOPHEN 325 MG TABLET (FP) ONE (23:58)
[2022-09-16 00:55] VITALS: BP 142/74; PULSE 75; RESP 15; TEMP 97.6
[2022-09-16] MEDS ORDERED: oxyCODONE HCL 5 MG TABLET PO ONE (01:19)
[2022-09-16] MEDS ORDERED: oxyCODONE HCL 5 MG TABLET ONE (01:20)
== END 2022-09-16 02:34 | disposition home or self-care (01) ==
LOC: JER 22:53
PROC: 2W3DX1Z Immobilization of Left Lower Arm using Splint (ICD-10-PCS; principal; 2022-09-15)
DX: S52.572A Other intraarticular fracture of lower end of left radius, initial encounter for closed fracture (principal); W01.0XXA Fall on same level from slipping, tripping and stumbling without subsequent striking against object, initial encounter
CPT/HCPCS: 29125; 73030-TC-LT-FY; 73060-TC-LT-FY; 73070-TC-LT-FY; 73090-TC-LT-FY; 73110-TC-LT-FY; 73130-TC-LT-FY; 99284-25

== ENCOUNTER 2022-12-14 09:16 | Day surgery (SDC) | payer OTHER ==
[2022-12-07 15:52] VITALS: BMI 30.2
[2022-12-14] MEDS ORDERED: MIDAZOLAM HCL 2 MG/2 ML SINGLE DOSE VIAL ONE (09:33)
[2022-12-14] MEDS ORDERED: SODIUM BICARBONATE 8.4% 50 MEQ/50 ML VIAL ONE (09:38)
[2022-12-14] MEDS ORDERED: LIDOCAINE 1%-EPI 1:100,000 30 ML MDV IJ ONE ×2 (09:38→09:46)
[2022-12-14] MEDS ORDERED: PROPOFOL 20 ML ONE (10:31)
[2022-12-14] MEDS ORDERED: ACETAMINOPHEN 325 MG TABLET (FP) PO PRN (11:50)
[2022-12-14] MEDS ORDERED: ONDANSETRON 4 MG/2 ML VIAL IVPUSH PRN (11:50)
[2022-12-14] MEDS ORDERED: LACTATED RINGERS SOLUTION 1,000 ML IV SCH (12:00)
[2022-12-14] MEDS ORDERED: ACETAMINOPHEN 325 MG TABLET (FP) ONE (12:55)
[2022-12-14 13:29] VITALS: RESP 16; TEMP 98.6
[2022-12-14 13:54] VITALS: BP 148/70; PULSE 88
== END 2022-12-14 13:30 | disposition home or self-care (01) ==
LOC: FASU 09:16
PROVIDERS: ATTEND Orthopaedic Surgery Hand Surgery
PROC: 0LX80ZZ Transfer Left Hand Tendon, Open Approach (ICD-10-PCS; principal; 2022-12-14 10:42)
DX: S66.318A Strain of extensor muscle, fascia and tendon of other finger at wrist and hand level, initial encounter (principal); X58.XXXA Exposure to other specified factors, initial encounter; Y93.9 Activity, unspecified; Y92.9 Unspecified place or not applicable
CPT/HCPCS: 94760

== ENCOUNTER 2023-01-02 14:11 | Emergency (ER) | payer OTHER ==
[2023-01-02 14:35] VITALS: BP 148/86; PULSE 85; RESP 18; TEMP 97.7; BMI 33.3
[2023-01-02 15:19] LABS: HEMATOCRIT 40.8 % (32.4-45.2); HEMOGLOBIN 13.1 GM/dL (10.7-15.3); MCH 27.9 pg (25.7-33.7); PLATELET COUNT 186 10^3/uL (134-434); RBC 4.69 M/mm3 (3.60-5.2); RDW 16.1 % (11.6-15.6); WHITE BLOOD COUNT 14.3 K/mm3 (4.0-10.0)
[2023-01-02 15:45] LABS: PH,URINE 5.5 (5.0-8.0); URINE APPEARANCE CLEAR; URINE BILIRUBIN NEGATIVE (NEGATIVE); URINE COLOR YELLOW; URINE GLUCOSE (UA) NEGATIVE (NEGATIVE); URINE KETONE NEGATIVE (NEGATIVE); URINE LEUK ESTERASE NEGATIVE (NEGATIVE); URINE NITRITE NEGATIVE (NEGATIVE); URINE PROTEIN NEGATIVE (NEGATIVE); URINE UROBILINOGEN 0.2 mg/dL (0.2-1.0)
[2023-01-02 15:46] LABS: BLOOD UREA NITROGEN 22.3 mg/dL (7-18); CALCIUM 10.1 mg/dL (8.5-10.1)
[2023-01-02 15:47] LABS: ALBUMIN 3.5 g/dl (3.4-5.0); MAGNESIUM 2.1 mg/dL (1.8-2.4)
[2023-01-02 15:49] LABS: CREATININE 0.9 mg/dL (0.55-1.3)
[2023-01-02 15:51] LABS: BILIRUBIN,TOTAL 0.4 mg/dL (0.2-1); TOT PROT 6.7 g/dl (6.4-8.2)
[2023-01-02] MEDS ORDERED: ACETAMINOPHEN 325 MG TABLET (FP) PO ONE (15:58)
[2023-01-02 16:01] LABS: ANISOCYTOSIS 0; HELMET CELLS 0; HOWELL-JOLLY BODIES 0; MACROCYTOSIS 0; OVALOCYTE 0; ROULEAU 0; SICKELED CELLS 0; TARGET CELLS 0; TEAR DROP CELLS 0; TOXIC GRANULATION 0
[2023-01-02] MEDS ORDERED: ACETAMINOPHEN 325 MG TABLET (FP) ONE (16:13)
[2023-01-02] MEDS ORDERED: DIPHTH,PERTUSS(ACELL),TET 0.5 ML DISP.SYRIN IM ONE ×2 (16:14→18:37)
[2023-01-02] MEDS ORDERED: DOXYCYCLINE HYCLATE 100 MG CAPSULE PO ONE ×2 (22:03→22:10)
== END 2023-01-02 22:46 | disposition home or self-care (01) ==
LOC: JER 14:11
PROC: 3E0234Z Introduction of Serum, Toxoid and Vaccine into Muscle, Percutaneous Approach (ICD-10-PCS; principal; 2023-01-02)
DX: R55 Syncope and collapse (principal); J18.9 Pneumonia, unspecified organism; D72.829 Elevated white blood cell count, unspecified; R42 Dizziness and giddiness; R07.9 Chest pain, unspecified; R06.02 Shortness of breath; M54.9 Dorsalgia, unspecified; R14.0 Abdominal distension (gaseous); M54.2 Cervicalgia; M54.6 Pain in thoracic spine; R51.9 Headache, unspecified; M25.519 Pain in unspecified shoulder; W19.XXXA Unspecified fall, initial encounter
CPT/HCPCS: 36415; 70450-TC; 71045-TC-FY; 72125-TC; 72128-TC; 72131-TC; 72170-TC-FY; 73521-TC-FY; 80053; 81003; 82962; 83735; 84484; 85025; 87086; 90471; 90715; 93005; 93010; 99285-25

== ENCOUNTER 2023-04-20 11:52 | Observation (INO) | payer OTHER ==
[2023-04-20] MEDS ORDERED: ACETAMINOPHEN 1000 MG/100 ML BAG IVPB ONE (13:03)
[2023-04-20] MEDS ORDERED: ACETAMINOPHEN INJECTION 100 ML IVPB ONE (13:34)
[2023-04-20 13:57] LABS: BASO % 0.9 % (0-2.0); EOS % 1.2 % (0-4.5); HEMATOCRIT 36.5 % (32.4-45.2); LYMPH % 7.8 % (8-40); MCH 27.7 pg (25.7-33.7); MEAN PLT VOLUME 7.8 fl (7.5-11.1); MONO % 6.2 % (3.8-10.2); NEUT % 83.9 % (42.8-82.8); PLATELET COUNT 162 10^3/uL (134-434); RBC 4.35 M/mm3 (3.60-5.2); RDW 16.2 % (11.6-15.6); WHITE BLOOD COUNT 7.1 K/mm3 (4.0-10.0)
[2023-04-20 14:02] LABS: INR 0.98 (0.83-1.09); PROTHROMBIN TIME (PATIENT) 11.4 SEC (9.7-13.0)
[2023-04-20 14:05] LABS: ACTIVATED PTT 24.8 SECONDS (25.2-36.5)
[2023-04-20 14:21] LABS: CALCIUM 9.2 mg/dL (8.5-10.1)
[2023-04-20 14:22] LABS: ALBUMIN 3.2 g/dl (3.4-5.0); BLOOD UREA NITROGEN 20.5 mg/dL (7-18)
[2023-04-20 14:25] LABS: CREATININE 0.8 mg/dL (0.55-1.3)
[2023-04-20 14:27] LABS: BILIRUBIN,TOTAL 0.3 mg/dL (0.2-1); TOT PROT 6.2 g/dl (6.4-8.2)
[2023-04-20] MEDS ORDERED: AZITHROMYCIN IVPB 500 MG in DEXTROSE 5%-WATER - 250 ML IVPB ONE (18:23)
[2023-04-20] MEDS ORDERED: AZITHROMYCIN IVPB 500 MG/250 ML BAG IVPB ONE (18:49)
[2023-04-20] MEDS ORDERED: METOCLOPRAMIDE HCL INJECTION 10 MG/2 ML VIAL IVPB ONE (19:47)
[2023-04-20] MEDS ORDERED: METOCLOPRAMIDE HCL INJECTION 10 MG/2 ML VIAL ONE (19:54)
[2023-04-20 23:20] LABS: ARTERIAL BLD GAS O2 SATURATION 98.4 % (95-98); ARTERIAL BLOOD GAS BASE EXCESS 1.3 mmol/L (-2-2); ARTERIAL BLOOD GAS PO2 141.8 mmHg (80-100); ARTERIAL BLOOD GAS pH 7.253 (7.350-7.450)
[2023-04-20 23:23] LABS: ALLENS TEST POSITIVE
[2023-04-21 02:01] LABS: ARTERIAL BLD GAS O2 SATURATION 93.5 % (95-98); ARTERIAL BLOOD GAS BASE EXCESS 2.1 mmol/L (-2-2); ARTERIAL BLOOD GAS PO2 75.2 mmHg (80-100); ARTERIAL BLOOD GAS pH 7.307 (7.350-7.450)
[2023-04-21 02:04] LABS: ALLENS TEST POSITIVE; VENT RATE 16
[2023-04-21] MEDS: HEPARIN NA (PORCINE) 5,000 UNITS/ML 1ML VIAL SQ SCH ×3 (06:29→21:40)
[2023-04-21] MEDS: ALBUTEROL SO4 2.5/IPRATROPIUM 0.5 INH SOL 3 ML VIAL.NEB. NEB SCH ×4 (07:44→20:47)
[2023-04-21 07:54] LABS: HEMATOCRIT 35.8 % (32.4-45.2); HEMOGLOBIN 11.3 GM/dL (10.7-15.3); MCH 27.1 pg (25.7-33.7); MCHC 31.5 g/dl (32.0-36.0); MEAN CELL VOLUME 85.9 fl (80-96); MEAN PLT VOLUME 7.6 fl (7.5-11.1); PLATELET COUNT 182 10^3/uL (134-434); RBC 4.17 M/mm3 (3.60-5.2); RDW 15.9 % (11.6-15.6); WHITE BLOOD COUNT 6.4 K/mm3 (4.0-10.0)
[2023-04-21 08:21] LABS: POTASSIUM 3.7 mmol/L (3.5-5.1)
[2023-04-21 08:31] LABS: ALBUMIN 3.1 g/dl (3.4-5.0); BILIRUBIN,TOTAL 0.7 mg/dL (0.2-1); CALCIUM 8.8 mg/dL (8.5-10.1); MAGNESIUM 1.6 mg/dL (1.8-2.4); TOT PROT 5.7 g/dl (6.4-8.2)
[2023-04-21 08:32] LABS: PHOSPHOROUS 2.2 mg/dL (2.5-4.9)
[2023-04-21 08:35] LABS: CREATININE 0.7 mg/dL (0.55-1.3)
[2023-04-21] MEDS ORDERED: ACETAMINOPHEN/CAFFEINE/BUTALBITAL 1 TAB PO ONE (09:48)
[2023-04-21] MEDS ORDERED: methylPREDNISolone NA SUCC 40 MG/1 ML VIAL IVPUSH SCH (10:00)
[2023-04-21] MEDS ORDERED: AZITHROMYCIN IVPB 500 MG/250 ML BAG IVPB SCH (10:00)
[2023-04-21 11:47] LABS: ANISOCYTOSIS 0; HELMET CELLS 0; HOWELL-JOLLY BODIES 0; MACROCYTOSIS 0; OVALOCYTE 0; ROULEAU 0; SICKELED CELLS 0; TARGET CELLS 0; TEAR DROP CELLS 0; TOXIC GRANULATION 0
[2023-04-21] MEDS: predniSONE 5 MG TABLET (UD) PO SCH (16:07)
[2023-04-21] MEDS: BUDESONIDE/FORMETEROL FUMARATE 80/4.5 mcg INHALER IH SCH ×2 (16:07→21:40)
[2023-04-21] MEDS: ACETAMINOPHEN/CAFFEINE/BUTALBITAL 1 TAB PO PRN ×2 (16:47→22:41)
[2023-04-21 18:09] LABS: EPI CELLS 15 /uL (0-25.1); HYALINE CASTS 0 /uL (0-3.1); PH,URINE 6.5 (5.0-8.0); URINE APPEARANCE CLEAR; URINE BACTERIA 166 /uL (0-1359); URINE BILIRUBIN NEGATIVE (NEGATIVE); URINE COLOR YELLOW; URINE GLUCOSE (UA) NEGATIVE (NEGATIVE); URINE KETONE NEGATIVE (NEGATIVE); URINE LEUK ESTERASE NEGATIVE (NEGATIVE); URINE NITRITE NEGATIVE (NEGATIVE); URINE PROTEIN 2+ (NEGATIVE); URINE RBC 35 /uL (0-23.9); URINE UROBILINOGEN 0.2 mg/dL (0.2-1.0); URINE WBC 22 /uL (0-25.8)
[2023-04-21 18:22] LABS: METHADONE, UR NEGATIVE (NEGATIVE); OPIATES, URI NEGATIVE (NEGATIVE); PHENCYCLIDINE,URINE NEGATIVE (NEGATIVE); URINE AMPHETAMINES NEGATIVE (NEGATIVE)
[2023-04-21] MEDS ORDERED: MAGNESIUM SULF 50% (8.12 MEQ/2 ML-1 GM VIAL) IVPB ONE (18:37)
[2023-04-21 18:41] LABS: COCAINE, UR NEGATIVE (NEGATIVE); URINE BARBITURATES POSITIVE (NEGATIVE); URINE BENZODIAZEPINES POSITIVE (NEGATIVE)
[2023-04-21] MEDS: CINACALCET HCL 30 MG TAB (FP) PO SCH (19:04)
[2023-04-21] MEDS: NAPH,MB-DB/K PH,MBDB POWDER PACKET PO SCH (21:40)
[2023-04-21] MEDS: TACROLIMUS ANHYDROUS 1 MG CAPSULE PO SCH (21:40)
[2023-04-22] MEDS: ACETAMINOPHEN/CAFFEINE/BUTALBITAL 1 TAB PO PRN (04:05)
[2023-04-22] MEDS: HEPARIN NA (PORCINE) 5,000 UNITS/ML 1ML VIAL SQ SCH ×3 (05:42→21:56)
[2023-04-22] MEDS: ALBUTEROL SO4 2.5/IPRATROPIUM 0.5 INH SOL 3 ML VIAL.NEB. NEB SCH ×4 (08:28→20:25)
[2023-04-22 09:22] LABS: BASO % 0.1 % (0-2.0); HEMATOCRIT 32.9 % (32.4-45.2); HEMOGLOBIN 10.9 GM/dL (10.7-15.3); LYMPH % 9.3 % (8-40); MCH 27.7 pg (25.7-33.7); MCHC 33.3 g/dl (32.0-36.0); MEAN CELL VOLUME 83.1 fl (80-96); MONO % 6.6 % (3.8-10.2); PLATELET COUNT 168 10^3/uL (134-434); RBC 3.96 M/mm3 (3.60-5.2); RDW 16.1 % (11.6-15.6)
[2023-04-22 09:26] LABS: POTASSIUM 4.2 mmol/L (3.5-5.1)
[2023-04-22 09:31] LABS: CALCIUM 9.3 mg/dL (8.5-10.1)
[2023-04-22] MEDS: TACROLIMUS ANHYDROUS 1 MG CAPSULE PO SCH ×2 (09:31→21:56)
[2023-04-22] MEDS: predniSONE 5 MG TABLET (UD) PO SCH (09:31)
[2023-04-22] MEDS: NAPH,MB-DB/K PH,MBDB POWDER PACKET PO SCH (09:31)
[2023-04-22] MEDS: CINACALCET HCL 30 MG TAB (FP) PO SCH (09:31)
[2023-04-22 09:32] LABS: ALBUMIN 3.2 g/dl (3.4-5.0); BLOOD UREA NITROGEN 17.8 mg/dL (7-18); MAGNESIUM 2.2 mg/dL (1.8-2.4)
[2023-04-22 09:34] LABS: CREATININE 0.8 mg/dL (0.55-1.3); PHOSPHOROUS 2.7 mg/dL (2.5-4.9)
[2023-04-22] MEDS: BUDESONIDE/FORMETEROL FUMARATE 80/4.5 mcg INHALER IH SCH ×2 (09:35→21:57)
[2023-04-22 09:36] LABS: BILIRUBIN,TOTAL 0.4 mg/dL (0.2-1); TOT PROT 5.9 g/dl (6.4-8.2)
[2023-04-22] MEDS: hydrALAZINE HCL 25 MG TABLET (FP) PO SCH ×3 (11:28→21:57)
[2023-04-22] MEDS: metoPROLOL SUCCINATE 25 MG TAB.SR.24H (FP) PO SCH (11:28)
[2023-04-22] MEDS: clonazePAM 0.5 MG TABLET PO PRN (12:57)
[2023-04-22] MEDS: LIPASE/PROTEASE/AMYLASE 36,000 UNIT CAPSULE PO SCH ×2 (13:44→17:21)
[2023-04-22 15:12] VITALS: BMI 31.7
[2023-04-22] MEDS ORDERED: traMADol HCL 50 MG TABLET PO PRN (16:08)
[2023-04-22] MEDS ORDERED: SUMAtriptan SUCCINATE 50 MG TABLET PO ONE ×2 (16:15→21:30)
[2023-04-23] MEDS ORDERED: traZODone HCL 50 MG TABLET (FP) PO ONE (00:04)
[2023-04-23] MEDS: HEPARIN NA (PORCINE) 5,000 UNITS/ML 1ML VIAL SQ SCH (05:58)
[2023-04-23] MEDS: hydrALAZINE HCL 25 MG TABLET (FP) PO SCH (05:58)
[2023-04-23] MEDS: LIPASE/PROTEASE/AMYLASE 36,000 UNIT CAPSULE PO SCH ×2 (07:37→12:10)
[2023-04-23] MEDS: ALBUTEROL SO4 2.5/IPRATROPIUM 0.5 INH SOL 3 ML VIAL.NEB. NEB SCH ×2 (07:40→11:57)
[2023-04-23] MEDS: CINACALCET HCL 30 MG TAB (FP) PO SCH (10:02)
[2023-04-23] MEDS: metoPROLOL SUCCINATE 25 MG TAB.SR.24H (FP) PO SCH (10:03)
[2023-04-23] MEDS: predniSONE 5 MG TABLET (UD) PO SCH (10:03)
[2023-04-23] MEDS: TACROLIMUS ANHYDROUS 1 MG CAPSULE PO SCH (10:04)
[2023-04-23] MEDS: BUDESONIDE/FORMETEROL FUMARATE 80/4.5 mcg INHALER IH SCH (10:07)
[2023-04-23] MEDS: clonazePAM 0.5 MG TABLET PO PRN (10:09)
[2023-04-23 13:03] VITALS: RESP 18
[2023-04-23 14:03] VITALS: BP 134/75; PULSE 95; TEMP 98.4
== END 2023-04-23 14:38 | disposition home or self-care (01) ==
LOC: JER 11:52 → JERBED 19:50 → J4W 04-21 02:40
PROVIDERS: ADMIT Internal Medicine; ATTEND Internal Medicine
PROC: 3E033NZ Introduction of Analgesics, Hypnotics, Sedatives into Peripheral Vein, Percutaneous Approach (ICD-10-PCS; principal; 2023-04-20)
PROC: 3E0F7GC Introduction of Other Therapeutic Substance into Respiratory Tract, Via Natural or Artificial Opening (ICD-10-PCS; 2023-04-20)
PROC: 3E023GC Introduction of Other Therapeutic Substance into Muscle, Percutaneous Approach (ICD-10-PCS; 2023-04-20)
PROC: 3E033GC Introduction of Other Therapeutic Substance into Peripheral Vein, Percutaneous Approach (ICD-10-PCS; 2023-04-20)
DX: R07.9 Chest pain, unspecified (principal); G43.909 Migraine, unspecified, not intractable, without status migrainosus; Z95.5 Presence of coronary angioplasty implant and graft; N18.9 Chronic kidney disease, unspecified; E78.5 Hyperlipidemia, unspecified; I11.0 Hypertensive heart disease with heart failure; J45.909 Unspecified asthma, uncomplicated; Z87.442 Personal history of urinary calculi; Z90.5 Acquired absence of kidney; Z88.8 Allergy status to other drugs, medicaments and biological substances; Z91.018 Allergy to other foods; Z88.0 Allergy status to penicillin
CPT/HCPCS: 36415; 36600; 70450-TC; 71045-TC-FY; 71275-TC; 80053; 80061; 80307; 81003; 82803; 83036; 83735; 84100; 84443; 84484; 85025; 85610; 85730; 87086; 93005; 93010; 93306-TC; 94150; 94640; 94660; 96365; 96366; 96372; 96375; 99285-25; G0378; J1644; Q9967

== ENCOUNTER 2023-06-06 16:43 | Emergency (ER) | payer OTHER ==
[2023-06-06 16:53] VITALS: RESP 20; BMI 33.6
[2023-06-06] MEDS ORDERED: ACETAMINOPHEN 1000 MG/100 ML BAG IVPB ONE (17:46)
[2023-06-06 18:12] LABS: BASO % 0.8 % (0-2.0); EOS % 0.7 % (0-4.5); HEMATOCRIT 36.6 % (32.4-45.2); HEMOGLOBIN 11.8 GM/dL (10.7-15.3); MCH 28.2 pg (25.7-33.7); MCHC 32.2 g/dl (32.0-36.0); MEAN CELL VOLUME 87.5 fl (80-96); MEAN PLT VOLUME 8.4 fl (7.5-11.1); MONO % 4.1 % (3.8-10.2); NEUT % 86.4 % (42.8-82.8); PLATELET COUNT 170 10^3/uL (134-434); RBC 4.18 M/mm3 (3.60-5.2); RDW 16.2 % (11.6-15.6); WHITE BLOOD COUNT 11.9 K/mm3 (4.0-10.0)
[2023-06-06] MEDS ORDERED: ACETAMINOPHEN INJECTION 100 ML IVPB ONE (18:19)
[2023-06-06 18:28] LABS: POTASSIUM 3.8 mmol/L (3.5-5.1)
[2023-06-06 18:30] LABS: ALBUMIN 3.6 g/dl (3.4-5.0); BLOOD UREA NITROGEN 22.5 mg/dL (7-18); CALCIUM 10.2 mg/dL (8.5-10.1)
[2023-06-06 18:33] LABS: CREATININE 1.4 mg/dL (0.55-1.3)
[2023-06-06 18:35] LABS: BILIRUBIN,TOTAL 0.2 mg/dL (0.2-1); TOT PROT 6.4 g/dl (6.4-8.2)
[2023-06-06] MEDS ORDERED: SODIUM CHLORIDE 0.9% 500 ML INFUS.BAG IV ONE (18:42)
[2023-06-06 20:02] VITALS: TEMP 98.3
[2023-06-06] MEDS ORDERED: morphine CARPU-JECT 4 MG/1 ML DISP.SYRIN IVPUSH ONE (21:10)
[2023-06-06] MEDS ORDERED: ONDANSETRON 4 MG/2 ML VIAL IVPUSH ONE (21:15)
[2023-06-06] MEDS ORDERED: ONDANSETRON 4 MG/2 ML VIAL ONE (21:22)
[2023-06-06] MEDS ORDERED: morphine SULFATE 4 MG/ML VIAL ONE (21:22)
[2023-06-06 21:30] LABS: EPI CELLS 4 /uL (0-25.1); HYALINE CASTS 1 /uL (0-3.1); PH,URINE 5.5 (5.0-8.0); URINE APPEARANCE CLEAR; URINE BACTERIA 1548 /uL (0-1359); URINE BILIRUBIN NEGATIVE (NEGATIVE); URINE COLOR YELLOW; URINE GLUCOSE (UA) NEGATIVE (NEGATIVE); URINE KETONE NEGATIVE (NEGATIVE); URINE LEUK ESTERASE NEGATIVE (NEGATIVE); URINE NITRITE NEGATIVE (NEGATIVE); URINE PROTEIN 1+ (NEGATIVE); URINE RBC 36 /uL (0-23.9); URINE UROBILINOGEN 0.2 mg/dL (0.2-1.0)
[2023-06-06 21:44] VITALS: BP 120/58; PULSE 72
[2023-06-06 23:46] LABS: URINE CRYSTALS MODERATE /hpf; URINE WBC 129.8 /uL (0-25.8)
== END 2023-06-06 21:51 | disposition short-term general hospital (02) ==
LOC: JER 16:43
PROC: 3E033NZ Introduction of Analgesics, Hypnotics, Sedatives into Peripheral Vein, Percutaneous Approach (ICD-10-PCS; principal; 2023-06-06)
PROC: 3E033GC Introduction of Other Therapeutic Substance into Peripheral Vein, Percutaneous Approach (ICD-10-PCS; 2023-06-06)
PROC: 3E033GC Introduction of Other Therapeutic Substance into Peripheral Vein, Percutaneous Approach (ICD-10-PCS; 2023-06-06)
DX: M54.9 Dorsalgia, unspecified (principal); R10.31 Right lower quadrant pain
CPT/HCPCS: 36415; 74176-TC; 80053; 81003; 85025; 87086; 93005; 93010; 99285-25

== ENCOUNTER 2023-12-10 13:16 | Observation (INO) | payer OTHER ==
[2023-12-10 13:46] VITALS: BMI 32.1
[2023-12-10 14:15] LABS: BASO % 0.5 % (0-2.0); EOS % 0.7 % (0-4.5); HEMATOCRIT 36.2 % (32.4-45.2); HEMOGLOBIN 11.9 GM/dL (10.7-15.3); LYMPH % 4.2 % (8-40); MCH 28.7 pg (25.7-33.7); MCHC 32.9 g/dl (32.0-36.0); MEAN CELL VOLUME 87.2 fl (80-96); MEAN PLT VOLUME 8.1 fl (7.5-11.1); MONO % 9.8 % (3.8-10.2); NEUT % 84.8 % (42.8-82.8); PLATELET COUNT 134 10^3/uL (134-434); RBC 4.15 M/mm3 (3.60-5.2); VENOUS BASE EXCESS 4.1 mmol/L (-2-2); VENOUS O2 SATURATION 53.1 % (70-80); VENOUS PCO2 57.7 mmHg (38-52); VENOUS PH 7.349 (7.310-7.410); WHITE BLOOD COUNT 9.9 K/mm3 (4.0-10.0)
[2023-12-10 14:23] LABS: INR 0.96 (0.83-1.09); PROTHROMBIN TIME (PATIENT) 10.9 SEC (9.7-13.0)
[2023-12-10 14:26] LABS: ACTIVATED PTT 25.8 SECONDS (25.2-36.5)
[2023-12-10] MEDS ORDERED: VANCOMYCIN 1,750 MG in DEXTROSE 5%-WATER - 500 ML IVPB ONE (14:35)
[2023-12-10] MEDS: SODIUM CHLORIDE 0.9% 1000 ML INFUS.BAG IV ONE (14:43)
[2023-12-10] MEDS: ACETAMINOPHEN 1000 MG/100 ML BAG IVPB ONE (14:43)
[2023-12-10 14:44] LABS: POTASSIUM 4.2 mmol/L (3.5-5.1)
[2023-12-10] MEDS ORDERED: ACETAMINOPHEN INJECTION 100 ML IVPB ONE ×2 (14:44→15:49)
[2023-12-10 14:46] LABS: ALBUMIN 3.7 g/dl (3.4-5.0); CALCIUM 9.7 mg/dL (8.5-10.1)
[2023-12-10 14:51] LABS: BILIRUBIN,TOTAL 0.4 mg/dL (0.2-1); TOT PROT 6.7 g/dl (6.4-8.2)
[2023-12-10] MEDS: VANCOMYCIN PREMIX 1.75 GM 1,750 MG/350 ML PIGGYBACK IVPB ONE (15:25)
[2023-12-10] MEDS ORDERED: ACETAMINOPHEN 500 MG TABLET (FP) PO PRN (15:33)
[2023-12-10] MEDS ORDERED: DEXAMETHASONE SOD PHOSPHATE 4 MG/1 ML VIAL ONE (15:49)
[2023-12-10] MEDS: DEXAMETHASONE SOD PHOSPHATE 20 MG/5 ML VIAL IVPB ONE (15:58)
[2023-12-10] MEDS: REMDESIVIR 200 MG in SODIUM CHLORIDE 250 ML IVPB ONE (16:43)
[2023-12-10 21:04] LABS: URINE APPEARANCE CLEAR; URINE BILIRUBIN NEGATIVE (NEGATIVE); URINE COLOR YELLOW; URINE GLUCOSE (UA) NEGATIVE (NEGATIVE); URINE KETONE NEGATIVE (NEGATIVE); URINE LEUK ESTERASE NEGATIVE (NEGATIVE); URINE NITRITE NEGATIVE (NEGATIVE); URINE PROTEIN NEGATIVE (NEGATIVE); URINE UROBILINOGEN 0.2 mg/dL (0.2-1.0)
[2023-12-10] MEDS ORDERED: METHENAMINE 1 GM PO SCH (22:00)
[2023-12-10] MEDS: BUDESONIDE/FORMETEROL FUMARATE 80/4.5 mcg INHALER IH SCH (22:31)
[2023-12-10] MEDS: TACROLIMUS ANHYDROUS 1 MG CAPSULE PO SCH (22:31)
[2023-12-11 07:08] LABS: BASO % 0.2 % (0-2.0); HEMATOCRIT 35.5 % (32.4-45.2); HEMOGLOBIN 11.7 GM/dL (10.7-15.3); LYMPH % 8.3 % (8-40); MCH 28.7 pg (25.7-33.7); MCHC 32.8 g/dl (32.0-36.0); MEAN CELL VOLUME 87.4 fl (80-96); MEAN PLT VOLUME 8.4 fl (7.5-11.1); MONO % 4.2 % (3.8-10.2); NEUT % 87.3 % (42.8-82.8); PLATELET COUNT 139 10^3/uL (134-434); RBC 4.07 M/mm3 (3.60-5.2); RDW 15.3 % (11.6-15.6); WHITE BLOOD COUNT 6.2 K/mm3 (4.0-10.0)
[2023-12-11 07:21] LABS: POTASSIUM 4.7 mmol/L (3.5-5.1)
[2023-12-11 07:24] LABS: CALCIUM 9.7 mg/dL (8.5-10.1)
[2023-12-11 07:25] LABS: BLOOD UREA NITROGEN 28.9 mg/dL (7-18)
[2023-12-11] MEDS ORDERED: PANTOPRAZOLE 40 MG TABLET PO ONE (09:26)
[2023-12-11] MEDS ORDERED: FUROSEMIDE 20 MG TABLET (FP) ONE (09:27)
[2023-12-11] MEDS ORDERED: SERTRALINE HCL 50 MG TABLET (FP) ONE ×2 (09:27→09:33)
[2023-12-11] MEDS ORDERED: metoPROLOL SUCCINATE 25 MG TAB.SR.24H (FP) PO ONE (09:27)
[2023-12-11] MEDS ORDERED: predniSONE 10 MG TABLET (UD) ONE (09:27)
[2023-12-11] MEDS ORDERED: FUROSEMIDE 20 MG TABLET (FP) PO SCH (10:00)
[2023-12-11] MEDS: predniSONE 10 MG TABLET (UD) PO SCH (10:05)
[2023-12-11] MEDS: metoPROLOL SUCCINATE 25 MG TAB.SR.24H (FP) PO SCH (10:06)
[2023-12-11] MEDS: PANTOPRAZOLE 40 MG TABLET PO SCH (10:06)
[2023-12-11] MEDS: CINACALCET HCL 30 MG TAB (FP) PO SCH (10:06)
[2023-12-11] MEDS: FUROSEMIDE 20 MG TABLET (FP) PO SCH (10:06)
[2023-12-11] MEDS: SERTRALINE HCL 50 MG TABLET (FP) PO SCH (10:06)
[2023-12-11] MEDS ORDERED: ALBUTEROL SO4 HFA INHALER IH PRN (12:25)
[2023-12-11] MEDS: FLUTICASONE/UMECLIDIN/VILANTER(200-62.5-25 TRELEGY ELLIPTA) INAHLER IH SCH (13:35)
[2023-12-11] MEDS: REMDESIVIR 100 MG in SODIUM CHLORIDE 250 ML IVPB ONE (16:17)
[2023-12-11] MEDS: HEPARIN NA (PORCINE) 5,000 UNITS/ML 1ML VIAL SQ SCH (22:01)
[2023-12-11] MEDS: traZODone HCL 50 MG TABLET (FP) PO ONE (23:57)
[2023-12-12 01:16] VITALS: RESP 18
[2023-12-12] MEDS: ONDANSETRON 4 MG/2 ML VIAL IVPUSH ONE (12:29)
[2023-12-12 14:12] VITALS: BP 141/79; PULSE 80; TEMP 98.4
[2023-12-12] MEDS: REMDESIVIR 100 MG in SODIUM CHLORIDE 250 ML IVPB SCH (14:47)
== END 2023-12-12 16:54 | disposition home or self-care (01) ==
LOC: JER 13:16 → UNDOADMOB 15:13 → JERBED 15:13 → INTOOBSV 15:13 → J4S 12-11 19:59 → JERBED 12-11 19:59 → J4S 12-12 09:22
PROVIDERS: ADMIT Internal Medicine; ATTEND Internal Medicine
PROC: 3E033NZ Introduction of Analgesics, Hypnotics, Sedatives into Peripheral Vein, Percutaneous Approach (ICD-10-PCS; principal; 2023-12-12)
PROC: 3E023GC Introduction of Other Therapeutic Substance into Muscle, Percutaneous Approach (ICD-10-PCS; 2023-12-12)
PROC: 3E033GC Introduction of Other Therapeutic Substance into Peripheral Vein, Percutaneous Approach (ICD-10-PCS; 2023-12-12)
PROC: 3E0337Z Introduction of Electrolytic and Water Balance Substance into Peripheral Vein, Percutaneous Approach (ICD-10-PCS; 2023-12-12)
DX: A41.9 Sepsis, unspecified organism (principal); U07.1 COVID-19; J96.11 Chronic respiratory failure with hypoxia; J96.21 Acute and chronic respiratory failure with hypoxia; R07.9 Chest pain, unspecified; Z94.0 Kidney transplant status; J44.9 Chronic obstructive pulmonary disease, unspecified; Z99.81 Dependence on supplemental oxygen; I12.9 Hypertensive chronic kidney disease with stage 1 through stage 4 chronic kidney disease, or unspecified chronic kidney disease; N18.9 Chronic kidney disease, unspecified; Z90.5 Acquired absence of kidney; Z85.038 Personal history of other malignant neoplasm of large intestine; K21.9 Gastro-esophageal reflux disease without esophagitis; D64.9 Anemia, unspecified; I25.10 Atherosclerotic heart disease of native coronary artery without angina pectoris; R91.1 Solitary pulmonary nodule; E78.5 Hyperlipidemia, unspecified; Z88.0 Allergy status to penicillin; Z88.8 Allergy status to other drugs, medicaments and biological substances
CPT/HCPCS: 0241U-QW; 36415; 71045-TC-FY; 71275-TC; 80048; 80053; 81003; 82803; 83605; 84484; 85025; 85610; 85730; 86850; 86900; 86901; 87040; 87086; 93005; 93010; 96365; 96366; 96372; 96375; 97116-GP; 97162-GP; 99285-25; G0378; J0131; J0248; J1644; Q9967

== ENCOUNTER 2024-02-14 14:22 | Inpatient (IN) | payer OTHER ==
[2024-02-14] MEDS ORDERED: ACETAMINOPHEN INJECTION 100 ML ONE (14:40)
[2024-02-14] MEDS ORDERED: FAMOTIDINE 20 MG/50 ML IVPB 20 MG/50 ML MG IVPB ONE (14:40)
[2024-02-14] MEDS ORDERED: MAG HYDROX/AL HYDROX/SIMETH 30 ML UNIT-DOSE CUP ONE (14:40)
[2024-02-14 15:06] LABS: VENOUS BASE EXCESS 0.8 mmol/L (-2-2); VENOUS O2 SATURATION 51.6 % (70-80); VENOUS PCO2 47.5 mmHg (38-52); VENOUS PH 7.366 (7.310-7.410)
[2024-02-14] MEDS: ACETAMINOPHEN 1000 MG/100 ML BAG IVPB ONE (15:06)
[2024-02-14] MEDS: MAG HYDROX/AL HYDROX/SIMETH 30 ML UNIT-DOSE CUP PO ONE (15:06)
[2024-02-14 15:07] LABS: BASO % 0.5 % (0-2.0); EOS % 2.1 % (0-4.5); HEMATOCRIT 35.1 % (32.4-45.2); HEMOGLOBIN 11.5 GM/dL (10.7-15.3); LYMPH % 19.5 % (8-40); MCH 28.4 pg (25.7-33.7); MCHC 32.7 g/dl (32.0-36.0); MEAN CELL VOLUME 86.9 fl (80-96); MEAN PLT VOLUME 8.3 fl (7.5-11.1); MONO % 8.3 % (3.8-10.2); NEUT % 69.6 % (42.8-82.8); PLATELET COUNT 166 10^3/uL (134-434); RBC 4.04 M/mm3 (3.60-5.2); RDW 14.9 % (11.6-15.6); WHITE BLOOD COUNT 7.1 K/mm3 (4.0-10.0)
[2024-02-14 15:13] LABS: INR 1.03 (0.83-1.09); PROTHROMBIN TIME (PATIENT) 11.6 SEC (9.7-13.0)
[2024-02-14] MEDS: ONDANSETRON 4 MG/2 ML VIAL IVPUSH ONE (15:15)
[2024-02-14 15:16] LABS: ACTIVATED PTT 29.2 SECONDS (25.2-36.5)
[2024-02-14] MEDS: FAMOTIDINE 20 MG/50 ML IVPB 20 MG/50 ML MG IVPB ONE (15:21)
[2024-02-14 15:27] LABS: POTASSIUM 3.6 mmol/L (3.5-5.1)
[2024-02-14] MEDS ORDERED: ALBUTEROL SO4 2.5/IPRATROPIUM 0.5 INH SOL 3 ML VIAL.NEB. NEB ONE ×2 (15:27→15:50)
[2024-02-14 15:29] LABS: ALBUMIN 3.7 g/dl (3.4-5.0); BLOOD UREA NITROGEN 13.1 mg/dL (7-18); CALCIUM 9.3 mg/dL (8.5-10.1); MAGNESIUM 1.5 mg/dL (1.8-2.4)
[2024-02-14 15:34] LABS: BILIRUBIN,TOTAL 0.5 mg/dL (0.2-1); TOT PROT 6.9 g/dl (6.4-8.2)
[2024-02-14] MEDS: LACTATED RINGERS SOLUTION 1000 ML INFUS.BAG IV ONE (15:41)
[2024-02-14] MEDS: DEXAMETHASONE SOD PHOSPHATE 10 MG/1 ML VIAL IVPUSH ONE (15:42)
[2024-02-14] MEDS: ALBUTEROL SO4 2.5/IPRATROPIUM 0.5 INH SOL 3 ML VIAL.NEB. NEB ONE (15:42)
[2024-02-14] MEDS: ALBUTEROL SO4 2.5/IPRATROPIUM 0.5 INH SOL 3 ML VIAL.NEB. NEB SCH (15:45)
[2024-02-14] MEDS ORDERED: methylPREDNISolone NA SUCC 125 MG/2 ML VIAL ONE (15:50)
[2024-02-14] MEDS ORDERED: FUROSEMIDE 40 MG/4 ML INJECTABLE VIAL ONE (15:50)
[2024-02-14] MEDS: methylPREDNISolone NA SUCC 125 MG/2 ML VIAL IVPB ONE (16:01)
[2024-02-14] MEDS: FUROSEMIDE 40 MG/4 ML INJECTABLE VIAL IVPUSH ONE (16:03)
[2024-02-14 17:01] LABS: HIV INTERPRETATION NEGATIVE (NEGATIVE)
[2024-02-14] MEDS ORDERED: MAGNESIUM 1GM/D5W - 1 GM/100 ML IVPB IVPB ONE (17:26)
[2024-02-14 18:09] LABS: EPI CELLS 4 /uL (0-25.1); HYALINE CASTS 1 /uL (0-3.1); PH,URINE 5.5 (5.0-8.0); URINE APPEARANCE CLEAR; URINE BACTERIA 3 /uL (0-1359); URINE BILIRUBIN NEGATIVE (NEGATIVE); URINE COLOR YELLOW; URINE GLUCOSE (UA) NEGATIVE (NEGATIVE); URINE KETONE NEGATIVE (NEGATIVE); URINE LEUK ESTERASE TRACE (NEGATIVE); URINE NITRITE NEGATIVE (NEGATIVE); URINE PROTEIN NEGATIVE (NEGATIVE); URINE RBC 2 /uL (0-23.9); URINE UROBILINOGEN 0.2 mg/dL (0.2-1.0); URINE WBC 37 /uL (0-25.8)
[2024-02-14] MEDS: MAGNESIUM 1GM/D5W 100ML - 100 ML IVPB IVPB ONE (18:44)
[2024-02-14 18:48] LABS: URINE CRYSTALS FEW CA OXALATE /hpf
[2024-02-14] MEDS ORDERED: MAGNESIUM SULFATE IN WATER 2 GM/50 ML IVPB IVPB ONE (22:18)
[2024-02-14] MEDS ORDERED: ACETAMINOPHEN 325 MG TABLET (FP) ONE (22:18)
[2024-02-14] MEDS: MAGNESIUM SULF 50% (8.12 MEQ/2 ML-1 GM VIAL) IVPB ONE (22:26)
[2024-02-14] MEDS: ACETAMINOPHEN 325 MG TABLET (FP) PO ONE (22:26)
[2024-02-14] MEDS: BUDESONIDE/FORMETEROL FUMARATE 80/4.5 mcg INHALER IH SCH (22:29)
[2024-02-14] MEDS: TACROLIMUS ANHYDROUS 1 MG CAPSULE PO SCH (22:35)
[2024-02-15] MEDS: methylPREDNISolone NA SUCC 40 MG/1 ML VIAL IVPUSH SCH (02:48)
[2024-02-15] MEDS: LEVALBUTEROL HCL 0.31 MG/3 ML VIAL.NEB IH SCH (08:25)
[2024-02-15 08:29] LABS: HEMATOCRIT 31.6 % (32.4-45.2); HEMOGLOBIN 10.6 GM/dL (10.7-15.3); MCH 28.7 pg (25.7-33.7); MCHC 33.4 g/dl (32.0-36.0); MEAN PLT VOLUME 8.6 fl (7.5-11.1); PLATELET COUNT 134 10^3/uL (134-434); RBC 3.68 M/mm3 (3.60-5.2); RDW 14.9 % (11.6-15.6); WHITE BLOOD COUNT 3.7 K/mm3 (4.0-10.0)
[2024-02-15 08:54] LABS: CALCIUM 9.1 mg/dL (8.5-10.1); MAGNESIUM 1.8 mg/dL (1.8-2.4)
[2024-02-15 08:55] LABS: ALBUMIN 3.2 g/dl (3.4-5.0)
[2024-02-15 08:57] LABS: CREATININE 0.9 mg/dL (0.55-1.3)
[2024-02-15 08:58] LABS: PHOSPHOROUS 3.1 mg/dL (2.5-4.9)
[2024-02-15 08:59] LABS: TOT PROT 6.3 g/dl (6.4-8.2)
[2024-02-15 09:00] LABS: BILIRUBIN,TOTAL 0.4 mg/dL (0.2-1)
[2024-02-15] MEDS: metoPROLOL SUCCINATE 25 MG TAB.SR.24H (FP) PO SCH (10:02)
[2024-02-15] MEDS: NIFEdipine E.R. 30 MG TABLET PO SCH (10:02)
[2024-02-15] MEDS: MULTIVITAMINS (DAILY MVI) TABLET (FP) PO SCH (10:02)
[2024-02-15] MEDS: LIPASE/PROTEASE/AMYLASE 36,000 UNIT CAPSULE PO SCH (10:02)
[2024-02-15] MEDS: FUROSEMIDE 20 MG TABLET (FP) PO SCH (10:02)
[2024-02-15] MEDS: TACROLIMUS ANHYDROUS 1 MG CAPSULE PO SCH (10:02)
[2024-02-15 12:44] VITALS: BMI 31.1
[2024-02-15] MEDS: HEPARIN NA (PORCINE) 5,000 UNITS/ML 1ML VIAL SQ SCH (13:19)
[2024-02-15] MEDS: ACETAMINOPHEN 325 MG TABLET (FP) PO PRN (13:56)
[2024-02-15] MEDS: ALBUTEROL SO4 2.5/IPRATROPIUM 0.5 INH SOL 3 ML VIAL.NEB. NEB SCH (14:59)
[2024-02-16 06:42] VITALS: BP 144/71; PULSE 79; RESP 16; TEMP 98
[2024-02-16 07:09] LABS: HEMATOCRIT 31.6 % (32.4-45.2); HEMOGLOBIN 10.5 GM/dL (10.7-15.3); MCH 28.9 pg (25.7-33.7); MCHC 33.4 g/dl (32.0-36.0); MEAN CELL VOLUME 86.5 fl (80-96); MEAN PLT VOLUME 8.3 fl (7.5-11.1); PLATELET COUNT 138 10^3/uL (134-434); RBC 3.65 M/mm3 (3.60-5.2); RDW 14.8 % (11.6-15.6); WHITE BLOOD COUNT 7.1 K/mm3 (4.0-10.0)
[2024-02-16 07:25] LABS: POTASSIUM 4.1 mmol/L (3.5-5.1)
[2024-02-16 07:31] LABS: ALBUMIN 3.4 g/dl (3.4-5.0); BLOOD UREA NITROGEN 20.4 mg/dL (7-18); CALCIUM 9.8 mg/dL (8.5-10.1)
[2024-02-16 07:34] LABS: CREATININE 0.9 mg/dL (0.55-1.3); PHOSPHOROUS 3.1 mg/dL (2.5-4.9)
[2024-02-16 07:35] LABS: BILIRUBIN,TOTAL 0.3 mg/dL (0.2-1)
[2024-02-16 07:36] LABS: TOT PROT 6.5 g/dl (6.4-8.2)
[2024-02-16 08:42] LABS: ANISOCYTOSIS 0; MACROCYTOSIS 0
[2024-02-16] MEDS ORDERED: traZODone HCL 50 MG TABLET (FP) PO SCH (22:00)
== END 2024-02-16 13:00 | disposition home or self-care (01) | DRG 191 ==
LOC: JER 14:22 → JERBED 17:46 → OBSVTOIN 21:06 → J4S 02-15 01:13
PROVIDERS: ADMIT Internal Medicine; ATTEND Internal Medicine
DX: J44.1 Chronic obstructive pulmonary disease with (acute) exacerbation (principal); I13.0 Hypertensive heart and chronic kidney disease with heart failure and stage 1 through stage 4 chronic kidney disease, or unspecified chronic kidney disease; Z94.0 Kidney transplant status; I50.32 Chronic diastolic (congestive) heart failure; K52.9 Noninfective gastroenteritis and colitis, unspecified; N18.9 Chronic kidney disease, unspecified; I27.20 Pulmonary hypertension, unspecified; K21.9 Gastro-esophageal reflux disease without esophagitis; E78.5 Hyperlipidemia, unspecified; R91.1 Solitary pulmonary nodule; R07.89 Other chest pain; J06.9 Acute upper respiratory infection, unspecified; I25.10 Atherosclerotic heart disease of native coronary artery without angina pectoris; Z99.81 Dependence on supplemental oxygen; Z85.038 Personal history of other malignant neoplasm of large intestine; Z88.0 Allergy status to penicillin; Z95.5 Presence of coronary angioplasty implant and graft
CPT/HCPCS: 0241U-QW; 36415; 71045-TC-FY; 74176-TC; 80053; 80061; 81003; 82550; 82803; 83036; 83735; 83880; 84100; 84484; 85025; 85027; 85379; 85610; 85730; 86803; 87086; 87389; 87633; 93005; 93010; 93970-TC; 94640; 99285-25; G0378; J0131; J1644